=== PATIENT | male | born 1940 | race Caucasian/White ===

== ENCOUNTER 2020-07-03 00:23 | Outpatient (CLI) | payer MEDICARE, OTHER, SELFPAY ==
[2020-07-03 18:29] LABS: SARS-CoV-2 RNA PCR Negative
== END 2020-07-03 00:24 | disposition home or self-care (01) ==
LOC: ANHCOVIDDT 00:23
PROVIDERS: PCP Family Medicine; Visit Provider Internal Medicine Gastroenterology
DX: Z01.812 Encounter for preprocedural laboratory examination (principal); Z20.828 Contact with and (suspected) exposure to other viral communicable diseases
CPT/HCPCS: 87635; C9803; U0003

== ENCOUNTER 2020-07-05 03:52 | Day surgery (SDC) | payer MEDICARE, OTHER, SELFPAY ==
[2020-07-01 12:22] VITALS: BMI 24.5
[2020-07-05 07:51] VITALS: BP 142/60; PULSE 80; RESP 30; TEMP 36.4; O2SAT 98; BMI 22.8
[2020-07-05] MEDS: LACTATED RINGERS 1,000 ML 150 ML IV CONT (08:16)
--- NOTE | 2020-07-05 08:25 | WPDGICN ---
Assessment and Plan Assessment and plan (1) Dyspepsia: Code(s): R10.13 - Epigastric pain Status: Acute Assessment and Plan: Patient complains of indigestion. Epigastric discomfort. He has been maintained on proton pump inhibitor with no improvement symptoms. plan is to continue PPI at antacids. Plan to evaluate further with EGD. Further recommendations may be given after endoscopy. (2) Weight loss: Code(s): R63.4 - Abnormal weight loss Status: Acute Assessment and Plan: Weight loss appears related to his indigestion and subsequent decrease in appetite. Will continue to monitor closely. GI Consult Note Consult date/time: 07/05/20 08:25 HPI: Eloy Duncan is a 79 year old male Seen in evaluation at the request of Dr Joesph Coleman. patient reports 1 month history of indigestion. He has lost perhaps 15 lb. He has no desire to eat. He does have a history of acid reflux has been treated with Nexium. He has continued to take this medication with no specific change in symptoms. He denies any bleeding. Review of Systems Review of Systems: All systems reviewed & are unremarkable except as noted in HPI and below PMFSH Past Medical History Medical History (Updated 07/05/20 @ 08:28 by Leroy Carvalho MD) History of tobacco abuse Quit 2017. Smoked for 50 years. Obstructive sleep apnea Oxygen deficiency Surgical History Surgical History (Updated 12/12/19 @ 10:50 by Crow Cyr PROOFSHEET CORRECTOR) H/O left knee surgery History of prostate surgery Family History Family History (Updated 12/11/19 @ 11:44 by Crow Cyr CMA) Sibling Family history of malignant neoplasm Father Atherosclerosis Social History Social History (Updated 12/12/19 @ 10:48 by Crow Cyr PROOFSHEET CORRECTOR) Smoking packs per day: 0.5 Smoking cigarettes per day: 10.0 Years smoked: 60 Smoking pack-years: 30.00 Smoking status: Former smoker Tobacco type: cigarettes Second hand tobacco smoke exposure: No Smoking end date: 10/18/16 Alcohol intake: current Substance use: never Substance use type: does not use Living arrangements: alone Spiritual care concerns: No Meds Home Medications and Allergies Home Medications Medication Instructions Recorded Confirmed Type alendronate 70 mg tablet 70 mg PO WEEKLY 12/11/19 07/01/20 History aspirin 81 mg tablet,delayed 81 mg PO BID 12/11/19 07/01/20 History release cholecalciferol (vitamin D3) 25 1,000 unit PO DAILY 12/11/19 07/01/20 History mcg (1,000 unit) capsule coenzyme Q10 200 mg capsule 200 mg PO DAILY 12/11/19 07/01/20 History levothyroxine 75 mcg tablet 75 mcg PO DAILY 12/11/19 07/01/20 History mecobalamin (vitamin B12) 1,000 mcg PO 12/11/19 02/14/20 History mcg chewable tablet oxybutynin chloride 10 mg 10 mg PO DAILY 12/11/19 07/01/20 History tablet,extended release 24 hr esomeprazole magnesium 40 mg 40 mg PO DAILY 12/12/19 07/01/20 History capsule,delayed release fluticasone fur. 100 mcg-umeclid 1 inhalation INHALATION DAILY #180 02/14/20 07/01/20 Rx 62.5 mcg-vilant 25 mcg each inhalat.powder guaifenesin [Mucinex] 600 mg PO Q12H 07/01/20 07/01/20 History Allergies Allergy/AdvReac Type Severity Reaction Status Date / Time No Known Allergies Allergy Verified 07/05/20 07:50 Vital Signs Vital Signs - 24 hr 07/05/20 07:51 Temperature 97.6 F Pulse Rate 80 Respiratory Rate 30 H Blood Pressure 142/60 H Pulse Oximetry 98 Exam Narrative: Exam Narrative: Physical exam reveals patient to be alert. Vital signs stable. HEENT exam unremarkable. He is anicteric. Lungs are clear to auscultation and percussion. Heart is without murmur or extra sounds. Abdominal exam bowel sounds are present soft nontender with no organomegaly. No masses are listed. Digital external rectal exam normal.
--- NOTE | 2020-07-05 08:42 | WPDANESEPPF ---
Anes - Initial Pre Proc Eval Procedure: Operation Date: 07/05/20 09:00 Proposed Procedures p Esophagogastroduodenoscopy - Lreoy Carvalho MD Date/Time: 07/05/20 08:42 Surgeon: Leroy Carvalho MD Pre Op Diagnosis: Dyspepsia, Weight Loss Patient Data Age: 79 Gender: M Height: 5 ft 11 in Weight: 74.1 kg Last Vital Signs Temp 97.6 F 07/05/20 07:51 Pulse 80 07/05/20 07:51 Resp 30 H 07/05/20 07:51 BP 142/60 H 07/05/20 07:51 Pulse Ox 98 07/05/20 07:51 Allergies Allergy/AdvReac Type Severity Reaction Status Date / Time No Known Allergies Allergy Verified 07/05/20 07:50 Home Medications Medication Instructions Recorded Confirmed Type alendronate 70 mg tablet 70 mg PO WEEKLY 12/11/19 07/01/20 History aspirin 81 mg tablet,delayed 81 mg PO BID 12/11/19 07/01/20 History release cholecalciferol (vitamin D3) 25 1,000 unit PO DAILY 12/11/19 07/01/20 History mcg (1,000 unit) capsule coenzyme Q10 200 mg capsule 200 mg PO DAILY 12/11/19 07/01/20 History levothyroxine 75 mcg tablet 75 mcg PO DAILY 12/11/19 07/01/20 History mecobalamin (vitamin B12) 1,000 mcg PO 12/11/19 02/14/20 History mcg chewable tablet oxybutynin chloride 10 mg 10 mg PO DAILY 12/11/19 07/01/20 History tablet,extended release 24 hr esomeprazole magnesium 40 mg 40 mg PO DAILY 12/12/19 07/01/20 History capsule,delayed release fluticasone fur. 100 mcg-umeclid 1 inhalation INHALATION DAILY #180 02/14/20 07/01/20 Rx 62.5 mcg-vilant 25 mcg each inhalat.powder guaifenesin [Mucinex] 600 mg PO Q12H 07/01/20 07/01/20 History Patient hx anesthesia problems: none Family hx anesthesia problems: none PMFSH Past Medical History Medical History (Updated 07/05/20 @ 08:28 by Leroy Carvalho MD) History of tobacco abuse Quit 2016. Smoked for 50 years. Obstructive sleep apnea Oxygen deficiency Surgical History Surgical History (Updated 12/12/19 @ 10:50 by Crow Cyr CMA) H/O left knee surgery History of prostate surgery Family History Family History (Updated 12/11/19 @ 11:44 by Crow Cyr CMA) Sibling Family history of malignant neoplasm Father Atherosclerosis Social History Social History (Updated 12/12/19 @ 10:48 by Crow Cyr CMA) Smoking packs per day: 0.5 Smoking cigarettes per day: 10.0 Years smoked: 60 Smoking pack-years: 30.00 Smoking status: Former smoker Tobacco type: cigarettes Second hand tobacco smoke exposure: No Smoking end date: 10/18/16 Alcohol intake: current Substance use: never Substance use type: does not use Living arrangements: alone Spiritual care concerns: No Anes - Eval Final PreProcedure Day of Procedure 07/05/20 08:42 Patient weight: normal Heart: regular rate and rhythm Lungs: clear to auscultation Airway: Mallampati scale class II Neurological: alert and oriented Last oral intake: >/= 8 hours ASA classification: III Emergent: no Anesthetic plan: proceed Anesthesia type and monitoring: general GIVS and standard monitoring Informed Consent: The patient's anesthetic plan and its attendant risks and benefits were discussed with the patient/family/POA. Questions were solicited and answers provided to the satisfaction of the patient/family/POA.
[2020-07-05] MEDS: BENZOCAINE (*SP) 60 ML SPRAY CAN (HURRICAINE) 1 SPRAY MUCOUS MEM (09:02)
[2020-07-05 09:19] VITALS: BP 82/36; PULSE 61; RESP 16; O2SAT 100
[2020-07-05 09:29] VITALS: BP 106/73; PULSE 73; RESP 22; O2SAT 97
[2020-07-05 09:39] VITALS: BP 144/69; PULSE 71; RESP 24; O2SAT 98
== END 2020-07-05 10:06 | disposition home or self-care (01) ==
PROVIDERS: PCP Family Medicine; Visit Provider Internal Medicine Gastroenterology
PROC: 0DJ08ZZ Inspection of Upper Intestinal Tract, Via Natural or Artificial Opening Endoscopic (ICD-10-PCS; CPT 43235; principal; 2020-07-05 09:00)
DX: R10.13 Epigastric pain (principal); R63.4 Abnormal weight loss; K21.0 Gastro-esophageal reflux disease with esophagitis; K31.819 Angiodysplasia of stomach and duodenum without bleeding; G47.33 Obstructive sleep apnea (adult) (pediatric); Z87.891 Personal history of nicotine dependence; Z79.82 Long term (current) use of aspirin
CPT/HCPCS: 43270; J2370; J2704; J7120

== ENCOUNTER 2020-07-23 02:53 | Outpatient (CLI) | payer MEDICARE, OTHER, SELFPAY ==
[2020-07-23 18:16] LABS: SARS-CoV-2 RNA PCR Negative
== END 2020-07-23 02:54 | disposition home or self-care (01) ==
LOC: ANHCOVIDDT 02:54
PROVIDERS: PCP Family Medicine; Visit Provider Internal Medicine Critical Care Medicine
DX: Z01.812 Encounter for preprocedural laboratory examination (principal); Z20.828 Contact with and (suspected) exposure to other viral communicable diseases
CPT/HCPCS: 87635; C9803; U0003

== ENCOUNTER 2020-07-26 08:05 | Outpatient (CLI) | payer MEDICARE, OTHER, SELFPAY ==
--- NOTE | 2020-08-22 06:11 | SLEEP_ITS ---
BIPAP TITRATION DATE OF STUDY: 07/25/2020 ORDERING PROVIDER: Marcelino Thomas APRN. REASON FOR THE STUDY: Obstructive sleep apnea syndrome, not responding to auto PAP, needs a retitration. HISTORY: This patient is an 79-year-old male, 71 inches tall, 166 pounds with a body mass index of 23.1. On 06/15/2019, he had a CPAP titration after a home sleep test on April 27 showed mild sleep apnea with desaturation. The CPAP titration showed no optimal pressure. He had a high elevated limb movement index with a prolonged sleep onset. Returns now for a BiPAP titration. His sleep symptoms include rarely awakening from sleep feeling short of breath, occasionally waking at night with heartburn, belching, or coughing, but frequently waking at night to urinate. He rarely has trouble sleeping with the cold. He denies snoring. He does not wake up gasping for breath at night, does not have breathing problems at night observed by others, does not sweat excessively at night or notice his heart pounding or beating irregularly at night. He occasionally falls asleep during the day never involuntarily or while driving. He does not fall asleep during physical effort. He does not have loss of muscle tone with strong emotion. He does not have daytime difficulties due to excessive sleepiness, he is retired. He does not feel paralyzed on waking or falling asleep and does not have vivid dreamlike scenes upon awakening or falling asleep. He is never afraid to go to sleep. He does not have nightmares. He rarely remembers his dreams and rarely has racing thoughts. He does not feel sad or depressed. He occasionally worries about things, has anxiety. Rarely has muscular tension. He does not notice parts of his body jerking and he does not kick at night. He occasionally has crawly achy feelings in his legs and occasionally has leg pain at night. He does not have morning jaw pain. He does not grind his teeth at night. He rarely is bothered by pain during the day. He occasionally wakes up with sore achy muscles in the morning and feeling stiff. He has dizziness, fatigue, memory problems, insomnia, and takes Tums. He does take naps. A short nap can be refreshing. He is drowsy in the morning for an hour or longer. 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 MEDICATIONS: 1. Mucinex 600 mg once or twice a day. 2. Alendronate 70 mg 1 tablet per week. 3. Cholecalciferol 1000 units. 4. Vitamin D3 once a day. 5. Coenzyme Q 100 mg daily. 6. Vitamin B12 of 1000 mcg daily. 7. Oxybutynin XL 10 mg daily. 8. Esomeprazole 40 mg a day. 9. PreserVision AREDS 1 daily. 10. Levothyroxine replacement 75 mcg daily. 11. Trelegy Ellipta 100/62.5/25 mcg, 1 puff daily. 12. Aspirin 81 mg 2 daily. HABITS: Previously smoked 24 years ago. Caffeine, he drinks ice tea daily. Alcohol, 1 or 2 per day. DESCRIPTION OF THE STUDY: This study was conducted as a full night BiPAP titration using the [employer] Multiple Channel System including EOG, EEG, submental EMG, EKG, nasal and oral airflow using thermistors and nasal pressure sensors, chest and abdominal belts, body position data and pulse oximetry. This study was scored using [facility] guidelines. The neck circumference is 16 inches. The Pierson Sleepiness Scale score is 3. The duration of the study is 491.7 minutes. Sleep time is 228 minutes. Sleep efficiency was low at 46.4%. Sleep latency was short at 5 minutes. REM latency was prolonged at 380 minutes. There were 29 awakenings. The patient spent 53.2% of the study awake after sleep onset, 258.8 minutes. Sleep archi
== END 2020-07-26 23:59 | disposition home or self-care (01) ==
LOC: ANHCSM 08-08 08:05
PROVIDERS: Visit Provider Nurse Practitioner Family
DX: G47.33 Obstructive sleep apnea (adult) (pediatric) (principal)
CPT/HCPCS: 95811

== ENCOUNTER → 2020-08-05 11:27 | Outpatient (CLI) | payer MEDICARE, OTHER, SELFPAY ==
--- NOTE | ~2020-08-05 | CT_ITS ---
EXAMINATION: CT sinus wo con DATE: 08/05/2020 11:43 INDICATION: Sinusitis. TECHNIQUE: Computed tomography (CT) of the paranasal sinuses was performed without intravenous contra st. The dose-length product was 271.16 mGy-cm. Iterative reconstruction technique was employed. COMPARISON: CT dated 07/15/2018 FINDINGS: Paranasal sinuses are pneumatized. No significant mucosal thickening, mucoperiosteal reacti on or fluid. Ostiomeatal units are patent. Leftward nasal septal deviation. Mastoids are pneumatized. IMPRESSION: 1. No significant sinus disease. Reviewed, dictated and finalized at location B.
== END ==
PROVIDERS: Visit Provider Family Medicine
DX: J01.90 Acute sinusitis, unspecified (principal)
CPT/HCPCS: 70486

== ENCOUNTER → 2020-10-29 10:19 | Outpatient (CLI) | payer MEDICARE, OTHER, SELFPAY ==
--- NOTE | ~2020-10-29 | DEXA_ITS ---
Bone Density Report Name: Eloy Duncan Age: 79 Sex: Male Ethnicity: White Date of : 1940 Indication: osteopenia; monitoring treatment; postmenopausal Referring Provider: Joesph Rosas Study: Bone densitometry was performed. Exam Date: October 29, 2020 Accession number: [id number] Bone Density: Region BMD T-score Z-score Classification AP Spine (L1-L4) 1.122 0.3 1.5 Normal Femoral Neck (Left) 0.695 -1.7 -0.2 Osteopenia Total Hip (Left) 0.888 -1.0 0.1 Normal Femoral Neck (Right) 0.696 -1.7 -0.2 Osteopenia Total Hip (Right) 0.910 -0.8 0.3 Normal Total Hip Mean 0.899 -0.9 0.2 Normal World Health Organization criteria for BMD impression classify patients as: Normal (T-score at or above -1.0), Osteopenia (T-score between -1.0 and -2.5), or Osteoporosis (T-score at or below -2.5). 10-year Fracture Risk: FRAX not reported because: Treated for osteoporosis Previous Exams: Region Exam Age BMD T-score BMD Change BMD Change Date g/cm2 vs Baseline vs Previous AP Spine(L1-L4) 10/29/2020 79 1.122 0.3 0.137* 0.137* 08/26/2012 71 0.984 -1.0 Total Hip(Left) 10/29/2020 79 0.888 -1.0 0.022 0.022 08/26/2012 71 0.866 -1.1 Total Hip(Right) 10/29/2020 79 0.910 -0.8 0.044* 0.044* 08/26/2012 71 0.866 -1.1 *Denotes significance at 95% confidence level, LSC for AP Spine = 0.022 g/cm2, LSC for Total Hip = 0.027 g/cm2 Clinical Information Provided by Patient: Has 3 or more alcoholic drinks per day Is being treated for osteoporosis Has used the following medications: Fosamax (i.e. alendronate), Vitamin D Patient maximum height was 71 No regular weight bearing exercise Drinks caffeinated beverages Impression: The patient has low bone mass, based on the Left Femoral Neck T-score. The patient has risk factors, including: excessive alcohol use. No significant bone loss was observed. Discussion: PATIENT UNDER TREATMENT WITH NO SIGNIFICANT BMD LOSS SINCE LAST EXAM. In an untreated patient, BMD typically declines with age. A lack of decline or gain is usually a sign that treatment is efficacious and fracture risk is reduced. It is important to ask patients whether they are taking their medications and to encourage continued and appropriate compliance with their osteoporosis therapies to reduce fracture risk. It is also important to review their risk factors and encourage appropriate calc
== END ==
PROVIDERS: PCP Internal Medicine; Visit Provider Family Medicine
DX: M85.851 Other specified disorders of bone density and structure, right thigh (principal); M85.852 Other specified disorders of bone density and structure, left thigh
CPT/HCPCS: 77080

== ENCOUNTER 2020-11-07 15:14 | Inpatient (IN) | payer MEDICARE, OTHER, SELFPAY ==
[2020-11-07] VITALS (10 sets, daily range): BP systolic 91–129; BP diastolic 44–100; PULSE 64–98; RESP 16–30; TEMP 36.3–36.4; O2SAT 90–100
--- NOTE | ~2020-11-07 | XR_ITS ---
EXAMINATION: XR chest 2V DATE: 11/07/2020 16:00 INDICATION: Shortness of breath. Tachypnea. TECHNIQUE: frontal and lateral views of the chest were obtained. COMPARISON: Chest radiograph cervical spine CT dated 07/15/2018 FINDINGS: Increased lucency and architectural distortion in the bilateral upper lung zones consistent with jenaro re emphysema better appreciated on the prior CT. Increased interstitial pattern at the bilateral lowe r lung zones with peripheral Ana Maria B-lines posteriorly most consistent with mild pulmonary edema. Mo re focal region of thin linear opacities at the lateral right midlung zone most likely related to ate lectasis/scarring. No pleural effusion or pneumothorax. Cardiomediastinal silhouette is within normal limits for AP technique. Age-indeterminate lower thoracic compression fracture, possibly T12. IMPRESSION: 1. Increased interstitial pattern and curly B lines in the bilateral lower lung zones most consistent with mild pulmonary edema although superimposed pneumonia not excludable. 2. Emphysema. Reviewed, dictated and finalized at location A. OR PRODUCT DEVELOPMENT ENGINEER IMPRESSION: 1. Increased interstitial pattern and curly B lines in the bilateral lower lung zones most consistent with mild pulmonary edema although superimposed pneumoni a not excludable. 2. Emphysema.
--- NOTE | ~2020-11-07 | XR_ITS ---
EXAMINATION: XR chest 1V portable EXAM DATE: 11/12/2020 06:24 INDICATION: COVID. TECHNIQUE: Portable AP frontal chest x-ray was obtained. Comparison is made to prior examination from 11/07/2020. FINDINGS: Cardiac monitoring device. Development of moderate to large bilateral abnormal reticulation with regions of confluence, which could be infection or edema. There is no pneumothorax suspected. T here are no pleural effusions. Cardiomediastinal silhouette is normal. Cardiac monitoring device. The re are bony degenerative changes. IMPRESSION: Developing of moderate to large amount of bilateral acute airspace disease. Reviewed, dictated and finalized at location A. OVEN PATCHER
--- NOTE | ~2020-11-07 | CT_ITS ---
EXAMINATION: CT brain wo con DATE: 11/11/2020 17:17 INDICATION: Change in mental status TECHNIQUE: Computed tomography (CT) of the head was performed without intravenous contrast. The mA wa s adjusted according to patient size. Iterative reconstruction technique was employed. Exam dose: 68 1.00 mGy-cm total exam DLP. COMPARISON: 07/15/2018 CT brain FINDINGS: Chronic posterior left greater than right cerebellar hemispheric infarcts. There is a small focal infarct high over the right parietal convexity. Common and bilateral carotid siphon and supraclinoid internal carotid artery calcifications. There is nonspecific diminished attenuation of the subcortical and periventricular cerebral white mat ter, likely due to chronic small vessel ischemic changes. No intracranial mass lesion or hemorrhage or recent cerebrovascular accident is evident. There is no midline shift or mass effect. There is cerebellar and cerebral volume loss. No subdural or epidural h ematoma. Right scleral band Incidentally noted is a nasogastric tube. No fracture or bone destruction of the cranial vault. The mastoid air cells and paranasal sinuses are unremarkable. 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 Reviewed, dictated and finalized at location A. RANCE REPRESENTATIVE IMPRESSION: Chronic small right parietal convexity infarct and probable bilate ral cerebellar hemispheric infarcts Cerebral atherosclerosis and chronic small vessel ischemic changes Cerebral and cerebellar atrophy No acute intracranial finding is noted
--- NOTE | ~2020-11-07 | XR_ITS ---
XR abdomen NG/feed tube insert DATE: 11/11/2020 17:54 INDICATION: NG tube placement TECHNIQUE: Portable AP views on 11/11/2020 at 1737 1738 hours COMPARISON: 11/11/2020 at 1711 hours FINDINGS: NG tube is in the lower thorax approximately 5 cm proximal to the diaphragmatic hiatus. IMPRESSION: NG tube in the lower chest in the lower esophagus (or possibly hiatal hernia if present); advancement is recommended. Reviewed, dictated and finalized at Location A. Reviewed, dictated and finalized at location A. TICE MANAGEMENT CONSULTANT IMPRESSION: NG tube in the lower chest in the lower esophagus (or possibly hiat al hernia if present); advancement is recommended.
--- NOTE | ~2020-11-07 | CT_ITS ---
EXAMINATION: CTA chest PE protocol DATE: 11/07/2020 18:30 INDICATION: Shortness of breath and hypoxia TECHNIQUE: Computed tomography angiography (CTA) of the chest was performed with 100 mL Omnipaque-350 intravenous contrast timed to evaluate the pulmonary arteries. Coronal maximum intensity projection 3D-reconstructions were created by the technologist. The dose-length product (DLP) was 781.19 mGy-cm. Automated exposure control and iterative reconstruction technique were employed. COMPARISON: None. FINDINGS: The pulmonary arteries are moderately well-opacified. No pulmonary embolism is identified. There is a 1.7 x 1.3 cm spiculated nodule of the right lower lobe. There is right hilar, subcarinal, right paratracheal, and aorticopulmonary window lymphadenopathy. There is severe emphysema. Reticular and groundglass opacities with honeycombing are present in the lower lobes, left significantly great er than right. There is no pleural effusion or pneumothorax. The heart size is normal. Calcified moreno nary artery atherosclerosis is noted. There is an age-indeterminate compression fracture of T12. Arlen re thoracic spondylosis is noted at T6-7. There is also severe lower cervical spondylosis. IMPRESSION: 1. Spiculated nodule of the right lower lobe consistent with primary bronchogenic carcinoma. 2. Right hilar and mediastinal lymphadenopathy, consistent with metastatic disease. 3. Severe emphysema. 4. Chronic interstitial lung disease in a pattern of usual interstitial pneumonia. 5. No pulmonary embolism identified. Reviewed, dictated and finalized at location A. [facility] IMPRESSION: 1. Spiculated nodule of the right lower lobe consistent with primary bronchogen ic carcinoma. 2. Right hilar and mediastinal lymphadenopathy, consistent with metastatic dise ase. 3. Severe emphysema. 4. Chronic interstitial lung disease in a pattern of usual interstitial pneumon ia. 5. No pulmonary embolism identified.
--- NOTE | ~2020-11-07 | XR_ITS ---
XR chest 1V portable DATE: 11/19/2020 05:44 INDICATION: Covid pneumonia TECHNIQUE: Portable AP chest on November 19, 2020 at 0537 hours COMPARISON: 11/12/2020 portable AP chest at 0609 hours 11/07/[address] pulmonary scan 07/15/2018 AP chest FINDINGS: Spiculated approximately 1.7 cm mass is again noted in the right lower lobe. Emphysematous changes of usual interstitial pneumonia are noted. There is a biconvex approximately 12 x 25 mm opacity overlying the right midlung, which may be artifa ct or possibly fluid in a fissure (pseudotumor). Increased prominence of the interstitium and increased prominence of Ana Maria B-lines of the lungs sinc e 11/07/2020 may represent interstitial edema or interstitial pneumonitis. Heart size appears within normal range. Aortic calcification. youth nutritional monitor device overlies the low er left chest. Diffuse osteopenia. Bilateral rotator cuff atrophy. Degenerative change at the acromioclavicular join ts. IMPRESSION: Probable pulmonary interstitial edema superimposed upon severe emphysema and usual inters titial pneumonia Reviewed, dictated and finalized at location A. ATIONAL PSYCHOLOGY TEACHER IMPRESSION: Probable pulmonary interstitial edema superimposed upon severe emph ysema and usual interstitial pneumonia
--- NOTE | ~2020-11-07 | XR_ITS ---
XR abdomen NG/feed tube rechec DATE: 11/11/2020 18:50 INDICATION: NG tube adjustment TECHNIQUE: Portable supine AP view on 11/11/2020 at 1848 hours COMPARISON: Serial 11/11/2020 portable AP views FINDINGS: The NG tube extending proximally 8 cm beyond the diaphragmatic hiatus into the proximal sto mach. IMPRESSION: NG tube in proximal stomach Reviewed, dictated and finalized at Location A. Reviewed, dictated and finalized at location A. IS INTERVENTION SPECIALIST IMPRESSION: NG tube in proximal stomach
--- NOTE | ~2020-11-07 | XR_ITS ---
XR abdomen NG/feed tube insert DATE: 11/11/2020 17:17 INDICATION: NG tube placement TECHNIQUE: Portable AP view on 11/11/2020 at 1716 hours COMPARISON: None FINDINGS: An NG tube is present in the right lower lobe. Dr. Leslie telephoned the report to 3rd floor Med/Surg Nurse IMPRESSION: NG tube in right lower lobe; this needs to be withdrawn and re-inserted into the esophagu s and stomach Reviewed, dictated and finalized at Location A. Reviewed, dictated and finalized at location A. HANDISING INTERN IMPRESSION: NG tube in right lower lobe; this needs to be withdrawn and re-inse rted into the esophagus and stomach
--- NOTE | ~2020-11-07 | XR_ITS ---
XR abdomen NG/feed tube rechec DATE: 11/11/2020 17:54 INDICATION: NG tube readjustment TECHNIQUE: Portable AP view on 11/11/2020 at 1747 hours COMPARISON: None FINDINGS: NG tube overlies the very lower mid chest several centimeters proximal to the diaphragmatic hiatus. Advancement is recommended. IMPRESSION: NG tube overlying the lower mid chest; advancement is recommended Dr. Leslie notified the nursing unit on 11/11/2020 at 1820 hours Reviewed, dictated and finalized at Location A. Reviewed, dictated and finalized at location A. N MAKER HAND
--- NOTE | ~2020-11-07 | US_ITS ---
EXAMINATION: US venous doppler [facility] EXAM DATE: 11/08/2020 11:19 INDICATION: cancer, elevated d-dimer. TECHNIQUE: Multiple grayscale, color flow and Doppler images of the lower extremity deep venous syste ms bilaterally were obtained and reviewed. There is no prior study for comparison. FINDINGS: Right side: The right common femoral, femoral and profunda veins demonstrate normal color flow, respi ratory variation, augmentation and compressibility. Compressibility, color flow confirmed within the right popliteal, posterior tibial, peroneal, and greater saphenous veins. Left side: The left common femoral, femoral and profunda veins demonstrate normal color flow, respira tory variation, augmentation and compressibility. Compressibility, color flow confirmed within the l eft popliteal, posterior tibial, peroneal, and greater saphenous veins. IMPRESSION: 1. No lower extremity deep venous thrombosis bilaterally. Reviewed, dictated and finalized at location A. GER PROCUREMENT
--- NOTE | 2020-11-07 15:22 | ECG_ITS ---
Measurements Intervals [place] Rate: 94 P: 63 DC: 178 QRS: 58 QRSD: 106 T: 61 QT: 364 QTc: 457 Interpretive Statements SINUS RHYTHM BASELINE ARTIFACT- I, II, III, AVR, AVL, AVF NORMAL ECG Electronically Signed On 11-07-2020 15:56:28 SERVICE DOG TRAINER by Tien Culp D.O.
[2020-11-07 15:36] LABS: Basophils Percent Auto 0.2 % (0.2-1.2); Eosinophils Percent Auto 0.2 % (0-4.4); Hematocrit 39.4 % (42.0-52.0); Hemoglobin 13.3 g/dL (14.0-18.0); Immature Granulocyte Absolute 0.03 K/mm3 (0.00-0.031); Immature Granulocyte Percent A 0.5 % (0-0.5); Lymphocytes Absolute Auto 0.75 K/mm3 (0.9-3.2); Lymphocytes Percent Auto 13.7 % (18.3-44.2); Mean Corpuscular HGB Conc 33.8 g/dl (32-36); Mean Corpuscular Hemoglobin 32.1 pg (26-34); Mean Corpuscular Volume 95.2 fl (80-100); Mean Platelet Volume 9.1 fl (7.4-10.4); Monocytes Absolute Auto 0.4 K/mm3 (0.1-0.6); Monocytes Percent Auto 7.3 % (2.6-8.5); Neutrophils Absolute Auto 4.3 K/mm3 (1.3-6.7); Neutrophils Percent Auto 78.1 % (45.5-73.1); Platelet Count Result 179 k/mm3 (150-375); Red Blood Count 4.14 M/mm3 (4.6-6.20); Red Cell Distribution Width 14.7 % (11.5-14.5); White Blood Count 5.5 K/mm3 (4.5-10.0)
[2020-11-07 15:48] LABS: Anion Gap 9 mmol/L (8-16); Blood Urea Nitrogen 35 mg/dL (9-20); Calcium 8.1 mg/dL (8.4-10.2); Carbon Dioxide 21 mmol/L (22-30); Chloride 94 mmol/L (98-107); Estimated CRCL calculation 47 ml/min; Estimated Glomerular Filt Rate 58; Glucose 136 mg/dL (75-110); Potassium 3.8 mmol/L (3.4-5.0); Sodium 124 mmol/L (137-145)
[2020-11-07 15:51] LABS: Lactic Acid Reflex 4.5 mmol/L (0.7-2.1)
[2020-11-07 16:30] LABS: Alveolar/Arterial O2 Gradient 102.2 mmHg; Base Excess ABG -5.3 mEq/l (+/-2.0); Carboxyhemoglobin 0.3 % THb (0-2.0); Fractional Inspired Oxygen 28 %; HCO3 ABG 16.5 mEq/l (22.0-26.0); Methemoglobin ABG 0.3 %THb (0-1.5); Oxygen Content ABG 18.2 %vol (16.0-22.0); Oxygen Saturation ABG 95.3 % (95.0-100.0); Oxyhemoglobin 93.6 % THb (90.0-100.0); PO2 ABG 69.8 mmHg (80.0-100.0); PO2 FiO2 Ratio Arterial Blood 2.49 %; Reduced Hemoglobin 5.8 %THb (0-5.0); Total Hemoglobin 13.8 g/dL (12.0-18.0); pH ABG 7.465 (7.350-7.450)
[2020-11-07 16:33] LABS: Device NASAL CANNULA; PCO2 ABG 23.4 mmHg (35.0-45.0); Site Drawn RIGHT BRACHIAL
[2020-11-07] MEDS: SODIUM CHLORIDE 0.9% IV 1,000 ML 999 ML IV CONT ×2 (16:52→20:46)
--- NOTE | 2020-11-07 16:58 | ED.SOB ---
HPI - SOB/Dyspnea General Chief Complaint: Shortness of Breath/Dyspnea Stated Complaint: SOB Time Seen by Provider: 11/07/20 16:06 Source: patient Mode of arrival: ambulatory Limitations: other (poor historian) History of Present Illness HPI Narrative: This patient is an 79 year old male with history of hypothyroid and COPD who presents from home for evaluation of dehydration. He states he has not felt like eat or drinking for the past week. He states he has been forcing himself to drink water . He states he developed lightheadedness. He denies sore throat, fever, chills, cough, chest pain, diarrhea or abdominal pain. He was noticed to be tachypneic with oxygen saturation 90% at triage. He reports that he has felt short of breath today. Related Data Home Medications Medication Instructions Recorded Confirmed aspirin 81 mg tablet,delayed 81 mg PO BID 12/11/19 11/08/20 release cholecalciferol (vitamin D3) 25 1,000 unit PO DAILY 12/11/19 11/08/20 mcg (1,000 unit) capsule coenzyme Q10 200 mg capsule 200 mg PO DAILY 12/11/19 11/08/20 levothyroxine 75 mcg tablet 75 mcg PO DAILY 12/11/19 11/08/20 mecobalamin (vitamin B12) 1,000 1,000 mcg PO DAILY 12/11/19 11/08/20 mcg chewable tablet esomeprazole magnesium 40 mg 40 mg PO DAILY 12/12/19 11/08/20 capsule,delayed release guaifenesin [Mucinex] 600 mg PO Q12H 07/01/20 11/08/20 vit A,C,[id number] 1 tablet PO BID 11/08/20 11/08/20 [Eye-Maximilian Extra + Lutein] Allergies Allergy/AdvReac Type Severity Reaction Status Date / Time No Known Allergies Allergy Verified 10/23/20 11:17 Review of Systems Review of Systems: All systems reviewed & are unremarkable except as noted in HPI and below Constitutional: Constitutional: Denies chills and Reports fatigue Cardiovascular: Cardiovascular: Denies chest pain Respiratory: Respiratory: Denies cough and Reports dyspnea Gastrointestinal: Gastrointestinal: Denies abdominal pain, Reports nausea and Denies vomiting PMFSH Past Medical History Medical History History of tobacco abuse Quit 2017. Smoked for 50 years. Obstructive sleep apnea Oxygen deficiency Surgical History Surgical History H/O left knee surgery History of prostate surgery Family History Family History Sibling Family history of malignant neoplasm Father Atherosclerosis Social History Social History (Reviewed 10/23/20 @ 11:18 by Sada Durant [facility]) Smoking packs per day: 1 Smoking cigarettes per day: 20.0 Years smoked: 60 Smoking pack-years: 60.00 Smoking status: Former smoker Tobacco type: cigarettes Second hand tobacco smoke exposure: No Smoking end date: 10/18/16 Alcohol intake: current Substance use: never Substance use type: does not use Gender identity (if verbalized by the patient): Male Spiritual care concerns: No Exam Const: General: alert and ill appearing Nutritional Appearance: thin Orientation/consciousness: patient oriented x3 HENMT: Face and sinus: face symmetric Mouth: Yes dry mucous membranes Throat: tonsils normal and uvula midline Eyes: EOM: EOMs intact bilaterally Resp: Effort & Inspection: labored, no retractions, tachypneic and no use of accessory muscles Auscultation: clear to auscultation bilaterally GI: GI Palp: Yes Soft to palpation, No Tenderness to palpation present (GI) and No Guarding due to palpation present (GI) Auscultation: normal bowel sounds Skin: Rashes: no rashes Neuro: General: patient oriented x3 and moves all extremities Extrem: General: no pedal edema Course Reevaluation(s) Reevaluation #1: I discussed with patient and family that he will be admitted for COPD and a lung mass. They deny any questions or concerns. Date: 11/07/20 Time: 19:00 Consult
[2020-11-07] MEDS: ALBUTEROL SULFATE (*SP) AEROSOL 1 PUFF 6 PUFF INHALATION ×2 (17:01→20:02)
[2020-11-07 17:12] LABS: Alanine Aminotransferase 22 U/L (4-50); Albumin Level 3.2 g/dL (3.5-5.1); Alkaline Phosphatase 69 U/L (38-126); Aspartate Amino Transferase 48 U/L (17-59); Bilirubin,Total 0.9 mg/dL (0.2-1.3)
[2020-11-07 17:13] LABS: INR 1.1; Prothrombin Time 14.5 Seconds (11.1-14.7)
[2020-11-07 17:14] LABS: Partial Thromboplastin Time 29.8 SECONDS (22.3-36.8)
[2020-11-07 17:16] LABS: D Dimer 3.26 ug/mL (<0.48)
[2020-11-07 17:20] LABS: NT Pro B Type Natriuretic Pept 1010 PG/ML (5-100); Troponin I < 0.012 ng/mL (0.000-0.034)
[2020-11-07 18:12] LABS: Add Urine Microscopic? YES; Appearance Urine Clear (Clear); Bilirubin Urine Negative (Negative); Blood Urine 1+ (Negative); Color Urine Yellow (Yellow); Glucose Urine UA Negative (Negative); Ketones Urine Trace mg/dL (Negative); Leukocyte Esterase Ur Negative LEU/UL (Negative); Mucus Urine Rare /lpf; Nitrate Urine Negative (Negative); Protein Urine 2+ mg/dL (Negative); RBC Urine 0-2 /hpf (0-2); Specific Grav Ur 1.024 (1.001-1.035); Squamous Epithelial Cell Urine Rare /hpf (Few); WBC Urine 0-3 /hpf
[2020-11-07 18:33] LABS: Reflex Lactic Acid Yes or No Add Lactic
[2020-11-07 18:59] LABS: Lactic Acid 1.7 mmol/L (0.7-2.1)
[2020-11-07] MEDS: DEXAMETHASONE SOD PHOS INJ 4 MG/ML VIAL 6 MG IV PUSH (19:37)
[2020-11-08] VITALS (12 sets, daily range): BP systolic 103–141; BP diastolic 64–70; PULSE 70–100; RESP 18–24; TEMP 36.2–36.7; O2SAT 91–94; BMI 24.5
[2020-11-08] MEDS: SODIUM CHLORIDE 0.9% IV 1,000 ML 125 ML IV CONT ×2 (00:13→10:48)
--- NOTE | 2020-11-08 00:28 | PC.NURSE ---
This patient, Eloy Duncan, was admitted to [facility] Surg Room 300-01. Patient/family oriented to hospital policies and general routines including ID bracelet, bed and alarms, visiting hours, pain management, procedures, bathroom and other care routines, personal items, smoking policy, room service/diet, and visiting hours. Information on how to activate the Rapid Response Team has been discussed. Patient/Family are encouraged to report perceived risks to care and to ask questions if they do not understand what they are told or what they should do.
--- NOTE | 2020-11-08 01:59 | PM.IMHP ---
H&P: HPI History of Present Illness Date/Time: 11/08/20 03:30 Chief Complaint: Dehydration Narrative: Eloy Duncan is a 79 year old male with a past medical history of severe COPD, obstructive sleep apnea, and diastolic congestive heart failure who presented to the ER from home for evaluation of dehydration. The patient reports that he has not felt well for about a week. He has not had a desire to eat or drink anything. He has been forcing himself to drink small amounts of water. He reports that on the he went to his granddaughter's birthday green party. When he returned home that evening he was so tired that he fell asleep in stayed in bed until mid day on the . He has become lightheaded and progressively more weak. He does have a cough but he does not think his cough is any worse than usual. He denies any increased shortness of breath from baseline. However he was notably short of breath at the time of my evaluation and had some pursed lip breathing and mild tachypnea with conversation. He has chronic sputum production that is usually white to yellow in coloration. He has not had any fevers or chills and denies any recent ill contacts or known COVID-19 exposure. He has not been having any chest pain or lower extremity swelling. He has not had any sore throat but has been having some rhinorrhea. The patient was noted to be with respiratory rate of around 30 with sats of 90%. He reports that he was short of breath at baseline and does not feel any more short of breath than usual. The patient currently is only a fair historian. History was difficult to obtain due to the patient is hearing loss with the addition of staff wearing masks. Review of Systems Review of Systems: Narrative: 12 systems were reviewed with pertinent positives and negatives per HPI. Except as documented in the HPI, all other systems were reviewed and are negative. [facility] Past Medical History Medical History (Updated 11/08/20 @ 06:00 by Tia Gil DO) Diastolic dysfunction Echocardiogram November 2018: Impaired diastolic relaxation grade 1, ejection fraction 60%, mild left atrial enlargement, mild tricuspid regurgitation Duodenal arteriovenous malformation Essential hypertension Gastric AVM History of tobacco abuse Quit 2016. Smoked for 50 years. Left rotator cuff tear Macular degeneration Obstructive sleep apnea 06/15/2019 without optimal pressure. Bilevel titration 07/26/2020 which demonstrated poor sleep efficiency but sufficient pressure settings of 9/5 started September 2020 Osteopenia Noted on DEXA scan October 2020 Reflux esophagitis Severe chronic obstructive pulmonary disease PFTs 12/07/2018: FEV1 48% with airflow obstruction, TLC 165% with air trapping and DLCO of 81% Surgical History Surgical History (Updated 11/08/20 @ 02:12 by Tia Gil DO) H/O left knee surgery History of bilateral cataract extraction History of carpal tunnel release History of esophagogastroduodenoscopy (EGD) June 2020 demonstrated reflux esophagitis and duodenal and gastric AVMs History of prostatectomy 1992 due to prostate cancer History of vasectomy Hx of tonsillectomy Family History Family History Sibling Stomach cancer Brother Father Atherosclerosis Heart disease Social History Social History (Updated 11/08/20 @ 02:16 by Tia Gil DO) Social History: He smoked 1-2 packs per day for 60 years but quit smoking in 2017. Primary care physician: Dr. Chacorta Perry Surrogate decision maker: Ivon (daughter) Smoking packs per day: 1 Smoking cigarettes per day: 20.0 Years smoked: 60 Smoking pack-years: 60.00 Smoking status: Former smoker Tobacco type: cigarettes Second hand tobacco smoke exposure: No Smoking end date: 10/18/16 Alcohol intake: current Substance use: never Substance use type: does not use Gender i
[2020-11-08 02:47] LABS: Anion Gap 6 mmol/L (8-16); Blood Urea Nitrogen 29 mg/dL (9-20); Calcium 7.3 mg/dL (8.4-10.2); Carbon Dioxide 21 mmol/L (22-30); Chloride 100 mmol/L (98-107); Estimated CRCL calculation 55 ml/min; Estimated Glomerular Filt Rate > 60; Glucose 150 mg/dL (75-110); Sodium 127 mmol/L (137-145)
[2020-11-08] MEDS: methylPREDNISolone SOD SUCC 125 MG VIAL 60 MG IV PUSH ×3 (06:53→17:12)
[2020-11-08] MEDS: LEVOTHYROXINE SODIUM 75 MCG TABLET PO (06:53)
[2020-11-08] MEDS: PANTOPRAZOLE 40 MG TABLET PO (08:26)
[2020-11-08] MEDS: CYANOCOBALAMIN 1,000 MCG TABLET 1000 MCG PO (08:26)
[2020-11-08] MEDS: CHOLECALCIFEROL 1,000 UNITS TABLET 1000 UNITS PO (08:26)
[2020-11-08] MEDS: guaiFENesin 12 HR 600 MG TABCR PO ×2 (08:27→20:41)
[2020-11-08] MEDS: ALBUTEROL SULFATE (*SP) AEROSOL 1 PUFF 6 PUFF INHALATION ×4 (08:29→20:41)
[2020-11-08 08:34] LABS: Sodium 127 mmol/L (137-145)
[2020-11-08 12:35] LABS: Sodium 127 mmol/L (137-145)
--- NOTE | 2020-11-08 12:41 | PM.CNPUL ---
History of Present Illness History of Present Illness Consult date: 11/08/20 Requesting physician: Tia Gil DO Reason for consult: lung mass Chief complaint: COPD with hypoxia, Right lung mass, dehydration, Narrative: new patient consult for right lung mass. Patient is an 79-year-old man followed in the [facility]monary [facility] for COPD and obstructive sleep apnea. Patient's last PFT on December 07, 2018 demonstrated an pre bronchodilator FEV1 of 1.33 L, 48% predicted. An FEV1: FVC ratio 53% a total lung capacity of 10.9 L, 165 functional residual capacity 9.28 L 235% predicted and residual volume of 8.41, 304% predicted. A diffusing capacity corrected for alveolar volume at 79%. Room air blood gas at test at that time was 7.43/34/78. Patient was last seen on October 23, 2020 he has been been prescribed home oxygen but rarely uses it. At that time he denied chest pain fever wheezing and has been maintained on trelegy. Patient has obstructive sleep apnea and failed a CPAP titration. Patient was placed on BiPAP 9 over 5 and at that setting his apnea-hypopnea index was 2. PMFSH Past Medical History Medical History (Updated 11/08/20 @ 06:00 by Tia Gil DO) Diastolic dysfunction Echocardiogram November 2018: Impaired diastolic relaxation grade 1, ejection fraction 60%, mild left atrial enlargement, mild tricuspid regurgitation Duodenal arteriovenous malformation Essential hypertension Gastric AVM History of tobacco abuse Quit 2016. Smoked for 50 years. Left rotator cuff tear Macular degeneration Obstructive sleep apnea 06/15/2019 without optimal pressure. Bilevel titration 07/26/2020 which demonstrated poor sleep efficiency but sufficient pressure settings of 9/5 started September 2020 Osteopenia Noted on DEXA scan October 2020 Reflux esophagitis Severe chronic obstructive pulmonary disease PFTs 12/07/2018: FEV1 48% with airflow obstruction, TLC 165% with air trapping and DLCO of 81% Surgical History Surgical History (Updated 11/08/20 @ 02:12 by Tia Gil DO) H/O left knee surgery History of bilateral cataract extraction History of carpal tunnel release History of esophagogastroduodenoscopy (EGD) June 2020 demonstrated reflux esophagitis and duodenal and gastric AVMs History of prostatectomy 1992 due to prostate cancer History of vasectomy Hx of tonsillectomy Family History Family History Sibling Stomach cancer Brother Father Atherosclerosis Heart disease Social History Social History (Updated 11/08/20 @ 02:16 by Tia iGl DO) Social History: He smoked 1-2 packs per day for 60 years but quit smoking in 2017. Primary care physician: Dr. Chacorta Perry Surrogate decision maker: Ivon (daughter) Smoking packs per day: 1 Smoking cigarettes per day: 20.0 Years smoked: 60 Smoking pack-years: 60.00 Smoking status: Former smoker Tobacco type: cigarettes Second hand tobacco smoke exposure: No Smoking end date: 10/18/16 Alcohol intake: current Substance use: never Substance use type: does not use Gender identity (if verbalized by the patient): Male Spiritual care concerns: No Meds Home Medications and Allergies Home Medications Medication Instructions Recorded Confirmed Type aspirin 81 mg tablet,delayed 81 mg PO BID 12/11/19 11/08/20 History release cholecalciferol (vitamin D3) 25 1,000 unit PO DAILY 12/11/19 11/08/20 History mcg (1,000 unit) capsule coenzyme Q10 200 mg capsule 200 mg PO DAILY 12/11/19 11/08/20 History levothyroxine 75 mcg tablet 75 mcg PO DAILY 12/11/19 11/08/20 History mecobalamin (vitamin B12) 1,000 1,000 mcg PO DAILY 12/11/19 11/08/20 History mcg chewable tablet esomeprazole magnesium 40 mg 40 mg PO DAILY 12/12/19 11/08/20 History capsule,delayed release guaifenesin [Mucinex] 600 mg PO Q12H 07/01/20 11/08/20 History fluticasone f
[2020-11-08] MEDS: FLUTICASONE/UMECLIDIN/VILANTER 100-62.5-25 MCG ELLIPTA 1 PUFF INHALATION (13:52)
--- NOTE | 2020-11-08 14:19 | PM.CNPUL ---
Assessment and Plan Assessment and plan (1) Lung mass: Onset Date: 11/07/20 Code(s): R91.8 - Other nonspecific abnormal finding of lung field Status: Acute Assessment and Plan: Patient is a former tobacco user at 1.5 packs per day for 60 years) 90 pack years ) he has and now presents with a 1.7 x 1.3 spiculated nodule in the right lower lobe with right hilar subcarinal and right paratracheal lymphadenopathy. Patient also has hyponatremia. Current chest x-ray on 11/06/20 as well as the most recent x-ray in our system from 11/20/2016 do not show this lesion. I suspect this is primary bronchogenic carcinoma and I discussed this with the patient and he would like to determine if this is cancer and here about treatment options. Once patient is more stable from his respiratory viewpoint will consider CT-guided biopsy or bronchoscopy. (2) Obstructive sleep apnea: Onset Date: 2018 Code(s): G47.33 - Obstructive sleep apnea (adult) (pediatric) Status: Acute Assessment and Plan: Patient has obstructive sleep apnea in a CPAP titration on 06/15/2019 showed no optimal pressure. Patient had a bilevel titration on 07/26/2020 showed that a pressure of 9/5 produced an apnea-hypopnea index of 2. I will continue BiPAP 9/5 in the hospital. (3) COPD (chronic obstructive pulmonary disease): Onset Date: 2018 Code(s): J44.9 - Chronic obstructive pulmonary disease, unspecified Status: Acute Assessment and Plan: Patient with heavy tobacco use, PFTs on 12/07/2018 with an FEV1 of 48% predicted, severe panlobular emphysema on his CT scan of the chest 11/07/2019. In addition to the lung mass and lymphadenopathy described above patient also has evidence of lower lobe ground-glass infiltrates and honeycombing left lower lobe greater than right. This may represent a pneumonia and I will initiate treatment with ceftriaxone and azithromycin. SARS-CoV-2 pending. I will send Influenza. In addition to COPD patient also may have interstitial lung disease. I will send a rheumatoid factor, DINO multiplex (11 auto-antibodies) and ANCA screen. I will give the patient Solu-Medrol 60 mg IV Q 6, inhaled albuterol, inhaled ipratropium. Continue supplemental oxygen to maintain sats greater than 90 and less than 94. Will follow with you. History of Present Illness History of Present Illness Consult date: 11/08/20 Requesting physician: Tia Gil DO Reason for consult: COPD and lung mass Chief complaint: COPD with hypoxia, Right lung mass, dehydration, Narrative: New patient consult for right lung mass and COPD Patient is an 79-year-old man followed in the Pulmonary Clinic for COPD and obstructive sleep apnea. Patient's last PFT on December 07, 2018 demonstrated an pre bronchodilator FEV1 of 1.33 L, 48% predicted. An FEV1: FVC ratio 53% a total lung capacity of 10.9 L, 165 functional residual capacity 9.28 L 235% predicted and residual volume of 8.41, 304% predicted. A diffusing capacity corrected for alveolar volume at 79%. Room air blood gas at test at that time was 7.43/34/78. Patient had an echocardiogram on 12/07/2018 that demonstrated normal LV ejection fraction at 60%. Grade 1 diastolic dysfunction mild enlargement of the right atrium estimated RV systolic pressure 35 with mild tricuspid regurg. Patient had a home O2 assessment on 12/15/2018 that demonstrated resting room air oxygen saturation 93%. With exercise on room air. Desaturated to 84%. With rest exercise on 1 L desaturations to 86%. With exercise on 2 L the saturation to 87%. With exercise on 3 L nasal cannula saturations remain 90%. Patient was last seen on October 23, 2020 he has been been prescribed home oxygen but rarely uses it. At that time he denied chest pain fever wheezing and has been maintained on trelegy. Patient has obstructive sleep apnea and failed a CPAP titration. Patient was placed on BiPAP 9 over 5 and at
--- NOTE | 2020-11-08 15:59 | PM.IMPN ---
Progress Note: A&P Assessment and Plan (1) Acute respiratory failure with hypoxia: Code(s): J96.01 - Acute respiratory failure with hypoxia Status: Acute Assessment and Plan: Could be multifactorial due to COPD exacerbation, lung mass, and possible pneumonia -await COVID-19 PCR -continue azithromycin and ceftriaxone -continue Solu-Medrol -once the patient is more stable, would need a CT-guided biopsy -continue to wean oxygen as tolerated -continue albuterol, trilogy, and Spiriva -pulmonology consult in (2) Hyponatremia: Code(s): E87.1 - Hypo-osmolality and hyponatremia Status: Acute Assessment and Plan: Patient's sodium was originally 124 and now 127 -he appears euvolemic so I will stop the IV fluids to see if the sodium gets better -will get a urine sodium -could be due to infection or cancer. Legionella? Will order urine antigens -TSH within normal limits (3) Dyspnea: Qualifiers: Dyspnea type: shortness of breath Qualified Code(s): R06.02 - Shortness of breath Code(s): R06.00 - Dyspnea, unspecified Status: Acute Assessment and Plan: Likely due to above (4) Lung mass: Onset Date: 11/07/20 Code(s): R91.8 - Other nonspecific abnormal finding of lung field Status: Acute Assessment and Plan: Seen on CT and patient has a history of smoking -workup as above -will need outpatient biopsy eventually (5) Weight loss: Code(s): R63.4 - Abnormal weight loss Status: Acute Assessment and Plan: Likely due to above (6) Obstructive sleep apnea: Onset Date: 2018 Code(s): G47.33 - Obstructive sleep apnea (adult) (pediatric) Status: Acute Assessment and Plan: Continue CPAP (7) Suspected COVID-19 virus infection: Code(s): Z20.822 - Contact with and (suspected) exposure to COVID-19 Status: Acute Assessment and Plan: Await PCR (8) PNA (pneumonia): Code(s): J18.9 - Pneumonia, unspecified organism Status: Acute Assessment and Plan: Bacterial vs Viral -await COVID-19 PCR -continue azithromycin and ceftriaxone -continue Solu-Medrol -continue to wean oxygen as tolerated -continue albuterol, trilogy, and Spiriva Time Spent With Patient Time with patient: 25 - 35 minutes Subjective Date/time seen: 11/08/20 15:59 Interval history: Pt is a 79-year-old male here for hypoxia with new found lung cancer. Patient was seen today and states he feels okay. Although he is hard of hearing, he answered all my questions appropriately. His only complaint is that he has little indigestion and would like some Tums. He has no chest pain, shortness of breath, fevers, chills, nausea, vomiting, diarrhea or constipation. He ate most of his breakfast but did not like the lunch but is looking forward to his grilled cheese tonight. He understands that he has a mass in his lungs that needs further workup. Review of Systems Review of Systems: All systems reviewed & are unremarkable except as noted in HPI and below Exam Narrative: Exam Narrative: General: Well developed well nourished patient in NAD HEENT: normocephalic Neck: supple Neuro: Alert and oriented x4 CV: Regular rate and rhythm at this time Resp:Decreased breath sounds with expiratory wheezing with nasal cannula oxygen applied Abd: Soft, non distended. No pain to palpation. Positive bowel sounds Extremities: No swelling, erythema, or pain to palpation. Objective Data Vital Signs Vital Signs: Vital Signs - 24 hr 11/07/20 16:10 11/07/20 16:52 11/07/20 17:38 Temperature Pulse Rate 86 64 90 Respiratory Rate 24 H 16 22 H Blood Pressure 91/44 L 112/66 106/49 L Pulse Oximetry 93 98 98 11/07/20 19:24 11/07/20 20:02 11/07/20 21:12 Temperature Pulse Rate 82 80 82 Respiratory Rate 23 H 23 H 18 Blood Pressure 117/56 L 129/100 H Pulse Oximetr
[2020-11-08 16:04] LABS: Rheumatoid Factor < 8.6 IU/ML (<12)
[2020-11-08] MEDS: CALCIUM CARBONATE (TUMS) 500 MG (200 MG ELEMENTAL) PO (16:17)
[2020-11-08 17:38] LABS: SARS-CoV-2 RNA PCR Positive
[2020-11-08 17:50] LABS: Influenza Control Positive
[2020-11-08 20:35] LABS: Sodium Urine Random 10 meq/L
[2020-11-09] VITALS (7 sets, daily range): BP systolic 111–137; BP diastolic 55–76; PULSE 75–94; RESP 18–22; TEMP 36.2–36.3; O2SAT 90–95
[2020-11-09] MEDS: methylPREDNISolone SOD SUCC 125 MG VIAL 60 MG IV PUSH ×2 (00:09→08:11)
[2020-11-09 07:06] LABS: Alanine Aminotransferase 22 U/L (4-50); Albumin Level 2.5 g/dL (3.5-5.1); Alkaline Phosphatase 52 U/L (38-126); Anion Gap 2 mmol/L (8-16); Aspartate Amino Transferase 36 U/L (17-59); Bilirubin,Total 0.4 mg/dL (0.2-1.3); Blood Urea Nitrogen 26 mg/dL (9-20); CRP 3.3 mg/dL (<1.0); Calcium 7.8 mg/dL (8.4-10.2); Carbon Dioxide 24 mmol/L (22-30); Chloride 107 mmol/L (98-107); Estimated CRCL calculation 61 ml/min; Estimated Glomerular Filt Rate > 60; Glucose 158 mg/dL (75-110); Potassium 3.8 mmol/L (3.4-5.0); Sodium 133 mmol/L (137-145)
[2020-11-09] MEDS: guaiFENesin 12 HR 600 MG TABCR PO ×2 (08:11→20:31)
[2020-11-09] MEDS: CYANOCOBALAMIN 1,000 MCG TABLET 1000 MCG PO (08:11)
[2020-11-09] MEDS: LEVOTHYROXINE SODIUM 75 MCG TABLET PO (08:11)
[2020-11-09] MEDS: PANTOPRAZOLE 40 MG TABLET PO (08:11)
[2020-11-09] MEDS: CHOLECALCIFEROL 1,000 UNITS TABLET 1000 UNITS PO (08:11)
[2020-11-09] MEDS: ALBUTEROL SULFATE (*SP) AEROSOL 1 PUFF 6 PUFF INHALATION ×4 (08:29→20:30)
[2020-11-09] MEDS: FLUTICASONE/UMECLIDIN/VILANTER 100-62.5-25 MCG ELLIPTA 1 PUFF INHALATION (08:29)
[2020-11-09 09:57] LABS: Sodium 132 mmol/L (137-145)
--- NOTE | 2020-11-09 10:15 | PM.PNPUL ---
Progress Note: A&P Assessment and Plan (1) COPD (chronic obstructive pulmonary disease): Onset Date: 2018 Code(s): J44.9 - Chronic obstructive pulmonary disease, unspecified Status: Acute Assessment and Plan: - will add Symbicort 160/4.5 mcg 2 puffs bid via chamber device - continue Spiriva 18 mcg 1 puff daily - continue albuterol HFA or nebulized Q6h prn - continue oxygen to keep sats > 92% (2) Acute respiratory failure with hypoxia: Code(s): J96.01 - Acute respiratory failure with hypoxia Status: Acute (3) COVID-19: Code(s): U07.1 - COVID-19 Status: Acute Assessment and Plan: - agree with Remdesivir for 5 days - will d/c solumedrol and resume dexamethasone 6 mg IV/PO for seven more days (4) Lung nodule: Code(s): R91.1 - Solitary pulmonary nodule Status: Acute Assessment and Plan: Very suspicious for primary lung CA. CT Guided biopsy would be more risky than Bronchoscopy with TBNA. I will schedule him for a bronchoscopy with TBNA for diagnostic and staging purposes in about three weeks - Hold all ASA, NSAIDS but continue DVT prophylaxis during hospitalization (5) Mediastinal adenopathy: Code(s): R59.0 - Localized enlarged lymph nodes Status: Acute (6) Pulmonary fibrosis: Code(s): J84.10 - Pulmonary fibrosis, unspecified Status: Acute Subjective Date/time seen: 11/09/20 10:15 Interval history: 79 y/o male with severe COPD and possible ILD/pulmonary fibrosis admitted with increased dyspnea, weakness and worsening hypoxia, no positive for SARS-CoV-2. He admits to gathering with children and grandchildren 7 days ago for a birthday republican and started to feel unwell a few days later. He denies loss of taste or smell, diarrhea, nausea, vomiting. He is feeling about the same this morning, more short of breath than baseline but no sputum production. His admission CT chest shows severe emphysematous changes sub pleural fibrosis with some ground glass in the LLL and a spiculated RLL lung nodule with mediastinal adenopathy. Review of Systems Review of Systems: All systems reviewed & are unremarkable except as noted in HPI and below Exam Const: General: cooperative and healthy appearing Orientation/consciousness: oriented to person, oriented to place and oriented to time HENMT: Head: normal to inspection Ears: hearing grossly normal bilaterally Mouth: Yes Normal oral and palatal mucosa present Throat: tonsils absent Eyes: General: appearance normal, both eyes and all related structures Neck: Neck: normal visual inspection Chest: Chest palpation & inspection: normal inspection of the chest Resp: Effort & Inspection: normal respiratory effort, normal respiratory pattern, no audible wheezes and labored (mild) Auscultation: crackles (bases L > R) bilateral, no rales, no rhonchi, no wheezes and diminished lung sounds Cardio: Jugular venous distension: no JVD GI: Inspection: normal to inspection Skin: General skin exam: normal color Neuro: General: oriented to person, oriented to place and oriented to time Extrem: General: normal to inspection Psych: Appearance: grossly normal Objective Data Vital Signs Vital Signs: Vital Signs - 24 hr 11/08/20 11:40 11/08/20 12:00 11/08/20 14:00 Temperature 36.6 C 36.3 C L Pulse Rate 89 95 Respiratory Rate 24 H 24 H Blood Pressure 103/65 140/67 Pulse Oximetry 94 94 94 11/08/20 16:00 11/08/20 20:00 11/08/20 23:17 Temperature 36.2 C L Pulse Rate 90 100 94 Respiratory Rate 18 Blood Pressure 130/69 Pulse Oximetry 91 92 11/08/20 23:56 11/09/20 00:00 11/09/20 04:00 Temperature 36.7 C 36.2 C L Pulse Rate 94 89 75 Respiratory Rate 20 18 Blood Pressure 141/64 H 111/68 Pulse Oximetry 92 90 11/09/20 08:00 Temperature 36.2 C L Pulse Rate 89 Respiratory Rate 22 H Blood Pressure 129/76 Pulse Oximetry 95 Intake/Output Intake/Output: Intake & Outpu
[2020-11-09] MEDS: REMDESIVIR 200 MG/NS 250 ML 200 MG/250 ML BAG 250 MG IVPB (10:30)
--- NOTE | 2020-11-09 12:47 | PM.IMPN ---
Progress Note: A&P Assessment and Plan (1) COVID-19: Code(s): U07.1 - COVID-19 Status: Acute Assessment and Plan: Patient tested positive for COVID-19 by PCR 11/07/20 -Remdesivir and Decadron have been started -will start Lovenox 40 mg b.i.d. to help prevent clotting -continue inhalers and treatment below -no antibiotics indicated at this time (2) Acute respiratory failure with hypoxia: Code(s): J96.01 - Acute respiratory failure with hypoxia Status: Acute Assessment and Plan: Could be multifactorial due to COPD exacerbation, lung mass, and COVID-19 -antibiotics discontinued since this is a viral pneumonia -Solu-Medrol switched to Decadron -continue Symbicort, Spiriva and albuterol -plan for bronchoscopy with biopsy outpatient after he is COVID-19 recovered -continue with pulmonology's recommendations (3) Hyponatremia: Code(s): E87.1 - Hypo-osmolality and hyponatremia Status: Acute Assessment and Plan: Patient's sodium was originally 124 and now is 132 -could be due to infection or cancer. Legionella? Await urine antigens -TSH within normal limits (4) Dyspnea: Qualifiers: Dyspnea type: shortness of breath Qualified Code(s): R06.02 - Shortness of breath Code(s): R06.00 - Dyspnea, unspecified Status: Acute Assessment and Plan: Likely due to above (5) Lung mass: Onset Date: 11/07/20 Code(s): R91.8 - Other nonspecific abnormal finding of lung field Status: Acute Assessment and Plan: Seen on CT and patient has a history of smoking -workup as above -will need outpatient biopsy eventually (6) Weight loss: Code(s): R63.4 - Abnormal weight loss Status: Acute Assessment and Plan: Likely due to above (7) Obstructive sleep apnea: Onset Date: 2018 Code(s): G47.33 - Obstructive sleep apnea (adult) (pediatric) Status: Acute Assessment and Plan: Continue CPAP (8) Suspected COVID-19 virus infection: Code(s): Z20.822 - Contact with and (suspected) exposure to COVID-19 Status: Acute Assessment and Plan: Confirmed positive (9) PNA (pneumonia): Code(s): J18.9 - Pneumonia, unspecified organism Status: Acute Assessment and Plan: Likely viral -continue with treatment as stated above Subjective Date/time seen: 11/09/20 12:47 Interval history: 79 y/o male with severe COPD and COVID. Patient was seen today and is doing okay. He says he only has shortness of breath when he is moving around a lot. He has no shortness of breath at rest nor does he have any chest pain. He states he is drinking okay but is eating much because he keeps getting interrupted . He denies nausea, vomiting, fevers, chills, leg swelling, or abdominal pain. Exam Narrative: Exam Narrative: General: Well developed well nourished patient in NAD HEENT: normocephalic Neck: supple Neuro: Alert and oriented x4 CV: Regular rate and rhythm at this time Resp:Decreased breath sounds with slight expiratory wheezing with nasal cannula oxygen applied Abd: Soft, non distended. No pain to palpation. Positive bowel sounds Extremities: No swelling, erythema, or pain to palpation. Objective Data Vital Signs Vital Signs: Vital Signs - 24 hr 11/08/20 14:00 11/08/20 16:00 11/08/20 20:00 Temperature 97.4 F L 97.2 F L Pulse Rate 95 90 100 Respiratory Rate 24 H 18 Blood Pressure 140/67 130/69 Pulse Oximetry 94 91 11/08/20 23:17 11/08/20 23:56 11/09/20 00:00 Temperature 98.1 F Pulse Rate 94 94 89 Respiratory Rate 20 Blood Pressure 141/64 H Pulse Oximetry 92 92 11/09/20 04:00 11/09/20 08:00 11/09/20 12:00 Temperature 97.2 F L 97.2 F L 97.3 F L Pulse Rate 75 89 85 Respiratory Rate 18 22 H 18 Blood Pressure 111/68 129/76 123/63 Pulse Oximetry 90 95 94 11/09/20 12:36 Temperature Pulse Rate
[2020-11-09] MEDS: ENOXAPARIN 40 MG/0.4 ML SYRINGE SUB-Q (20:31)
[2020-11-10] VITALS (7 sets, daily range): BP systolic 107–137; BP diastolic 39–91; PULSE 85–100; RESP 20; TEMP 35.8–36.8; O2SAT 91–95
[2020-11-10] MEDS: LEVOTHYROXINE SODIUM 75 MCG TABLET PO (06:30)
[2020-11-10 07:02] LABS: Hematocrit 26.3 % (42.0-52.0); Hemoglobin 8.9 g/dL (14.0-18.0); Mean Corpuscular HGB Conc 33.8 g/dl (32-36); Mean Corpuscular Hemoglobin 31.9 pg (26-34); Mean Corpuscular Volume 94.3 fl (80-100); Mean Platelet Volume 9.3 fl (7.4-10.4); Platelet Count Result 249 k/mm3 (150-375); Red Blood Count 2.79 M/mm3 (4.6-6.20); Red Cell Distribution Width 15.1 % (11.5-14.5)
[2020-11-10 07:29] LABS: Anion Gap 1 mmol/L (8-16); Blood Urea Nitrogen 31 mg/dL (9-20); CRP 1.9 mg/dL (<1.0); Calcium 7.7 mg/dL (8.4-10.2); Carbon Dioxide 26 mmol/L (22-30); Chloride 108 mmol/L (98-107); Estimated CRCL calculation 61 ml/min; Estimated Glomerular Filt Rate > 60; Glucose 113 mg/dL (75-110); Lactate Dehydrogenase 647 U/L (313-618); Potassium 3.8 mmol/L (3.4-5.0); Sodium 135 mmol/L (137-145)
[2020-11-10 08:54] LABS: Alanine Aminotransferase 22 U/L (4-50)
[2020-11-10] MEDS: DEXAMETHASONE SOD PHOS INJ 4 MG/ML VIAL 6 MG IV PUSH (09:34)
[2020-11-10] MEDS: CYANOCOBALAMIN 1,000 MCG TABLET 1000 MCG PO (09:35)
[2020-11-10] MEDS: CHOLECALCIFEROL 1,000 UNITS TABLET 1000 UNITS PO (09:35)
[2020-11-10] MEDS: PANTOPRAZOLE 40 MG TABLET PO (09:35)
[2020-11-10] MEDS: guaiFENesin 12 HR 600 MG TABCR PO ×2 (09:35→20:43)
[2020-11-10] MEDS: ALBUTEROL SULFATE (*SP) AEROSOL 1 PUFF 6 PUFF INHALATION ×3 (09:35→20:43)
[2020-11-10] MEDS: ENOXAPARIN 40 MG/0.4 ML SYRINGE SUB-Q (09:36)
[2020-11-10] MEDS: FLUTICASONE/UMECLIDIN/VILANTER 100-62.5-25 MCG ELLIPTA 1 PUFF INHALATION (09:36)
[2020-11-10 09:45] LABS: Hematocrit 27.4 % (42.0-52.0); Hemoglobin 9.2 g/dL (14.0-18.0)
--- NOTE | 2020-11-10 10:36 | PM.PNPUL ---
Progress Note: A&P Assessment and Plan (1) COPD (chronic obstructive pulmonary disease): Onset Date: 2018 Qualifiers: COPD type: unspecified COPD Qualified Code(s): J44.9 - Chronic obstructive pulmonary disease, unspecified Code(s): J44.9 - Chronic obstructive pulmonary disease, unspecified Status: Acute Assessment and Plan: - will add Symbicort 160/4.5 mcg 2 puffs bid via chamber device - continue Spiriva 18 mcg 1 puff daily - continue albuterol HFA or nebulized Q6h prn - continue oxygen to keep sats > 92% (2) Acute respiratory failure with hypoxia: Code(s): J96.01 - Acute respiratory failure with hypoxia Status: Acute (3) COVID-19: Code(s): U07.1 - COVID-19 Status: Acute Assessment and Plan: - agree with Remdesivir for 5 days - will d/c solumedrol and resume dexamethasone 6 mg IV/PO for seven more days - agree with discontinuing antibiotics (4) Lung nodule: Code(s): R91.1 - Solitary pulmonary nodule Status: Acute Assessment and Plan: Very suspicious for primary lung CA. CT Guided biopsy would be more risky than Bronchoscopy with TBNA. I will schedule him for a bronchoscopy with TBNA for diagnostic and staging purposes in about three weeks - Hold all ASA, NSAIDS but continue DVT prophylaxis during hospitalization (5) Mediastinal adenopathy: Code(s): R59.0 - Localized enlarged lymph nodes Status: Acute (6) Pulmonary fibrosis: Code(s): J84.10 - Pulmonary fibrosis, unspecified Status: Acute Subjective Date/time seen: 11/10/20 10:36 Interval history: Feeling better today. Oxygenation is stable at 4 liters nasal cannula Review of Systems Review of Systems: All systems reviewed & are unremarkable except as noted in HPI and below Exam Const: General: cooperative and healthy appearing Orientation/consciousness: oriented to person, oriented to place and oriented to time HENMT: Head: normal to inspection Ears: hearing grossly normal bilaterally Mouth: Yes Normal oral and palatal mucosa present Throat: tonsils absent Eyes: General: appearance normal, both eyes and all related structures Neck: Neck: normal visual inspection Chest: Chest palpation & inspection: normal inspection of the chest Resp: Effort & Inspection: normal respiratory effort, normal respiratory pattern, no audible wheezes and labored (mild) Auscultation: crackles (bases L > R) bilateral, no rales, no rhonchi, no wheezes and diminished lung sounds Cardio: Jugular venous distension: no JVD GI: Inspection: normal to inspection Skin: General skin exam: normal color Neuro: General: oriented to person, oriented to place and oriented to time Extrem: General: normal to inspection Psych: Appearance: grossly normal Objective Data Vital Signs Vital Signs: Vital Signs - 24 hr 11/09/20 12:00 11/09/20 12:36 11/09/20 16:00 Temperature 36.3 C L 36.3 C L Pulse Rate 78 94 Respiratory Rate 18 18 Blood Pressure 123/63 137/61 Pulse Oximetry 94 94 94 11/09/20 20:00 11/10/20 00:00 11/10/20 04:00 Temperature 36.3 C L 36.3 C L 36.6 C Pulse Rate 90 88 100 Respiratory Rate 20 20 20 Blood Pressure 115/55 L 107/39 L 115/67 Pulse Oximetry 92 92 91 11/10/20 08:00 Temperature Pulse Rate 100 Respiratory Rate 20 Blood Pressure Pulse Oximetry 91 Intake/Output Intake/Output: Intake & Output 11/07/20 11/08/20 11/09/20 11/10/20 23:59 23:59 23:59 23:59 Intake Total 1999 2270 1480 100 Output Total 800 875 200 Balance 1999 1470 605 -100 Meds/Results Medications: Active Medications Generic Name Dose Route Start Last Admin Trade Name Freq PRN Reason Stop Dose Admin Albuterol 6 puff 11/07/20 20:00 11/10/20 09:35 Albuterol Sulfate (*Sp) Aerosol 1 Puff INHALATION 6 puff QIDRT ANTON Administration Budesonide/Formoterol Fumarate 2 puff 11/09/20 10:15 11/09/20 23:00 Budesonide/Form 160-4.5 Mcg (*Sp) I
[2020-11-10] MEDS: REMDESIVIR 100 MG/NS 250 ML 100 MG/250 ML BAG 250 MG IVPB (11:07)
[2020-11-10 11:26] LABS: IFOB Positive Control Positive; Immunochemical Fecal Occult Bl Positive (N)
--- NOTE | 2020-11-10 11:55 | PC.NURSE ---
Notified Liz John of pt being positive for blood in stool.No new orders received.
--- NOTE | 2020-11-10 14:20 | PM.IMPN ---
Progress Note: A&P Assessment and Plan (1) COVID-19: Code(s): U07.1 - COVID-19 Status: Acute Assessment and Plan: Patient tested positive for COVID-19 by PCR 11/07/20 -continue Remdesivir and Decadron -I have stopped Lovenox due to his decrease in hemoglobin and dark stools. Will order SCDs -continue inhalers and treatment below -no antibiotics indicated at this time (2) Acute respiratory failure with hypoxia: Code(s): J96.01 - Acute respiratory failure with hypoxia Status: Acute Assessment and Plan: Could be multifactorial due to COPD exacerbation, lung mass, and COVID-19 -antibiotics discontinued since this is a viral pneumonia -patient on Decadron -continue Symbicort, Spiriva and albuterol -plan for bronchoscopy with biopsy outpatient after he is COVID-19 recovered -continue with pulmonology's recommendations (3) Hyponatremia: Code(s): E87.1 - Hypo-osmolality and hyponatremia Status: Acute Assessment and Plan: Patient's sodium was originally 124 and now is 135 -could be due to infection or cancer. Legionella (unlikely)? Await urine antigens -TSH within normal limits (4) Dyspnea: Qualifiers: Dyspnea type: shortness of breath Qualified Code(s): R06.02 - Shortness of breath Code(s): R06.00 - Dyspnea, unspecified Status: Acute Assessment and Plan: Likely due to above (5) Lung mass: Onset Date: 11/07/20 Code(s): R91.8 - Other nonspecific abnormal finding of lung field Status: Acute Assessment and Plan: Seen on CT and patient has a history of smoking -workup as above -will need outpatient biopsy eventually (6) Weight loss: Code(s): R63.4 - Abnormal weight loss Status: Acute Assessment and Plan: Likely due to above (7) Obstructive sleep apnea: Onset Date: 2018 Code(s): G47.33 - Obstructive sleep apnea (adult) (pediatric) Status: Acute Assessment and Plan: Continue CPAP (8) Suspected COVID-19 virus infection: Code(s): Z20.822 - Contact with and (suspected) exposure to COVID-19 Status: Acute Assessment and Plan: Confirmed positive (9) PNA (pneumonia): Code(s): J18.9 - Pneumonia, unspecified organism Status: Acute Assessment and Plan: Likely viral -continue with treatment as stated above (10) Positive occult stool blood test: Code(s): R19.5 - Other fecal abnormalities Status: Acute Assessment and Plan: Noted today he during his bowel movement -it is worrisome since the patient has been having GERD symptoms throughout his stay and a drop in hemoglobin -I am going to check his hemoglobin every 6 hours -it appears stable today and has not dropped any further -will type and screen the patient -if his hemoglobin worsens, will consult Dr. Carvalho -patient has no history of gastric ulcer but does have a history of hemorrhoids -will stop Lovenox (11) Acute on chronic anemia: Code(s): D64.9 - Anemia, unspecified Status: Acute Assessment and Plan: Hemoglobin was 13.3 on admission which he was a little dehydrated but did drop to 8.9 3 days later -see above -monitor H&H Subjective Date/time seen: 11/10/20 14:20 Interval history: 79 y/o male with severe COPD and COVID. Patient was seen today and is doing okay and has no complaints. He specifically denies chest pain, shortness of breath, dizziness, abdominal pain, fevers, chills, nausea, shortness of breath or chest pain. He states his last colonoscopy was about 5-[address] Carvalho but he does not think he has a history of gastric ulcers or as ever had an EGD. He has been having some heartburn symptoms while in the hospital but he says that is improving. Nurse states his stool was dark and thought it was consistent with a GI bleed. Kalani CANDELARIA, states patient had
[2020-11-10 15:03] LABS: Hematocrit 27.2 % (42.0-52.0); Hemoglobin 9.2 g/dL (14.0-18.0)
--- NOTE | 2020-11-10 15:03 | PCOTNOTE ---
Pt was not seen on this date for OT tx. Will continue per POC duration/frequency tomorrow.
[2020-11-10] MEDS: PANTOPRAZOLE SODIUM IV 40 MG VIAL IV PUSH (20:43)
[2020-11-11] VITALS (7 sets, daily range): BP systolic 118–144; BP diastolic 59–74; PULSE 87–99; RESP 20–28; TEMP 36.4–36.9; O2SAT 90–95
[2020-11-11] MEDS: LEVOTHYROXINE SODIUM 75 MCG TABLET PO (05:37)
[2020-11-11 06:12] LABS: Hemoglobin 8.8 g/dL (14.0-18.0)
[2020-11-11 06:29] LABS: Alanine Aminotransferase 25 U/L (4-50); Albumin Level 2.5 g/dL (3.5-5.1); Alkaline Phosphatase 54 U/L (38-126); Anion Gap 2 mmol/L (8-16); Aspartate Amino Transferase 32 U/L (17-59); Bilirubin,Total 0.6 mg/dL (0.2-1.3); Blood Urea Nitrogen 28 mg/dL (9-20); Calcium 8.1 mg/dL (8.4-10.2); Carbon Dioxide 26 mmol/L (22-30); Chloride 106 mmol/L (98-107); Estimated CRCL calculation 61 ml/min; Estimated Glomerular Filt Rate > 60; Glucose 107 mg/dL (75-110); Potassium 3.9 mmol/L (3.4-5.0); Sodium 134 mmol/L (137-145)
[2020-11-11] MEDS: CYANOCOBALAMIN 1,000 MCG TABLET 1000 MCG PO (08:36)
[2020-11-11] MEDS: guaiFENesin 12 HR 600 MG TABCR PO (08:36)
[2020-11-11] MEDS: CHOLECALCIFEROL 1,000 UNITS TABLET 1000 UNITS PO (08:36)
[2020-11-11] MEDS: DEXAMETHASONE SOD PHOS INJ 4 MG/ML VIAL 6 MG IV PUSH (08:37)
[2020-11-11] MEDS: FLUTICASONE/UMECLIDIN/VILANTER 100-62.5-25 MCG ELLIPTA 1 PUFF INHALATION (08:38)
[2020-11-11] MEDS: ALBUTEROL SULFATE (*SP) AEROSOL 1 PUFF 6 PUFF INHALATION ×2 (08:38→12:10)
--- NOTE | 2020-11-11 09:24 | PM.PNPUL ---
Progress Note: A&P Assessment and Plan (1) COPD (chronic obstructive pulmonary disease): Onset Date: 2018 Qualifiers: COPD type: unspecified COPD Qualified Code(s): J44.9 - Chronic obstructive pulmonary disease, unspecified Code(s): J44.9 - Chronic obstructive pulmonary disease, unspecified Status: Acute Assessment and Plan: - will add Symbicort 160/4.5 mcg 2 puffs bid via chamber device - continue Spiriva 18 mcg 1 puff daily - continue albuterol HFA or nebulized Q6h prn - continue oxygen to keep sats > 92% (2) Acute respiratory failure with hypoxia: Code(s): J96.01 - Acute respiratory failure with hypoxia Status: Acute (3) COVID-19: Code(s): U07.1 - COVID-19 Status: Acute Assessment and Plan: - agree with Remdesivir for 5 days - will d/c solumedrol and resume dexamethasone 6 mg IV/PO for seven more days - agree with discontinuing antibiotics (4) Lung nodule: Code(s): R91.1 - Solitary pulmonary nodule Status: Acute Assessment and Plan: Very suspicious for primary lung CA. CT Guided biopsy would be more risky than Bronchoscopy with TBNA. I will schedule him for a bronchoscopy with TBNA for diagnostic and staging purposes in about three weeks - Hold all ASA, NSAIDS but continue DVT prophylaxis during hospitalization (5) Mediastinal adenopathy: Code(s): R59.0 - Localized enlarged lymph nodes Status: Acute (6) Pulmonary fibrosis: Code(s): J84.10 - Pulmonary fibrosis, unspecified Status: Acute Subjective Date/time seen: 11/11/20 09:24 Interval history: Stable on 4 liters nasal cannula, no respiratory distress. Review of Systems Review of Systems: All systems reviewed & are unremarkable except as noted in HPI and below Exam Const: General: cooperative and healthy appearing Orientation/consciousness: oriented to person, oriented to place and oriented to time HENMT: Head: normal to inspection Ears: hearing grossly normal bilaterally Mouth: Yes Normal oral and palatal mucosa present Throat: tonsils absent Eyes: General: appearance normal, both eyes and all related structures Neck: Neck: normal visual inspection Chest: Chest palpation & inspection: normal inspection of the chest Resp: Effort & Inspection: normal respiratory effort, normal respiratory pattern, no audible wheezes and labored (mild) Auscultation: crackles (bases L > R) bilateral, no rales, no rhonchi, no wheezes and diminished lung sounds Cardio: Jugular venous distension: no JVD GI: Inspection: normal to inspection Skin: General skin exam: normal color Neuro: General: oriented to person, oriented to place and oriented to time Extrem: General: normal to inspection Psych: Appearance: grossly normal Objective Data Vital Signs Vital Signs: Vital Signs - 24 hr 11/11/20 12:00 11/11/20 14:16 11/11/20 16:00 Temperature 36.5 C 36.7 C 36.6 C Pulse Rate 96 99 94 Respiratory Rate 28 H 24 H 24 H Blood Pressure 134/73 144/65 H 143/63 H Pulse Oximetry 95 93 93 11/11/20 20:00 11/12/20 00:00 11/12/20 04:00 Temperature 36.7 C 36.7 C 36.7 C Pulse Rate 95 91 106 H Respiratory Rate 22 H 22 H 24 H Blood Pressure 139/59 L 132/65 158/70 H Pulse Oximetry 93 97 90 11/12/20 07:55 Temperature 37.5 C Pulse Rate 103 H Respiratory Rate 32 H Blood Pressure 134/63 Pulse Oximetry 93 Intake/Output Intake/Output: Intake & Output 11/09/20 11/10/20 11/11/20 11/12/20 23:59 23:59 23:59 23:59 Intake Total 1480 2270 1660 820 Output Total 875 980 700 400 Balance 605 1290 960 420 Meds/Results Medications: Active Medications Generic Name Dose Route Start Last Admin Trade Name Freq PRN Reason Stop Dose Admin Acetaminophen 650 mg 11/12/20 09:10 Acetaminophen 325 Mg Tablet PO Q4H PRN Pain or Fever Albuterol 3 puff 11/11/20 16:00 11/12/20 09:05 Albuterol Sulfate (*Sp) Aerosol 1 Puff INHALATION 3 puff
--- NOTE | 2020-11-11 11:48 | WPDGICN ---
Assessment and Plan Assessment and plan (1) Acute on chronic anemia: Code(s): D64.9 - Anemia, unspecified Status: Acute Assessment and Plan: Patient has decline in hemoglobin since admission the hospital. Suggestive of recent bleeding. Most likely source of bleeding or gastric and duodenal angiodysplasias identified at time last endoscopy in June. Plan to transfuse. Monitor hemoglobin. Avoid anticoagulation. Follow-up EGD when COVID is been treated. Typically these will bleed rather slowly. It is possible decline in hemoglobin is related to equilibration with rehydration as well. (2) Positive occult stool blood test: Code(s): R19.5 - Other fecal abnormalities Status: Acute Assessment and Plan: Occult blood in stool likely related to known angiodysplasias. Suggest re-evaluation when COVID infection has been adequately treated. 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 These are known recur. Also likely that he has additional angiodysplasias distal in the small bowel. Agree with holding anticoagulation. Follow-up endoscopy to include colonoscopy can be performed after treatment of infection. GI Consult Note Consult date/time: 11/11/20 11:48 HPI: lEoy Duncan is a 79 year old male seen in evaluation at the request of the hospitalist service. Patient admitted the hospital 11/07/2020 with increasing shortness of breath. At that time his hemoglobin was normal. Patient was noted to have significant shortness of breath. Evaluation has revealed him to have COVID positive infection. He has an underlying history of rather severe COPD. Recently found to have a lung mass. Follow-up blood count yesterday confirmed a decline in hemoglobin. This correlates with significant IV rehydration as he was previously felt to be dehydrated. There has been no obvious signs of GI blood loss. However his stool is confirmed to be Hemoccult-positive. For this reason I have been consulted. Patient has a history of dyspepsia. 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 Patient states his bowel habits have remained normal. He denies any obvious signs of bleeding. States his stools are normal brown color. Patient initially started on Lovenox because of the COVID infection. I would agree with planning to hold this medication. It has been sometime since patient's last colonoscopy. Review of Systems Review of Systems: All systems reviewed & are unremarkable except as noted in HPI and below PMFSH Past Medical History Medical History (Updated 11/11/20 @ 11:54 by Leroy Carvalho MD) Diastolic dysfunction Echocardiogram November 2018: Impaired diastolic relaxation grade 1, ejection fraction 60%, mild left atrial enlargement, mild tricuspid regurgitation Duodenal arteriovenous malformation Essential hypertension Gastric AVM History of tobacco abuse Quit 2016. Smoked for 50 years. Left rotator cuff tear Macular degeneration Obstructive sleep apnea (2019) 06/15/2019 without optimal pressure. Bilevel titration 07/26/2020 which demonstrated poor sleep efficiency but sufficient pressure settings of 9/5 started September 2020 Osteopenia Noted on DEXA scan October 2020 Reflux esophagitis
[2020-11-11] MEDS: PANTOPRAZOLE SODIUM IV 40 MG VIAL IV PUSH ×2 (12:11→20:57)
[2020-11-11] MEDS: REMDESIVIR 100 MG/NS 250 ML 100 MG/250 ML BAG 250 MG IVPB (12:11)
[2020-11-11 12:33] LABS: ANA Cascade Screen Negative (Negative)
[2020-11-11 14:12] LABS: Pneumococcal Antigen Urine Not Detected (Not Detected)
--- NOTE | 2020-11-11 14:56 | PM.IMPN ---
Progress Note: A&P Assessment and Plan (1) COVID-19: Code(s): U07.1 - COVID-19 Status: Acute Assessment and Plan: Patient tested positive for COVID-19 by PCR 11/07/20 -continue Remdesivir and Decadron -continue oxygen, currently at 4 L -I have stopped Lovenox due to his decrease in hemoglobin and dark stools. Continue with SCDs -continue inhalers and treatment below -no antibiotics indicated at this time -patient seemed a little off today and had a little bit of elevated respiratory rate which was likely due to anxiety. To be sure, I will order an ABG. May consider decreasing albuterol since he gets 6 puffs 4 times a day? I am going to decrease this. I ask pulmonology to also review this and I appreciate their recommendations -will recheck chest x-ray and inflammatory labs in the morning (2) Acute respiratory failure with hypoxia: Code(s): J96.01 - Acute respiratory failure with hypoxia Status: Acute Assessment and Plan: Could be multifactorial due to COPD exacerbation, lung mass, and COVID-19 -antibiotics discontinued since this is a viral pneumonia -patient on Decadron and Remdesivir -continue Symbicort, Spiriva and albuterol -plan for bronchoscopy with biopsy outpatient after he is COVID-19 recovered -continue with pulmonology's recommendations (3) Hyponatremia: Code(s): E87.1 - Hypo-osmolality and hyponatremia Status: Acute Assessment and Plan: Patient's sodium was originally 124 and now is 134 -could be due to infection or cancer. Legionella (unlikely)? Await urine antigen -TSH within normal limits (4) Dyspnea: Qualifiers: Dyspnea type: shortness of breath Qualified Code(s): R06.02 - Shortness of breath Code(s): R06.00 - Dyspnea, unspecified Status: Acute Assessment and Plan: Likely due to above (5) Lung mass: Onset Date: 11/07/20 Code(s): R91.8 - Other nonspecific abnormal finding of lung field Status: Acute Assessment and Plan: Seen on CT and patient has a history of smoking -workup as above -will need outpatient biopsy eventually (6) Weight loss: Code(s): R63.4 - Abnormal weight loss Status: Acute Assessment and Plan: Likely due to above (7) Obstructive sleep apnea: Onset Date: 2018 Code(s): G47.33 - Obstructive sleep apnea (adult) (pediatric) Status: Acute Assessment and Plan: Continue CPAP (8) Suspected COVID-19 virus infection: Code(s): Z20.822 - Contact with and (suspected) exposure to COVID-19 Status: Acute Assessment and Plan: Confirmed positive (9) PNA (pneumonia): Code(s): J18.9 - Pneumonia, unspecified organism Status: Acute Assessment and Plan: Likely viral -continue with treatment as stated above (10) Positive occult stool blood test: Code(s): R19.5 - Other fecal abnormalities Status: Acute Assessment and Plan: Noted today he during his bowel movement -it is worrisome since the patient has been having GERD symptoms throughout his stay and a drop in hemoglobin -H&H has been stable since the initial drip -it appears stable today and has not dropped any further -if his hemoglobin worsens, may need intervention but for now, plan for outpt EGD once COVID recovered -patient has no history of gastric ulcer but does have a history of hemorrhoids -No further lovenox is recommended. (11) Acute on chronic anemia: Code(s): D64.9 - Anemia, unspecified Status: Acute Assessment and Plan: Hemoglobin was 13.3 on admission now at 8.8 -see above -monitor H&H Subjective Date/time seen: 11/11/20 14:56 Interval history: 79 y/o male with severe COPD and COVID. Patient was seen today and is doing okay. He was technically alert and oriented x4 but seemed off. He kept saying he needed to get home and to sort
[2020-11-11 15:20] LABS: Alveolar/Arterial O2 Gradient 153.5 mmHg; Base Excess ABG -1.2 mEq/l (+/-2.0); Carboxyhemoglobin 0.1 % THb (0-2.0); Fractional Inspired Oxygen 36 %; HCO3 ABG 22.5 mEq/l (22.0-26.0); Methemoglobin ABG 0.3 %THb (0-1.5); Oxygen Saturation ABG 93.5 % (95.0-100.0); Oxyhemoglobin 91.8 % THb (90.0-100.0); PCO2 ABG 33.6 mmHg (35.0-45.0); PO2 ABG 64.2 mmHg (80.0-100.0); PO2 FiO2 Ratio Arterial Blood 1.78 %; Reduced Hemoglobin 7.8 %THb (0-5.0); pH ABG 7.443 (7.350-7.450)
[2020-11-11 15:21] LABS: Device NASAL CANNULA; Modified Allen's Test Pass; Site Drawn RIGHT RADIAL
[2020-11-11 15:25] LABS: Hematocrit 26.3 % (42.0-52.0); Hemoglobin 8.7 g/dL (14.0-18.0)
[2020-11-11 17:03] LABS: Basophils Percent Auto 0.9 % (0.2-1.2); Hematocrit 27.3 % (42.0-52.0); Immature Granulocyte Absolute 0.21 K/mm3 (0.00-0.031); Immature Granulocyte Percent A 6.6 % (0-0.5); Lymphocytes Absolute Auto 0.37 K/mm3 (0.9-3.2); Lymphocytes Percent Auto 11.6 % (18.3-44.2); Mean Corpuscular Hemoglobin 32.1 pg (26-34); Mean Corpuscular Volume 97.5 fl (80-100); Mean Platelet Volume 8.9 fl (7.4-10.4); Monocytes Absolute Auto 0.2 K/mm3 (0.1-0.6); Monocytes Percent Auto 6.3 % (2.6-8.5); Neutrophils Absolute Auto 2.4 K/mm3 (1.3-6.7); Neutrophils Percent Auto 74.6 % (45.5-73.1); Nucleated Red Blood Cells Absolute Auto 0.1 K/mm3 (0.0-0.012); Nucleated Red Blood Cells Perc 1.9 % (0.0-0.2); Platelet Count Result 258 k/mm3 (150-375); Red Cell Distribution Width 15.3 % (11.5-14.5); White Blood Count 3.2 K/mm3 (4.5-10.0)
[2020-11-11 17:12] LABS: INR 1.1; Prothrombin Time 15.2 Seconds (11.1-14.7)
[2020-11-11 17:13] LABS: Partial Thromboplastin Time 27.1 SECONDS (22.3-36.8)
[2020-11-11 17:14] LABS: Lactic Acid Reflex 2.6 mmol/L (0.7-2.1)
[2020-11-11 17:15] LABS: Ammonia < 9 umol/L (9-30)
[2020-11-11 17:16] LABS: Alanine Aminotransferase 27 U/L (4-50); Albumin Level 2.7 g/dL (3.5-5.1); Alkaline Phosphatase 53 U/L (38-126); Anion Gap 5 mmol/L (8-16); Aspartate Amino Transferase 35 U/L (17-59); Bilirubin,Total 0.5 mg/dL (0.2-1.3); Blood Urea Nitrogen 26 mg/dL (9-20); Calcium 7.9 mg/dL (8.4-10.2); Carbon Dioxide 26 mmol/L (22-30); Chloride 101 mmol/L (98-107); Estimated CRCL calculation 61 ml/min; Estimated Glomerular Filt Rate > 60; Glucose 165 mg/dL (75-110); Potassium 4.2 mmol/L (3.4-5.0); Sodium 132 mmol/L (137-145)
[2020-11-11 17:23] LABS: Ovalocytes 1+ (NORMAL); Platelet Estimate Adequate (Adequate)
[2020-11-11 17:24] LABS: Target Cells 1+ (NORMAL)
[2020-11-11 19:56] LABS: Reflex Lactic Acid Yes or No Add Lactic
[2020-11-11] MEDS: SODIUM CHLORIDE 0.9% IV 500 ML 100 ML IV CONT (20:20)
[2020-11-11 20:34] LABS: Lactic Acid 1.6 mmol/L (0.7-2.1)
[2020-11-11] MEDS: ALBUTEROL SULFATE (*SP) AEROSOL 1 PUFF 3 PUFF INHALATION (20:35)
[2020-11-12] VITALS (9 sets, daily range): BP systolic 114–158; BP diastolic 63–71; PULSE 85–106; RESP 20–32; TEMP 36.7–37.5; O2SAT 90–97
--- NOTE | 2020-11-12 02:30 | PC.NURSE ---
Nurse entered room to check on patient and turn off IV. Patient requesting RN to bring him to the emergency room to get checked out for cough. This RN educated patient that he has covid and is in the hospital and cannot go to emergency room when admitted to the hospital. Notified MD of cough.
[2020-11-12 03:13] LABS: Legionella pneumophila Ag Ur Not Detected (Not Detected)
[2020-11-12 06:09] LABS: Hematocrit 26.8 % (42.0-52.0); Hemoglobin 8.7 g/dL (14.0-18.0); Mean Corpuscular HGB Conc 32.5 g/dl (32-36); Mean Corpuscular Hemoglobin 31.4 pg (26-34); Mean Corpuscular Volume 96.8 fl (80-100); Platelet Count Result 267 k/mm3 (150-375); Red Blood Count 2.77 M/mm3 (4.6-6.20); Red Cell Distribution Width 15.2 % (11.5-14.5); White Blood Count 4.6 K/mm3 (4.5-10.0)
[2020-11-12 06:22] LABS: Lactic Acid Reflex 1.7 mmol/L (0.7-2.1)
[2020-11-12] MEDS: guaiFENesin/DEXTROMETHORPHAN 10 ML UDC PO (06:24)
[2020-11-12] MEDS: LEVOTHYROXINE SODIUM 75 MCG TABLET PO (06:24)
[2020-11-12 06:29] LABS: Alanine Aminotransferase 26 U/L (4-50); Albumin Level 2.5 g/dL (3.5-5.1); Alkaline Phosphatase 51 U/L (38-126); Anion Gap 4 mmol/L (8-16); Aspartate Amino Transferase 34 U/L (17-59); Bilirubin,Total 0.7 mg/dL (0.2-1.3); Blood Urea Nitrogen 23 mg/dL (9-20); CRP 5.5 mg/dL (<1.0); Calcium 7.9 mg/dL (8.4-10.2); Carbon Dioxide 26 mmol/L (22-30); Chloride 104 mmol/L (98-107); Estimated CRCL calculation 68 ml/min; Estimated Glomerular Filt Rate > 60; Glucose 90 mg/dL (75-110); Lactate Dehydrogenase 724 U/L (313-618); Magnesium 1.8 mg/dL (1.6-2.3); Potassium 3.8 mmol/L (3.4-5.0); Sodium 134 mmol/L (137-145)
--- NOTE | 2020-11-12 07:07 | WPDGIPROGNO ---
Progress Note: A&P Assessment and Plan (1) Positive occult stool blood test: Code(s): R19.5 - Other fecal abnormalities Status: Acute Assessment and Plan: Stool confirmed to be occult positive. Appears he passed a single clot of blood last evening. Hemoglobin stable with no evidence for significant active bleeding. Plan to repeat EGD and also colonoscopy when patient has been treated for his COVID infection. At the present time would monitor hemoglobin. Agree with holding anticoagulation. (2) Acute on chronic anemia: Code(s): D64.9 - Anemia, unspecified Status: Acute Assessment and Plan: Decline on hemoglobin noted compared to admission hemoglobin. Suspicion that he may have had a some bleeding. Although this could be equilibration. Continue to monitor hemoglobin. Transfuse if hemoglobin declines further. Patient known to have angiodysplasias in presumed chronic GI blood loss on this basis. 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 He likely has additional AVMs distal in the small bowel. Chronic slow blood loss anticipated from these. Continue monitor hemoglobin and transfuse as necessary. Follow-up EGD after his COVID infection his past. (4) Lung mass: Onset Date: 11/07/20 Code(s): R91.8 - Other nonspecific abnormal finding of lung field Status: Acute Assessment and Plan: Lung mass identified and followed by Pulmonary service. A ventral bronchoscopy anticipated. (5) COVID-19: Code(s): U07.1 - COVID-19 Status: Acute Assessment and Plan: Patient has active COVID infection. Suggest deferring invasive testing until this is passed unless active bleeding develops. (6) Obstructive sleep apnea: Onset Date: 2018 Code(s): G47.33 - Obstructive sleep apnea (adult) (pediatric) Status: Acute Subjective Date/time seen: 11/12/20 07:07 Patient calmed this morning. Reported to be anxious yesterday. Nursing staff reports patient passed a single clot of blood yesterday. No additional stool subsequently. Patient reports no knowledge of having passed any blood. NG tube lavage performed last evening was unremarkable. Hemoglobin has remained stable. Patient appears comfortable at rest. Less anxious at present. Tolerated liquid diet last night. Denies abdominal pain. Review of Systems Review of Systems: All systems reviewed & are unremarkable except as noted in HPI and below Exam Narrative: Exam Narrative: Physical exam reveals patient to be alert. Comfortable at rest. He is anicteric. Vital signs are stable. Lungs are clear. Heart without murmur. Abdomen bowel sounds present soft nontender with no organomegaly. Objective Data Vital Signs Vital Signs: Vital Signs - 24 hr 11/11/20 08:00 11/11/20 12:00 11/11/20 14:16 Temperature 98.4 F 97.7 F 98.0 F Pulse Rate 99 96 99 Respiratory Rate 24 H 28 H 24 H Blood Pressure 140/74 134/73 144/65 H Pulse Oximetry 91 95 93 11/11/20 16:00 11/11/20 20:00 11/12/20 00:00 Temperature 97.8 F 98.1 F 98.0 F Pulse Rate 94 95 91 Respiratory Rate 24 H 22 H 22 H Blood Pressure 143/63 H 139/59 L 132/65 Pulse Oximetry 93 93 97 11/12/20 04:00 Temperature 98.1 F Pulse Rate 106 H Respiratory Rate 24 H Blood Pressure 158/70 H Pulse Oximetry 90 Intake/Output Intake/Output: Intake & Output 11/09/20 11/10/20 11/11/20 11/12/20 23:59 23:59 23:59 23:59 Intake Total 1480 2270 1660 820 Output Total 875 980 700 400 Balance 605 1290 960 420 Meds/Results Medications: Active Medications Generic Name Dose Route Start Last Admin Trade Name Freq PRN Reason Stop Dose Admin Albuterol 3 puff 11/11/20 16:00 11/11/20 20:35 Albuterol Sulfate (*Sp) Aerosol 1 Puff INHALATION 3 puff QIDRT [facility] Administrati
[2020-11-12] MEDS: CHOLECALCIFEROL 1,000 UNITS TABLET 1000 UNITS PO (09:01)
[2020-11-12] MEDS: CYANOCOBALAMIN 1,000 MCG TABLET 1000 MCG PO (09:01)
[2020-11-12] MEDS: DEXAMETHASONE SOD PHOS INJ 4 MG/ML VIAL 6 MG IV PUSH (09:01)
[2020-11-12] MEDS: PANTOPRAZOLE SODIUM IV 40 MG VIAL IV PUSH ×2 (09:01→20:57)
[2020-11-12] MEDS: ALBUTEROL SULFATE (*SP) AEROSOL 1 PUFF 3 PUFF INHALATION (09:05)
[2020-11-12] MEDS: FLUTICASONE/UMECLIDIN/VILANTER 100-62.5-25 MCG ELLIPTA 1 PUFF INHALATION (09:06)
[2020-11-12] MEDS: REMDESIVIR 100 MG/NS 250 ML 100 MG/250 ML BAG 250 MG IVPB (09:45)
--- NOTE | 2020-11-12 13:48 | PM.PNPUL ---
Progress Note: A&P Assessment and Plan (1) COPD (chronic obstructive pulmonary disease): Onset Date: 2018 Qualifiers: COPD type: unspecified COPD Qualified Code(s): J44.9 - Chronic obstructive pulmonary disease, unspecified Code(s): J44.9 - Chronic obstructive pulmonary disease, unspecified Status: Acute Assessment and Plan: unfortunately due to his severe bronchospasm if he does not receive nebulized therapy he is at increased risk of increased respiratory failure and possibly intubation. - will start nebulized ipratropium 0.5 mg q.6 hours - we will start nebulized albuterol 2.5 mg q.6 hours - we will start Pulmicort 1.0 mg nebulized q.12 hours - MDI therapy can be discontinued (2) Acute respiratory failure with hypoxia: Code(s): J96.01 - Acute respiratory failure with hypoxia Status: Acute (3) COVID-19: Code(s): U07.1 - COVID-19 Status: Acute Assessment and Plan: - agree with Remdesivir for 5 days - will d/c solumedrol and resume dexamethasone 6 mg IV/PO for seven more days - agree with discontinuing antibiotics (4) Lung nodule: Code(s): R91.1 - Solitary pulmonary nodule Status: Acute Assessment and Plan: Very suspicious for primary lung CA. CT Guided biopsy would be more risky than Bronchoscopy with TBNA. I will schedule him for a bronchoscopy with TBNA for diagnostic and staging purposes in about three weeks - Hold all ASA, NSAIDS but continue DVT prophylaxis during hospitalization (5) Mediastinal adenopathy: Code(s): R59.0 - Localized enlarged lymph nodes Status: Acute (6) Pulmonary fibrosis: Code(s): J84.10 - Pulmonary fibrosis, unspecified Status: Acute Subjective Date/time seen: 11/12/20 13:48 Interval history: Eloy is doing worse today although his chest x-ray has not greatly changed. On examination he is appears to be having more bronchospasm and I suspect this is due to his underlying COPD. Unfortunately the current inhaled MDI therapy is not adequately being delivered to his airways and he really needs nebulized medications to improve. Because of the increasing bronchospasm his oxygenation demands of increased to 10 L up from 4 L just a few days ago. Review of Systems Review of Systems: All systems reviewed & are unremarkable except as noted in HPI and below Exam Const: General: cooperative and healthy appearing Orientation/consciousness: oriented to person, oriented to place and oriented to time HENMT: Head: normal to inspection Ears: hearing grossly normal bilaterally Mouth: Yes Normal oral and palatal mucosa present Throat: tonsils absent Eyes: General: appearance normal, both eyes and all related structures Neck: Neck: normal visual inspection Chest: Chest palpation & inspection: normal inspection of the chest Resp: Effort & Inspection: normal respiratory effort, normal respiratory pattern, no audible wheezes and labored (mild) Auscultation: crackles (bases L > R) bilateral, no rales, no rhonchi, no wheezes and diminished lung sounds Cardio: Jugular venous distension: no JVD GI: Inspection: normal to inspection Skin: General skin exam: normal color Neuro: General: oriented to person, oriented to place and oriented to time Extrem: General: normal to inspection Psych: Appearance: grossly normal Objective Data Vital Signs Vital Signs: Vital Signs - 24 hr 11/11/20 14:16 11/11/20 16:00 11/11/20 20:00 Temperature 36.7 C 36.6 C 36.7 C Pulse Rate 99 94 95 Respiratory Rate 24 H 24 H 22 H Blood Pressure 144/65 H 143/63 H 139/59 L Pulse Oximetry 93 93 93 11/12/20 00:00 11/12/20 04:00 11/12/20 07:55 Temperature 36.7 C 36.7 C 37.5 C Pulse Rate 91 106 H 103 H Respiratory Rate 22 H 24 H 32 H Blood Pressure 132/65 158/70 H 134/63 Pulse Oximetry 97 90 93 11/12/20 08:00 11/12/20 12:00 Temperature 36.7 C Pulse Rate 91 Respiratory Rate 32 H 24 H Blood Press
--- NOTE | 2020-11-12 14:41 | P.PNIM_ITS ---
Progress Note: A&P Assessment and Plan (1) COVID-19: Code(s): U07.1 - COVID-19 Status: Acute Assessment and Plan: * COVID positive by PCR on 11/07/20 * Continue Remdesivir (day 4) and dexamethasone (day 6) * Continue supplemental oxygen and wean as tolerated - Requiring up to 10L this afternoon from 4L/min this morning. * Pulmonology following - appreciate recommendations. Changed MDI to nebulized bronchodilator therapy with atrovent and albuterol; pulmicort added. (2) COPD (chronic obstructive pulmonary disease): Onset Date: 2018 Qualifiers: COPD type: unspecified COPD Qualified Code(s): J44.9 - Chronic obstructive pulmonary disease, unspecified Code(s): J44.9 - Chronic obstructive pulmonary disease, unspecified Status: Acute Assessment and Plan: * Pulmonology following - recommendations are appreciated. Recommended nebulized bronchodilator therapy and pulmicort. (3) Acute respiratory failure with hypoxia: Code(s): J96.01 - Acute respiratory failure with hypoxia Status: Acute Assessment and Plan: * Could be multifactorial due to COPD exacerbation, lung mass, and COVID-19. See plan above. * Plan for bronchoscopy with biopsy outpatient after he is recovered from COVID * Appreciate pulmonology recommendations. 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 * Outpatient biopsy recommended. (5) Hyponatremia: Code(s): E87.1 - Hypo-osmolality and hyponatremia Status: Acute Assessment and Plan: * Improving, may be related to infection or cancer. Monitor serum sodium. (6) Weight loss: Code(s): R63.4 - Abnormal weight loss Status: Acute Assessment and Plan: * May be related to suspected malignancy noted above. (7) Obstructive sleep apnea: Onset Date: 2018 Code(s): G47.33 - Obstructive sleep apnea (adult) (pediatric) Status: Acute Assessment and Plan: * CPAP. (8) Positive occult stool blood test: Code(s): R19.5 - Other fecal abnormalities Status: Acute Assessment and Plan: * Stool occult blood positive, blood clot passed during BM noted by nursing 11/11. * Drop in H&H noted at beginning of stay, but has been stable since. NG lavage performed yesterday did not demonstrate any bleeding. * Lovenox discontinued. * GI following -appreciate recommendations. (9) Acute on chronic anemia: Code(s): D64.9 - Anemia, unspecified Status: Acute Assessment and Plan: * See above. Bright red blood per rectum yesterday, none reported today. Hgb low but stable. * Monitor CBC and consider transfusion if Hgb less than 7. Subjective Date/time seen: 11/12/20 1155 Interval history: Mr. Duncan is an 79yo M admitted for acute respiratory failure secondary to severe COPD and COVID. He has had intermittent confusion per nursing last night through this morning and did not know where he
--- NOTE | 2020-11-12 14:41 | PM.IMPN ---
Progress Note: A&P Assessment and Plan (1) COVID-19: Code(s): U07.1 - COVID-19 Status: Acute Assessment and Plan: COVID positive by PCR on 11/07/20 Continue Remdesivir (day 4) and dexamethasone (day 6) Continue supplemental oxygen and wean as tolerated - Requiring up to 10L this afternoon from 4L/min this morning. Pulmonology following - appreciate recommendations. Changed MDI to nebulized bronchodilator therapy with atrovent and albuterol; pulmicort added. (2) COPD (chronic obstructive pulmonary disease): Onset Date: 2018 Qualifiers: COPD type: unspecified COPD Qualified Code(s): J44.9 - Chronic obstructive pulmonary disease, unspecified Code(s): J44.9 - Chronic obstructive pulmonary disease, unspecified Status: Acute Assessment and Plan: Pulmonology following - recommendations are appreciated. Recommended nebulized bronchodilator therapy and pulmicort. (3) Acute respiratory failure with hypoxia: Code(s): J96.01 - Acute respiratory failure with hypoxia Status: Acute Assessment and Plan: Could be multifactorial due to COPD exacerbation, lung mass, and COVID-19. See plan above. Plan for bronchoscopy with biopsy outpatient after he is recovered from COVID Appreciate pulmonology recommendations. 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 Outpatient biopsy recommended. (5) Hyponatremia: Code(s): E87.1 - Hypo-osmolality and hyponatremia Status: Acute Assessment and Plan: Improving, may be related to infection or cancer. Monitor serum sodium. (6) Weight loss: Code(s): R63.4 - Abnormal weight loss Status: Acute Assessment and Plan: May be related to suspected malignancy noted above. (7) Obstructive sleep apnea: Onset Date: 2018 Code(s): G47.33 - Obstructive sleep apnea (adult) (pediatric) Status: Acute Assessment and Plan: CPAP. (8) Positive occult stool blood test: Code(s): R19.5 - Other fecal abnormalities Status: Acute Assessment and Plan: Stool occult blood positive, blood clot passed during BM noted by nursing 11/11. Drop in H&H noted at beginning of stay, but has been stable since. NG lavage performed yesterday did not demonstrate any bleeding. Lovenox discontinued. GI following -appreciate recommendations. (9) Acute on chronic anemia: Code(s): D64.9 - Anemia, unspecified Status: Acute Assessment and Plan: See above. Bright red blood per rectum yesterday, none reported today. Hgb low but stable. Monitor CBC and consider transfusion if Hgb less than 7. Subjective Date/time seen: 11/12/20 1345 Interval history: Mr. Duncan is an 79yo M admitted for acute respiratory failure secondary to severe COPD and COVID. He has had intermittent confusion per nursing last night through this morning and did not know where he was, anxious. He is able to tell me this afternoon however that he knows he is in the hospital. He is resting comfortably now after being anxious much of the morning. He offers no complaints at this time. Denies chest pain, denies feeling short of breath, denies nausea or vomiting. He is coughing up thick pink sputum during my encounter. Review of Systems Review of Systems: All systems reviewed & ar
--- NOTE | 2020-11-12 15:06 | PCPTNOTE ---
The patient treatment was not able to be completed due to decreased participation. Will plan to continue treatment per plan of care.
[2020-11-12] MEDS: ALBUTEROL SULFATE NEB 2.5 MG/0.5 ML INH INHALATION (15:09)
[2020-11-12] MEDS: IPRATROPIUM BR 0.02% INH SOLN 0.5 MG/2.5 ML VIAL INHALATION (15:09)
[2020-11-12 20:47] LABS: ANCA Screen Negative (Negative)
[2020-11-12 21:46] LABS: Myeloperoxidase Antibody <1.0 AI (<1.0); Proteinase 3 PR3 Antibodies <1.0 AI (<1.0)
[2020-11-13] VITALS (16 sets, daily range): BP systolic 108–141; BP diastolic 55–72; PULSE 80–100; RESP 20–22; TEMP 36.2–37; O2SAT 90–96
[2020-11-13] MEDS: guaiFENesin/DEXTROMETHORPHAN 10 ML UDC PO (00:39)
[2020-11-13] MEDS: IPRATROPIUM BR 0.02% INH SOLN 0.5 MG/2.5 ML VIAL INHALATION ×4 (02:39→20:09)
[2020-11-13] MEDS: ALBUTEROL SULFATE NEB 2.5 MG/0.5 ML INH INHALATION ×4 (02:39→20:08)
[2020-11-13] MEDS: LEVOTHYROXINE SODIUM 75 MCG TABLET PO (05:18)
[2020-11-13 06:14] LABS: Basophils Percent Auto 0.2 % (0.2-1.2); Eosinophils Percent Auto 0.4 % (0-4.4); Hematocrit 24.9 % (42.0-52.0); Hemoglobin 8.4 g/dL (14.0-18.0); Immature Granulocyte Absolute 0.16 K/mm3 (0.00-0.031); Immature Granulocyte Percent A 3.2 % (0-0.5); Lymphocytes Absolute Auto 0.66 K/mm3 (0.9-3.2); Lymphocytes Percent Auto 13.3 % (18.3-44.2); Mean Corpuscular HGB Conc 33.7 g/dl (32-36); Mean Corpuscular Hemoglobin 31.9 pg (26-34); Mean Corpuscular Volume 94.7 fl (80-100); Mean Platelet Volume 9.1 fl (7.4-10.4); Monocytes Absolute Auto 0.4 K/mm3 (0.1-0.6); Monocytes Percent Auto 7.9 % (2.6-8.5); Neutrophils Absolute Auto 3.7 K/mm3 (1.3-6.7); Nucleated Red Blood Cells Perc 0.4 % (0.0-0.2); Platelet Count Result 288 k/mm3 (150-375); Red Blood Count 2.63 M/mm3 (4.6-6.20)
[2020-11-13 06:44] LABS: Alanine Aminotransferase 25 U/L (4-50); Albumin Level 2.4 g/dL (3.5-5.1); Alkaline Phosphatase 50 U/L (38-126); Anion Gap 5 mmol/L (8-16); Aspartate Amino Transferase 31 U/L (17-59); Bilirubin,Total 0.8 mg/dL (0.2-1.3); Blood Urea Nitrogen 21 mg/dL (9-20); Calcium 7.4 mg/dL (8.4-10.2); Carbon Dioxide 26 mmol/L (22-30); Chloride 98 mmol/L (98-107); Estimated CRCL calculation 61 ml/min; Estimated Glomerular Filt Rate > 60; Glucose 93 mg/dL (75-110); Magnesium 1.8 mg/dL (1.6-2.3); Potassium 3.5 mmol/L (3.4-5.0); Sodium 129 mmol/L (137-145)
[2020-11-13 07:56] LABS: Platelet Estimate Adequate (Adequate)
[2020-11-13 07:57] LABS: Ovalocytes 1+ (NORMAL)
--- NOTE | 2020-11-13 08:35 | PC.NURSE ---
OT was working with pt. Helped him to side of bed to get into chair for breakfast. Pt complianed of light headedness. Vitals were obtained. BP was ok. SPo2 was 81%. increased NC to 15lpm. Helped pt back to bed. O2 improvedc to 85%. NRB @15lpm. O2 increased to 98%. After further evaluation pt was titrated back of NRB and is still on 15lpm high flow cannula.
--- NOTE | 2020-11-13 09:04 | PM.PNPUL ---
Progress Note: A&P Assessment and Plan (1) COPD (chronic obstructive pulmonary disease): Onset Date: 2018 Qualifiers: COPD type: unspecified COPD Qualified Code(s): J44.9 - Chronic obstructive pulmonary disease, unspecified Code(s): J44.9 - Chronic obstructive pulmonary disease, unspecified Status: Acute Assessment and Plan: unfortunately due to his severe bronchospasm if he does not receive nebulized therapy he is at increased risk of increased respiratory failure and possibly intubation. -continue nebulized ipratropium 0.5 mg q.6 hours - continue nebulized albuterol 2.5 mg q.6 hours - continue Pulmicort 1.0 mg nebulized q.12 hours (2) Acute respiratory failure with hypoxia: Code(s): J96.01 - Acute respiratory failure with hypoxia Status: Acute Assessment and Plan: awake prone positioning during the day for as long as tolerated would signficantly improve his survival and outcome (3) COVID-19: Code(s): U07.1 - COVID-19 Status: Acute Assessment and Plan: - will extend Remdesivir for an addtional 5 days to make a total of 10 days - continue dexamethasone 6 mg daily for a total of 10 days (4) Lung nodule: Code(s): R91.1 - Solitary pulmonary nodule Status: Acute Assessment and Plan: Very suspicious for primary lung CA. CT Guided biopsy would be more risky than Bronchoscopy with TBNA. I will schedule him for a bronchoscopy with TBNA for diagnostic and staging purposes in about three weeks - Hold all ASA, NSAIDS but continue DVT prophylaxis during hospitalization (5) Mediastinal adenopathy: Code(s): R59.0 - Localized enlarged lymph nodes Status: Acute (6) Pulmonary fibrosis: Code(s): J84.10 - Pulmonary fibrosis, unspecified Status: Acute Subjective Date/time seen: 11/13/20 09:04 Interval history: He has no complaints but still feels a little lightheaded and short of breath. After working with occupational therapy and just sitting at the side of the bed his O2 saturations dropped into the low 80s and his oxygen was bumped up to 15 L from 12 L this morning but currently he appears to be stable while laying in bed. Review of Systems Review of Systems: All systems reviewed & are unremarkable except as noted in HPI and below Exam Const: General: cooperative and healthy appearing Orientation/consciousness: oriented to person, oriented to place and oriented to time HENMT: Head: normal to inspection Ears: hearing grossly normal bilaterally Mouth: Yes Normal oral and palatal mucosa present Throat: tonsils absent Eyes: General: appearance normal, both eyes and all related structures Neck: Neck: normal visual inspection Chest: Chest palpation & inspection: normal inspection of the chest Resp: Effort & Inspection: normal respiratory effort, normal respiratory pattern, no audible wheezes and labored (mild) Auscultation: crackles (bases L > R) bilateral, no rales, no rhonchi, no wheezes and diminished lung sounds Cardio: Jugular venous distension: no JVD GI: Inspection: normal to inspection Skin: General skin exam: normal color Neuro: General: oriented to person, oriented to place and oriented to time Extrem: General: normal to inspection Psych: Appearance: grossly normal Objective Data Vital Signs Vital Signs: Vital Signs - 24 hr 11/12/20 12:00 11/12/20 15:14 11/12/20 15:33 Temperature 36.7 C Pulse Rate 91 85 88 Respiratory Rate 24 H 20 20 Blood Pressure 114/63 Pulse Oximetry 93 97 11/12/20 16:00 11/12/20 20:00 11/13/20 00:00 Temperature 36.8 C 36.7 C 36.2 C L Pulse Rate 92 90 87 Respiratory Rate 20 20 20 Blood Pressure 123/71 120/69 129/62 Pulse Oximetry 93 94 91 11/13/20 02:39 11/13/20 02:50 11/13/20 04:00 Temperature 36.8 C Pulse Rate 80 82 89 Respiratory Rate 20 20 20 Blood Pressure 137/72 Pulse Oximetry 90 11/13/20 08:00 Temperature Pulse Rat
[2020-11-13] MEDS: BUDESONIDE RESPULE NEB 0.5 MG/2 ML AMP 1 MG INHALATION ×2 (09:10→20:08)
[2020-11-13] MEDS: DEXAMETHASONE SOD PHOS INJ 4 MG/ML VIAL 6 MG IV PUSH (09:42)
[2020-11-13] MEDS: ACETAMINOPHEN 325 MG TABLET 650 MG PO (09:42)
[2020-11-13] MEDS: CYANOCOBALAMIN 1,000 MCG TABLET 1000 MCG PO (09:42)
[2020-11-13] MEDS: CHOLECALCIFEROL 1,000 UNITS TABLET 1000 UNITS PO (09:43)
[2020-11-13] MEDS: PANTOPRAZOLE SODIUM IV 40 MG VIAL IV PUSH ×2 (09:44→21:11)
[2020-11-13] MEDS: REMDESIVIR 100 MG/NS 250 ML 100 MG/250 ML BAG 250 MG IVPB (09:44)
--- NOTE | 2020-11-13 09:54 | WPDGIPROGNO ---
Progress Note: A&P Assessment and Plan (1) Acute on chronic anemia: Code(s): D64.9 - Anemia, unspecified Status: Acute Assessment and Plan: Patient with modest anemia. Hemoglobin currently stable. Likely multifactorial. A component likely related to his known angiodysplasias of the intestines. (2) Positive occult stool blood test: Code(s): R19.5 - Other fecal abnormalities Status: Acute Assessment and Plan: Occult blood identified in stool. Patient had 1 episode of bright red blood per rectum night before last. Current hemoglobin is stable. Plan is for follow-up GI endoscopy after patient's respiratory status improves in COVID infection about resolved. 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 Likely has additional AVMs in the small bowel. These are prone to continued slow GI blood loss. Continue monitor hemoglobin and transfuse as needed when appropriate. We will follow with you. Follow-up EGD when COVID infection has resolved. (4) COVID-19: Code(s): U07.1 - COVID-19 Status: Acute (5) Lung mass: Onset Date: 11/07/20 Code(s): R91.8 - Other nonspecific abnormal finding of lung field Status: Acute (6) COPD (chronic obstructive pulmonary disease): Onset Date: 2018 Qualifiers: COPD type: unspecified COPD Qualified Code(s): J44.9 - Chronic obstructive pulmonary disease, unspecified Code(s): J44.9 - Chronic obstructive pulmonary disease, unspecified Status: Acute Subjective Date/time seen: 11/13/20 09:54 Patient appears at baseline modestly confused. He remains somewhat short of breath at rest. Currently on supplemental oxygen. No additional bleeding noted. He had a small amount of bright red blood per rectum night before last. She currently denies abdominal pain. He has no recollection of blood in his stools. Tolerating diet. Review of Systems Review of Systems: All systems reviewed & are unremarkable except as noted in HPI and below Exam Narrative: Exam Narrative: On physical exam patient is alert but modestly confused. Very poor historian. HEENT exam reveals no scleral icterus. Lungs reveal a few rhonchi. Heart without murmur. Abdomen bowel sounds are present soft nontender with no organomegaly. Stool is confirmed be Hemoccult-positive. Objective Data Vital Signs Vital Signs: Vital Signs - 24 hr 11/12/20 12:00 11/12/20 15:14 11/12/20 15:33 Temperature 98.0 F Pulse Rate 91 85 88 Respiratory Rate 24 H 20 20 Blood Pressure 114/63 Pulse Oximetry 93 97 11/12/20 16:00 11/12/20 20:00 11/13/20 00:00 Temperature 98.3 F 98.0 F 97.2 F L Pulse Rate 92 90 87 Respiratory Rate 20 20 20 Blood Pressure 123/71 120/69 129/62 Pulse Oximetry 93 94 91 11/13/20 02:39 11/13/20 02:50 11/13/20 04:00 Temperature 98.3 F Pulse Rate 80 82 89 Respiratory Rate 20 20 20 Blood Pressure 137/72 Pulse Oximetry 90 11/13/20 08:00 11/13/20 09:00 11/13/20 09:12 Temperature Pulse Rate 96 Respiratory Rate 22 H Blood Pressure Pulse Oximetry 94 93 11/13/20 09:33 Temperature Pulse Rate 100 Respiratory Rate 22 H Blood Pressure Pulse Oximetry Intake/Output Intake/Output: Intake & Output 11/10/20 11/11/20 11/12/20 11/13/20 23:59 23:59 23:59 23:59 Intake Total 2270 1660 2010 350 Output Total 776 145 1748 1975 Balance 5132 352 9609 -1625 Meds/Results Medications: Active Medications Generic Name Dose Route Start Last Admin Trade Name Freq PRN Reason Stop Dose Admin Acetaminophen 650 mg 11/12/20 09:10 11/13/20 09:42 Acetaminophen 325 Mg Tablet PO 650 mg Q4H PRN Administration Pain or Fever Albuterol 2.5 mg 11/12/20 14:00 11/13/20 09:10 Albuterol Sulfate Neb 2.5 Mg/0.5 Ml Inh INHALATION
[2020-11-13 10:11] LABS: Alanine Aminotransferase 27 U/L (4-50); Estimated CRCL calculation 61 ml/min; Estimated Glomerular Filt Rate > 60
[2020-11-13] MEDS: MAGNESIUM OXIDE 200 MG TABLET PO ×2 (11:13→21:11)
--- NOTE | 2020-11-13 12:02 | PCNWS ---
Weekly nutritional screen. Patient is tolerating Regular diet with adequate intake. Today eating 95% of meal. Diet supplements: Ensure Compact BID providing patient with an additional 220 kcals and 9 gms protein. No further nutritional needs at this time.
--- NOTE | 2020-11-13 12:42 | P.PNIM_ITS ---
Progress Note: A&P Assessment and Plan (1) COVID-19: Code(s): U07.1 - COVID-19 Status: Acute Assessment and Plan: * COVID positive by PCR on 11/07/20 * Continue Remdesivir (day 5) and dexamethasone (day 7). Remdesivir renewed for additional 5-day course. * Continue supplemental oxygen and wean as tolerated - Requiring up to 12-15L this afternoon. Desaturated with minimal activity. * Pulmonology following - appreciate recommendations. Continue nebulized bronchodilator therapy with atrovent and albuterol; pulmicort. (2) COPD (chronic obstructive pulmonary disease): Onset Date: 2018 Qualifiers: COPD type: unspecified COPD Qualified Code(s): J44.9 - Chronic obstructive pulmonary disease, unspecified Code(s): J44.9 - Chronic obstructive pulmonary disease, unspecified Status: Acute Assessment and Plan: * Pulmonology following - recommendations are appreciated. Recommended nebulized bronchodilator therapy and pulmicort. (3) Acute respiratory failure with hypoxia: Code(s): J96.01 - Acute respiratory failure with hypoxia Status: Acute Assessment and Plan: * Could be multifactorial due to COPD exacerbation, lung mass, and COVID-19. See plan above. * Plan for bronchoscopy with biopsy outpatient after he is recovered from COVID * Appreciate pulmonology recommendations. 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 * Outpatient biopsy recommended. (5) Hyponatremia: Code(s): E87.1 - Hypo-osmolality and hyponatremia Status: Acute Assessment and Plan: * Was improving, now lower again today. May be related to infection or cancer. Monitor serum sodium. (6) Weight loss: Code(s): R63.4 - Abnormal weight loss Status: Acute Assessment and Plan: * May be related to suspected malignancy noted above. (7) Obstructive sleep apnea: Onset Date: 2018 Code(s): G47.33 - Obstructive sleep apnea (adult) (pediatric) Status: Acute Assessment and Plan: * CPAP. (8) Positive occult stool blood test: Code(s): R19.5 - Other fecal abnormalities Status: Acute Assessment and Plan: * Stool occult blood positive, blood clot passed during BM noted by nursing 11/11. * Drop in H&H noted at beginning of stay, but has been stable since. NG lavage performed 11/11 did not demonstrate any bleeding. * Lovenox discontinued. * GI following -appreciate recommendations. (9) Acute on chronic anemia: Code(s): D64.9 - Anemia, unspecified Status: Acute Assessment and Plan: * See above. Bright red blood per rectum 11/11, none reported today. Hgb low but stable. * Monitor CBC and consider transfusion if Hgb less than 7. Subjective Date/time seen: 11/13/20 12:30 Interval history: Mr. Duncan is an 79yo M admitted for acute respiratory failure secondary to severe COPD and COVID. He has had some intermitten
--- NOTE | 2020-11-13 12:42 | PM.IMPN ---
Progress Note: A&P Assessment and Plan (1) COVID-19: Code(s): U07.1 - COVID-19 Status: Acute Assessment and Plan: COVID positive by PCR on 11/07/20 Continue Remdesivir (day 5) and dexamethasone (day 7). Remdesivir renewed for additional 5-day course. Continue supplemental oxygen and wean as tolerated - Requiring up to 12-15L this afternoon. Desaturated with minimal activity. Pulmonology following - appreciate recommendations. Continue nebulized bronchodilator therapy with atrovent and albuterol; pulmicort. (2) COPD (chronic obstructive pulmonary disease): Onset Date: 2018 Qualifiers: COPD type: unspecified COPD Qualified Code(s): J44.9 - Chronic obstructive pulmonary disease, unspecified Code(s): J44.9 - Chronic obstructive pulmonary disease, unspecified Status: Acute Assessment and Plan: Pulmonology following - recommendations are appreciated. Recommended nebulized bronchodilator therapy and pulmicort. (3) Acute respiratory failure with hypoxia: Code(s): J96.01 - Acute respiratory failure with hypoxia Status: Acute Assessment and Plan: Could be multifactorial due to COPD exacerbation, lung mass, and COVID-19. See plan above. Plan for bronchoscopy with biopsy outpatient after he is recovered from COVID Appreciate pulmonology recommendations. 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 Outpatient biopsy recommended. (5) Hyponatremia: Code(s): E87.1 - Hypo-osmolality and hyponatremia Status: Acute Assessment and Plan: Was improving, now lower again today. May be related to infection or cancer. Monitor serum sodium. (6) Weight loss: Code(s): R63.4 - Abnormal weight loss Status: Acute Assessment and Plan: May be related to suspected malignancy noted above. (7) Obstructive sleep apnea: Onset Date: 2018 Code(s): G47.33 - Obstructive sleep apnea (adult) (pediatric) Status: Acute Assessment and Plan: CPAP. (8) Positive occult stool blood test: Code(s): R19.5 - Other fecal abnormalities Status: Acute Assessment and Plan: Stool occult blood positive, blood clot passed during BM noted by nursing 11/11. Drop in H&H noted at beginning of stay, but has been stable since. NG lavage performed 11/11 did not demonstrate any bleeding. Lovenox discontinued. GI following -appreciate recommendations. (9) Acute on chronic anemia: Code(s): D64.9 - Anemia, unspecified Status: Acute Assessment and Plan: See above. Bright red blood per rectum 11/11, none reported today. Hgb low but stable. Monitor CBC and consider transfusion if Hgb less than 7. Subjective Date/time seen: 11/13/20 12:30 Interval history: Mr. Duncan is an 79yo M admitted for acute respiratory failure secondary to severe COPD and COVID. He has had some intermittent confusion but this afternoon he is able to tell me he is in the hospital and the month is October. He is feeling short of breath, had some lightheadedness this morning trying to get up with therapy when his oxygen saturations dropped. He is frustrated that he is not getting treatments even after I have explained the different therapies he is receiving daily but otherwise he offers no complaints. Review of
[2020-11-14] VITALS (12 sets, daily range): BP systolic 107–140; BP diastolic 44–75; PULSE 80–100; RESP 16–24; TEMP 36.3–37.1; O2SAT 90–98
[2020-11-14 06:22] LABS: Basophils Percent Auto 0.2 % (0.2-1.2); Eosinophils Percent Auto 0.2 % (0-4.4); Hematocrit 26.3 % (42.0-52.0); Hemoglobin 8.7 g/dL (14.0-18.0); Immature Granulocyte Absolute 0.14 K/mm3 (0.00-0.031); Immature Granulocyte Percent A 2.3 % (0-0.5); Lymphocytes Absolute Auto 0.62 K/mm3 (0.9-3.2); Lymphocytes Percent Auto 10.1 % (18.3-44.2); Mean Corpuscular HGB Conc 33.1 g/dl (32-36); Mean Corpuscular Hemoglobin 31.9 pg (26-34); Mean Corpuscular Volume 96.3 fl (80-100); Mean Platelet Volume 8.8 fl (7.4-10.4); Monocytes Absolute Auto 0.5 K/mm3 (0.1-0.6); Monocytes Percent Auto 8.1 % (2.6-8.5); Neutrophils Absolute Auto 4.9 K/mm3 (1.3-6.7); Neutrophils Percent Auto 79.1 % (45.5-73.1); Nucleated Red Blood Cells Perc 0.3 % (0.0-0.2); Platelet Count Result 312 k/mm3 (150-375); Red Blood Count 2.73 M/mm3 (4.6-6.20); Red Cell Distribution Width 14.8 % (11.5-14.5); White Blood Count 6.1 K/mm3 (4.5-10.0)
[2020-11-14 06:39] LABS: Alanine Aminotransferase 24 U/L (4-50); Albumin Level 2.5 g/dL (3.5-5.1); Alkaline Phosphatase 50 U/L (38-126); Anion Gap 3 mmol/L (8-16); Aspartate Amino Transferase 35 U/L (17-59); Bilirubin,Total 0.8 mg/dL (0.2-1.3); Blood Urea Nitrogen 20 mg/dL (9-20); Calcium 8.1 mg/dL (8.4-10.2); Carbon Dioxide 28 mmol/L (22-30); Chloride 101 mmol/L (98-107); Estimated CRCL calculation 68 ml/min; Estimated Glomerular Filt Rate > 60; Glucose 115 mg/dL (75-110); Potassium 3.9 mmol/L (3.4-5.0); Sodium 132 mmol/L (137-145)
[2020-11-14 06:40] LABS: Alanine Aminotransferase 24 U/L (4-50); Estimated CRCL calculation 61 ml/min; Estimated Glomerular Filt Rate > 60; Magnesium 1.9 mg/dL (1.6-2.3)
[2020-11-14] MEDS: LEVOTHYROXINE SODIUM 75 MCG TABLET PO (06:56)
--- NOTE | 2020-11-14 07:36 | WPDGIPROGNO ---
Progress Note: A&P Assessment and Plan (1) Acute on chronic anemia: Code(s): D64.9 - Anemia, unspecified Status: Acute Assessment and Plan: Hemoglobin stable. Patient chronically anemic. No recent decline in hemoglobin. Continue to monitor blood count intermittently. (2) Positive occult stool blood test: Code(s): R19.5 - Other fecal abnormalities Status: Acute Assessment and Plan: Patient had bowel movement with blood noticed several days ago. Has had no significant bleeding subsequently. Stool is Hemoccult positive. Likely related to known angiodysplasias. Follow-up EGD and colonoscopy at a later date when respiratory status is improved. Anticipate this after COVID infection resolved. (3) Gastric AVM: Code(s): K31.819 - Angiodysplasia of stomach and duodenum without bleeding Status: Acute Assessment and Plan: Patient known to have gastric AVMs. Likely has additional once distal in the small bowel. Chronic occult blood loss and anemia is expected. Will need to monitor CBC intermittently. Endoscopy planned as described above. (4) COVID-19: Code(s): U07.1 - COVID-19 Status: Acute (5) Acute respiratory failure with hypoxia: Code(s): J96.01 - Acute respiratory failure with hypoxia Status: Acute (6) COPD (chronic obstructive pulmonary disease): Onset Date: 2018 Qualifiers: COPD type: unspecified COPD Qualified Code(s): J44.9 - Chronic obstructive pulmonary disease, unspecified Code(s): J44.9 - Chronic obstructive pulmonary disease, unspecified Status: Acute (7) Lung mass: Onset Date: 11/07/20 Code(s): R91.8 - Other nonspecific abnormal finding of lung field Status: Acute Subjective Date/time seen: 11/14/20 07:36 Patient alert this morning. Remains on supplemental oxygen. Appears mildly tachypneic. He denies any shortness of breath. Denies abdominal pain. Denies any obvious blood in his stools. States he is tolerating his diet. Review of Systems Review of Systems: All systems reviewed & are unremarkable except as noted in HPI and below Exam Narrative: Exam Narrative: Patient is alert. Vital signs stable. Remains on high-flow supplemental oxygen. Lungs reveal a few rhonchi. Heart without murmur. Abdomen bowel sounds present soft nontender with no organomegaly. Objective Data Vital Signs Vital Signs: Vital Signs - 24 hr 11/13/20 08:00 11/13/20 09:00 11/13/20 09:12 Temperature 98.6 F Pulse Rate 100 96 Respiratory Rate 22 H 22 H Blood Pressure 122/57 L Pulse Oximetry 93 93 11/13/20 09:33 11/13/20 12:00 11/13/20 15:01 Temperature 98.1 F Pulse Rate 100 100 88 Respiratory Rate 22 H 22 H 20 Blood Pressure 141/61 H Pulse Oximetry 94 11/13/20 15:11 11/13/20 16:00 11/13/20 17:30 Temperature 98.3 F Pulse Rate 92 96 Respiratory Rate 20 20 Blood Pressure 121/62 Pulse Oximetry 96 96 11/13/20 20:00 11/13/20 20:09 11/13/20 20:27 Temperature 97.9 F Pulse Rate 96 91 93 Respiratory Rate 20 22 H 22 H Blood Pressure 108/55 L Pulse Oximetry 94 94 11/14/20 00:00 11/14/20 04:00 Temperature 98.1 F 97.4 F L Pulse Rate 100 100 Respiratory Rate 20 20 Blood Pressure 118/63 140/67 Pulse Oximetry 90 90 Intake/Output Intake/Output: Intake & Output 11/11/20 11/12/20 11/13/20 11/14/20 23:59 23:59 23:59 23:59 Intake Total 1660 2009 1700 370 Output Total 700 1000 2475 140 Balance 960 1010 -775 230 Meds/Results Medications: Active Medications Generic Name Dose Route Start Last Admin Trade Name Yolanda PRN Reason Stop Dose Admin Acetaminophen 650 mg 11/12/20 09:10 11/13/20 09:42 Acetaminophen 325 Mg Tablet PO 650 mg Q4H PRN Administration Pain or Fever Albuterol 2.5 mg 11/12/20 14:00 11/14/20 06:14 Albuterol Sulfate Neb 2.5 Mg/0.5 Ml Inh INHALATION Not Given Q6HRT [facility] Budesonide 1 mg 11/12/20 20:00 0
[2020-11-14] MEDS: IPRATROPIUM BR 0.02% INH SOLN 0.5 MG/2.5 ML VIAL INHALATION ×2 (08:22→21:31)
[2020-11-14] MEDS: BUDESONIDE RESPULE NEB 0.5 MG/2 ML AMP 1 MG INHALATION ×2 (08:22→21:31)
[2020-11-14] MEDS: ALBUTEROL SULFATE NEB 2.5 MG/0.5 ML INH INHALATION ×2 (08:22→21:31)
[2020-11-14] MEDS: DEXAMETHASONE SOD PHOS INJ 4 MG/ML VIAL 6 MG IV PUSH (09:13)
[2020-11-14] MEDS: CYANOCOBALAMIN 1,000 MCG TABLET 1000 MCG PO (09:13)
[2020-11-14] MEDS: PANTOPRAZOLE SODIUM IV 40 MG VIAL IV PUSH ×2 (09:13→21:13)
[2020-11-14] MEDS: MAGNESIUM OXIDE 200 MG TABLET PO ×2 (09:13→21:13)
[2020-11-14] MEDS: CHOLECALCIFEROL 1,000 UNITS TABLET 1000 UNITS PO (09:13)
[2020-11-14] MEDS: REMDESIVIR 100 MG/NS 250 ML 100 MG/250 ML BAG 250 MG IVPB (09:14)
--- NOTE | 2020-11-14 10:33 | PM.PNPUL ---
Progress Note: A&P Assessment and Plan (1) COPD (chronic obstructive pulmonary disease): Onset Date: 2018 Qualifiers: COPD type: unspecified COPD Qualified Code(s): J44.9 - Chronic obstructive pulmonary disease, unspecified Code(s): J44.9 - Chronic obstructive pulmonary disease, unspecified Status: Acute Assessment and Plan: unfortunately due to his severe bronchospasm if he does not receive nebulized therapy he is at increased risk of increased respiratory failure and possibly intubation. -continue nebulized ipratropium 0.5 mg q.6 hours - continue nebulized albuterol 2.5 mg q.6 hours - continue Pulmicort 1.0 mg nebulized q.12 hours (2) Acute respiratory failure with hypoxia: Code(s): J96.01 - Acute respiratory failure with hypoxia Status: Acute Assessment and Plan: awake prone positioning during the day for as long as tolerated would signficantly improve his survival and outcome (3) COVID-19: Code(s): U07.1 - COVID-19 Status: Acute Assessment and Plan: - will extend Remdesivir for an addtional 5 days to make a total of 10 days - continue dexamethasone 6 mg daily for a total of 10 days (4) Lung nodule: Code(s): R91.1 - Solitary pulmonary nodule Status: Acute Assessment and Plan: Very suspicious for primary lung CA. CT Guided biopsy would be more risky than Bronchoscopy with TBNA. I will schedule him for a bronchoscopy with TBNA for diagnostic and staging purposes in about three weeks - Hold all ASA, NSAIDS but continue DVT prophylaxis during hospitalization (5) Mediastinal adenopathy: Code(s): R59.0 - Localized enlarged lymph nodes Status: Acute (6) Pulmonary fibrosis: Code(s): J84.10 - Pulmonary fibrosis, unspecified Status: Acute Subjective Date/time seen: 11/14/20 10:33 Interval history: He seems to be doing okay today he is awake and eating breakfast complaining of a little cough but otherwise feeling well. He still on 12 L oxygen by nasal cannula. Exam Const: General: cooperative and healthy appearing Orientation/consciousness: oriented to person, oriented to place and oriented to time HENMT: Head: normal to inspection Ears: hearing grossly normal bilaterally Mouth: Yes Normal oral and palatal mucosa present Throat: tonsils absent Eyes: General: appearance normal, both eyes and all related structures Neck: Neck: normal visual inspection Chest: Chest palpation & inspection: normal inspection of the chest Resp: Effort & Inspection: normal respiratory effort, normal respiratory pattern, no audible wheezes and labored (mild) Auscultation: crackles (bases L > R) bilateral, no rales, no rhonchi, no wheezes and diminished lung sounds Cardio: Jugular venous distension: no JVD GI: Inspection: normal to inspection Skin: General skin exam: normal color Neuro: General: oriented to person, oriented to place and oriented to time Extrem: General: normal to inspection Psych: Appearance: grossly normal Objective Data Vital Signs Vital Signs: Vital Signs - 24 hr 11/13/20 12:00 11/13/20 15:01 11/13/20 15:11 Temperature 36.7 C Pulse Rate 100 88 92 Respiratory Rate 22 H 20 20 Blood Pressure 141/61 H Pulse Oximetry 94 11/13/20 16:00 11/13/20 17:30 11/13/20 20:00 Temperature 36.8 C 36.6 C Pulse Rate 96 96 Respiratory Rate 20 20 Blood Pressure 121/62 108/55 L Pulse Oximetry 96 96 94 11/13/20 20:09 11/13/20 20:27 11/14/20 00:00 Temperature 36.7 C Pulse Rate 91 93 100 Respiratory Rate 22 H 22 H 20 Blood Pressure 118/63 Pulse Oximetry 94 90 11/14/20 04:00 11/14/20 08:00 11/14/20 08:23 Temperature 36.3 C L 36.6 C Pulse Rate 100 94 92 Respiratory Rate 20 18 22 H Blood Pressure 140/67 117/55 L Pulse Oximetry 90 97 92 11/14/20 08:52 Temperature Pulse Rate 100 Respiratory Rate 24 H Blood Pressure Pulse Oximetry Intake/Output Intake/Ou
--- NOTE | 2020-11-14 11:33 | P.PNIM_ITS ---
Progress Note: A&P Assessment and Plan (1) COVID-19: Code(s): U07.1 - COVID-19 Status: Acute Assessment and Plan: * COVID positive by PCR on 11/07/20 * Continue Remdesivir (day 6) and dexamethasone (day 8). * Continue supplemental oxygen and wean as tolerated - Stable at 11L/min high flow NC this afternoon. * Pulmonology following - appreciate recommendations. Continue nebulized bronchodilator therapy with atrovent and albuterol; pulmicort. (2) COPD (chronic obstructive pulmonary disease): Onset Date: 2018 Qualifiers: COPD type: unspecified COPD Qualified Code(s): J44.9 - Chronic ob structive pulmonary disease, unspecified Code(s): J44.9 - Chronic obstructive pulmonary disease, unspecified Status: Acute Assessment and Plan: * Pulmonology following - recommendations are appreciated. Recommended nebulized bronchodilator therapy and pulmicort. (3) Acute respiratory failure with hypoxia: Code(s): J96.01 - Acute respiratory failure with hypoxia Status: Acute Assessment and Plan: * Could be multifactorial due to COPD exacerbation, lung mass, and COVID-19. See plan above. * Plan for bronchoscopy with biopsy outpatient after he is recovered from COVID * Appreciate pulmonology recommendations. 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 * Outpatient biopsy recommended. (5) Hyponatremia: Code(s): E87.1 - Hypo-osmolality and hyponatremia Status: Acute Assessment and Plan: * Sodium 132 today. May be related to infection or cancer. Will monitor. (6) Weight loss: Code(s): R63.4 - Abnormal weight loss Status: Acute Assessment and Plan: * May be related to suspected malignancy noted above. (7) Obstructive sleep apnea: Onset Date: 2018 Code(s): G47.33 - Obstructive sleep apnea (adult) (pediatric) Status: Acute Assessment and Plan: * CPAP. (8) Positive occult stool blood test: Code(s): R19.5 - Other fecal abnormalities Status: Acute Assessment and Plan: * Stool occult blood positive, blood clot passed during BM noted by nursing 11/11. * Drop in H&H noted at beginning of stay, but has been stable since. NG lavage performed 11/11 did not demonstrate any bleeding. * Lovenox discontinued. * GI following -appreciate recommendations. (9) Acute on chronic anemia: Code(s): D64.9 - Anemia, unspecified Status: Acute Assessment and Plan: * See above. Bright red blood per rectum 11/11, none reported today. Hgb low but stable. * Monitor CBC and consider transfusion if Hgb less than 7. Subjective Date/time seen: 11/14/20 11:15 Interval history: Mr. Duncan is an 79yo M admitted for acute respiratory failure secondary to severe COPD and COVID. He has had some intermittent confusion but this afternoon he answers orientation questions correctly. He looks well sitting up in t
--- NOTE | 2020-11-14 11:33 | PM.IMPN ---
Progress Note: A&P Assessment and Plan (1) COVID-19: Code(s): U07.1 - COVID-19 Status: Acute Assessment and Plan: COVID positive by PCR on 11/07/20 Continue Remdesivir (day 6) and dexamethasone (day 8). Continue supplemental oxygen and wean as tolerated - Stable at 11L/min high flow NC this afternoon. Pulmonology following - appreciate recommendations. Continue nebulized bronchodilator therapy with atrovent and albuterol; pulmicort. (2) COPD (chronic obstructive pulmonary disease): Onset Date: 2018 Qualifiers: COPD type: unspecified COPD Qualified Code(s): J44.9 - Chronic obstructive pulmonary disease, unspecified Code(s): J44.9 - Chronic obstructive pulmonary disease, unspecified Status: Acute Assessment and Plan: Pulmonology following - recommendations are appreciated. Recommended nebulized bronchodilator therapy and pulmicort. (3) Acute respiratory failure with hypoxia: Code(s): J96.01 - Acute respiratory failure with hypoxia Status: Acute Assessment and Plan: Could be multifactorial due to COPD exacerbation, lung mass, and COVID-19. See plan above. Plan for bronchoscopy with biopsy outpatient after he is recovered from COVID Appreciate pulmonology recommendations. 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 Outpatient biopsy recommended. (5) Hyponatremia: Code(s): E87.1 - Hypo-osmolality and hyponatremia Status: Acute Assessment and Plan: Sodium 132 today. May be related to infection or cancer. Will monitor. (6) Weight loss: Code(s): R63.4 - Abnormal weight loss Status: Acute Assessment and Plan: May be related to suspected malignancy noted above. (7) Obstructive sleep apnea: Onset Date: 2018 Code(s): G47.33 - Obstructive sleep apnea (adult) (pediatric) Status: Acute Assessment and Plan: CPAP. (8) Positive occult stool blood test: Code(s): R19.5 - Other fecal abnormalities Status: Acute Assessment and Plan: Stool occult blood positive, blood clot passed during BM noted by nursing 11/11. Drop in H&H noted at beginning of stay, but has been stable since. NG lavage performed 11/11 did not demonstrate any bleeding. Lovenox discontinued. GI following -appreciate recommendations. (9) Acute on chronic anemia: Code(s): D64.9 - Anemia, unspecified Status: Acute Assessment and Plan: See above. Bright red blood per rectum 11/11, none reported today. Hgb low but stable. Monitor CBC and consider transfusion if Hgb less than 7. Subjective Date/time seen: 11/14/20 11:15 Interval history: Mr. Duncan is an 79yo M admitted for acute respiratory failure secondary to severe COPD and COVID. He has had some intermittent confusion but this afternoon he answers orientation questions correctly. He looks well sitting up in the bedside chair. He feels like his shortness of breath is a little improved and otherwise offers no complaints. He denies chest pain, nausea or vomiting. Review of Systems Review of Systems: All systems reviewed & are unremarkable except as noted in HPI and below Exam Narrative: Exam Narrative: General: Elderly male resting comfortably sitting up in bedside chair in no acute distress. HEENT: N
--- NOTE | 2020-11-14 17:40 | PCRCNOTE ---
Window of time for administration has passed. See next scheduled administration.
[2020-11-15] VITALS (15 sets, daily range): BP systolic 119–136; BP diastolic 56–70; PULSE 72–96; RESP 18–20; TEMP 36.2–36.8; O2SAT 90–100
[2020-11-15] MEDS: IPRATROPIUM BR 0.02% INH SOLN 0.5 MG/2.5 ML VIAL INHALATION ×4 (03:20→20:07)
[2020-11-15] MEDS: ALBUTEROL SULFATE NEB 2.5 MG/0.5 ML INH INHALATION ×4 (03:20→20:07)
[2020-11-15 06:00] LABS: Basophils Percent Auto 0.2 % (0.2-1.2); Eosinophils Percent Auto 0.2 % (0-4.4); Hematocrit 26.3 % (42.0-52.0); Hemoglobin 8.6 g/dL (14.0-18.0); Immature Granulocyte Absolute 0.11 K/mm3 (0.00-0.031); Immature Granulocyte Percent A 1.7 % (0-0.5); Lymphocytes Absolute Auto 0.65 K/mm3 (0.9-3.2); Lymphocytes Percent Auto 10.2 % (18.3-44.2); Mean Corpuscular HGB Conc 32.7 g/dl (32-36); Mean Corpuscular Hemoglobin 31.4 pg (26-34); Mean Platelet Volume 8.9 fl (7.4-10.4); Monocytes Absolute Auto 0.6 K/mm3 (0.1-0.6); Monocytes Percent Auto 8.6 % (2.6-8.5); Neutrophils Absolute Auto 5.1 K/mm3 (1.3-6.7); Neutrophils Percent Auto 79.1 % (45.5-73.1); Nucleated Red Blood Cells Perc 0.3 % (0.0-0.2); Platelet Count Result 345 k/mm3 (150-375); Red Blood Count 2.74 M/mm3 (4.6-6.20); Red Cell Distribution Width 14.7 % (11.5-14.5); White Blood Count 6.4 K/mm3 (4.5-10.0)
[2020-11-15] MEDS: LEVOTHYROXINE SODIUM 75 MCG TABLET PO (06:15)
[2020-11-15 06:17] LABS: Alanine Aminotransferase 24 U/L (4-50); Estimated CRCL calculation 61 ml/min; Estimated Glomerular Filt Rate > 60
[2020-11-15 06:19] LABS: CRP 4.5 mg/dL (<1.0); Lactate Dehydrogenase 707 U/L (313-618); Magnesium 1.9 mg/dL (1.6-2.3)
[2020-11-15 07:34] LABS: Alanine Aminotransferase 25 U/L (4-50); Albumin Level 2.5 g/dL (3.5-5.1); Alkaline Phosphatase 54 U/L (38-126); Anion Gap 4 mmol/L (8-16); Aspartate Amino Transferase 41 U/L (17-59); Bilirubin,Total 0.6 mg/dL (0.2-1.3); Blood Urea Nitrogen 20 mg/dL (9-20); Carbon Dioxide 26 mmol/L (22-30); Chloride 101 mmol/L (98-107); Estimated CRCL calculation 61 ml/min; Estimated Glomerular Filt Rate > 60; Glucose 105 mg/dL (75-110); Potassium 4.1 mmol/L (3.4-5.0); Sodium 131 mmol/L (137-145)
[2020-11-15] MEDS: CYANOCOBALAMIN 1,000 MCG TABLET 1000 MCG PO (09:19)
[2020-11-15] MEDS: MAGNESIUM OXIDE 200 MG TABLET PO ×2 (09:19→20:35)
[2020-11-15] MEDS: DEXAMETHASONE SOD PHOS INJ 4 MG/ML VIAL 6 MG IV PUSH (09:19)
[2020-11-15] MEDS: CHOLECALCIFEROL 1,000 UNITS TABLET 1000 UNITS PO (09:19)
[2020-11-15] MEDS: PANTOPRAZOLE SODIUM IV 40 MG VIAL IV PUSH ×2 (09:20→20:35)
[2020-11-15] MEDS: BUDESONIDE RESPULE NEB 0.5 MG/2 ML AMP 1 MG INHALATION ×2 (10:03→20:07)
[2020-11-15] MEDS: REMDESIVIR 100 MG/NS 250 ML 100 MG/250 ML BAG 250 MG IVPB (10:26)
--- NOTE | 2020-11-15 11:15 | P.PNIM_ITS ---
Progress Note: A&P Assessment and Plan (1) COVID-19: Code(s): U07.1 - COVID-19 Status: Acute Assessment and Plan: * COVID positive by PCR on 11/07/20 * Continue Remdesivir (day 7) and dexamethasone (day 9). * Continue supplemental oxygen and wean as tolerated - Stable at 11L/min high flow NC this afternoon. * Pulmonology following - appreciate recommendations. Continue nebulized bronchodilator therapy with atrovent and albuterol; pulmicort. * Prone positioning encouraged. Add saline nasal spray for nasal congestion. (2) COPD (chronic obstructive pulmonary disease): Onset Date: 2018 Qualifiers: COPD type: unspecified COPD Qualified Code(s): J44.9 - Chronic obstructive pulmonary disease, unspecified Code(s): J44.9 - Chronic obstructive pulmonary disease, unspecified Status: Acute Assessment and Plan: * Pulmonology following - recommendations are appreciated. Recommended nebulized bronchodilator therapy and pulmicort. (3) Acute respiratory failure with hypoxia: Code(s): J96.01 - Acute respiratory failure with hypoxia Status: Acute Assessment and Plan: * Could be multifactorial due to COPD exacerbation, lung mass, and COVID-19. See plan above. * Plan for bronchoscopy with biopsy outpatient after he is recovered from COVID * Appreciate pulmonology recommendations. 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 * Outpatient biopsy recommended. (5) Hyponatremia: Code(s): E87.1 - Hypo-osmolality and hyponatremia Status: Acute Assessment and Plan: * Sodium 131 today. May be related to infection or cancer. Will monitor. (6) Weight loss: Code(s): R63.4 - Abnormal weight loss Status: Acute Assessment and Plan: * May be related to suspected malignancy noted above. (7) Obstructive sleep apnea: Onset Date: 2018 Code(s): G47.33 - Obstructive sleep apnea (adult) (pediatric) Status: Acute Assessment and Plan: * CPAP. (8) Positive occult stool blood test: Code(s): R19.5 - Other fecal abnormalities Status: Acute Assessment and Plan: * Stool occult blood positive, blood clot passed during BM noted by nursing 11/11 and none reported since then. * Drop in H&H noted at beginning of stay, but has been stable since. NG lavage performed 11/11 did not demonstrate any bleeding. * Lovenox discontinued. * GI following -appreciate recommendations. (9) Acute on chronic anemia: Code(s): D64.9 - Anemia, unspecified Status: Acute Assessment and Plan: * See above. Hgb low but stable. * Monitor CBC and consider transfusion if Hgb less than 7. Subjective Date/time seen: 11/15/20 11:00 Interval history: Mr. Duncan is an 79yo M admitted for acute respiratory failure secondary to severe COPD and COVID. He is doing okay today, no acute events overnight. He complains of nasal congestion. De
--- NOTE | 2020-11-15 11:15 | PM.IMPN ---
Progress Note: A&P Assessment and Plan (1) COVID-19: Code(s): U07.1 - COVID-19 Status: Acute Assessment and Plan: COVID positive by PCR on 11/07/20 Continue Remdesivir (day 7) and dexamethasone (day 9). Continue supplemental oxygen and wean as tolerated - Stable at 11L/min high flow NC this afternoon. Pulmonology following - appreciate recommendations. Continue nebulized bronchodilator therapy with atrovent and albuterol; pulmicort. Prone positioning encouraged. Add saline nasal spray for nasal congestion. (2) COPD (chronic obstructive pulmonary disease): Onset Date: 2018 Qualifiers: COPD type: unspecified COPD Qualified Code(s): J44.9 - Chronic obstructive pulmonary disease, unspecified Code(s): J44.9 - Chronic obstructive pulmonary disease, unspecified Status: Acute Assessment and Plan: Pulmonology following - recommendations are appreciated. Recommended nebulized bronchodilator therapy and pulmicort. (3) Acute respiratory failure with hypoxia: Code(s): J96.01 - Acute respiratory failure with hypoxia Status: Acute Assessment and Plan: Could be multifactorial due to COPD exacerbation, lung mass, and COVID-19. See plan above. Plan for bronchoscopy with biopsy outpatient after he is recovered from COVID Appreciate pulmonology recommendations. 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 Outpatient biopsy recommended. (5) Hyponatremia: Code(s): E87.1 - Hypo-osmolality and hyponatremia Status: Acute Assessment and Plan: Sodium 131 today. May be related to infection or cancer. Will monitor. (6) Weight loss: Code(s): R63.4 - Abnormal weight loss Status: Acute Assessment and Plan: May be related to suspected malignancy noted above. (7) Obstructive sleep apnea: Onset Date: 2018 Code(s): G47.33 - Obstructive sleep apnea (adult) (pediatric) Status: Acute Assessment and Plan: CPAP. (8) Positive occult stool blood test: Code(s): R19.5 - Other fecal abnormalities Status: Acute Assessment and Plan: Stool occult blood positive, blood clot passed during BM noted by nursing 11/11 and none reported since then. Drop in H&H noted at beginning of stay, but has been stable since. NG lavage performed 11/11 did not demonstrate any bleeding. Lovenox discontinued. GI following -appreciate recommendations. (9) Acute on chronic anemia: Code(s): D64.9 - Anemia, unspecified Status: Acute Assessment and Plan: See above. Hgb low but stable. Monitor CBC and consider transfusion if Hgb less than 7. Subjective Date/time seen: 11/15/20 11:00 Interval history: Mr. Duncan is an 79yo M admitted for acute respiratory failure secondary to severe COPD and COVID. He is doing okay today, no acute events overnight. He complains of nasal congestion. Denies chest pain. Review of Systems Review of Systems: All systems reviewed & are unremarkable except as noted in HPI and below Exam Narrative: Exam Narrative: General: Elderly male resting comfortably sitting up in bedside chair in no acute distress. HEENT: Normocephalic, EOMI, oral mucosa moist. Cardiovascular: Rate and rhythm are regular. Respiratory: Diffuse expiratory wheeze REMIGIO.
--- NOTE | 2020-11-15 11:20 | PM.PNPUL ---
Progress Note: A&P Assessment and Plan (1) COPD (chronic obstructive pulmonary disease): Onset Date: 2018 Qualifiers: COPD type: unspecified COPD Qualified Code(s): J44.9 - Chronic obstructive pulmonary disease, unspecified Code(s): J44.9 - Chronic obstructive pulmonary disease, unspecified Status: Acute Assessment and Plan: unfortunately due to his severe bronchospasm if he does not receive nebulized therapy he is at increased risk of increased respiratory failure and possibly intubation. -continue nebulized ipratropium 0.5 mg q.6 hours - continue nebulized albuterol 2.5 mg q.6 hours - continue Pulmicort 1.0 mg nebulized q.12 hours (2) Acute respiratory failure with hypoxia: Code(s): J96.01 - Acute respiratory failure with hypoxia Status: Acute Assessment and Plan: awake prone positioning during the day for as long as tolerated would signficantly improve his survival and outcome (3) COVID-19: Code(s): U07.1 - COVID-19 Status: Acute Assessment and Plan: - will extend Remdesivir for an addtional 5 days to make a total of 10 days - continue dexamethasone 6 mg daily for a total of 10 days (4) Lung nodule: Code(s): R91.1 - Solitary pulmonary nodule Status: Acute Assessment and Plan: Very suspicious for primary lung CA. CT Guided biopsy would be more risky than Bronchoscopy with TBNA. I will schedule him for a bronchoscopy with TBNA for diagnostic and staging purposes in about three weeks - Hold all ASA, NSAIDS but continue DVT prophylaxis during hospitalization (5) Mediastinal adenopathy: Code(s): R59.0 - Localized enlarged lymph nodes Status: Acute (6) Pulmonary fibrosis: Code(s): J84.10 - Pulmonary fibrosis, unspecified Status: Acute Subjective Date/time seen: 11/15/20 11:20 Interval history: Stable on 11 liters oxygen by nasal cannula. He did not do proning yesterday. Review of Systems Review of Systems: All systems reviewed & are unremarkable except as noted in HPI and below Exam Const: General: cooperative and healthy appearing Orientation/consciousness: oriented to person, oriented to place and oriented to time HENMT: Head: normal to inspection Ears: hearing grossly normal bilaterally Mouth: Yes Normal oral and palatal mucosa present Throat: tonsils absent Eyes: General: appearance normal, both eyes and all related structures Neck: Neck: normal visual inspection Chest: Chest palpation & inspection: normal inspection of the chest Resp: Effort & Inspection: normal respiratory effort, normal respiratory pattern, no audible wheezes and labored (mild) Auscultation: crackles (bases L > R) bilateral, no rales, no rhonchi, no wheezes and diminished lung sounds Cardio: Jugular venous distension: no JVD GI: Inspection: normal to inspection Skin: General skin exam: normal color Neuro: General: oriented to person, oriented to place and oriented to time Extrem: General: normal to inspection Psych: Appearance: grossly normal Objective Data Vital Signs Vital Signs: Vital Signs - 24 hr 11/14/20 12:00 11/14/20 16:00 11/14/20 20:00 Temperature 37.1 C 36.4 C 36.4 C Pulse Rate 98 93 94 Respiratory Rate 18 20 20 Blood Pressure 107/44 L 137/75 132/56 L Pulse Oximetry 92 98 92 11/14/20 21:36 11/14/20 22:21 11/14/20 23:36 Temperature Pulse Rate 80 90 Respiratory Rate Blood Pressure Pulse Oximetry 92 96 11/15/20 00:00 11/15/20 03:27 11/15/20 03:29 Temperature 36.8 C Pulse Rate 90 85 90 Respiratory Rate 20 Blood Pressure 120/70 Pulse Oximetry 100 11/15/20 03:32 11/15/20 04:00 11/15/20 08:22 Temperature 36.3 C L 36.2 C L Pulse Rate 91 94 Respiratory Rate 20 18 Blood Pressure 127/63 130/67 Pulse Oximetry 99 93 94 11/15/20 10:20 Temperature Pulse Rate 90 Respiratory Rate Blood Pressure Pulse Oximetry 93 Intake/Output Intake/
[2020-11-15] MEDS: polyethylene glycoL 3350 17 GM POWD.PACK PO (12:48)
[2020-11-16] VITALS (16 sets, daily range): BP systolic 104–135; BP diastolic 49–67; PULSE 84–113; RESP 16–22; TEMP 36.2–36.5; O2SAT 92–100
[2020-11-16] MEDS: ALBUTEROL SULFATE NEB 2.5 MG/0.5 ML INH INHALATION ×4 (02:40→20:01)
[2020-11-16] MEDS: IPRATROPIUM BR 0.02% INH SOLN 0.5 MG/2.5 ML VIAL INHALATION ×4 (02:41→20:01)
[2020-11-16] MEDS: LEVOTHYROXINE SODIUM 75 MCG TABLET PO (05:44)
[2020-11-16 06:30] LABS: Alanine Aminotransferase 23 U/L (4-50); Albumin Level 2.4 g/dL (3.5-5.1); Alkaline Phosphatase 48 U/L (38-126); Anion Gap -1 mmol/L (8-16); Aspartate Amino Transferase 26 U/L (17-59); Bilirubin,Total 0.6 mg/dL (0.2-1.3); Blood Urea Nitrogen 19 mg/dL (9-20); Calcium 8.1 mg/dL (8.4-10.2); Carbon Dioxide 31 mmol/L (22-30); Chloride 101 mmol/L (98-107); Estimated CRCL calculation 55 ml/min; Estimated Glomerular Filt Rate > 60; Glucose 108 mg/dL (75-110); Potassium 3.9 mmol/L (3.4-5.0); Sodium 131 mmol/L (137-145)
[2020-11-16] MEDS: BUDESONIDE RESPULE NEB 0.5 MG/2 ML AMP 1 MG INHALATION ×2 (09:05→20:00)
[2020-11-16] MEDS: CYANOCOBALAMIN 1,000 MCG TABLET 1000 MCG PO (09:13)
[2020-11-16] MEDS: CHOLECALCIFEROL 1,000 UNITS TABLET 1000 UNITS PO (09:13)
[2020-11-16] MEDS: MAGNESIUM OXIDE 200 MG TABLET PO ×2 (09:13→20:29)
[2020-11-16] MEDS: DEXAMETHASONE SOD PHOS INJ 4 MG/ML VIAL 6 MG IV PUSH (09:15)
[2020-11-16] MEDS: PANTOPRAZOLE SODIUM IV 40 MG VIAL IV PUSH ×2 (09:15→20:29)
[2020-11-16] MEDS: polyethylene glycoL 3350 17 GM POWD.PACK PO (09:15)
--- NOTE | 2020-11-16 11:30 | P.PNIM_ITS ---
Progress Note: A&P Assessment and Plan (1) COVID-19: Code(s): U07.1 - COVID-19 Status: Acute Assessment and Plan: * COVID positive by PCR on 11/07/20 * Continue Remdesivir (day 8) and dexamethasone (day 10). * Continue supplemental oxygen and wean as tolerated - Stable at 11L/min high flow NC this afternoon. * Pulmonology following - appreciate recommendations. Continue nebulized bronchodilator therapy with atrovent and albuterol; pulmicort. * Prone positioning encouraged. Added saline nasal spray for nasal congestion. (2) COPD (chronic obstructive pulmonary disease): Onset Date: 2018 Qualifiers: COPD type: unspecified COPD Qualified Code(s): J44.9 - Chronic obstructive pulmonary disease, unspecified Code(s): J44.9 - Chronic obstructive pulmonary disease, unspecified Status: Acute Assessment and Plan: * Pulmonology following - recommendations are appreciated. Recommended nebulized bronchodilator therapy and pulmicort. (3) Acute respiratory failure with hypoxia: Code(s): J96.01 - Acute respiratory failure with hypoxia Status: Acute Assessment and Plan: * Could be multifactorial due to COPD exacerbation, lung mass, and COVID-19. See plan above. * Plan for bronchoscopy with biopsy outpatient after he is recovered from COVID * Appreciate pulmonology recommendations. 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 * Outpatient biopsy recommended. (5) Hyponatremia: Code(s): E87.1 - Hypo-osmolality and hyponatremia Status: Acute Assessment and Plan: * Sodium 131 today. May be related to infection or cancer. Will monitor. (6) Weight loss: Code(s): R63.4 - Abnormal weight loss Status: Acute Assessment and Plan: * May be related to suspected malignancy noted above. (7) Obstructive sleep apnea: Onset Date: 2018 Code(s): G47.33 - Obstructive sleep apnea (adult) (pediatric) Status: Acute Assessment and Plan: * CPAP. (8) Positive occult stool blood test: Code(s): R19.5 - Other fecal abnormalities Status: Acute Assessment and Plan: * Stool occult blood positive, blood clot passed during BM noted by nursing 11/11 and none reported since then. * Drop in H&H noted at beginning of stay, but has been stable since. NG lavage performed 11/11 did not demonstrate any bleeding. * Lovenox discontinued. * GI following -appreciate recommendations. (9) Acute on chronic anemia: Code(s): D64.9 - Anemia, unspecified Status: Acute Assessment and Plan: * See above. Hgb low but has remained stable. * Monitor CBC and consider transfusion if Hgb less than 7. Subjective Date/time seen: 11/16/20 1045 Interval history: Mr. Duncan is an 79yo M admitted for acute respiratory failure secondary to severe COPD and COVID. He is doing well today sitting up in bedside chair, about to work with OT
--- NOTE | 2020-11-16 11:30 | PM.IMPN ---
Progress Note: A&P Assessment and Plan (1) COVID-19: Code(s): U07.1 - COVID-19 Status: Acute Assessment and Plan: COVID positive by PCR on 11/07/20 Continue Remdesivir (day 8) and dexamethasone (day 10). Continue supplemental oxygen and wean as tolerated - Stable at 11L/min high flow NC this afternoon. Pulmonology following - appreciate recommendations. Continue nebulized bronchodilator therapy with atrovent and albuterol; pulmicort. Prone positioning encouraged. Added saline nasal spray for nasal congestion. (2) COPD (chronic obstructive pulmonary disease): Onset Date: 2018 Qualifiers: COPD type: unspecified COPD Qualified Code(s): J44.9 - Chronic obstructive pulmonary disease, unspecified Code(s): J44.9 - Chronic obstructive pulmonary disease, unspecified Status: Acute Assessment and Plan: Pulmonology following - recommendations are appreciated. Recommended nebulized bronchodilator therapy and pulmicort. (3) Acute respiratory failure with hypoxia: Code(s): J96.01 - Acute respiratory failure with hypoxia Status: Acute Assessment and Plan: Could be multifactorial due to COPD exacerbation, lung mass, and COVID-19. See plan above. Plan for bronchoscopy with biopsy outpatient after he is recovered from COVID Appreciate pulmonology recommendations. 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 Outpatient biopsy recommended. (5) Hyponatremia: Code(s): E87.1 - Hypo-osmolality and hyponatremia Status: Acute Assessment and Plan: Sodium 131 today. May be related to infection or cancer. Will monitor. (6) Weight loss: Code(s): R63.4 - Abnormal weight loss Status: Acute Assessment and Plan: May be related to suspected malignancy noted above. (7) Obstructive sleep apnea: Onset Date: 2018 Code(s): G47.33 - Obstructive sleep apnea (adult) (pediatric) Status: Acute Assessment and Plan: CPAP. (8) Positive occult stool blood test: Code(s): R19.5 - Other fecal abnormalities Status: Acute Assessment and Plan: Stool occult blood positive, blood clot passed during BM noted by nursing 11/11 and none reported since then. Drop in H&H noted at beginning of stay, but has been stable since. NG lavage performed 11/11 did not demonstrate any bleeding. Lovenox discontinued. GI following -appreciate recommendations. (9) Acute on chronic anemia: Code(s): D64.9 - Anemia, unspecified Status: Acute Assessment and Plan: See above. Hgb low but has remained stable. Monitor CBC and consider transfusion if Hgb less than 7. Subjective Date/time seen: 11/16/20 1045 Interval history: Mr. Duncan is an 79yo M admitted for acute respiratory failure secondary to severe COPD and COVID. He is doing well today sitting up in bedside chair, about to work with OT. His nasal congestion is improved. He really otherwise offers no complaints, no acute events overnight. Review of Systems Review of Systems: All systems reviewed & are unremarkable except as noted in HPI and below Exam Narrative: Exam Narrative: General: Elderly male resting comfortably sitting up in bedside chair in no acute distress. HEENT: Normocephalic, EOMI, oral mucosa moist. Car
[2020-11-16] MEDS: REMDESIVIR 100 MG/NS 250 ML 100 MG/250 ML BAG 250 MG IVPB (12:03)
--- NOTE | 2020-11-16 14:40 | PM.PNPUL ---
Progress Note: A&P Assessment and Plan (1) COPD (chronic obstructive pulmonary disease): Onset Date: 2018 Qualifiers: COPD type: unspecified COPD Qualified Code(s): J44.9 - Chronic obstructive pulmonary disease, unspecified Code(s): J44.9 - Chronic obstructive pulmonary disease, unspecified Status: Acute Assessment and Plan: unfortunately due to his severe bronchospasm if he does not receive nebulized therapy he is at increased risk of increased respiratory failure and possibly intubation. -continue nebulized ipratropium 0.5 mg q.6 hours - continue nebulized albuterol 2.5 mg q.6 hours - continue Pulmicort 1.0 mg nebulized q.12 hours (2) Acute respiratory failure with hypoxia: Code(s): J96.01 - Acute respiratory failure with hypoxia Status: Acute Assessment and Plan: awake prone positioning during the day for as long as tolerated would signficantly improve his survival and outcome (3) COVID-19: Code(s): U07.1 - COVID-19 Status: Acute Assessment and Plan: - will extend Remdesivir for an addtional 5 days to make a total of 10 days - continue dexamethasone 6 mg daily for a total of 10 days (4) Lung nodule: Code(s): R91.1 - Solitary pulmonary nodule Status: Acute Assessment and Plan: Very suspicious for primary lung CA. CT Guided biopsy would be more risky than Bronchoscopy with TBNA. I will schedule him for a bronchoscopy with TBNA for diagnostic and staging purposes in about three weeks - Hold all ASA, NSAIDS but continue DVT prophylaxis during hospitalization (5) Mediastinal adenopathy: Code(s): R59.0 - Localized enlarged lymph nodes Status: Acute (6) Pulmonary fibrosis: Code(s): J84.10 - Pulmonary fibrosis, unspecified Status: Acute Subjective Date/time seen: 11/16/20 14:40 Interval history: This patient is feeling better today and his appetite is improving. He is sitting up into the chair and does not appear to be in any respiratory distress. He is still requiring oxygen at 10 L but is slowly titrating with improving O2 saturations. Review of Systems Review of Systems: All systems reviewed & are unremarkable except as noted in HPI and below Exam Const: General: cooperative and healthy appearing Orientation/consciousness: oriented to person, oriented to place and oriented to time HENMT: Head: normal to inspection Ears: hearing grossly normal bilaterally Mouth: Yes Normal oral and palatal mucosa present Throat: tonsils absent Eyes: General: appearance normal, both eyes and all related structures Neck: Neck: normal visual inspection Chest: Chest palpation & inspection: normal inspection of the chest Resp: Effort & Inspection: normal respiratory effort, normal respiratory pattern, no audible wheezes and labored (mild) Auscultation: crackles (bases L > R) bilateral, no rales, no rhonchi, no wheezes and diminished lung sounds Cardio: Jugular venous distension: no JVD GI: Inspection: normal to inspection Skin: General skin exam: normal color Neuro: General: oriented to person, oriented to place and oriented to time Extrem: General: normal to inspection Psych: Appearance: grossly normal Objective Data Vital Signs Vital Signs: Vital Signs - 24 hr 11/15/20 14:49 11/15/20 16:00 11/15/20 20:00 Temperature 36.2 C L 36.5 C Pulse Rate 88 91 91 Respiratory Rate 18 20 Blood Pressure 136/66 119/70 Pulse Oximetry 100 98 11/15/20 20:05 11/15/20 20:08 11/15/20 20:18 Temperature Pulse Rate 75 72 Respiratory Rate 20 20 Blood Pressure Pulse Oximetry 96 11/16/20 00:00 11/16/20 02:45 11/16/20 02:55 Temperature 36.3 C L Pulse Rate 91 90 89 Respiratory Rate 20 20 20 Blood Pressure 123/63 Pulse Oximetry 98 11/16/20 04:00 11/16/20 08:00 11/16/20 12:00 Temperature 36.5 C 36.2 C L 36.3 C L Pulse Rate 96 113 H 96 Respiratory Rate 20 16 18 Blood Press
[2020-11-17] VITALS (12 sets, daily range): BP systolic 99–115; BP diastolic 37–75; PULSE 74–104; RESP 16–20; TEMP 36.2–36.7; O2SAT 93–100
[2020-11-17] MEDS: IPRATROPIUM BR 0.02% INH SOLN 0.5 MG/2.5 ML VIAL INHALATION ×3 (02:17→21:12)
[2020-11-17] MEDS: ALBUTEROL SULFATE NEB 2.5 MG/0.5 ML INH INHALATION ×3 (02:17→21:12)
[2020-11-17] MEDS: LEVOTHYROXINE SODIUM 75 MCG TABLET PO (06:03)
[2020-11-17 06:26] LABS: Basophils Percent Auto 0.2 % (0.2-1.2); Eosinophils Percent Auto 0.1 % (0-4.4); Hemoglobin 8.5 g/dL (14.0-18.0); Lymphocytes Absolute Auto 1.23 K/mm3 (0.9-3.2); Lymphocytes Percent Auto 12.1 % (18.3-44.2); Mean Corpuscular HGB Conc 32.7 g/dl (32-36); Mean Corpuscular Hemoglobin 31.7 pg (26-34); Mean Platelet Volume 8.8 fl (7.4-10.4); Monocytes Absolute Auto 0.7 K/mm3 (0.1-0.6); Monocytes Percent Auto 6.5 % (2.6-8.5); Neutrophils Percent Auto 79.1 % (45.5-73.1); Platelet Count Result 347 k/mm3 (150-375); Red Blood Count 2.68 M/mm3 (4.6-6.20); Red Cell Distribution Width 14.6 % (11.5-14.5); White Blood Count 10.2 K/mm3 (4.5-10.0)
[2020-11-17 06:41] LABS: Magnesium 1.9 mg/dL (1.6-2.3)
[2020-11-17 06:48] LABS: Alanine Aminotransferase 26 U/L (4-50); Albumin Level 2.5 g/dL (3.5-5.1); Alkaline Phosphatase 49 U/L (38-126); Anion Gap -2 mmol/L (8-16); Aspartate Amino Transferase 29 U/L (17-59); Bilirubin,Total 0.6 mg/dL (0.2-1.3); Blood Urea Nitrogen 22 mg/dL (9-20); Calcium 8.4 mg/dL (8.4-10.2); Carbon Dioxide 33 mmol/L (22-30); Chloride 101 mmol/L (98-107); Estimated CRCL calculation 55 ml/min; Estimated Glomerular Filt Rate > 60; Glucose 95 mg/dL (75-110); Sodium 132 mmol/L (137-145)
[2020-11-17] MEDS: MAGNESIUM OXIDE 200 MG TABLET PO ×2 (09:04→21:15)
[2020-11-17] MEDS: REMDESIVIR 100 MG/NS 250 ML 100 MG/250 ML BAG 250 MG IVPB (09:04)
[2020-11-17] MEDS: polyethylene glycoL 3350 17 GM POWD.PACK PO (09:04)
[2020-11-17] MEDS: CHOLECALCIFEROL 1,000 UNITS TABLET 1000 UNITS PO (09:04)
[2020-11-17] MEDS: PANTOPRAZOLE SODIUM IV 40 MG VIAL IV PUSH ×2 (09:04→21:14)
[2020-11-17] MEDS: CYANOCOBALAMIN 1,000 MCG TABLET 1000 MCG PO (09:04)
--- NOTE | 2020-11-17 14:13 | P.PNIM_ITS ---
Progress Note: A&P Assessment and Plan (1) COVID-19: Code(s): U07.1 - COVID-19 Status: Acute Assessment and Plan: * COVID positive by PCR on 11/07/20 * Continue Remdesivir (day 9) and completed 10-day course remdesivir 11/16. * Continue supplemental oxygen and wean as tolerated - Stable at 7 L/min high flow NC this afternoon. * Pulmonology following - appreciate recommendations. Continue nebulized bronchodilator therapy with atrovent and albuterol; pulmicort. * Prone positioning encouraged. Saline nasal spray for nasal congestion. (2) COPD (chronic obstructive pulmonary disease): Onset Date: 2018 Qualifiers: COPD type: unspecified COPD Qualified Code(s): J44.9 - Chronic obstructive pulmonary disease, unspecified Code(s): J44.9 - Chronic obstructive pulmonary disease, unspecified Status: Acute Assessment and Plan: * Pulmonology following - recommendations are appreciated. Recommended nebulized bronchodilator therapy and pulmicort. (3) Acute respiratory failure with hypoxia: Code(s): J96.01 - Acute respiratory failure with hypoxia Status: Acute Assessment and Plan: * Could be multifactorial due to COPD exacerbation, lung mass, and COVID-19. See plan above. * Plan for bronchoscopy with biopsy outpatient after he is recovered from COVID * Appreciate pulmonology recommendations. 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 * Outpatient biopsy recommended. (5) Hyponatremia: Code(s): E87.1 - Hypo-osmolality and hyponatremia Status: Acute Assessment and Plan: * Sodium 132 today. May be related to infection or cancer. Will monitor. (6) Weight loss: Code(s): R63.4 - Abnormal weight loss Status: Acute Assessment and Plan: * May be related to suspected malignancy noted above. (7) Obstructive sleep apnea: Onset Date: 2018 Code(s): G47.33 - Obstructive sleep apnea (adult) (pediatric) Status: Acute Assessment and Plan: * CPAP. (8) Positive occult stool blood test: Code(s): R19.5 - Other fecal abnormalities Status: Acute Assessment and Plan: * Stool occult blood positive, blood clot passed during BM noted by nursing 11/11 and none reported since then. * Drop in H&H noted at beginning of stay, but has been stable since. NG lavage performed 11/11 did not demonstrate any bleeding. * Lovenox discontinued. * GI following -appreciate recommendations. (9) Acute on chronic anemia: Code(s): D64.9 - Anemia, unspecified Status: Acute Assessment and Plan: * See above. Hgb low but has remained stable. * Monitor CBC and consider transfusion if Hgb less than 7. Subjective Date/time seen: 11/17/20 1300 Interval history: Mr. Duncan is an 79yo M admitted for acute respiratory failure secondary to severe COPD and COVID. He is sitting up in chair eating breakfast, feeling well toda
--- NOTE | 2020-11-17 14:13 | PM.IMPN ---
Progress Note: A&P Assessment and Plan (1) COVID-19: Code(s): U07.1 - COVID-19 Status: Acute Assessment and Plan: COVID positive by PCR on 11/07/20 Continue Remdesivir (day 9) and completed 10-day course remdesivir 11/16. Continue supplemental oxygen and wean as tolerated - Stable at 7 L/min high flow NC this afternoon. Pulmonology following - appreciate recommendations. Continue nebulized bronchodilator therapy with atrovent and albuterol; pulmicort. Prone positioning encouraged. Saline nasal spray for nasal congestion. (2) COPD (chronic obstructive pulmonary disease): Onset Date: 2018 Qualifiers: COPD type: unspecified COPD Qualified Code(s): J44.9 - Chronic obstructive pulmonary disease, unspecified Code(s): J44.9 - Chronic obstructive pulmonary disease, unspecified Status: Acute Assessment and Plan: Pulmonology following - recommendations are appreciated. Recommended nebulized bronchodilator therapy and pulmicort. (3) Acute respiratory failure with hypoxia: Code(s): J96.01 - Acute respiratory failure with hypoxia Status: Acute Assessment and Plan: Could be multifactorial due to COPD exacerbation, lung mass, and COVID-19. See plan above. Plan for bronchoscopy with biopsy outpatient after he is recovered from COVID Appreciate pulmonology recommendations. 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 Outpatient biopsy recommended. (5) Hyponatremia: Code(s): E87.1 - Hypo-osmolality and hyponatremia Status: Acute Assessment and Plan: Sodium 132 today. May be related to infection or cancer. Will monitor. (6) Weight loss: Code(s): R63.4 - Abnormal weight loss Status: Acute Assessment and Plan: May be related to suspected malignancy noted above. (7) Obstructive sleep apnea: Onset Date: 2018 Code(s): G47.33 - Obstructive sleep apnea (adult) (pediatric) Status: Acute Assessment and Plan: CPAP. (8) Positive occult stool blood test: Code(s): R19.5 - Other fecal abnormalities Status: Acute Assessment and Plan: Stool occult blood positive, blood clot passed during BM noted by nursing 11/11 and none reported since then. Drop in H&H noted at beginning of stay, but has been stable since. NG lavage performed 11/11 did not demonstrate any bleeding. Lovenox discontinued. GI following -appreciate recommendations. (9) Acute on chronic anemia: Code(s): D64.9 - Anemia, unspecified Status: Acute Assessment and Plan: See above. Hgb low but has remained stable. Monitor CBC and consider transfusion if Hgb less than 7. Subjective Date/time seen: 11/17/20 1300 Interval history: Mr. Duncan is an 79yo M admitted for acute respiratory failure secondary to severe COPD and COVID. He is sitting up in chair eating breakfast, feeling well today. His nasal congestion is improved. Tells me he does not feel very short of breath at present. Denies chest pain. Offers no complaints, no acute events overnight. Review of Systems Review of Systems: All systems reviewed & are unremarkable except as noted in HPI and below Exam Narrative: Exam Narrative: General: Elderly male resting comfortably sitting up in bedside chair, eating lunch i
--- NOTE | 2020-11-17 20:48 | PM.PNPUL ---
Progress Note: A&P Assessment and Plan (1) COPD (chronic obstructive pulmonary disease): Onset Date: 2018 Qualifiers: COPD type: unspecified COPD Qualified Code(s): J44.9 - Chronic obstructive pulmonary disease, unspecified Code(s): J44.9 - Chronic obstructive pulmonary disease, unspecified Status: Acute Assessment and Plan: unfortunately due to his severe bronchospasm if he does not receive nebulized therapy he is at increased risk of increased respiratory failure and possibly intubation. -continue nebulized ipratropium 0.5 mg q.6 hours - continue nebulized albuterol 2.5 mg q.6 hours - continue Pulmicort 1.0 mg nebulized q.12 hours (2) Acute respiratory failure with hypoxia: Code(s): J96.01 - Acute respiratory failure with hypoxia Status: Acute Assessment and Plan: awake prone positioning during the day for as long as tolerated would signficantly improve his survival and outcome (3) COVID-19: Code(s): U07.1 - COVID-19 Status: Acute Assessment and Plan: - will extend Remdesivir for an addtional 5 days to make a total of 10 days - continue dexamethasone 6 mg daily for a total of 10 days (4) Lung nodule: Code(s): R91.1 - Solitary pulmonary nodule Status: Acute Assessment and Plan: Very suspicious for primary lung CA. CT Guided biopsy would be more risky than Bronchoscopy with TBNA. I will schedule him for a bronchoscopy with TBNA for diagnostic and staging purposes in about three weeks - Hold all ASA, NSAIDS but continue DVT prophylaxis during hospitalization (5) Mediastinal adenopathy: Code(s): R59.0 - Localized enlarged lymph nodes Status: Acute (6) Pulmonary fibrosis: Code(s): J84.10 - Pulmonary fibrosis, unspecified Status: Acute Subjective Date/time seen: 11/17/20 20:48 Interval history: Doing well. oxygen slowly weaning oxygen. Review of Systems Review of Systems: All systems reviewed & are unremarkable except as noted in HPI and below Exam Const: General: cooperative and healthy appearing Orientation/consciousness: oriented to person, oriented to place and oriented to time HENMT: Head: normal to inspection Ears: hearing grossly normal bilaterally Mouth: Yes Normal oral and palatal mucosa present Throat: tonsils absent Eyes: General: appearance normal, both eyes and all related structures Neck: Neck: normal visual inspection Chest: Chest palpation & inspection: normal inspection of the chest Resp: Effort & Inspection: normal respiratory effort, normal respiratory pattern, no audible wheezes and labored (mild) Auscultation: crackles (bases L > R) bilateral, no rales, no rhonchi, no wheezes and diminished lung sounds Cardio: Jugular venous distension: no JVD GI: Inspection: normal to inspection Skin: General skin exam: normal color Neuro: General: oriented to person, oriented to place and oriented to time Extrem: General: normal to inspection Psych: Appearance: grossly normal Objective Data Vital Signs Vital Signs: Vital Signs - 24 hr 11/17/20 00:00 11/17/20 02:18 11/17/20 04:00 Temperature 36.2 C L 36.3 C L Pulse Rate 89 80 90 Respiratory Rate 20 20 20 Blood Pressure 109/43 L 103/75 Pulse Oximetry 100 97 11/17/20 08:00 11/17/20 12:00 11/17/20 16:00 Temperature 36.2 C L 36.6 C 36.4 C L Pulse Rate 95 94 74 Respiratory Rate 20 18 16 Blood Pressure 115/57 L 110/56 L 109/37 L Pulse Oximetry 93 99 99 11/17/20 16:13 11/17/20 16:14 11/17/20 16:35 Temperature Pulse Rate 86 Respiratory Rate 20 Blood Pressure Pulse Oximetry 100 95 Intake/Output Intake/Output: Intake & Output 11/14/20 11/15/20 11/16/20 11/17/20 23:59 23:59 23:59 23:59 Intake Total 1890 1810 2630 2510 Output Total 338 238 2847 1720 Balance 1550 985 730 790 Meds/Results Medications: Active Medications Generic Name Dose Route Start Last Admin Trade Name
[2020-11-17] MEDS: BUDESONIDE RESPULE NEB 0.5 MG/2 ML AMP 1 MG INHALATION (21:12)
[2020-11-18] VITALS (15 sets, daily range): BP systolic 98–115; BP diastolic 32–52; PULSE 84–109; RESP 18–24; TEMP 36.3–37; O2SAT 91–100
[2020-11-18] MEDS: LEVOTHYROXINE SODIUM 75 MCG TABLET PO (06:00)
[2020-11-18 08:39] LABS: Alanine Aminotransferase 25 U/L (4-50); Albumin Level 2.3 g/dL (3.5-5.1); Alkaline Phosphatase 49 U/L (38-126); Anion Gap -1 mmol/L (8-16); Aspartate Amino Transferase 27 U/L (17-59); Bilirubin,Total 0.7 mg/dL (0.2-1.3); Blood Urea Nitrogen 23 mg/dL (9-20); Carbon Dioxide 33 mmol/L (22-30); Chloride 98 mmol/L (98-107); Estimated CRCL calculation 50 ml/min; Estimated Glomerular Filt Rate > 60; Glucose 97 mg/dL (75-110); Potassium 3.9 mmol/L (3.4-5.0); Sodium 130 mmol/L (137-145)
[2020-11-18] MEDS: CHOLECALCIFEROL 1,000 UNITS TABLET 1000 UNITS PO (09:19)
[2020-11-18] MEDS: polyethylene glycoL 3350 17 GM POWD.PACK PO (09:19)
[2020-11-18] MEDS: PANTOPRAZOLE SODIUM IV 40 MG VIAL IV PUSH ×2 (09:19→20:18)
[2020-11-18] MEDS: CYANOCOBALAMIN 1,000 MCG TABLET 1000 MCG PO (09:19)
[2020-11-18] MEDS: MAGNESIUM OXIDE 200 MG TABLET PO ×2 (09:19→20:18)
[2020-11-18] MEDS: IPRATROPIUM BR 0.02% INH SOLN 0.5 MG/2.5 ML VIAL INHALATION ×3 (09:53→21:15)
[2020-11-18] MEDS: ALBUTEROL SULFATE NEB 2.5 MG/0.5 ML INH INHALATION ×3 (09:54→21:15)
[2020-11-18] MEDS: BUDESONIDE RESPULE NEB 0.5 MG/2 ML AMP 1 MG INHALATION ×2 (10:01→21:15)
[2020-11-18] MEDS: WATER FOR IRRIGATION, STERILE 1,000 ML BOTTLE 1000 ML (10:04)
--- NOTE | 2020-11-18 10:06 | PM.PNPUL ---
Progress Note: A&P Assessment and Plan (1) COPD (chronic obstructive pulmonary disease): Onset Date: 2018 Qualifiers: COPD type: unspecified COPD Qualified Code(s): J44.9 - Chronic obstructive pulmonary disease, unspecified Code(s): J44.9 - Chronic obstructive pulmonary disease, unspecified Status: Acute Assessment and Plan: unfortunately due to his severe bronchospasm if he does not receive nebulized therapy he is at increased risk of increased respiratory failure and possibly intubation. -continue nebulized ipratropium 0.5 mg q.6 hours - continue nebulized albuterol 2.5 mg q.6 hours - continue Pulmicort 1.0 mg nebulized q.12 hours 11/18 no wheezes. (2) Acute respiratory failure with hypoxia: Code(s): J96.01 - Acute respiratory failure with hypoxia Status: Acute Assessment and Plan: awake prone positioning during the day for as long as tolerated would signficantly improve his survival and outcome Wean FIO2 to maintain saturations 90-94% (3) COVID-19: Code(s): U07.1 - COVID-19 Status: Acute Assessment and Plan: - will extend Remdesivir for an addtional 5 days to make a total of 10 days - continue dexamethasone 6 mg daily for a total of 10 days (4) Lung nodule: Code(s): R91.1 - Solitary pulmonary nodule Status: Acute Assessment and Plan: Very suspicious for primary lung CA. CT Guided biopsy would be more risky than Bronchoscopy with TBNA. Dr. Day will schedule him for a bronchoscopy with TBNA for diagnostic and staging purposes once he is recovered from COVID and stable in about three weeks - Hold all ASA, NSAIDS but continue DVT prophylaxis during hospitalization (5) Mediastinal adenopathy: Code(s): R59.0 - Localized enlarged lymph nodes Status: Acute (6) Pulmonary fibrosis: Code(s): J84.10 - Pulmonary fibrosis, unspecified Status: Acute Assessment and Plan: DINO screen negative for all 11 autoantibodies, RF negative, ANCA screen negative for PR3 and MPO antibodies. Subjective Date/time seen: 11/18/20 10:06 Interval history: Admitted 11/07 with SOBV, right lung mass and then COVID positive. 11/17 Doing well. oxygen slowly weaning oxygen. 11/18 Compalins of back pain from being in bed, no change in SOB, On 7L NC with saturations 93-100%. Review of Systems Review of Systems: All systems reviewed & are unremarkable except as noted in HPI and below Eyes: Eyes: Reports no additional eye complaints ENT: Reports system reviewed and no additional complaints, except as documented and Reports sinus pressure Cardiovascular: Cardiovascular: Reports no additional cardiovascular complaints, Reports dyspnea and Reports dyspnea on exertion Respiratory: Respiratory: Reports no additional respiratory complaints, Denies change in phlegm color, Reports cough, Denies hemoptysis, Denies pain on inspiration, Denies pain with cough, Reports dyspnea and Reports dyspnea on exertion Gastrointestinal: Gastrointestinal: Reports no additional gastrointestinal complaints Musculoskeletal: Musculoskeletal: Reports no additional musculoskeletal complaints Integumentary/Breasts: Skin/Breast: Reports system reviewed and no additional complaints, except as docu Neurologic: Reports system reviewed and no additional complaints, except as documented and Reports behavioral changes Psychiatric: Psychiatric: Reports no additional psychiatric complaints and Reports behavioral changes Endocrine: Endocrine: Reports no additional endocrine complaints Exam Const: General: cooperative and healthy appearing Orientation/consciousness: oriented to person and oriented to place HENMT: Head: normal to inspection Ears: hearing grossly impaired Eyes: General: appearance normal, both eyes and all related structures Neck: Neck: normal visual inspection Chest: Chest palpation & inspection: normal inspection of the chest
[2020-11-18] MEDS: REMDESIVIR 100 MG/NS 250 ML 100 MG/250 ML BAG 250 MG IVPB (11:03)
--- NOTE | 2020-11-18 13:08 | PCOTNOTE ---
Attempted OT treatment, patient reports does not feel up to doing occupational therapy today, RN notified. will follow and attempt at later time.
--- NOTE | 2020-11-18 14:46 | P.PNIM_ITS ---
Progress Note: A&P Assessment and Plan (1) COVID-19: Code(s): U07.1 - COVID-19 Status: Acute Assessment and Plan: * COVID positive by PCR on 11/07/20 * Continue Remdesivir (day 10) and completed 10-day course dexamethasone 11/16. * Continue supplemental oxygen and wean as tolerated - Stable at 7 L/min high flow NC this afternoon. * Pulmonology following - appreciate recommendations. Continue nebulized bronchodilator therapy with atrovent and albuterol; pulmicort. * Prone positioning encouraged but he mostly sits up in chair due to back pain. Saline nasal spray for nasal congestion. (2) COPD (chronic obstructive pulmonary disease): Onset Date: 2018 Qualifiers: COPD type: unspecified COPD Qualified Code(s): J44.9 - Chronic obstructive pulmonary disease, unspecified Code(s): J44.9 - Chronic obstructive pulmonary disease, unspecified Status: Acute Assessment and Plan: * Pulmonology following - recommendations are appreciated. Recommended nebulized bronchodilator therapy and pulmicort. (3) Acute respiratory failure with hypoxia: Code(s): J96.01 - Acute respiratory failure with hypoxia Status: Acute Assessment and Plan: * Could be multifactorial due to COPD exacerbation, lung mass, and COVID-19. See plan above. * Plan for bronchoscopy with biopsy outpatient after he is recovered from COVID. * Appreciate pulmonology recommendations. 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 * Outpatient biopsy recommended. (5) Hyponatremia: Code(s): E87.1 - Hypo-osmolality and hyponatremia Status: Acute Assessment and Plan: * Sodium 130 today, low and fluctuating but stable. May be related to infection or cancer. Will monitor. (6) Weight loss: Code(s): R63.4 - Abnormal weight loss Status: Acute Assessment and Plan: * May be related to suspected malignancy noted above. (7) Obstructive sleep apnea: Onset Date: 2018 Code(s): G47.33 - Obstructive sleep apnea (adult) (pediatric) Status: Acute Assessment and Plan: * CPAP. (8) Positive occult stool blood test: Code(s): R19.5 - Other fecal abnormalities Status: Acute Assessment and Plan: * Stool occult blood positive, blood clot passed during BM noted by nursing 11/11 and none reported since then. * Drop in H&H noted at beginning of stay, but has been stable since. NG lavage performed 11/11 did not demonstrate any bleeding. * Lovenox discontinued. * GI following -appreciate recommendations. (9) Acute on chronic anemia: Code(s): D64.9 - Anemia, unspecified Status: Acute Assessment and Plan: * See above. Hgb low but has remained stable now in 8s for days. * Monitor CBC and consider transfusion if Hgb less than 7. Subjective Date/time seen: 11/18/20 1430 Interval history: Mr. Duncan is an 80yo M admitted for acute respirato
--- NOTE | 2020-11-18 14:46 | PM.IMPN ---
Progress Note: A&P Assessment and Plan (1) COVID-19: Code(s): U07.1 - COVID-19 Status: Acute Assessment and Plan: COVID positive by PCR on 11/07/20 Continue Remdesivir (day 10) and completed 10-day course dexamethasone 11/16. Continue supplemental oxygen and wean as tolerated - Stable at 7 L/min high flow NC this afternoon. Pulmonology following - appreciate recommendations. Continue nebulized bronchodilator therapy with atrovent and albuterol; pulmicort. Prone positioning encouraged but he mostly sits up in chair due to back pain. Saline nasal spray for nasal congestion. (2) COPD (chronic obstructive pulmonary disease): Onset Date: 2018 Qualifiers: COPD type: unspecified COPD Qualified Code(s): J44.9 - Chronic obstructive pulmonary disease, unspecified Code(s): J44.9 - Chronic obstructive pulmonary disease, unspecified Status: Acute Assessment and Plan: Pulmonology following - recommendations are appreciated. Recommended nebulized bronchodilator therapy and pulmicort. (3) Acute respiratory failure with hypoxia: Code(s): J96.01 - Acute respiratory failure with hypoxia Status: Acute Assessment and Plan: Could be multifactorial due to COPD exacerbation, lung mass, and COVID-19. See plan above. Plan for bronchoscopy with biopsy outpatient after he is recovered from COVID. Appreciate pulmonology recommendations. 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 Outpatient biopsy recommended. (5) Hyponatremia: Code(s): E87.1 - Hypo-osmolality and hyponatremia Status: Acute Assessment and Plan: Sodium 130 today, low and fluctuating but stable. May be related to infection or cancer. Will monitor. (6) Weight loss: Code(s): R63.4 - Abnormal weight loss Status: Acute Assessment and Plan: May be related to suspected malignancy noted above. (7) Obstructive sleep apnea: Onset Date: 2018 Code(s): G47.33 - Obstructive sleep apnea (adult) (pediatric) Status: Acute Assessment and Plan: CPAP. (8) Positive occult stool blood test: Code(s): R19.5 - Other fecal abnormalities Status: Acute Assessment and Plan: Stool occult blood positive, blood clot passed during BM noted by nursing 11/11 and none reported since then. Drop in H&H noted at beginning of stay, but has been stable since. NG lavage performed 11/11 did not demonstrate any bleeding. Lovenox discontinued. GI following -appreciate recommendations. (9) Acute on chronic anemia: Code(s): D64.9 - Anemia, unspecified Status: Acute Assessment and Plan: See above. Hgb low but has remained stable now in 8s for days. Monitor CBC and consider transfusion if Hgb less than 7. Subjective Date/time seen: 11/18/20 1430 Interval history: Mr. Duncan is an 80yo M admitted for acute respiratory failure secondary to severe COPD and COVID. He is feeling more short of breath having just finished working with therapy. He describes some back pain, same as yesterday. Nasal congestion is improved. Denies chest pain. Has been eating well without nausea or vomiting. Today [birth year] his birthday. Review of Systems Review of Systems: All systems reviewed & are unremarkable except as noted in HPI and below
[2020-11-19] VITALS (16 sets, daily range): BP systolic 101–113; BP diastolic 40–55; PULSE 80–108; RESP 18–22; TEMP 36.4–37; O2SAT 91–100
[2020-11-19] MEDS: ALBUTEROL SULFATE NEB 2.5 MG/0.5 ML INH INHALATION ×4 (02:41→20:05)
[2020-11-19] MEDS: IPRATROPIUM BR 0.02% INH SOLN 0.5 MG/2.5 ML VIAL INHALATION ×4 (02:41→20:06)
[2020-11-19] MEDS: LEVOTHYROXINE SODIUM 75 MCG TABLET PO (05:35)
[2020-11-19 06:00] LABS: Basophils Percent Auto 0.2 % (0.2-1.2); Eosinophils Absolute Auto 0.1 K/mm3 (0-0.3); Hematocrit 24.4 % (42.0-52.0); Hemoglobin 8.1 g/dL (14.0-18.0); Immature Granulocyte Absolute 0.18 K/mm3 (0.00-0.031); Immature Granulocyte Percent A 1.6 % (0-0.5); Lymphocytes Absolute Auto 1.17 K/mm3 (0.9-3.2); Lymphocytes Percent Auto 10.3 % (18.3-44.2); Mean Corpuscular HGB Conc 33.2 g/dl (32-36); Mean Corpuscular Volume 96.4 fl (80-100); Mean Platelet Volume 8.7 fl (7.4-10.4); Monocytes Absolute Auto 0.8 K/mm3 (0.1-0.6); Neutrophils Absolute Auto 9.1 K/mm3 (1.3-6.7); Neutrophils Percent Auto 79.9 % (45.5-73.1); Platelet Count Result 284 k/mm3 (150-375); Red Blood Count 2.53 M/mm3 (4.6-6.20); Red Cell Distribution Width 14.6 % (11.5-14.5); White Blood Count 11.4 K/mm3 (4.5-10.0)
[2020-11-19 06:15] LABS: Alanine Aminotransferase 19 U/L (4-50); Albumin Level 2.1 g/dL (3.5-5.1); Alkaline Phosphatase 46 U/L (38-126); Anion Gap 1 mmol/L (8-16); Aspartate Amino Transferase 22 U/L (17-59); Bilirubin,Total 0.7 mg/dL (0.2-1.3); Blood Urea Nitrogen 20 mg/dL (9-20); CRP 3.3 mg/dL (<1.0); Calcium 8.1 mg/dL (8.4-10.2); Carbon Dioxide 30 mmol/L (22-30); Chloride 99 mmol/L (98-107); Estimated CRCL calculation 50 ml/min; Estimated Glomerular Filt Rate > 60; Glucose 104 mg/dL (75-110); Magnesium 1.8 mg/dL (1.6-2.3); Potassium 3.9 mmol/L (3.4-5.0); Sodium 130 mmol/L (137-145)
[2020-11-19] MEDS: BUDESONIDE RESPULE NEB 0.5 MG/2 ML AMP 1 MG INHALATION ×2 (08:45→20:06)
[2020-11-19] MEDS: polyethylene glycoL 3350 17 GM POWD.PACK PO (09:23)
[2020-11-19] MEDS: CHOLECALCIFEROL 1,000 UNITS TABLET 1000 UNITS PO (09:23)
[2020-11-19] MEDS: PANTOPRAZOLE SODIUM IV 40 MG VIAL IV PUSH ×2 (09:23→21:22)
[2020-11-19] MEDS: MAGNESIUM OXIDE 200 MG TABLET PO ×2 (09:23→21:22)
[2020-11-19] MEDS: CYANOCOBALAMIN 1,000 MCG TABLET 1000 MCG PO (09:23)
--- NOTE | 2020-11-19 11:53 | PM.PNPUL ---
Progress Note: A&P Assessment and Plan (1) COPD (chronic obstructive pulmonary disease): Onset Date: 2018 Qualifiers: COPD type: unspecified COPD Qualified Code(s): J44.9 - Chronic obstructive pulmonary disease, unspecified Code(s): J44.9 - Chronic obstructive pulmonary disease, unspecified Status: Acute Assessment and Plan: unfortunately due to his severe bronchospasm if he does not receive nebulized therapy he is at increased risk of increased respiratory failure and possibly intubation. -continue nebulized ipratropium 0.5 mg q.6 hours - continue nebulized albuterol 2.5 mg q.6 hours - continue Pulmicort 1.0 mg nebulized q.12 hours 2/ no wheezes. 2/2 no wheezes, continue current bronchiodilators. He was on trelegy at home and continue this on discharge. (2) Acute respiratory failure with hypoxia: Code(s): J96.01 - Acute respiratory failure with hypoxia Status: Acute Assessment and Plan: awake prone positioning during the day for as long as tolerated Wean FIO2 to maintain saturations 90-94% 2/2 currently on 6 L with sats 91%. (3) COVID-19: Code(s): U07.1 - COVID-19 Status: Acute Assessment and Plan: s/p 10 days remdesivir and dexamethsone. (4) Lung nodule: Code(s): R91.1 - Solitary pulmonary nodule Status: Acute Assessment and Plan: Very suspicious for primary lung CA. CT Guided biopsy would be more risky than Bronchoscopy with TBNA. Needs follow up appointment with Dr. Day who will schedule him for a bronchoscopy with TBNA for diagnostic and staging purposes once he is recovered from COVID and stable in about three weeks - Hold all ASA, NSAIDS but continue DVT prophylaxis during hospitalization (5) Mediastinal adenopathy: Code(s): R59.0 - Localized enlarged lymph nodes Status: Acute (6) Pulmonary fibrosis: Code(s): J84.10 - Pulmonary fibrosis, unspecified Status: Acute Assessment and Plan: DINO screen negative for all 11 autoantibodies, RF negative, ANCA screen negative for PR3 and MPO antibodies. Will sign off, left message with hospitalist, call with any questions. Subjective Date/time seen: 11/19/20 11:53 Interval history: Interval history: Admitted 1/21 with SOBV, right lung mass and then COVID positive. Completed 10 days dexamethsone and remdesivir. 11/17 Doing well. oxygen slowly weaning oxygen. 11/18 Complains of back pain from being in bed, no change in SOB, On 7L NC with saturations 93-100%. 11/19 Sitting in chair, 6L NC and sats 91%, weak cough but does expectorate. Review of Systems Review of Systems: All systems reviewed & are unremarkable except as noted in HPI and below Eyes: Eyes: Reports no additional eye complaints ENT: Reports system reviewed and no additional complaints, except as documented and Reports sinus pressure Cardiovascular: Cardiovascular: Reports no additional cardiovascular complaints, Reports dyspnea and Reports dyspnea on exertion Respiratory: Respiratory: Reports no additional respiratory complaints, Denies change in phlegm color, Reports cough, Denies hemoptysis, Denies pain on inspiration, Denies pain with cough, Reports dyspnea and Reports dyspnea on exertion Gastrointestinal: Gastrointestinal: Reports no additional gastrointestinal complaints Musculoskeletal: Musculoskeletal: Reports no additional musculoskeletal complaints Integumentary/Breasts: Skin/Breast: Reports system reviewed and no additional complaints, except as docu Neurologic: Reports system reviewed and no additional complaints, except as documented and Reports behavioral changes Psychiatric: Psychiatric: Reports no additional psychiatric complaints and Reports behavioral changes Endocrine: Endocrine: Reports no additional endocrine complaints Exam Const: General: cooperative and healthy appearing Orientation/consciousness: oriented to person, oriented to place and
--- NOTE | 2020-11-19 15:32 | PM.IMPN ---
Progress Note: A&P Assessment and Plan (1) COVID-19: Code(s): U07.1 - COVID-19 Status: Acute Assessment and Plan: COVID positive by PCR on 11/07/20 -Remdesivir and dexamethasone complete -continue oxygen, will need home oxygen evaluation possibly tomorrow -Pulmonology has signed off and will see him outpatient for his bronchoscopy with biopsy (2) COPD (chronic obstructive pulmonary disease): Onset Date: 2018 Qualifiers: COPD type: unspecified COPD Qualified Code(s): J44.9 - Chronic obstructive pulmonary disease, unspecified Code(s): J44.9 - Chronic obstructive pulmonary disease, unspecified Status: Acute Assessment and Plan: Continue inhalers (3) Acute respiratory failure with hypoxia: Code(s): J96.01 - Acute respiratory failure with hypoxia Status: Acute Assessment and Plan: Could be multifactorial due to COPD exacerbation, lung mass, and COVID-19. See plan above. -Plan for bronchoscopy with biopsy outpatient after he is recovered from COVID. 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 -Outpatient biopsy recommended. (5) Hyponatremia: Code(s): E87.1 - Hypo-osmolality and hyponatremia Status: Acute Assessment and Plan: Sodium 130 today, low and fluctuating but stable. May be related to infection or cancer. (6) Weight loss: Code(s): R63.4 - Abnormal weight loss Status: Acute Assessment and Plan: May be related to suspected malignancy noted above (7) Obstructive sleep apnea: Onset Date: 2018 Code(s): G47.33 - Obstructive sleep apnea (adult) (pediatric) Status: Acute Assessment and Plan: Continue CPAP (8) Positive occult stool blood test: Code(s): R19.5 - Other fecal abnormalities Status: Acute Assessment and Plan: Stool occult blood positive, blood clot passed during BM noted by nursing 11/11 and none reported since then. -Drop in H&H noted at beginning of stay, but has been stable since. NG lavage performed 11/11 did not demonstrate any bleeding. -Lovenox discontinued. -GI following -appreciate recommendations. (9) Acute on chronic anemia: Code(s): D64.9 - Anemia, unspecified Status: Acute Assessment and Plan: See above. Hgb low but has remained stable now in 8s for days. -Monitor CBC and consider transfusion if Hgb less than 7. Subjective Date/time seen: 11/19/20 15:32 Interval history: Mr. Duncan is an 80yo M admitted for acute respiratory failure secondary to severe COPD and COVID. Patient was seen today and has no complaints. He feels little short of breath when he is up and moving but overall doing well. He had a bowel movement today which is normal for him. He has little indigestion but doing okay. He is eating and drinking okay. He denies chest pain, shortness of breath at rest, nausea, vomiting, fevers, chills, leg swelling, or abdominal pain. Exam Narrative: Exam Narrative: General: Well developed well nourished patient in NAD HEENT: normocephalic Neck: supple Neuro: Alert and oriented x4. Cranial nerves 2-12 intact. Equal strength the upper lower extremities 5/5 CV: Regular rate and rhythm at this time Resp:Decreased breath sounds with no wheezing today. 91% on 3 L Abd: Soft, non distended. No pain to palpation. Positive bowel sounds Extremities: No swelling, erythema, or pain to palpation. Objective Data Vital Signs Vital Signs: Vital Signs - 24 hr 11/18/20 16:00 11/18/20 20:00 11/18/20 21:16 Temperature 98.1 F 98.3 F Pulse Rate 109 H 104 H 97 Respiratory Rate 20 18 20 Blood Pressure 104/52 L 101/46 L Puls
[2020-11-19] MEDS: CALCIUM CARBONATE (TUMS) 500 MG (200 MG ELEMENTAL) PO (15:37)
[2020-11-19] MEDS: FUROSEMIDE INJ 40 MG/4 ML VIAL 20 MG IV PUSH (15:56)
[2020-11-20] VITALS (12 sets, daily range): BP systolic 102–110; BP diastolic 43–53; PULSE 85–100; RESP 18–20; TEMP 36.7–36.8; O2SAT 85–93
[2020-11-20] MEDS: ALBUTEROL SULFATE NEB 2.5 MG/0.5 ML INH INHALATION ×2 (01:30→09:15)
[2020-11-20] MEDS: IPRATROPIUM BR 0.02% INH SOLN 0.5 MG/2.5 ML VIAL INHALATION ×2 (01:31→09:15)
[2020-11-20] MEDS: LEVOTHYROXINE SODIUM 75 MCG TABLET PO (06:15)
[2020-11-20 06:44] LABS: Basophils Percent Auto 0.2 % (0.2-1.2); Eosinophils Absolute Auto 0.1 K/mm3 (0-0.3); Eosinophils Percent Auto 0.8 % (0-4.4); Hemoglobin 8.4 g/dL (14.0-18.0); Immature Granulocyte Absolute 0.14 K/mm3 (0.00-0.031); Immature Granulocyte Percent A 1.1 % (0-0.5); Lymphocytes Absolute Auto 1.24 K/mm3 (0.9-3.2); Lymphocytes Percent Auto 10.1 % (18.3-44.2); Mean Corpuscular HGB Conc 32.3 g/dl (32-36); Mean Corpuscular Hemoglobin 30.8 pg (26-34); Mean Corpuscular Volume 95.2 fl (80-100); Mean Platelet Volume 8.8 fl (7.4-10.4); Monocytes Absolute Auto 0.8 K/mm3 (0.1-0.6); Monocytes Percent Auto 6.8 % (2.6-8.5); Platelet Count Result 309 k/mm3 (150-375); Red Blood Count 2.73 M/mm3 (4.6-6.20); Red Cell Distribution Width 14.6 % (11.5-14.5); White Blood Count 12.3 K/mm3 (4.5-10.0)
[2020-11-20 06:56] LABS: Anion Gap 3 mmol/L (8-16); Blood Urea Nitrogen 20 mg/dL (9-20); Carbon Dioxide 30 mmol/L (22-30); Chloride 98 mmol/L (98-107); Estimated CRCL calculation 46 ml/min; Estimated Glomerular Filt Rate 58; Glucose 105 mg/dL (75-110); Potassium 3.9 mmol/L (3.4-5.0); Sodium 131 mmol/L (137-145)
[2020-11-20] MEDS: BUDESONIDE RESPULE NEB 0.5 MG/2 ML AMP 1 MG INHALATION (09:15)
[2020-11-20] MEDS: CYANOCOBALAMIN 1,000 MCG TABLET 1000 MCG PO (09:25)
[2020-11-20] MEDS: polyethylene glycoL 3350 17 GM POWD.PACK PO (09:25)
[2020-11-20] MEDS: PANTOPRAZOLE SODIUM IV 40 MG VIAL IV PUSH (09:25)
[2020-11-20] MEDS: CHOLECALCIFEROL 1,000 UNITS TABLET 1000 UNITS PO (09:25)
[2020-11-20] MEDS: MAGNESIUM OXIDE 200 MG TABLET PO (09:26)
--- NOTE | 2020-11-20 10:52 | PCNWS ---
Weekly nutritional screen. Patient is tolerating current diet-heart healthy with ensure compact BID. Adequate kyvoiy-59-896% of meals. No weight loss reported. No nutritional needs at this time.
--- NOTE | 2020-11-20 11:05 | HOMEO2EVAL ---
Home Oxygen Evaluation RC: Home Oxygen (O2) Evaluation Start: 11/19/20 15:38 Freq: ONCE Status: Active Protocol: RPE Activity Type Activity Date Activity User E-Sign Co-Sign Detail Recorded Client Recorded Date Recorded By Document 11/20/20 10:30 [email or web address] [email or web address] 11/20/20 11:05 DJO Document 11/20/20 10:35 [email or web address] [email or web address] 11/20/20 11:05 DJO Document 11/20/20 10:40 [email or web address] [email or web address] 11/20/20 11:05 DJO Document 11/20/20 10:45 [email or web address] [email or web address] 11/20/20 11:05 DJO Document 11/20/20 10:50 [email or web address] [email or web address] 11/20/20 11:05 DJO Document 11/20/20 11:00 [email or web address] [email or web address] 11/20/20 11:05 DJO 11/20/20 11/20/20 11/20/20 10:30 10:35 10:40 Home O2 Evaluation Test Phase Resting Resting Resting Oxygen Delivery Room Air Nasal Cannula Nasal Cannula Oxygen Flow Rate (L/min) 1 2 Pulse Oximetry (90-100 %) 85 L 86 L 87 L Pulse Rate (60-100 beats/min) 90 88 86 Treatment Charges O2 Evaluation - Inpatient 11/20/20 11/20/20 11/20/20 10:45 10:50 11:00 Home O2 Evaluation Test Phase Resting Exercise Resting Oxygen Delivery Nasal Cannula Nasal Cannula Nasal Cannula Oxygen Flow Rate (L/min) 3 3 3 Pulse Oximetry (90-100 %) 91 90 91 Pulse Rate (60-100 beats/min) 85 92 87 Treatment Charges
--- NOTE | 2020-11-20 11:05 | PCRCNOTE ---
HOME O2 EVAL COMPLETE, PT REQUIRES 3 LITERS AT REST AND WITH ACTIVITY, THESE ARE PT'S HOME SETTINGS. PT HAS O2 CURRENTLY WITH [facility]. RN TO SPEAK TO DAUGHTER ABOUT BRINGING A TANK IN FOR PT'S DISCHARGE.
--- NOTE | 2020-11-20 14:08 | PCRCNOTE ---
SPOKE TO [facility] P[facility] HOME O2 WILL BE REINSTATED PER HOME O2 INVOLVED.
--- NOTE | 2020-11-20 14:40 | PCOTNOTE ---
Attempted to see Patient for afternoon treatment session. Patient declined, stating, I'm leaving, they are letting me go home, I'm so happy. Patient declined to perform any activity for therapy this session. Nursing staff clarified that he id supposed to be discharged this afternoon.
--- NOTE | 2020-11-20 14:44 | PM.DS ---
DS: Admitting Diagnosis Admitting Diagnosis Admitting Diagnosis: dehydration, PNA DS: Discharge Diagnosis Discharge Diagnosis (1) COVID-19: Code(s): U07.1 - COVID-19 Status: Acute Assessment and Plan: COVID positive by PCR on 11/07/20 -Remdesivir and dexamethasone completed during hospitalization -Needs 3L of o2 at rest and with activity according to home o2 evaluation (2) COPD (chronic obstructive pulmonary disease): Onset Date: 2018 Qualifiers: COPD type: unspecified COPD Qualified Code(s): J44.9 - Chronic obstructive pulmonary disease, unspecified Code(s): J44.9 - Chronic obstructive pulmonary disease, unspecified Status: Acute Assessment and Plan: Continue home inhalers (3) Acute respiratory failure with hypoxia: Code(s): J96.01 - Acute respiratory failure with hypoxia Status: Acute Assessment and Plan: Could be multifactorial due to COPD exacerbation, lung mass, and COVID-19. See plan above. -Plan for bronchoscopy with biopsy outpatient after he is recovered from COVID. 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 -Outpatient biopsy recommended. (5) Hyponatremia: Code(s): E87.1 - Hypo-osmolality and hyponatremia Status: Acute Assessment and Plan: Sodium 131 today, low and fluctuating but stable. May be related to infection or cancer. (6) Weight loss: Code(s): R63.4 - Abnormal weight loss Status: Acute Assessment and Plan: May be related to suspected malignancy noted above (7) Obstructive sleep apnea: Onset Date: 2018 Code(s): G47.33 - Obstructive sleep apnea (adult) (pediatric) Status: Acute Assessment and Plan: Continue CPAP (8) Positive occult stool blood test: Code(s): R19.5 - Other fecal abnormalities Status: Acute Assessment and Plan: Stool occult blood positive, blood clot passed during BM noted by nursing 11/11 and none reported since then. -Drop in H&H noted at beginning of stay, but has been stable since. NG lavage performed 11/11 did not demonstrate any bleeding. -Follow up with GI outpt. Hold aspirin until you see them. (9) Acute on chronic anemia: Code(s): D64.9 - Anemia, unspecified Status: Acute Assessment and Plan: See above. Hgb low but has remained stable now in 8s for days. DS: Summary Hospital Course Hospital Course: Patient is an 80-year-old male with a history of COPD who presented emergency room on November 07, 2020 for dehydration and lightheadedness with shortness of breath. Vitals in the ER were temperature 97.6? F, pulse 98, respiratory rate 28, blood pressure 93/44, pulse ox 98 on room air. Initial white blood cell count 5.5, hemoglobin 13.3, hematocrit 39.4, platelets 179. Sodium low 124, potassium 3.8, chloride 94, carbon dioxide 21, BUN 35, creatinine 1.2, glucose 136. Lactic acid elevated 4.5. He tested positive for COVID-19. Chest x-ray showed increased interstitial pattern and Ana Maria B lines consistent with pulmonary edema although superimposed pneumonia was not excludable with severe emphysema. CTA showed spiculated nodule the right lower lobe consistent with primary bronchogenic carcinoma with right hilar mediastinal lymphadenopathy consistent with metastatic disease. He also has severe emphysema and chronic interstitial lung disease with UIP. No PE was identified. Patient was admitted to the hospitalist service and started on IV antibiotics and Solu-Medrol initially until his COVID-19 test came back positive the next day. He was transition to dexamethasone, Remdesivir, and Lovenox. Day after the Lovenox was st
== END 2020-11-20 15:50 | disposition home health service (06) | DRG 177 ==
LOC: ANHED 16:12 → ANH3MEDSUR 11-08 00:24
PROVIDERS: Emergency Medicine; Internal Medicine; Internal Medicine Critical Care Medicine; Internal Medicine Pulmonary Disease; Physician Assistant; Admitting Provider Internal Medicine; Emergency Provider General Practice; PCP Internal Medicine; Visit Provider Family Medicine
DX: U07.1 COVID-19 (principal); J96.01 Acute respiratory failure with hypoxia; J12.82 Pneumonia due to coronavirus disease 2019; K31.811 Angiodysplasia of stomach and duodenum with bleeding; K55.21 Angiodysplasia of colon with hemorrhage; C34.90 Malignant neoplasm of unspecified part of unspecified bronchus or lung; D62 Acute posthemorrhagic anemia; E87.1 Hypo-osmolality and hyponatremia; I50.32 Chronic diastolic (congestive) heart failure; I11.0 Hypertensive heart disease with heart failure; J43.9 Emphysema, unspecified; R63.4 Abnormal weight loss; J84.10 Pulmonary fibrosis, unspecified; G47.33 Obstructive sleep apnea (adult) (pediatric); R19.5 Other fecal abnormalities; E03.9 Hypothyroidism, unspecified; E86.0 Dehydration; H35.30 Unspecified macular degeneration; R59.0 Localized enlarged lymph nodes; M85.80 Other specified disorders of bone density and structure, unspecified site; Z87.891 Personal history of nicotine dependence; Z98.42 Cataract extraction status, left eye; Z98.41 Cataract extraction status, right eye; Z85.46 Personal history of malignant neoplasm of prostate
CPT/HCPCS: 36415; 36600; 70450; 71045; 71046; 71275; 74018; 80048; 80053; 80076; 81001; 82140; 82274; 82375; 82565; 82728; 82805; 83050; 83605; 83615; 83735; 83880; 84295; 84300; 84443; 84460; 84484; 85014; 85018; 85025; 85027; 85380; 85610; 85730; 86021; 86038; 86140; 86430; 86850; 86900; 86901; 87040; 87449; 87804; 87899; 93005; 93970; 94003; 94618; 94640; 96361; 96374; 97110; 97116; 97161; 97165; 97530; 97535; 99291; A9270; C9113; C9803; J0456; J0696; J1100; J1650; J1940; J2930; J7030; J7040; Q9967; U0003; U0005

== ENCOUNTER 2020-12-23 11:43 | Outpatient (CLI) | payer MEDICARE, OTHER, SELFPAY ==
--- NOTE | ~2020-12-23 | CT_ITS ---
EXAMINATION: CT abdomen pelvis wo con DATE: 12/23/2020 11:14 INDICATION: Prostate cancer TECHNIQUE: Computed tomography (CT) of the abdomen and pelvis was performed without intravenous contr ast. The dose-length product (DLP) was 415.80 mGy-cm. Automated exposure control and iterative recons truction technique were employed. COMPARISON: 11/07/2020 FINDINGS: The previously described spiculated right lower lobe nodule is not definitely seen, possibl y above the superior margin of the CT. There is been interval decrease in left lower lobe airspace op acity. The heart size is normal. Cysts of the liver measure up to 9 mm in the right hepatic lobe. The spleen, pancreas, and adrenal glands are normal. A stone is present in the nondistended gallbladder. There is a 2.7 cm rim calcified cyst of the left kidney. There is a 4.8 cm cystic lesion of the righ t mid kidney with questionable peripheral solid component. There is calcified atherosclerosis of the aorta and many of the other arteries. There are surgical changes of prostatectomy. No pathologically enlarged abdominal or pelvic lymph nodes are identified. There is no free intraperitoneal gas or evid ence of bowel obstruction. There is moderate lumbar spondylosis. There is a stable T12 compression fr acture. IMPRESSION: 1. No evidence of metastatic disease. 2. Indeterminate cystic lesion of the right kidney. Follow-up CT or MRI without and with contrast is recommended. Reviewed, dictated and finalized at location A. CIATE PROFESSOR OF SOCIOLOGY
--- NOTE | ~2020-12-23 | NM_ITS ---
EXAMINATION: NM bone scan whole body DATE: 12/23/2020 13:50 INDICATION: Prostate cancer. TECHNIQUE: 23.6 mCi Tc-99m HDP was administered intravenously. Delayed whole-body scintigrams were o btained. COMPARISON: CT abdomen and pelvis 12/23/2020, chest CT 11/07/2020 FINDINGS: There is increased activity in T12 vertebral body correlating with a fracture CT. There is increased activity at T7-T8 correlating with severe degenerative disc disease by CT. There is joint-c entered increased activity at the left first carpometacarpal joint and at the acromioclavicular joint s, likely osteoarthritis. There is increased activity in the anterior aspects of multiple ribs correl ating with healed fractures by CT. IMPRESSION: 1. No evidence of metastatic disease. Reviewed, dictated and finalized at location A. OR TECHNICAL ANALYST
[2020-12-23 12:04] LABS: Hematocrit 29.3 % (42.0-52.0); Hemoglobin 9.4 g/dL (14.0-18.0)
[2020-12-23 12:18] LABS: Anion Gap 3 mmol/L (8-16); Blood Urea Nitrogen 17 mg/dL (9-20); Calcium 8.9 mg/dL (8.4-10.2); Carbon Dioxide 29 mmol/L (22-30); Chloride 105 mmol/L (98-107); Estimated Glomerular Filt Rate > 60; Glucose 113 mg/dL (75-110); Potassium 3.6 mmol/L (3.4-5.0); Sodium 137 mmol/L (137-145)
== END 2020-12-23 11:44 | disposition home or self-care (01) ==
PROVIDERS: PCP Internal Medicine; Referring Provider Anesthesiology; Visit Provider Urology
DX: C61 Malignant neoplasm of prostate (principal); Z01.818 Encounter for other preprocedural examination; N28.1 Cyst of kidney, acquired
CPT/HCPCS: 36415; 74176; 78306; 80048; 85014; 85018; A9561

== ENCOUNTER 2021-01-06 01:15 | Day surgery (SDC) | payer MEDICARE, OTHER, SELFPAY ==
[2020-12-20 15:32] VITALS: BMI 21.5
[2021-01-06] VITALS (8 sets, daily range): BP systolic 105–129; BP diastolic 48–70; PULSE 65–80; RESP 18–29; TEMP 36.2–36.3; O2SAT 93–100; BMI 23.3
--- NOTE | ~2021-01-06 | XR_ITS ---
EXAMINATION: XR chest 1V portable DATE: 01/06/2021 13:38 INDICATION: Status post bronchoscopy. TECHNIQUE: frontal view of the chest was obtained. COMPARISON: Chest radiograph dated 11/19/[address] abdomen and pelvis dated 12/23/2020 FINDINGS: Interval decrease in the prior diffuse interstitial/reticular pattern throughout both lungs which is nearly resolved in the mid and upper lung zones. No pleural effusion or pneumothorax. The cardiomedia stinal silhouette is normal. Left pectoral implantable library monitor. IMPRESSION: 1. No pneumothorax or pleural effusion post reported bronchoscopy. 2. Significant improvement in interstitial/reticular opacities now relatively confined to the lower l rc zones which could be due to improving pulmonary edema, atelectasis or pneumonia superimposed over emphysema with usual interstitial pneumonia (UIP) which is better appreciated on CT Reviewed, dictated and finalized at location A. IMPRESSION: 1. No pneumothorax or pleural effusion post reported bronchoscopy. 2. Significant improvement in interstitial/reticular opacities now relatively c onfined to the lower lung zones which could be due to improving pulmonary edema , atelectasis or pneumonia superimposed over emphysema with usual interstitial pneumonia (UIP) which is better appreciated on CT
[2021-01-06] MEDS: LACTATED RINGERS 1,000 ML 150 ML IV CONT (11:18)
--- NOTE | 2021-01-06 11:24 | WPDANESEPPF ---
Anes - Initial Pre Proc Eval Procedure: Operation Date: 01/06/21 12:00 Proposed Procedures p Bronchoscopy with Trans Bronchial Needle Aspiration - Chiara Day MD Date/Time: 01/06/21 11:24 Surgeon: Chiara Day MD Pre Op Diagnosis: pulmonary nodule Patient Data Age: 80 Gender: M Height: 5 ft 11 in Weight: 76 kg Last Vital Signs Temp 97.2 F L 01/06/21 10:58 Pulse 80 01/06/21 10:58 Resp 22 H 01/06/21 10:58 BP 116/58 L 01/06/21 10:58 Pulse Ox 100 01/06/21 10:58 Allergies Allergy/AdvReac Type Severity Reaction Status Date / Time No Known Allergies Allergy Verified 01/06/21 10:57 Home Medications Medication Instructions Recorded Confirmed Type cholecalciferol (vitamin D3) 25 1,000 unit PO DAILY 12/11/19 12/23/20 History mcg (1,000 unit) capsule coenzyme Q10 200 mg capsule 200 mg PO DAILY 12/11/19 12/23/20 History mecobalamin (vitamin B12) 1,000 1,000 mcg PO DAILY 12/11/19 12/23/20 History mcg chewable tablet guaifenesin [Mucinex] 600 mg PO Q12H 07/01/20 12/23/20 History fluticasone fur. 100 mcg-umeclid See Rx Instructions .ROUTE 09/26/20 12/23/20 Rx 62.5 mcg-vilant 25 mcg .COMPLEX #180 ea inhalat.powder albuterol sulfate 2 inh INHALATION QID PRN #6.7 g 11/20/20 12/23/20 Rx esomeprazole magnesium [Nexium] 40 mg PO BID #0 cap 11/20/20 12/23/20 Rx vitamins A,C,P-lpdg-ioievx [ICaps 1 cap PO BID 12/20/20 12/23/20 History AREDS] aspirin 81 mg tablet,delayed 81 mg PO DAILY 12/23/20 12/23/20 History release vit A 300 mcg-C 200 mg-E 27 1 tablet PO DAILY tablet 12/24/20 History ur-utwozlzb-cnoogu-lutein tablet amlodipine 2.5 mg tablet 2.5 mg PO DAILY #90 tablet 03/11/21 Rx levothyroxine 75 mcg tablet 75 mcg PO DAILY #90 tablet 01/01/21 Rx Patient hx anesthesia problems: none Family hx anesthesia problems: none PMFSH Past Medical History Medical History (Updated 11/11/20 @ 11:54 by Leroy Carvalho MD) Diastolic dysfunction Echocardiogram November 2018: Impaired diastolic relaxation grade 1, ejection fraction 60%, mild left atrial enlargement, mild tricuspid regurgitation Duodenal arteriovenous malformation Essential hypertension Gastric AVM History of tobacco abuse Quit 2017. Smoked for 50 years. Left rotator cuff tear Macular degeneration Obstructive sleep apnea (2019) 06/15/2019 without optimal pressure. Bilevel titration 07/26/2020 which demonstrated poor sleep efficiency but sufficient pressure settings of 9/5 started September 2020 Osteopenia Noted on DEXA scan October 2020 Reflux esophagitis Severe chronic obstructive pulmonary disease PFTs 12/07/2018: FEV1 48% with airflow obstruction, TLC 165% with air trapping and DLCO of 81% Surgical History Surgical History (Updated 11/08/20 @ 02:12 by Tia Gil DO) H/O left knee surgery History of bilateral cataract extraction History of carpal tunnel release History of esophagogastroduodenoscopy (EGD) June 2020 demonstrated reflux esophagitis and duodenal and gastric AVMs History of prostatectomy 1992 due to prostate cancer History of vasectomy Hx of tonsillectomy Family History Family History Sibling Stomach cancer Brother Father Atherosclerosis Heart disease Social History Social History (Updated 11/08/20 @ 02:16 by Tia Gil DO) Social History: He smoked 1-2 packs per day for 60 years but quit smoking in 2016. Primary care physician: Dr. Chacorta Perry Surrogate decision maker: Ivon (daughter) Smoking packs per day: 1.5 Smoking cigarettes per day: 30.0 Years smoked: 60 Smoking pack-years: 90.00 Smoking status: Former smoker Tobacco type: cigarettes Second hand tobacco smoke exposure: No Smoking end date: 10/18/16 Alcohol intake: current Drinks per week: 10 Alcohol use details: BEER/DRINK Substance use: never Substance use type: does not use
--- NOTE | 2021-01-06 12:06 | PM.IMHP ---
H&P: HPI History of Present Illness Date/Time: 01/06/21 12:06 Chief Complaint: dyspnea Narrative: 80 y/o male with history of COPD, chronic smoker, admitted in Oct 2020 with COVID-19 and acute hypoxemic respiratory failure. He was found to have significant mediastinal and subcarinal lymphadnopathy with RLL spiculated lung nodule suspicious for malignancy. I recommend a diagnostic bronchoscopy with TBNA and he agreed but we waited until he recovered from COVID-19 and with at least 8 weeks per state guidelines. He is feeling well today, get's a little short of breath on exertion. Resting oxygen sats are 93% on RA at home he says. He unfortunately did not stop ASA 7 days as instructed and thinks he stopped it a couple of days ago. I did tell me that in light of this there's an increased risk of bleeding and whether he'd like to cancel or proceed and he said he'd like to proceed and accepted the risk. His daughter was present at his side. Review of Systems Review of Systems: All systems reviewed & are unremarkable except as noted in HPI and below PMFSH Past Medical History Medical History (Updated 11/11/20 @ 11:54 by Leroy Carvalho MD) Diastolic dysfunction Echocardiogram November 2018: Impaired diastolic relaxation grade 1, ejection fraction 60%, mild left atrial enlargement, mild tricuspid regurgitation Duodenal arteriovenous malformation Essential hypertension Gastric AVM History of tobacco abuse Quit 2016. Smoked for 50 years. Left rotator cuff tear Macular degeneration Obstructive sleep apnea (2018) 06/15/2019 without optimal pressure. Bilevel titration 07/26/2020 which demonstrated poor sleep efficiency but sufficient pressure settings of 9/5 started September 2020 Osteopenia Noted on DEXA scan October 2020 Reflux esophagitis Severe chronic obstructive pulmonary disease PFTs 12/07/2018: FEV1 48% with airflow obstruction, TLC 165% with air trapping and DLCO of 81% Surgical History Surgical History (Updated 11/08/20 @ 02:12 by Tia Gil DO) H/O left knee surgery History of bilateral cataract extraction History of carpal tunnel release History of esophagogastroduodenoscopy (EGD) June 2020 demonstrated reflux esophagitis and duodenal and gastric AVMs History of prostatectomy 1992 due to prostate cancer History of vasectomy Hx of tonsillectomy Family History Family History Sibling Stomach cancer Brother Father Atherosclerosis Heart disease Social History Social History (Updated 11/08/20 @ 02:16 by Tia Gil DO) Social History: He smoked 1-2 packs per day for 60 years but quit smoking in 2017. Primary care physician: Dr. Chacorta Perry Surrogate decision maker: Ivon (daughter) Smoking packs per day: 1.5 Smoking cigarettes per day: 30.0 Years smoked: 60 Smoking pack-years: 90.00 Smoking status: Former smoker Tobacco type: cigarettes Second hand tobacco smoke exposure: No Smoking end date: 10/18/16 Alcohol intake: current Drinks per week: 10 Alcohol use details: BEER/DRINK Substance use: never Substance use type: does not use Living arrangements: with family Gender identity (if verbalized by the patient): Male Spiritual care concerns: No Meds Home Medications and Allergies Home Medications Medication Instructions Recorded Confirmed Type cholecalciferol (vitamin D3) 25 1,000 unit PO DAILY 12/11/19 12/23/20 History mcg (1,000 unit) capsule coenzyme Q10 200 mg capsule 200 mg PO DAILY 12/11/19 12/23/20 History mecobalamin (vitamin B12) 1,000 1,000 mcg PO DAILY 12/11/19 12/23/20 History mcg chewable tablet guaifenesin [Mucinex] 600 mg PO Q12H 07/01/20 12/23/20 History fluticasone fur. 100 mcg-umeclid See Rx Instructions .ROUTE 09/26/20 12/23/20 Rx 62.5 mcg-vilant 25 mcg .COMPLEX #180 ea inhalat.powder albuterol sulfate 2 inh INHALATION QID PRN #6.7 g
--- NOTE | 2021-01-06 13:08 | SUR.OPER ---
LIDOCAINE 2% 4 ml GIVEN INTRAOPERATIVELY, ICED SALINE 5 ML IRRIGATION GIVEN INTRAOPERATIVELY.
== END 2021-01-06 14:05 | disposition home or self-care (01) ==
PROVIDERS: PCP Internal Medicine; Visit Provider Internal Medicine Critical Care Medicine
PROC: 0BJ08ZZ Inspection of Tracheobronchial Tree, Via Natural or Artificial Opening Endoscopic (ICD-10-PCS; CPT 31622; principal; 2021-01-06 12:00)
DX: C77.1 Secondary and unspecified malignant neoplasm of intrathoracic lymph nodes (principal); C34.90 Malignant neoplasm of unspecified part of unspecified bronchus or lung; Z79.51 Long term (current) use of inhaled steroids; E03.9 Hypothyroidism, unspecified; G47.33 Obstructive sleep apnea (adult) (pediatric); M19.90 Unspecified osteoarthritis, unspecified site; J44.9 Chronic obstructive pulmonary disease, unspecified; Z87.891 Personal history of nicotine dependence; K20.90 Esophagitis, unspecified without bleeding; H35.30 Unspecified macular degeneration; I11.9 Hypertensive heart disease without heart failure; Z86.16 Personal history of COVID-19
CPT/HCPCS: 31629; 71045; 81210; 81235; 81275; 81276; 88271; 88274; 88305; 88342; 88360; 88381; J2001; J2370; J2704; J7040; J7120

== ENCOUNTER 2021-02-04 06:37 | Outpatient (CLI) | payer MEDICARE, OTHER, SELFPAY ==
--- NOTE | ~2021-02-04 | PE_ITS ---
EXAMINATION: PET skull to mid thigh DATE: 02/04/2021 10:44 INDICATION: Non-small cell lung cancer. TECHNIQUE: Blood glucose level was 81 mg/dL. 7.870 mCi of 18-fluorodeoxyglucose (18-FDG) was administ ered i.v. Low dose computed tomography (CT) images were acquired from the base of the brain to the pr oximal thighs for attenuation correction and anatomic localization. Automated exposure control was em ployed. Dose-length product (DLP) was 756 mGy-cm. Positron emission tomography (PET) images were acqu ired in the same distribution. COMPARISON: CT abdomen and pelvis 12/23/2020, chest CT 11/07/2020 FINDINGS: Head/neck: There is increased activity in the pharynx, oral cavity, major salivary glands, and glotti s without CT correlate, likely physiologic. There are no pathologically enlarged lymph nodes. There i s severe cervical spondylosis. Chest: There is severe emphysema. There is chronic peripheral septal thickening in the lungs with a l ower lung predominance. There is a 1.6 cm nodule in right lower lobe with maximum SUV of 3.9. No pleu ral effusion. There is right hilar and mediastinal lymphadenopathy with increased activity. For examp le, a 2.6 x 1.6 cm left right paratracheal node demonstrates maximum SUV of 7.2. The heart size is no rmal. There are coronary artery calcifications. No pericardial effusion. There is increased activity in some of the musculature without CT correlate, likely physiologic. There is severe thoracic spondyl osis. There is a chronic burst fracture of T12. Abdomen/pelvis/proximal thighs: The liver is normal. There is a gallstone in the gallbladder, which i s normal in size. The pancreas, spleen, and adrenal glands are normal. There are cysts in the kidneys measuring up to 2.5 cm on the left. There is a 4.5 cm mass in right kidney with a portion that was h yperdense on prior imaging suggesting enhancement. There are no dilated loops of bowel. There is dive rticulosis of the colon without evidence of diverticulitis. There are changes of prostatectomy and pe lvic lymph node dissection. There are no pathologically enlarged lymph nodes. There is no free intrap eritoneal fluid. There is severe lumbar spondylosis. IMPRESSION: 1. 1.6 cm nodule in right lung lower lobe with increased activity, consistent with primary bronchogen ic carcinoma. 2. Right hilar and mediastinal lymphadenopathy with increased activity, consistent with metastatic di sease. 3. 4.5 cm right kidney mass suspicious for renal cell carcinoma. Abdomen CT without and with contrast is recommended. Reviewed, dictated and finalized at location B. IMPRESSION: 1. 1.6 cm nodule in right lung lower lobe with increased activity, consistent w ith primary bronchogenic carcinoma. 2. Right hilar and mediastinal lymphadenopathy with increased activity, consist ent with metastatic disease. 3. 4.5 cm right kidney mass suspicious for renal cell carcinoma. Abdomen CT wit hout and with contrast is recommended.
--- NOTE | ~2021-02-04 | MR_ITS ---
EXAMINATION: MR brain IAC wo/w con DATE: 02/04/2021 08:21 INDICATION: Malignant neoplasm of unspecified part of right bronchus or lung. TECHNIQUE: Magnetic resonance imaging (MRI) of the brain, brainstem, and internal auditory canals was performed without and with 15 mL MultiHance intravenous contrast. Sequences included sagittal and ax ial T1-weighted FSE, axial diffusion-weighted FS EPI, axial T2*-weighted GRE, axial T2-weighted FLAIR Propeller, axial T2-weighted Propeller, small vqjsr-yj-jccx coronal FIESTA, small tddwi-wj-kbzg moreno nal T1-weighted FSE, and small ijmgl-rq-jeyl axial T1-weighted SPGR. Postcontrast sequences included axial, coronal, and sagittal T1-weighted FSE, small wbkxz-zx-bfok coronal T1-weighted FSE, and small arnum-ed-cwzr axial T1-weighted SPGR. Apparent diffusion coefficient (ADC) maps were created. 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 There are scattered areas of nonspecifi c increased T2-weighted signal intensity in the cerebral white matter. There is no intracranial hemor rhage, acute infarction, or abnormal intracranial mass lesion. The ventricles are normal in size. The re are likely changes of ocular lens replacement surgeries. There are changes of right-sided scleral banding procedure. The internal auditory canals and inner and middle ears are normal. The mastoid air cells are normal. There is mild mucosal thickening in the paranasal sinuses. IMPRESSION: 1. No evidence of metastatic disease. 2. 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 3. Worsened moderate nonspecific cerebral white matter disease, which likely represents chronic small vessel ischemic disease. Reviewed, dictated and finalized at location B. IMPRESSION: 1. No evidence of metastatic disease. 2. 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 3. Worsened moderate nonspecific cerebral white matter disease, which likely re presents chronic small vessel ischemic disease.
[2021-02-04 07:29] LABS: Estimated Glomerular Filt Rate > 60
[2021-02-04 08:40] LABS: Glucose Point of Care 81 (65-105)
== END 2021-02-04 06:38 | disposition home or self-care (01) ==
LOC: ANHIMG 06:38
PROVIDERS: PCP Internal Medicine; Visit Provider Internal Medicine Critical Care Medicine
DX: R91.8 Other nonspecific abnormal finding of lung field (principal); C34.91 Malignant neoplasm of unspecified part of right bronchus or lung; R93.0 Abnormal findings on diagnostic imaging of skull and head, not elsewhere classified
CPT/HCPCS: 70553; 78815; 82948; A9552; A9577

== ENCOUNTER 2021-02-14 12:34 | Outpatient (CLI) | payer MEDICARE, OTHER, SELFPAY ==
[2021-02-14 13:06] LABS: Basophils Absolute Auto 0.1 K/mm3 (0.0-0.1); Eosinophils Absolute Auto 0.3 K/mm3 (0-0.3); Eosinophils Percent Auto 4.2 % (0-4.4); Hemoglobin 9.6 g/dL (14.0-18.0); Immature Granulocyte Absolute 0.01 K/mm3 (0.00-0.031); Immature Granulocyte Percent A 0.2 % (0-0.5); Lymphocytes Absolute Auto 1.57 K/mm3 (0.9-3.2); Lymphocytes Percent Auto 25.4 % (18.3-44.2); Mean Corpuscular Hemoglobin 26.8 pg (26-34); Mean Corpuscular Volume 86.6 fl (80-100); Mean Platelet Volume 8.6 fl (7.4-10.4); Monocytes Absolute Auto 1.1 K/mm3 (0.1-0.6); Monocytes Percent Auto 18.1 % (2.6-8.5); Neutrophils Absolute Auto 3.2 K/mm3 (1.3-6.7); Neutrophils Percent Auto 51.1 % (45.5-73.1); Platelet Count Result 332 k/mm3 (150-375); Red Blood Count 3.58 M/mm3 (4.6-6.20); White Blood Count 6.2 K/mm3 (4.5-10.0)
[2021-02-14 13:57] LABS: Alanine Aminotransferase 10 U/L (4-50); Albumin Level 3.8 g/dL (3.5-5.1); Alkaline Phosphatase 99 U/L (38-126); Anion Gap 7 mmol/L (8-16); Aspartate Amino Transferase 19 U/L (17-59); Bilirubin,Total 0.2 mg/dL (0.2-1.3); Blood Urea Nitrogen 15 mg/dL (9-20); Calcium 9.3 mg/dL (8.4-10.2); Carbon Dioxide 26 mmol/L (22-30); Chloride 105 mmol/L (98-107); Estimated Glomerular Filt Rate > 60; Glucose 119 mg/dL (75-110); Potassium 4.9 mmol/L (3.4-5.0); Sodium 138 mmol/L (137-145)
== END 2021-02-14 12:35 | disposition home or self-care (01) ==
PROVIDERS: PCP Internal Medicine; Visit Provider Internal Medicine Hematology & Oncology
DX: C34.31 Malignant neoplasm of lower lobe, right bronchus or lung (principal)
CPT/HCPCS: 36415; 80053; 85025

== ENCOUNTER → 2021-02-17 08:55 | Outpatient (CLI) | payer MEDICARE, OTHER, SELFPAY ==
[2021-02-17 19:16] LABS: SARS-CoV-2 RNA PCR Negative
== END ==
PROVIDERS: Visit Provider Surgery
DX: Z01.812 Encounter for preprocedural laboratory examination (principal); Z20.822 Contact with and (suspected) exposure to COVID-19
CPT/HCPCS: C9803; U0003; U0005

== ENCOUNTER 2021-02-18 15:19 | Outpatient (CLI) | payer MEDICARE, OTHER, SELFPAY ==
[2021-02-18 15:49] LABS: Prothrombin Time 13.6 Seconds (11.1-14.7)
[2021-02-18 15:50] LABS: Partial Thromboplastin Time 26.8 SECONDS (22.3-36.8)
== END 2021-02-18 15:20 | disposition home or self-care (01) ==
LOC: ANHSURGERY 15:24
PROVIDERS: PCP Internal Medicine; Visit Provider Surgery
DX: Z01.812 Encounter for preprocedural laboratory examination (principal); C34.91 Malignant neoplasm of unspecified part of right bronchus or lung; Z51.81 Encounter for therapeutic drug level monitoring; Z79.899 Other long term (current) drug therapy
CPT/HCPCS: 36415; 85610; 85730

== ENCOUNTER 2021-02-20 01:16 | Day surgery (SDC) | payer MEDICARE, OTHER, SELFPAY ==
[2021-02-17 10:10] VITALS: BMI 23.7
--- NOTE | ~2021-02-20 | XR_ITS ---
EXAMINATION: XR fl guide central line place DATE: 02/20/2021 16:17 INDICATION: Port catheter insertion TECHNIQUE: 3 fluoroscopic spot images of the upper chest were obtained during procedure performed by Dr. Pressley. Radiologist was not present for the imaging or procedure. The amount of fluoroscopy time u sed during this procedure was 0.6 minutes. COMPARISON: 01/06/2021 FINDINGS: Left subclavian central venous port catheter with distal tip at the caudal superior vena cava. Emphys dameon with no pneumothorax at the visualized upper lung zones. IMPRESSION: 1. Left subclavian central venous port catheter in expected position. See procedure note for further detail. Reviewed, dictated and finalized at location A. IMPRESSION: 1. Left subclavian central venous port catheter in expected position. See proce dure note for further detail.
--- NOTE | ~2021-02-20 | XR_ITS ---
EXAMINATION: XR chest port-a-cath/central EXAM DATE: 02/20/2021 16:29 INDICATION: Cara catheter insertion. TECHNIQUE: Portable AP frontal chest x-ray was obtained. Comparison is made to prior examination from 01/06/2021. FINDINGS: There is a left-sided portacatheter, tip overlying the SVC at the level of pulmonary artery . Cardiac monitoring device. The cardiomediastinal silhouette is prominent but magnified on this AP t echnique. Diffuse prominent reticulation bilaterally, probably patient's chronic interstitial lung di sease. Difficult to identify the right-sided lung cancer. No pneumothorax. No sizable pleural effusio n. There is aortic arteriosclerosis. There are bony degenerative changes. IMPRESSION: 1. Right lung cancer poorly visualized. 2. Portacatheter in position. No evidence pneumothorax. 3. Chronic interstitial lung disease. Reviewed, dictated and finalized at location B.
[2021-02-20 13:19] VITALS: BMI 23.7
--- NOTE | 2021-02-20 13:27 | WPDANESEPPF ---
Anes - Initial Pre Proc Eval Procedure: Operation Date: 02/20/21 14:30 Proposed Procedures p Insertion Cara Cath Port placement - Bethanie Pressley MD Date/Time: 02/20/21 13:27 Surgeon: Bethanie Pressley MD Pre Op Diagnosis: primary ca of right lower lobe of lung Patient Data Age: 80 Gender: M Height: 1.8 m Weight: 77.15 kg Allergies Allergy/AdvReac Type Severity Reaction Status Date / Time No Known Allergies Allergy Verified 02/20/21 10:03 Home Medications Medication Instructions Recorded Confirmed Type cholecalciferol (vitamin D3) 25 1,000 unit PO DAILY 12/11/19 02/20/21 History mcg (1,000 unit) capsule mecobalamin (vitamin B12) 1,000 1,000 mcg PO DAILY 12/11/19 02/20/21 History mcg chewable tablet guaifenesin [Mucinex] 600 mg PO Q12H 07/01/20 02/20/21 History albuterol sulfate 2 inh INHALATION QID PRN #6.7 g 11/20/20 02/20/21 Rx vitamins A,C,Z-yrnj-jazhzm [ICaps 1 cap PO BID 12/20/20 02/20/21 History AREDS] aspirin 81 mg tablet,delayed 81 mg PO DAILY 12/23/20 02/20/21 History release amlodipine 2.5 mg tablet 2.5 mg PO DAILY #90 tablet 12/26/20 02/20/21 Rx levothyroxine 75 mcg tablet 75 mcg PO DAILY #90 tablet 01/01/21 02/20/21 Rx esomeprazole magnesium 40 mg 40 mg PO BID #60 cap 01/29/21 02/20/21 Rx capsule,delayed release Trelegy Ellipta 1 inh INHALATION QAM 02/17/21 02/20/21 History coQ10 (ubiquinol) 100 mg PO DAILY 02/17/21 02/20/21 History enzalutamide [Xtandi] 160 mg PO QAM 02/17/21 02/20/21 History Patient hx anesthesia problems: none Family hx anesthesia problems: none PMFSH Past Medical History Medical History (Reviewed 01/09/21 @ 14:05 by Angela Barcl[facility]) Diastolic dysfunction Echocardiogram November 2018: Impaired diastolic relaxation grade 1, ejection fraction 60%, mild left atrial enlargement, mild tricuspid regurgitation Duodenal arteriovenous malformation Essential hypertension Gastric AVM History of tobacco abuse Quit 2017. Smoked for 50 years. Left rotator cuff tear Macular degeneration Obstructive sleep apnea (2019) 06/15/2019 without optimal pressure. Bilevel titration 07/26/2020 which demonstrated poor sleep efficiency but sufficient pressure settings of 9/5 started September 2020 Osteopenia Noted on DEXA scan October 2020 Reflux esophagitis Severe chronic obstructive pulmonary disease PFTs 12/07/2018: FEV1 48% with airflow obstruction, TLC 165% with air trapping and DLCO of 81% Surgical History Surgical History (Reviewed 01/09/21 @ 14:05 by Angela Barclay [facility]) H/O left knee surgery History of bilateral cataract extraction History of carpal tunnel release History of esophagogastroduodenoscopy (EGD) June 2020 demonstrated reflux esophagitis and duodenal and gastric AVMs History of prostatectomy 1992 due to prostate cancer History of vasectomy Hx of tonsillectomy Family History Family History (Reviewed 01/09/21 @ 14:05 by Angela Barclay [facility]) Sibling Stomach cancer Brother Father Atherosclerosis Heart disease Social History Social History (Reviewed 01/09/21 @ 14:05 by Angela Barclay [facility]) Social History: He smoked 1-2 packs per day for 60 years but quit smoking in 2017. Primary care physician: Dr. Chacorta Perry Surrogate decision maker: Ivon (daughter) Smoking packs per day: 1.5 Smoking cigarettes per day: 30.0 Years smoked: 60 Smoking pack-years: 90.00 Smoking status: Former smoker Tobacco type: cigarettes Second hand tobacco smoke exposure: No Smoking end date: 10/18/16 Alcohol intake: current Drinks per week: 12 Substance use: never Substance use type: does not use Gender identity (if verbalized by the patient): Male Spiritual care concerns: No Anes - Eval Final PreProcedure Day of Procedure 02/20/21 13:27 Patient weight: normal Heart: regular rate and rhythm Lungs: clear to auscultation and normal air movement Airway: Mallampati scale class II
[2021-02-20 13:47] VITALS: BP 114/61; PULSE 70; RESP 14; TEMP 36.8; O2SAT 100
[2021-02-20] MEDS: LACTATED RINGERS 1,000 ML 30 ML IV CONT ×2 (13:49→16:16)
[2021-02-20] MEDS: KETOROLAC 15 MG/ML VIAL (*BKC) IV PUSH (13:50)
--- NOTE | 2021-02-20 14:53 | PM.IMHP ---
H&P: HPI History of Present Illness Date/Time: 02/20/21 14:53 Pt is a 80 y/o M c stage 3A non-small cell lung cancer in RLL lung. Pt is going to undergo chemoradiation. Pt here for VAD placement for chemo access. I had a d/w pt re: VAD and he would like to proceed. Chief Complaint: non small cell lung cancer Review of Systems Review of Systems: All systems reviewed & are unremarkable except as noted in HPI and below PMFSH Past Medical History Medical History Diastolic dysfunction Echocardiogram November 2018: Impaired diastolic relaxation grade 1, ejection fraction 60%, mild left atrial enlargement, mild tricuspid regurgitation Duodenal arteriovenous malformation Essential hypertension Gastric AVM History of tobacco abuse Quit 2017. Smoked for 50 years. Left rotator cuff tear Macular degeneration Obstructive sleep apnea (2018) 06/15/2019 without optimal pressure. Bilevel titration 07/26/2020 which demonstrated poor sleep efficiency but sufficient pressure settings of 9/5 started September 2020 Osteopenia Noted on DEXA scan October 2020 Reflux esophagitis Severe chronic obstructive pulmonary disease PFTs 12/07/2018: FEV1 48% with airflow obstruction, TLC 165% with air trapping and DLCO of 81% Surgical History Surgical History H/O left knee surgery History of bilateral cataract extraction History of carpal tunnel release History of esophagogastroduodenoscopy (EGD) June 2020 demonstrated reflux esophagitis and duodenal and gastric AVMs History of prostatectomy 1992 due to prostate cancer History of vasectomy Hx of tonsillectomy Family History Family History Sibling Stomach cancer Brother Father Atherosclerosis Heart disease Social History Social History Social History: He smoked 1-2 packs per day for 60 years but quit smoking in 2017. Primary care physician: Dr. Chacorta Perry Surrogate decision maker: Ivon (daughter) Smoking packs per day: 1.5 Smoking cigarettes per day: 30.0 Years smoked: 60 Smoking pack-years: 90.00 Smoking status: Former smoker Tobacco type: cigarettes Second hand tobacco smoke exposure: No Smoking end date: 10/18/16 Alcohol intake: current Drinks per week: 12 Substance use: never Substance use type: does not use Gender identity (if verbalized by the patient): Male Spiritual care concerns: No Meds Home Medications and Allergies Home Medications Medication Instructions Recorded Confirmed Type cholecalciferol (vitamin D3) 25 1,000 unit PO DAILY 12/11/19 02/20/21 History mcg (1,000 unit) capsule mecobalamin (vitamin B12) 1,000 1,000 mcg PO DAILY 12/11/19 02/20/21 History mcg chewable tablet guaifenesin [Mucinex] 600 mg PO Q12H 07/01/20 02/20/21 History albuterol sulfate 2 inh INHALATION QID PRN #6.7 g 11/20/20 02/20/21 Rx vitamins A,C,C-fztj-nitmmy [ICaps 1 cap PO BID 12/20/20 02/20/21 History AREDS] aspirin 81 mg tablet,delayed 81 mg PO DAILY 12/23/20 02/20/21 History release amlodipine 2.5 mg tablet 2.5 mg PO DAILY #90 tablet 12/26/20 02/20/21 Rx levothyroxine 75 mcg tablet 75 mcg PO DAILY #90 tablet 01/01/21 02/20/21 Rx esomeprazole magnesium 40 mg 40 mg PO BID #60 cap 01/29/21 02/20/21 Rx capsule,delayed release Trelegy Ellipta 1 inh INHALATION QAM 02/17/21 02/20/21 History coQ10 (ubiquinol) 100 mg PO DAILY 02/17/21 02/20/21 History enzalutamide [Xtandi] 160 mg PO QAM 02/17/21 02/20/21 History Allergies Allergy/AdvReac Type Severity Reaction Status Date / Time No Known Allergies Allergy Verified 02/20/21 10:03 Vital Signs Vital Signs - 24 hr 02/20/21 13:47 Temperature 36.8 C Pulse Rate 70 Respiratory Rate 14 Blood Pressure 114/61 Pulse Oximetry 100 Exam Const:
--- NOTE | 2021-02-20 14:57 | WPDHPUPDATE1 ---
History and Physical Update Update Date/Time: 02/20/21 14:57 History and Physical has been reviewed, including an updated exam of the patient. There are NO changes in the patient's condition. Risks, benefits, and alternatives have been discussed and questions answered. Patient agrees to proceed with procedure.
[2021-02-20] MEDS: ceFAZolin 2 GM/D5W 50 ML 2 GM/50 ML BAG IVPB (15:23)
[2021-02-20] MEDS: HEPARIN SODIUM 5,000 UNITS/ML VIAL 5000 UNITS IRRIGATION (16:00)
[2021-02-20 16:16] VITALS: BP 127/61; PULSE 70; RESP 11; TEMP 37; O2SAT 100
--- NOTE | 2021-02-20 16:24 | PM.PROC ---
Procedure Note - Detailed Date of procedure: 02/20/21 Pre-op diagnosis: primary ca of right lower lobe of lung Post-op diagnosis: same Procedure performed: placement of left subclavian venous access device under fluroscopic guidance Description of procedure: Patient was brought into the operating room and placed in the supine position. After adequate induction of mac anesthesia, the patient was prepped and draped in normal sterile fashion. Time-out was then done to verify the patient's identity, as well as the procedure being performed. I began by making a small incision in the left chest, I then gained access into the left subclavian vein with an 18 gauge needle. I then placed the guidewire into the vein and confirmed placement via fluoroscopic guidance. I then locally anesthetized the area in the left chest. I then enlarged the incision around the guidewire including making a subcutaneous pocket inferiorly to allow placement of the port itself. I then placed a dilating sheath over the guidewire into the left subclavian vein via sterile Seldinger technique. This was once again done and confirmed via fluoroscopic guidance. I then removed the dilator and the guidewire, now just leaving the sheath in the vein. I then fed the previously flushed catheter into the left subclavian vein under fluoroscopic guidance. At approximately 23 cm, the catheter was noted to be near the atrial caval junction. I then peeled away the sheath, now just leaving the catheter in the vein. I then was able to easily draw and flush from the catheter. The catheter was cut to fit and attached to the port itself. The port was placed into the previously made subcutaneous pocket and sutured in with 0 Ethibond suture. Final fluoroscopic view showed the termination of the catheter at the atrial caval junction with a nice smooth curvature back to the port itself. I was able to gain access to the port with a Cuenca needle and was able to easily draw and flush from the port. I then flushed 4 cc of a final heparin flush into the port. The incision was closed with 3 0 Vicryl suture in the subcutaneous tissue and the skin was closed with 4 O Monocryl subcuticular suture. Dermabond was then placed on wound. The patient tolerated the procedure well and will be sent to the recovery room in stable condition. Implants: L SCV VAD Anesthesia: MAC and local Surgeon: Bethanie Pressley MD Estimated blood loss (mL): 5 Drains: No Packing: No Pathology: none sent Complications: No immediate complications Condition: stable Disposition: PACU Findings: placement of L SCV VAD via 1st stick
[2021-02-20 16:30] VITALS: BP 119/65; PULSE 64; RESP 15; O2SAT 99
[2021-02-20 16:47] VITALS: BP 124/42; PULSE 68; RESP 16; O2SAT 93
[2021-02-20 17:15] VITALS: BP 124/54; PULSE 70; RESP 16; O2SAT 95
[2021-02-20 17:35] VITALS: BP 124/46; PULSE 68; RESP 16; O2SAT 97
== END 2021-02-20 17:45 | disposition home or self-care (01) ==
PROVIDERS: PCP Internal Medicine; Visit Provider Surgery
PROC: (CPT 36561; principal; 2021-02-20 14:30)
DX: C34.31 Malignant neoplasm of lower lobe, right bronchus or lung (principal); I11.9 Hypertensive heart disease without heart failure; G47.33 Obstructive sleep apnea (adult) (pediatric); J44.9 Chronic obstructive pulmonary disease, unspecified; H35.30 Unspecified macular degeneration; Z79.82 Long term (current) use of aspirin; Z79.51 Long term (current) use of inhaled steroids; Z87.891 Personal history of nicotine dependence; Z85.46 Personal history of malignant neoplasm of prostate
CPT/HCPCS: 36561; 77001; 99212; C1788; G0463; J0690; J1644; J1885; J2704; J3010; J7040; J7120

== ENCOUNTER → 2021-03-01 03:13 | Outpatient (CLI) | payer MEDICARE, OTHER, SELFPAY ==
[2021-03-01 19:43] LABS: SARS-CoV-2 RNA PCR Negative
== END ==
PROVIDERS: Radiology Diagnostic Radiology; PCP Internal Medicine; Visit Provider Internal Medicine Hematology & Oncology
DX: Z01.812 Encounter for preprocedural laboratory examination (principal); Z20.822 Contact with and (suspected) exposure to COVID-19
CPT/HCPCS: C9803; U0003; U0005

== ENCOUNTER 2021-03-28 10:06 | Outpatient (RCR) | payer MEDICARE, OTHER, SELFPAY ==
[2021-03-28] VITALS (11 sets, daily range): BP systolic 90–144; BP diastolic 50–78; PULSE 77–91; RESP 15–24; TEMP 36.1–36.4; O2SAT 95–100
[2021-03-28] MEDS: ACETAMINOPHEN 325 MG TABLET 650 MG PO (10:58)
[2021-03-28] MEDS: diphenhydrAMINE HCl CAP 25 MG CAPSULE PO (10:58)
[2021-03-28] MEDS: SODIUM CHLORIDE 0.9% IV 250 ML 30 ML IV CONT (11:05)
[2021-03-28] MEDS: FUROSEMIDE INJ 40 MG/4 ML VIAL 20 MG IV PUSH (14:16)
--- NOTE | 2021-03-28 17:32 | PC.NURSE ---
1730 - blood transfusion complete. Discharge instructions given, access needle removed from port, Voided approx 700ml after receiving lasix throughout the day. Discharged to home with his son in personal vehicle.
== END 2021-06-25 23:59 | disposition home or self-care (01) ==
LOC: ANHCPCTRAN 10:06
PROVIDERS: PCP Internal Medicine; Visit Provider Internal Medicine Hematology & Oncology
DX: C34.91 Malignant neoplasm of unspecified part of right bronchus or lung (principal)
CPT/HCPCS: 36415; 36430; 86850; 86900; 86901; 86923; A9270; J1940; J7050; P9016

== ENCOUNTER 2021-05-18 09:39 | Inpatient (IN) | payer MEDICARE, OTHER, SELFPAY ==
[2021-05-18] VITALS (59 sets, daily range): BP systolic 73–122; BP diastolic 46–103; PULSE 95–127; RESP 15–38; TEMP 36.3–37.3; O2SAT 68–100; BMI 21.4
--- NOTE | ~2021-05-18 | XR_ITS ---
EXAMINATION: XR chest 1V portable INDICATION: Shortness of breath and cough, history of lung cancer TECHNIQUE: Portable AP chest at 1248 hours COMPARISON: 05/18/2021 FINDINGS: A left subclavian Port-A-Cath ends with its tip in the midsuperior vena cava. Interstitial and airspace opacities of the mid and lower lung zones persist with slight increase. There is no pleu ral effusion or pneumothorax. The heart size is normal. A cardiac monitoring device projects over the left lower thorax. Cranial migration of the humeral heads with respect to glenoid is consistent with chronic rotator cuff tears. IMPRESSION: 1. Increasing interstitial and airspace opacities of the lung bases, consistent with atelectasis vers us pneumonia versus pulmonary edema. Reviewed, dictated and finalized at location A. IMPRESSION: 1. Increasing interstitial and airspace opacities of the lung bases, consistent with atelectasis versus pneumonia versus pulmonary edema.
--- NOTE | ~2021-05-18 | XR_ITS ---
EXAMINATION: XR chest 2V DATE: 05/18/2021 10:17 INDICATION: COPD presenting with shortness of breath TECHNIQUE: frontal and lateral views of the chest were obtained. COMPARISON: Chest radiograph dated 02/20/2021 FINDINGS: Increased lucency and architectural distortion in the right mid and bilateral upper lung zones consis tent with emphysema. There is increased interstitial pattern in the bilateral lower lung zones due at least in part to vascular crowding however in the right lower lung zone this appears more prominent with some bronchial wall thickening suggesting superimposed bronchitis and/or pulmonary edema. No ple ural effusion or pneumothorax. The cardiomediastinal silhouette is normal. Left subclavian central ve nous port catheter with distal tip at the caudal superior vena cava. Left pectoral implantable cardia c monitor. Moderate degenerative skeletal changes in the spine and at the bilateral shoulders. IMPRESSION: 1. Increased interstitial pattern and bronchial wall thickening in the right lower lung zone likely d ue to bronchovascular crowding with superimposed bronchitis, mild pulmonary edema or more chronic int erstitial lung disease. 2. Emphysema. Reviewed, dictated and finalized at location A. IMPRESSION: 1. Increased interstitial pattern and bronchial wall thickening in the right lo wer lung zone likely due to bronchovascular crowding with superimposed bronchit is, mild pulmonary edema or more chronic interstitial lung disease. 2. Emphysema.
--- NOTE | 2021-05-18 10:00 | ECG_ITS ---
Measurements Intervals [place] Rate: 123 P: 70 NE: 194 QRS: 58 QRSD: 102 T: 68 QT: 329 QTc: 472 Interpretive Statements SINUS TACHYCARDIA NONSPECIFIC ST & T-WAVE ABNORMALITY- ANTERIOR LEADS BASELINE ARTIFACT- I, II, III, AVR, AVL, AVF, V1-V6 ABNORMAL ECG Electronically Signed On 05-18-2021 11:46:53 CDT by Tien Culp D.O.
[2021-05-18 10:16] LABS: Basophils Percent Auto 0.4 % (0.2-1.2); Eosinophils Absolute Auto 0.1 K/mm3 (0-0.3); Eosinophils Percent Auto 1.3 % (0-4.4); Hematocrit 33.1 % (42.0-52.0); Hemoglobin 10.4 g/dL (14.0-18.0); Immature Granulocyte Absolute 0.09 K/mm3 (0.00-0.031); Lymphocytes Absolute Auto 0.51 K/mm3 (0.9-3.2); Lymphocytes Percent Auto 11.1 % (18.3-44.2); Mean Corpuscular HGB Conc 31.4 g/dl (32-36); Mean Corpuscular Hemoglobin 28.8 pg (26-34); Mean Corpuscular Volume 91.7 fl (80-100); Monocytes Absolute Auto 0.3 K/mm3 (0.1-0.6); Monocytes Percent Auto 7.2 % (2.6-8.5); Neutrophils Absolute Auto 3.6 K/mm3 (1.3-6.7); Platelet Count Result 131 k/mm3 (150-375); Red Blood Count 3.61 M/mm3 (4.6-6.20); Red Cell Distribution Width 27.4 % (11.5-14.5); White Blood Count 4.6 K/mm3 (4.5-10.0)
[2021-05-18 10:27] LABS: Anion Gap 17 mmol/L (8-16); Blood Urea Nitrogen 31 mg/dL (9-20); Carbon Dioxide 15 mmol/L (22-30); Chloride 106 mmol/L (98-107); Estimated CRCL calculation 55 ml/min; Estimated Glomerular Filt Rate > 60; Glucose 162 mg/dL (65-110); Platelet Estimate Decreased (Adequate); Potassium 3.7 mmol/L (3.4-5.0); Sodium 138 mmol/L (137-145)
[2021-05-18 10:28] LABS: Anisocytosis 2+ (NORMAL); Burr Cells 1+ (NORMAL); Ovalocytes 2+ (NORMAL); Tear Drop Cells 1+ (NORMAL)
[2021-05-18 10:30] LABS: INR 1.1
[2021-05-18 10:31] LABS: Partial Thromboplastin Time 24.5 SECONDS (22.3-36.8)
[2021-05-18] MEDS: SODIUM CHLORIDE 0.9% IV 1,000 ML 999 ML IV CONT (10:42)
[2021-05-18] MEDS: ALBUTEROL SULFATE NEB 2.5 MG/0.5 ML INH 5 MG INHALATION ×2 (10:44→20:24)
[2021-05-18] MEDS: IPRATROPIUM BR 0.02% INH SOLN 0.5 MG/2.5 ML VIAL INHALATION ×2 (10:45→20:24)
[2021-05-18 10:53] LABS: Alveolar/Arterial O2 Gradient 95.3 mmHg; Base Excess ABG -5.9 mEq/l (+/-2.0); Carboxyhemoglobin 0.3 % THb (0-2.0); Fractional Inspired Oxygen 28 %; HCO3 ABG 16.6 mEq/l (22.0-26.0); Methemoglobin ABG 0.3 %THb (0-1.5); Oxygen Content ABG 12.9 %vol (16.0-22.0); Oxygen Saturation ABG 96.2 % (95.0-100.0); Oxyhemoglobin 93.7 % THb (90.0-100.0); PO2 ABG 76.4 mmHg (80.0-100.0); PO2 FiO2 Ratio Arterial Blood 2.73 %; Reduced Hemoglobin 5.7 %THb (0-5.0); Total Hemoglobin 9.7 g/dL (12.0-18.0); pH ABG 7.463 (7.350-7.450)
[2021-05-18 10:54] LABS: PCO2 ABG 23.7 mmHg (35.0-45.0)
[2021-05-18 10:55] LABS: Device NASAL CANNULA; Modified Allen's Test Pass; Site Drawn LEFT RADIAL
--- NOTE | 2021-05-18 12:47 | ED.SOB ---
HPI - SOB/Dyspnea General Chief Complaint: Shortness of Breath/Dyspnea Stated Complaint: SOB Time Seen by Provider: 05/18/21 10:15 Source: patient and RN notes reviewed Mode of arrival: ambulatory Limitations: no limitations History of Present Illness HPI Narrative: Patient is an 80-year-old male who presents to emergency department for evaluation of shortness of breath and weakness patient lives at home by himself he has history of COPD chronic oxygen use patient notes productive cough with phlegm over the last couple of days he is not vaccinated for Covid he has a history of lung cancer and kidney cancer he is not currently getting any chemotherapy or radiation therapy at this time. Patient recently completed therapy for lung cancer and then they were beginning to treat his kidney cancer but was unable to forego any more radiation treatments. Patient notes weakness and difficulty with standing and moving and becomes lightheaded and dizzy with activity denies vomiting diarrhea Related Data Home Medications Medication Instructions Recorded Confirmed cholecalciferol (vitamin D3) 25 1,000 unit PO DAILY 12/11/19 05/15/21 mcg (1,000 unit) capsule Trelegy Ellipta 1 inh INHALATION QAM 02/17/21 05/15/21 coQ10 (ubiquinol) 100 mg PO DAILY 02/17/21 05/15/21 ferrous sulfate 324 mg PO BID 03/07/21 05/15/21 amlodipine 05/18/21 aspirin 81 mg PO DAILY 05/18/21 cyanocobalamin (vitamin B-12) 1,000 mcg PO DAILY 05/18/21 guaifenesin [Mucinex] 600 mg PO Q12H PRN 05/18/21 oxybutynin chloride [Ditropan XL] 15 mg PO DAILY 05/18/21 vitamins A,C,M-ygrw-fdyrfs 2 tablet PO BID 05/18/21 [PreserVision AREDS] Allergies Allergy/AdvReac Type Severity Reaction Status Date / Time No Known Allergies Allergy Verified 05/18/21 10:06 Review of Systems Review of Systems: All systems reviewed & are unremarkable except as noted in HPI and below PMFSH Past Medical History Medical History Diastolic dysfunction Echocardiogram November 2018: Impaired diastolic relaxation grade 1, ejection fraction 60%, mild left atrial enlargement, mild tricuspid regurgitation Duodenal arteriovenous malformation Essential hypertension Gastric AVM History of tobacco abuse Quit 2016. Smoked for 50 years. Left rotator cuff tear Macular degeneration Obstructive sleep apnea (2019) 06/15/2019 without optimal pressure. Bilevel titration 07/26/2020 which demonstrated poor sleep efficiency but sufficient pressure settings of 9/5 started September 2020 Osteopenia Noted on DEXA scan October 2020 Reflux esophagitis Severe chronic obstructive pulmonary disease PFTs 12/07/2018: FEV1 48% with airflow obstruction, TLC 165% with air trapping and DLCO of 81% Surgical History Surgical History H/O left knee surgery History of bilateral cataract extraction History of carpal tunnel release History of esophagogastroduodenoscopy (EGD) June 2020 demonstrated reflux esophagitis and duodenal and gastric AVMs History of prostatectomy 1992 due to prostate cancer History of vasectomy Hx of tonsillectomy Family History Family History Sibling Stomach cancer Brother Father Atherosclerosis Heart disease Social History Social History Social History: He smoked 1-2 packs per day for 60 years but quit smoking in 2017. Primary care physician: Dr. Chacorta Perry Surrogate decision maker: Ivon (daughter) Smoking packs per day: 1.5 Smoking cigarettes per day: 30.0 Years smoked: 60 Smoking pack-years: 90.00 Smoking status: Former smoker Tobacco type: cigarettes Second hand tobacco smoke exposure: No Smoking end date: 10/18/16 Alcohol intake: current Alcohol use details: social Substance use: never Substance use ty
[2021-05-18 13:14] LABS: Reflex Lactic Acid Yes or No Add Lactic
[2021-05-18 13:50] LABS: Add Urine Microscopic? YES; Appearance Urine Clear (Clear); Bilirubin Urine Negative (Negative); Blood Urine Negative (Negative); Color Urine Yellow (Yellow); Glucose Urine UA Negative (Negative); Ketones Urine Negative (Negative); Leukocyte Esterase Ur Negative LEU/UL (Negative); Mucus Urine Rare /lpf; Nitrate Urine Negative (Negative); Protein Urine 1+ mg/dL (Negative); RBC Urine 0-2 /hpf (0-2); Specific Grav Ur 1.024 (1.001-1.035); Squamous Epithelial Cell Urine Rare /hpf (Few); Urobilinogen Urine Negative mg/dL (<2.0)
[2021-05-18 13:54] LABS: Lactic Acid 1.4 mmol/L (0.7-2.1)
--- NOTE | 2021-05-18 14:56 | PM.IMHP ---
H&P: HPI History of Present Illness Date/Time: 05/18/21 14:56 Chief Complaint: cough and shortness of breath Narrative: 80 years old male with history of lung cancer, history of kidney cancer, chronic oxygen dependent at home was admitted through the emergency room with complaints of having cough,generalized weakness and sputum production going with last few days. Patient denies any fever chills. Patient denies any chest pain. Patient has not been vaccinated for COVID vaccine. Patient denies any abdominal pain nausea vomiting. Patient is not getting any chemotherapy radiation therapy at present time. Review of Systems Review of Systems: All systems reviewed & are unremarkable except as noted in HPI and below ( the history and physical examination) [facility] Past Medical History Medical History Diastolic dysfunction Echocardiogram November 2018: Impaired diastolic relaxation grade 1, ejection fraction 60%, mild left atrial enlargement, mild tricuspid regurgitation Duodenal arteriovenous malformation Essential hypertension Gastric AVM History of tobacco abuse Quit 2017. Smoked for 50 years. Left rotator cuff tear Macular degeneration Obstructive sleep apnea (2019) 06/15/2019 without optimal pressure. Bilevel titration 07/26/2020 which demonstrated poor sleep efficiency but sufficient pressure settings of 9/5 started September 2020 Osteopenia Noted on DEXA scan October 2020 Reflux esophagitis Severe chronic obstructive pulmonary disease PFTs 12/07/2018: FEV1 48% with airflow obstruction, TLC 165% with air trapping and DLCO of 81% Surgical History Surgical History H/O left knee surgery History of bilateral cataract extraction History of carpal tunnel release History of esophagogastroduodenoscopy (EGD) June 2020 demonstrated reflux esophagitis and duodenal and gastric AVMs History of prostatectomy 1992 due to prostate cancer History of vasectomy Hx of tonsillectomy Family History Family History Sibling Stomach cancer Brother Father Atherosclerosis Heart disease Social History Social History Social History: He smoked 1-2 packs per day for 60 years but quit smoking in 2017. Primary care physician: Dr. Chacorta Perry Surrogate decision maker: Ivon (daughter) Smoking packs per day: 1.5 Smoking cigarettes per day: 30.0 Years smoked: 60 Smoking pack-years: 90.00 Smoking status: Current every day smoker Tobacco type: cigarettes Second hand tobacco smoke exposure: No Smoking end date: 05/18/17 Alcohol intake: former Alcohol use details: social Substance use: former Substance use type: does not use Gender identity (if verbalized by the patient): Male Sexual Orientation (if Verbalized by the Patient): Straight or Heterosexual Spiritual care concerns: No Meds Home Medications and Allergies Home Medications Medication Instructions Recorded Confirmed Type cholecalciferol (vitamin D3) 25 1,000 unit PO DAILY 12/11/19 05/18/21 History mcg (1,000 unit) capsule albuterol sulfate 2 inh INHALATION QID PRN #6.7 g 11/20/20 05/18/21 Rx esomeprazole magnesium 40 mg 40 mg PO BID #60 cap 01/29/21 05/18/21 Rx capsule,delayed release Trelegy Ellipta 1 inh INHALATION QAM 02/17/21 05/18/21 History coQ10 (ubiquinol) 100 mg PO DAILY 02/17/21 05/18/21 History ferrous sulfate 324 mg PO BID 03/07/21 05/18/21 History levothyroxine 75 mcg tablet 75 mcg PO DAILY #90 tablet 03/10/21 05/18/21 Rx amlodipine 2.5 mg PO DAILY 05/18/21 05/18/21 History cyanocobalamin (vitamin B-12) 1,000 mcg PO DAILY 05/18/21 05/18/21 History guaifenesin [Mucinex] 600 mg PO Q12H PRN 05/18/21 05/18/21 History vitamins A,C,Q-fsje-fxszlq 2 tablet PO BID 05/18/21 05/18/21 History [Preser
[2021-05-18] MEDS: methylPREDNISolone SOD SUCC 125 MG VIAL 80 MG IV PUSH ×2 (16:37→21:03)
--- NOTE | 2021-05-18 17:02 | ADMGEN ---
This patient, Eloy Duncan, was admitted to IMU Room 210-01. Patient/family oriented to hospital policies and general routines including ID bracelet, bed and alarms, visiting hours, pain management, procedures, bathroom and other care routines, personal items, smoking policy, room service/diet, and visiting hours. Information on how to activate the Rapid Response Team has been discussed. Patient/Family are encouraged to report perceived risks to care and to ask questions if they do not understand what they are told or what they should do.
[2021-05-18] MEDS: DEXTROSE 5%/0.9% SOD CHL 1,000 ML 80 ML IV CONT (18:15)
[2021-05-18] MEDS: OPTI-GEN TAB 2 TABLET PO (18:18)
[2021-05-18] MEDS: FERROUS SULFATE 324 MG TABLET PO (18:18)
[2021-05-18] MEDS: HEPARIN SODIUM 5,000 UNITS/ML VIAL 5000 UNITS SUB-Q (20:38)
[2021-05-18] MEDS: FAMOTIDINE 20 MG/2 ML VIAL IV PUSH (20:39)
[2021-05-18] MEDS: CENTRAL LINE FLUSH 10 ML IV PUSH (21:03)
[2021-05-19] VITALS (30 sets, daily range): BP systolic 101–148; BP diastolic 49–84; PULSE 85–122; RESP 18–38; TEMP 36.2–36.8; O2SAT 91–100
[2021-05-19] MEDS: IPRATROPIUM BR 0.02% INH SOLN 0.5 MG/2.5 ML VIAL INHALATION ×5 (03:04→19:59)
[2021-05-19] MEDS: ALBUTEROL SULFATE NEB 2.5 MG/0.5 ML INH 5 MG INHALATION ×2 (03:05→08:32)
[2021-05-19] MEDS: DEXTROSE 5%/0.9% SOD CHL 1,000 ML 80 ML IV CONT (03:38)
[2021-05-19] MEDS: methylPREDNISolone SOD SUCC 125 MG VIAL 80 MG IV PUSH (05:35)
[2021-05-19] MEDS: LEVOTHYROXINE SODIUM 75 MCG TABLET PO (05:35)
[2021-05-19] MEDS: CENTRAL LINE FLUSH 10 ML IV PUSH ×3 (05:36→20:38)
[2021-05-19 05:54] LABS: Basophils Percent Auto 0.3 % (0.2-1.2); Hematocrit 22.5 % (42.0-52.0); Hemoglobin 7.1 g/dL (14.0-18.0); Immature Granulocyte Absolute 0.06 K/mm3 (0.00-0.031); Immature Granulocyte Percent A 1.5 % (0-0.5); Lymphocytes Absolute Auto 0.28 K/mm3 (0.9-3.2); Lymphocytes Percent Auto 7.2 % (18.3-44.2); Mean Corpuscular HGB Conc 31.6 g/dl (32-36); Mean Corpuscular Hemoglobin 28.6 pg (26-34); Mean Corpuscular Volume 90.7 fl (80-100); Mean Platelet Volume 9.5 fl (7.4-10.4); Monocytes Absolute Auto 0.2 K/mm3 (0.1-0.6); Monocytes Percent Auto 4.3 % (2.6-8.5); Neutrophils Absolute Auto 3.4 K/mm3 (1.3-6.7); Neutrophils Percent Auto 86.7 % (45.5-73.1); Platelet Count Result 83 k/mm3 (150-375); Red Blood Count 2.48 M/mm3 (4.6-6.20); Red Cell Distribution Width 26.6 % (11.5-14.5); White Blood Count 3.9 K/mm3 (4.5-10.0)
[2021-05-19 06:06] LABS: Anion Gap 11 mmol/L (8-16); Blood Urea Nitrogen 22 mg/dL (9-20); Calcium 8.4 mg/dL (8.4-10.2); Carbon Dioxide 16 mmol/L (22-30); Chloride 111 mmol/L (98-107); Estimated CRCL calculation 70 ml/min; Estimated Glomerular Filt Rate > 60; Glucose 208 mg/dL (65-110); Potassium 2.9 mmol/L (3.4-5.0); Sodium 138 mmol/L (137-145)
--- NOTE | 2021-05-19 06:27 | PM.IMPN ---
Progress Note: A&P Assessment and Plan (1) Pneumonia: Code(s): J18.9 - Pneumonia, unspecified organism Status: Acute Assessment and Plan: will continue with antibiotics and repeat chest x-ray the morning. (2) COPD exacerbation: Code(s): J44.1 - Chronic obstructive pulmonary disease with (acute) exacerbation Status: Acute Assessment and Plan: Continue steroid and nebulizer treatment (3) Dehydration: Code(s): E86.0 - Dehydration Status: Acute Assessment and Plan: continue IV fluids and monitor (4) Essential hypertension: Code(s): I10 - Essential (primary) hypertension Status: Acute Assessment and Plan: stable on medication (5) History of tobacco abuse: Code(s): Z87.891 - Personal history of nicotine dependence Status: Acute Assessment and Plan: counseling (6) Obstructive sleep apnea: Onset Date: 2018 Code(s): G47.33 - Obstructive sleep apnea (adult) (pediatric) Status: Acute Assessment and Plan: stable (7) Acute on chronic anemia: Code(s): D64.9 - Anemia, unspecified Status: Acute Assessment and Plan: Will transfuse and monitor (8) Hypokalemia: Code(s): E87.6 - Hypokalemia Status: Acute Assessment and Plan: Replace and monitor Additional Plan Admit patient in IMCU, blood culture and IV antibiotic. Repeat chest x-ray in the morning. Patient is full code at present time. Patient stay for more than 2 days in the hospital. 05/19/2021 will continue current plan of care and treatment. Monitor oxygen. Pulmonary consult order. Repeat chest x-ray in the morning. Subjective Date/time seen: 05/19/21 06:27 Patient was seen during the morning rounds today. Patient has mild shortness of breath. No chest pain. No abdominal pain no nausea or vomiting. Mood stable. Review of Systems Review of Systems: All systems reviewed & are unremarkable except as noted in HPI and below ( the history and physical examination) Exam Narrative: GENERAL: Ill-appearing, well-nourished, and in no acute distress. HEAD: Normocephalic, atraumatic. EYES: PERRLA and EOMI. ENT: Nares clear, no rhinorrhea or epistaxis. Mucous membranes moist. Oropharynx without tonsillar hypertrophy exudate or other lesions. NECK: Supple. No adenopathy or masses. CHEST: Diminished on auscultation. No respiratory distress. No wheezes rales or rhonchi HEART: Regular rate and rhythm. No murmur heard. Normal peripheral pulses. ABDOMEN: Soft, nontender, nondistended. EXTREMITIES: Normal range of motion. No edema. SKIN: Warm, dry, no rash. NEURO: No focal deficits. Alert and oriented x3. Cranial nerves II through XII grossly intact PSYCH: Normal mood and affect. Objective Data Vital Signs Vital Signs: Vital Signs - 24 hr 05/18/21 09:45 05/18/21 09:47 05/18/21 10:00 Temperature 36.5 C Pulse Rate 127 H 121 H 113 H Respiratory Rate 25 H 23 H 21 H Blood Pressure 122/59 L 122/59 L Pulse Oximetry 95 05/18/21 10:01 05/18/21 10:06 05/18/21 10:07 Temperature Pulse Rate 113 H 112 H 112 H Respiratory Rate 38 H 16 22 H Blood Pressure 74/58 L 99/78 L 99/78 L Pulse Oximetry 70 L 97 05/18/21 10:17 05/18/21 10:22 05/18/21 10:27 Temperature Pulse Rate 114 H 114 H 113 H Respiratory Rate 17 21 H 20 Blood Pressure 87/59 L 87/56 L Pulse Oximetry 97 99 98 05/18/21 10:28 05/18/21 10:30 05/18/21 10:31 Temperature Pulse Rate 111 H 109 H 110 H Respiratory Rate 22 H 20 24 H Blood Pressure 87/56 L 92/58 L Pulse Oximetry 97 98 97 05/18/21 10:40 05/18/21 10:41 05/18/21 10:42 Temperature Pulse Rate 114 H 107 H 115 H Respiratory Rate 27 H 27 H Blood Pressure 80/51 L 80/51 L 73/46 L Pulse Oximetry 95 99 05/18/21 10:45 05/18/21 10:46 05/18/21 10:50 Temperature Pulse Rate 109 H 109 H 105 H Respiratory Rate 22 H 22 H 24 H Blood Pressure 87/5
[2021-05-19 07:00] LABS: Platelet Estimate Decreased (Adequate)
[2021-05-19 07:01] LABS: Burr Cells 1+ (NORMAL); Hyperchromasia 1+ (NORMAL); Polychromasia 1+ (NORMAL)
[2021-05-19 07:02] LABS: Poikilocytosis 1+ (NORMAL)
[2021-05-19] MEDS: CYANOCOBALAMIN 1,000 MCG TABLET 1000 MCG PO (10:05)
[2021-05-19] MEDS: PANTOPRAZOLE 40 MG TABLET PO (10:05)
[2021-05-19] MEDS: OPTI-GEN TAB 2 TABLET PO ×2 (10:05→17:29)
[2021-05-19] MEDS: FERROUS SULFATE 324 MG TABLET PO ×2 (10:05→17:29)
[2021-05-19] MEDS: HEPARIN SODIUM 5,000 UNITS/ML VIAL 5000 UNITS SUB-Q ×2 (10:05→20:37)
[2021-05-19] MEDS: POTASSIUM CHLORIDE 20 MEQ PACKET (FOR LIQUID) 40 MEQ PO (10:05)
[2021-05-19] MEDS: MAGNESIUM OXIDE 400 MG TABLET PO (10:05)
[2021-05-19] MEDS: CHOLECALCIFEROL 1,000 UNITS TABLET 1000 UNITS PO (10:05)
[2021-05-19] MEDS: FAMOTIDINE 20 MG/2 ML VIAL IV PUSH ×2 (10:05→20:38)
[2021-05-19] MEDS: amLODIPine BESYLATE 2.5 MG TABLET PO (10:05)
--- NOTE | 2021-05-19 10:49 | PM.CNPUL ---
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 patient admitted for an acute exacerbation of COPD and has improved with bronchodilators, steroids as well as treatment for possible pneumonia with ceftriaxone and azithromycin. Current blood gas on 05/18/2021 demonstrates a pH of 7.4 04/10/76 on his home 2 L nasal cannula. There is no evidence of hypercarbia at this point. Will continue current regimen will follow with you. 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 Per the radiation oncologist note on 05/15/2021 he spoke to the patient and the daughter and they have discontinued his systemic there are 8 therapy due to his clinical decline. and they are holding off on SPRT for few weeks as well. Of note It mentions That hospice care is appropriate (3) Obstructive sleep apnea: Onset Date: 2018 Code(s): G47.33 - Obstructive sleep apnea (adult) (pediatric) Status: Acute Assessment and Plan: I ask the respiratory health care liaison to help identify his DME company to see if there is a download to assess his compliance with his BiPAP 06/22. Otherwise I will initiate this therapy in the hospital. History of Present Illness History of Present Illness Consult date: 05/19/21 Reason for consult: COPD Chief complaint: [place], Dehydration, Gen. weakness, PUI Narrative: This is a new pulmonary consult for shortness of breath. Patient is followed in the Pulmonary Clinic in his last visit was 04/02/2021. he has severe COPD, GABRIELLA, ILD/pulm fibrosis, lung cancer. Hx COVID PNA Oct-Nov 2020. 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 Per the Radiation Oncology note on 05/15/2021 his systemic chemotherapy was discontinued and his radiation therapy to the kidney was discontinued for declining health. The note says that hospice was appropriate. Patient presented to the hospital on 05 18 with cough and shortness of breath. Patient is admitted to the hospital and treated for a COPD exacerbation as well as pneumonia with steroids, bronchodilators, ceftriaxone and azithromycin. A COVID test is pending. 05/19 Today the patient tells me that he is better. Current saturations are 94% on 2 L nasal cannula. He tells me that he wears 2 L nasal cannula 10/05 at home. He does not know his prior DME company regarding any prior BiPAP 06/22 recommendations. Pulmonary clinic note on 04/02/21 3 month follow-up regarding COPD, GABRIELLA, ILD/pulm fibrosis, lung cancer. Hx COVID PNA Oct-Nov 2020. Pt had a bronch in December 2020, TBNA of the subcarinal lymph nodes has come back positive for non-small cell lung carcinoma; right lower lobe spiculated lung nodule which was 1.7 cm in size based on a CT scan from October of 2020. Seeing Dr. Syed and Dr. Sherman. Going through chemoradiation. He was on O2 last year but requested this to be picked us, went against medical advise and so it was taken out of the home. After his hospitalization, he needed the O2 as evidenced on Home O2 Eval. He returned his BiPAP equipment to [facility]. He tried this for a few nights but they ended up in the hospital and he did not have the opportunity to try this again given his other issues. He has shortness of breath with exertion. He odom
[2021-05-19] MEDS: ALBUTEROL SULFATE NEB 2.5 MG/0.5 ML INH INHALATION ×3 (12:42→19:59)
--- NOTE | 2021-05-19 12:48 | PDONCCN ---
HPI - Date of Consult Date/Time: 05/19/21 12:48 Requesting Physician: Justus Desouza MD Primary Care Provider: Chacorta Perry, DO - Consult Narrative Reason for consult: Non-small cell lung cancer Narrative: Eloy Duncan is a 80 year old male with recent diagnosis of locally advanced [id number] lung cancer as well as renal cell carcinoma. He completed radiation therapy for lung cancer treatment and weekly treatment with Carboplatinum and Taxol recently. Plan was to start SBRT treatment for the renal cell carcinoma but patient clinical status declined and further treatment has been placed on hold. He came into the hospital with increasing shortness of breath L as well as tiredness and fatigue. Labs showed hemoglobin of 7.1. He denies any bleeding. He has been eating poorly. He has lost weight. Chest x-ray showed interstitial pattern with bronchial wall thickening with bronchitis and pulmonary edema as well as emphysema. Review of Systems - Review of Systems All systems reviewed & are unremarkable except as noted in HPI and bel - Neurologic Reports system reviewed and no additional complaints, except as documented PMF Medical History: Medical History (Last Reviewed 05/18/21 @ 14:58 by Justus Desouza MD) Diastolic dysfunction Echocardiogram November 2018: Impaired diastolic relaxation grade 1, ejection fraction 60%, mild left atrial enlargement, mild tricuspid regurgitation Duodenal arteriovenous malformation Essential hypertension Gastric AVM History of tobacco abuse Quit 2016. Smoked for 50 years. Left rotator cuff tear Macular degeneration Obstructive sleep apnea Onset Date: 201806/15/2019 without optimal pressure. Bilevel titration 07/26/2020 which demonstrated poor sleep efficiency but sufficient pressure settings of 9/5 started September 2020 Osteopenia Noted on DEXA scan October 2020 Reflux esophagitis Severe chronic obstructive pulmonary disease PFTs 12/07/2018: FEV1 48% with airflow obstruction, TLC 165% with air trapping and DLCO of 81% Surgical History: Surgical History (Last Reviewed 05/18/21 @ 14:58 by Justus Desouza MD) H/O left knee surgery History of bilateral cataract extraction History of carpal tunnel release History of esophagogastroduodenoscopy (EGD) June 2020 demonstrated reflux esophagitis and duodenal and gastric AVMs History of prostatectomy 1992 due to prostate cancer History of vasectomy Hx of tonsillectomy Family History: Family History (Last Reviewed 05/18/21 @ 14:59 by Justus Desouza MD) Sibling Stomach cancer Brother Father Atherosclerosis Heart disease - Social History Social History: Social History (Last Reviewed 05/18/21 @ 12:48 by Dav Hernandez PA-C) Gender Identity: Gender identity (if verbalized by the patient): Male Sexual Orientation: Sexual Orientation (if Verbalized by the Patient): Straight or Heterosexual Alcohol Use: Alcohol intake: former Alcohol use details: social Substance Use: Substance use: former Substance use type: does not use Others: Spiritual care concerns: No Smoking Status: Smoking status: Current every day smoker Tobacco type: cigarettes Second hand tobacco smoke exposure: No Smoking end date: 05/18/17 Smoking Pack-years: Smoking packs per day: 1.5 Smoking cigarettes per day: 30.0 Years smoked: 60 Smoking pack-years: 90.00 Meds Home Medications Medication Instructions Recorded Confirmed Type cholecalciferol (vitamin D3) 25 1,000 unit PO DAILY 12/11/19 05/18/21 History mcg (1,000 unit) capsule albuterol sulfate 2 inh INHALATION QID PRN #6.7 g 11/20/20 05/18/21 Rx esomeprazole magnesium 40 mg 40 mg PO BID #60 cap 01/29/21 05/18/21 Rx capsule,delayed release Trelegy Ellipta 1 inh INHALATION QAM 02/17/21 05/18/21 History coQ10 (ubiquinol) 100 mg PO DAILY 02/17/21 05/18/21 History fe
[2021-05-19 13:59] LABS: SARS-CoV-2 RNA PCR Negative
--- NOTE | 2021-05-19 15:35 | PC.NURSE ---
Informed the patient's daughter, Ivon, that the patient is covid negative.
[2021-05-19 17:07] LABS: Glucose Point of Care 128 mg/dl (65-105)
[2021-05-19] MEDS: methylPREDNISolone SOD SUCC 40 MG VIAL IV PUSH ×2 (17:28→20:37)
[2021-05-19] MEDS: SODIUM CHLORIDE 0.9% IV 250 ML 30 ML IV CONT (17:30)
[2021-05-19 20:08] LABS: Iron 86 ug/dL (49-181)
[2021-05-19] MEDS: FUROSEMIDE INJ 40 MG/4 ML VIAL 20 MG IV PUSH (20:37)
[2021-05-19 21:41] LABS: Hematocrit 29.2 % (42.0-52.0); Hemoglobin 9.4 g/dL (14.0-18.0)
[2021-05-20] VITALS (25 sets, daily range): BP systolic 105–128; BP diastolic 55–89; PULSE 99–128; RESP 20–28; TEMP 36.4–36.8; O2SAT 90–100
[2021-05-20] MEDS: ALBUTEROL SULFATE NEB 2.5 MG/0.5 ML INH INHALATION ×6 (02:23→21:05)
[2021-05-20] MEDS: IPRATROPIUM BR 0.02% INH SOLN 0.5 MG/2.5 ML VIAL INHALATION ×6 (02:24→21:05)
[2021-05-20] MEDS: LEVOTHYROXINE SODIUM 75 MCG TABLET PO (05:52)
[2021-05-20] MEDS: methylPREDNISolone SOD SUCC 40 MG VIAL IV PUSH (05:52)
[2021-05-20] MEDS: CENTRAL LINE FLUSH 10 ML IV PUSH ×3 (05:53→21:30)
[2021-05-20 06:11] LABS: Hematocrit 26.3 % (42.0-52.0); Hemoglobin 8.8 g/dL (14.0-18.0); Mean Corpuscular HGB Conc 33.5 g/dl (32-36); Mean Corpuscular Hemoglobin 29.7 pg (26-34); Mean Corpuscular Volume 88.9 fl (80-100); Mean Platelet Volume 9.8 fl (7.4-10.4); Platelet Count Result 100 k/mm3 (150-375); Red Blood Count 2.96 M/mm3 (4.6-6.20); Red Cell Distribution Width 25.2 % (11.5-14.5); White Blood Count 8.2 K/mm3 (4.5-10.0)
[2021-05-20 06:26] LABS: Alanine Aminotransferase 11 U/L (4-50); Albumin Level 2.7 g/dL (3.5-5.1); Alkaline Phosphatase 68 U/L (38-126); Anion Gap 10 mmol/L (8-16); Aspartate Amino Transferase 16 U/L (17-59); Bilirubin,Total 0.5 mg/dL (0.2-1.3); Blood Urea Nitrogen 19 mg/dL (9-20); Calcium 8.7 mg/dL (8.4-10.2); Carbon Dioxide 18 mmol/L (22-30); Chloride 108 mmol/L (98-107); Estimated CRCL calculation 55 ml/min; Estimated Glomerular Filt Rate > 60; Glucose 140 mg/dL (65-110); Potassium 3.2 mmol/L (3.4-5.0); Sodium 136 mmol/L (137-145)
--- NOTE | 2021-05-20 06:28 | PC.NURSE ---
Spoke with Dr. Gil after the first unit of blood and lasix cause he was short of breath. She said to hold second unit since hgb was up
[2021-05-20] MEDS: HEPARIN SODIUM 5,000 UNITS/ML VIAL 5000 UNITS SUB-Q (09:48)
[2021-05-20] MEDS: FAMOTIDINE 20 MG/2 ML VIAL IV PUSH (09:48)
--- NOTE | 2021-05-20 10:14 | PM.PNPUL ---
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 05/19 patient admitted for an acute exacerbation of COPD and has improved with bronchodilators, steroids (started 05/18/21) as well as treatment for possible pneumonia with ceftriaxone and azithromycin (started 05/18). Current blood gas on 05/18/2021 demonstrates a pH of 7.46/ on his home 2 L nasal cannula. There is no evidence of hypercarbia at this point. 05/20 Patient has no wheezes today and I will place on prednisone 50 mg p.o. q.day and discontinue Solu-Medrol. I will continue albuterol nebulizer 2.5 mg q.4 hours and ipratropium nebulizer 0.5 mg q.4 hours. COVID test is negative. Blood cultures are negative. Continue ceftriaxone and azithromycin for bibasilar infiltrates. will follow with you. (2) Malignant neoplasm of lower lobe, right bronchus or lung: Code(s): C34.31 - Malignant neoplasm of lower lobe, right bronchus or lung Status: Acute Assessment and Plan: Per oncology note 05/19/21 Non-small cell lung cancer stage IIIA is status post radiation therapy treatment completed April 07, 2021. Patient completed weekly chemotherapy with carboplatin and Taxol for 6 cycles. Further chemotherapy was placed on hold due to patient poor performance status. Patient now came into the hospital with increasing shortness of breath along with tiredness and fatigue. Patient found to be anemic with hemoglobin of 7.1. He COVID testing has been ordered. Renal cell carcinoma. Plan was to start SBRT treatment. Treatment was also placed on hold due to patient poor performance status. Per the radiation oncologist note on 05/15/2021 he spoke to the patient and the daughter and they have discontinued his systemic there are 8 therapy due to his clinical decline. and they are holding off on SBRT for few weeks as well. Of note It mentions that hospice care is appropriate (3) Obstructive sleep apnea: Onset Date: 2018 Code(s): G47.33 - Obstructive sleep apnea (adult) (pediatric) Status: Acute Assessment and Plan: 05/19 I ask the respiratory career placement specialist to help identify his DME company to see if there is a download to assess his compliance with his BiPAP 9/5. Otherwise I will initiate this therapy in the hospital. 05/20 Patient was confused last night and did not wear his BiPAP 9/5. Will again try to initiate this therapy tonight. Subjective Date/time seen: 05/20/21 10:14 Interval history: 05/19 This is a new pulmonary consult for shortness of breath. Patient is followed in the Pulmonary Clinic in his last visit was 04/02/2021. he has severe COPD (on 3 L NC rest and ambulation per home O2 assessment 11/19/20), GABRIELLA (recomended bipap 9/5, noncompliant), ILD/pulm fibrosis, lung cance (s/p radiation treatment finished 04/07/21, 6 cycles carboplatinum and taxol and further treatment onhold due to poor performance status. Renal cell carcinoma. Per the Radiation Oncology note on 05/15/2021 his systemic chemotherapy was discontinued and his radiation therapy to the kidney was discontinued for declining health. This note says that hospice was appropriate. Hx COVID PNA Oct-Nov 2020. Patient presented to the hospital on 05/18 with cough and shortness of breath. Patient is admitted to the hospital and treated for a COPD exacerbation as well as pneumonia with steroids, bronchodilators, ceftriaxone and azithromycin. A COVID test is pending. 05/19 Today the patient tells me that he is better. Current saturations are 94% on 2 L nasal cannula. He tells me that he wea
[2021-05-20] MEDS: predniSONE 40 MG, predniSONE 10 MG 50 MG PO (12:27)
--- NOTE | 2021-05-20 15:33 | WPDGICN ---
Assessment and Plan Assessment and plan (1) GERD (gastroesophageal reflux disease): Code(s): K21.9 - Gastro-esophageal reflux disease without esophagitis Status: Acute Assessment and Plan: more symptomatic lately, will evaluated with EGD tomorrow (patient also would like to find out why recently he had more issues), also had history of radiation- assess if esophagitis, strictures, ulcer, etc (2) Nausea: Code(s): R11.0 - Nausea Status: Acute Assessment and Plan: egd tomorow continue with iv protonix (3) Dysphagia: Code(s): R13.10 - Dysphagia, unspecified Status: Acute Assessment and Plan: egd, also on carafate (4) Pneumonia: Code(s): J18.9 - Pneumonia, unspecified organism Status: Acute Assessment and Plan: started on iv antibiotics (5) Non-small cell cancer of right lung: Code(s): C34.91 - Malignant neoplasm of unspecified part of right bronchus or lung Status: Acute Assessment and Plan: he was evaluated by oncology, treatment is on hold for now (6) History of tobacco abuse: Code(s): Z87.891 - Personal history of nicotine dependence Status: Acute GI Consult Note Consult date/time: 05/20/21 15:33 Reason for consult: gerd, dysphagia HPI: Eloy Duncan is a 80 year old male with h/o COPD on oxygen, former smoker and recent diagnosis of locally advanced [id number] lung cancer as well as renal cell carcinoma. Recently he underwent therapy for lung cancer and weekly treatment with Carboplatinum and Taxol, also was supposed to start SBRT treatment for renal cell carcinoma but patient had clinical status declined and further treatment has been placed on hold. RN reports that patient has been confused since admission but right now he is lucid and he is telling me that he has chronic GERD symptom but since radiation treatment with more difficulty swallowing, nausea, decrease appetite and also using more maalox at home. He says that would like to find out cause of his upper GI symptom and would like to have EGD, he also has lost some weight. On admission hb 7.1 and received blood transfusion (previously 9-10). CXR reviewed, increasing interstitial and airspace opacities of the lung bases, consistent with atelectasis versus pneumonia versus pulmonary edema. Started on iv antibiotics and diagnosed with pneumonia. Review of Systems Constitutional: Constitutional: Reports fatigue and Reports lethargy Eyes: Eyes: Reports no additional eye complaints ENT: Reports Normal hearing present Cardiovascular: Cardiovascular: Denies palpitations Respiratory: Respiratory: Reports dyspnea on exertion Gastrointestinal: Gastrointestinal: Reports nausea Comments: dysphagia Genitourinary: Genitourinary: Denies dysuria Musculoskeletal: Musculoskeletal: Reports neck pain Integumentary/Breasts: Skin/Breast: Reports system reviewed and no additional complaints, except as docu Neurologic: Reports system reviewed and no additional complaints, except as documented Psychiatric: Psychiatric: Reports no additional psychiatric complaints [facility] Past Medical History Medical History (Updated 05/20/21 @ 15:43 by Darian Caputo MD) Diastolic dysfunction Echocardiogram November 2018: Impaired diastolic relaxation grade 1, ejection fraction 60%, mild left atrial enlargement, mild tricuspid regurgitation Duodenal arteriovenous malformation Dysphagia Essential hypertension Gastric AVM GERD (gastroesophageal reflux disease) History of tobacco abuse Quit 2017. Smoked for 50 years. Left rotator cuff tear Macular degeneration Nausea Obstructive sleep apnea (2018) 06/15/2019 without optimal pressure. Bilevel titration 07/26/2020 which demonstrated poor sleep efficiency but sufficient pressure settings of 9/5 started September 2020 Osteopenia Noted on DEXA scan October 2020 Reflux esophagitis Severe chronic obstructive pulmonary
--- NOTE | 2021-05-20 15:57 | PCOTNOTE ---
The OT treatment was unable to be completed this date. Will continue plan of care tomorrow, 05/21/21.
[2021-05-20] MEDS: FERROUS SULFATE 324 MG TABLET PO (16:41)
[2021-05-20] MEDS: SUCRALFATE SUSP 100 MG/ML 10 ML UDC 1000 MG PO ×2 (16:41→21:30)
--- NOTE | 2021-05-20 18:11 | PM.IMPN ---
Progress Note: A&P Assessment and Plan (1) Pneumonia: Code(s): J18.9 - Pneumonia, unspecified organism Status: Acute Assessment and Plan: will continue with antibiotics and repeat chest x-ray the morning. (2) COPD exacerbation: Code(s): J44.1 - Chronic obstructive pulmonary disease with (acute) exacerbation Status: Acute Assessment and Plan: Continue steroid and nebulizer treatment (3) Dehydration: Code(s): E86.0 - Dehydration Status: Acute Assessment and Plan: continue IV fluids and monitor (4) Essential hypertension: Code(s): I10 - Essential (primary) hypertension Status: Acute Assessment and Plan: stable on medication (5) History of tobacco abuse: Code(s): Z87.891 - Personal history of nicotine dependence Status: Acute Assessment and Plan: counseling (6) Obstructive sleep apnea: Onset Date: 2018 Code(s): G47.33 - Obstructive sleep apnea (adult) (pediatric) Status: Acute Assessment and Plan: stable (7) Acute on chronic anemia: Code(s): D64.9 - Anemia, unspecified Status: Acute Assessment and Plan: Will transfuse and monitor (8) Hypokalemia: Code(s): E87.6 - Hypokalemia Status: Acute Assessment and Plan: Replace and monitor Additional Plan Admit patient in IMCU, blood culture and IV antibiotic. Repeat chest x-ray in the morning. Patient is full code at present time. Patient stay for more than 2 days in the hospital. 05/19/2021 will continue current plan of care and treatment. Monitor oxygen. Pulmonary consult order. Repeat chest x-ray in the morning. 05/20/21 18:11 Patient with 80 y/o with male with history of locally advanced non-small cell lung cancer as well as renal cell carcinoma, patient completed radiation therpay for lung cancer, plan was start chemor for renal cell carcinoma however patient became fatigue, poor appetite and shortness of breath and anemia with Hgb of 7.1, he has lost wt, upon arrival Chest x-ray showed interstitial pattern with bronchial wall thickening with bronchitis and pulmonary edema as well as emphysema. patient was seen by relay operator suspect patient has exacerbation of COPD and pneumonia, patient has been treated with Steroid, bronchodilator and presumed pneumonia patient being treated azithromycin and Rocephin, also patient is placed on BiPAP and relay operator adjusting the setting and patient is tolerating, today patient comes of heartburn this some relief with Pepcid with symptoms are persistent will add Protonix and Carafate I will consult GI for further recommendation. his niece is present in the room answered all her questions Subjective Date/time seen: 05/20/21 18:11 Patient with 80 y/o with male with history of locally advanced non-small cell lung cancer as well as renal cell carcinoma, patient completed radiation therpay for lung cancer, plan was start chemor for renal cell carcinoma however patient became fatigue, poor appetite and shortness of breath and anemia with Hgb of 7.1, he has lost wt, upon arrival Chest x-ray showed interstitial pattern with bronchial wall thickening with bronchitis and pulmonary edema as well as emphysema. patient was seen by relay operator suspect patient has exacerbation of COPD and pneumonia, patient has been treated with Steroid, bronchodilator and presumed pneumonia patient being treated azithromycin and Rocephin, also patient is placed on BiPAP and relay operator adjusting the setting and patient is tolerating, today patient comes of heartburn this some relief with Pepcid with symptoms are persistent will add Protonix and Carafate I will consult GI for further recommendation. his niece is present in the room answered all her questions Review of Systems Review of Systems: All systems reviewed & are unremarkable except as noted in HPI and below Exam Narrative: hilario
[2021-05-21] VITALS (18 sets, daily range): BP systolic 109–127; BP diastolic 43–80; PULSE 95–113; RESP 18–28; TEMP 35.9–37; O2SAT 91–99
[2021-05-21] MEDS: IPRATROPIUM BR 0.02% INH SOLN 0.5 MG/2.5 ML VIAL INHALATION ×3 (00:02→07:52)
[2021-05-21] MEDS: ALBUTEROL SULFATE NEB 2.5 MG/0.5 ML INH INHALATION ×3 (00:02→07:53)
[2021-05-21] MEDS: CENTRAL LINE FLUSH 10 ML IV PUSH ×3 (05:32→21:10)
[2021-05-21] MEDS: SUCRALFATE SUSP 100 MG/ML 10 ML UDC 1000 MG PO ×3 (05:32→21:09)
[2021-05-21] MEDS: LEVOTHYROXINE SODIUM 75 MCG TABLET PO (05:32)
[2021-05-21 05:41] LABS: Hematocrit 26.6 % (42.0-52.0); Hemoglobin 8.8 g/dL (14.0-18.0); Mean Corpuscular HGB Conc 33.1 g/dl (32-36); Mean Corpuscular Hemoglobin 29.6 pg (26-34); Mean Corpuscular Volume 89.6 fl (80-100); Mean Platelet Volume 9.9 fl (7.4-10.4); Platelet Count Result 84 k/mm3 (150-375); Red Blood Count 2.97 M/mm3 (4.6-6.20); Red Cell Distribution Width 25.8 % (11.5-14.5); White Blood Count 7.2 K/mm3 (4.5-10.0)
[2021-05-21 05:54] LABS: Anion Gap 6 mmol/L (8-16); Blood Urea Nitrogen 22 mg/dL (9-20); Calcium 8.6 mg/dL (8.4-10.2); Carbon Dioxide 19 mmol/L (22-30); Chloride 108 mmol/L (98-107); Estimated CRCL calculation 55 ml/min; Estimated Glomerular Filt Rate > 60; Glucose 125 mg/dL (65-110); Magnesium 1.8 mg/dL (1.6-2.3); Potassium 3.7 mmol/L (3.4-5.0); Sodium 133 mmol/L (137-145)
--- NOTE | 2021-05-21 08:26 | PM.PNPUL ---
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 05/19 patient admitted for an acute exacerbation of COPD and has improved with bronchodilators, steroids (started 05/18/21) as well as treatment for possible pneumonia with ceftriaxone and azithromycin (started 05/18). Current blood gas on 05/18/2021 demonstrates a pH of 7.46/24/ on his home 2 L nasal cannula. There is no evidence of hypercarbia at this point. 05/20 Patient has no wheezes today and I will place on prednisone 50 mg p.o. q.day and discontinue Solu-Medrol. I will continue albuterol nebulizer 2.5 mg q.4 hours and ipratropium nebulizer 0.5 mg q.4 hours. COVID test is negative. Blood cultures are negative. Continue ceftriaxone and azithromycin for bibasilar infiltrates. 05/21 No wheezes on exam. Will DC prednisone after today's dose as he has received 4 days and no wheezes and he has significant changes in his mental status at night. Will restart his home trelegy 100/62.5/25 and make nebs PRN. Day 4 antibiotics will DC azitho on 05/22. Patient breathing at baseline and if stable overnight ready to discharge on 05/22 from pulmonary perspective on these pulmonary medications. Levaquin 750 mg PO Q day for 3 days Trelegy 100/62.5/25 at 1 puff Q day Rescue albuterol 2 puffs Q 4 horus PRN SOB and wheezing Oxygen per home 02 assessment on day of discharge if he goes home and per facility if he is discharge to facility When sleeps use BiPAP 9/5 at home or at facility with 2 L bleed in. If he is discharged to facility they must be able to employ BiPAP 9/5 and 2 L bleed in. Will follow with you. (2) Malignant neoplasm of lower lobe, right bronchus or lung: Code(s): C34.31 - Malignant neoplasm of lower lobe, right bronchus or lung Status: Acute Assessment and Plan: Per oncology note 05/19/21 Non-small cell lung cancer stage IIIA is status post radiation therapy treatment completed April 07, 2021. Patient completed weekly chemotherapy with carboplatin and Taxol for 6 cycles. Further chemotherapy was placed on hold due to patient poor performance status. Patient now came into the hospital with increasing shortness of breath along with tiredness and fatigue. Patient found to be anemic with hemoglobin of 7.1. He COVID testing has been ordered. Renal cell carcinoma. Plan was to start SBRT treatment. Treatment was also placed on hold due to patient poor performance status. Per the radiation oncologist note on 05/15/2021 he spoke to the patient and the daughter and they have discontinued his systemic there are 8 therapy due to his clinical decline. and they are holding off on SBRT for few weeks as well. Of note It mentions that hospice care is appropriate (3) Obstructive sleep apnea: Onset Date: 2018 Code(s): G47.33 - Obstructive sleep apnea (adult) (pediatric) Status: Acute Assessment and Plan: 05/19 I ask the respiratory memory care director to help identify his DME company to see if there is a download to assess his compliance with his BiPAP 9/5. Otherwise I will initiate this therapy in the hospital. 05/20 Patient was confused last night and did not wear his BiPAP 9/5. Will again try to initiate this therapy tonight. 05/21 patient was confused again last night and was not placed on any BiPAP. When I walked in the room this morning patient was calm and communicative. I placed him on BiPAP 9/5 with 2 L bleed in and he said the mask was comfortable and he fell asleep after approximately 1 minute. Will order overnight oximetry on BiPAP 9/5 plus 2 L
[2021-05-21] MEDS: LACTATED RINGERS 1,000 ML 150 ML IV CONT (12:40)
--- NOTE | 2021-05-21 12:45 | WPDANESEPPF ---
Anes - Initial Pre Proc Eval Procedure: Operation Date: 05/21/21 13:45 Proposed Procedures p Esophagogastroduodenoscopy - Darian Caputo MD Date/Time: 05/21/21 12:45 Surgeon: Justus Desouza MD Pre Op Diagnosis: Pnumonia, Dehydration, Gen. weakness, PUI Patient Data Age: 80 Gender: M Height: 1.8 m Weight: 69 kg Last Vital Signs Temp 35.9 C L 05/21/21 12:31 Pulse 106 H 05/21/21 12:31 Resp 18 05/21/21 12:31 BP 116/54 L 05/21/21 12:31 Pulse Ox 91 05/21/21 12:31 Allergies Allergy/AdvReac Type Severity Reaction Status Date / Time No Known Allergies Allergy Verified 05/21/21 12:26 Home Medications Medication Instructions Recorded Confirmed Type cholecalciferol (vitamin D3) 25 1,000 unit PO DAILY 12/11/19 05/18/21 History mcg (1,000 unit) capsule albuterol sulfate 2 inh INHALATION QID PRN #6.7 g 11/20/20 05/18/21 Rx esomeprazole magnesium 40 mg 40 mg PO BID #60 cap 01/29/21 05/18/21 Rx capsule,delayed release Trelegy Ellipta 1 inh INHALATION QAM 02/17/21 05/18/21 History coQ10 (ubiquinol) 100 mg PO DAILY 02/17/21 05/18/21 History ferrous sulfate 324 mg PO BID 03/07/21 05/18/21 History levothyroxine 75 mcg tablet 75 mcg PO DAILY #90 tablet 03/10/21 05/18/21 Rx amlodipine 2.5 mg PO DAILY 05/18/21 05/18/21 History cyanocobalamin (vitamin B-12) 1,000 mcg PO DAILY 05/18/21 05/18/21 History guaifenesin [Mucinex] 600 mg PO Q12H PRN 05/18/21 05/18/21 History vitamins A,C,Y-xenu-gipkvl 2 tablet PO BID 05/18/21 05/18/21 History [PreserVision AREDS] Laboratory Tests 05/21/21 05/21/21 05:30 05:30 WBC 7.2 K/mm3 K/mm3 (4.5-10.0) RBC 2.97 M/mm3 L M/mm3 (4.6-6.20) Hgb 8.8 g/dL L g/dL (14.0-18.0) Hct 26.6 % L % (42.0-52.0) MCV 89.6 fl fl (80-100) MCH 29.6 pg pg (26-34) MCHC 33.1 g/dl g/dl (32-36) RDW 25.8 % H % (11.5-14.5) Plt Count 84 k/mm3 L k/mm3 (150-375) MPV 9.9 fl fl (7.4-10.4) Sodium 133 mmol/L L mmol/L (137-145) Potassium 3.7 mmol/L mmol/L (3.4-5.0) Chloride 108 mmol/L H mmol/L (98-107) Carbon Dioxide 19 mmol/L L mmol/L (22-30) Anion Gap 6 mmol/L L mmol/L (8-16) BUN 22 mg/dL H mg/dL (9-20) Creatinine 0.90 mg/dL mg/dL (0.7-1.3) Estim Creat Clear Calc 55 ml/min ml/min Estimated GFR > 60 (59 - ) Glucose 125 mg/dL H mg/dL (65-110) Calcium 8.6 mg/dL mg/dL (8.4-10.2) Magnesium 1.8 mg/dL mg/dL (1.6-2.3) Patient hx anesthesia problems: none Family hx anesthesia problems: none [facility] Past Medical History Medical History (Updated 05/20/21 @ 15:43 by Darian Caputo MD) Diastolic dysfunction Echocardiogram November 2018: Impaired diastolic relaxation grade 1, ejection fraction 60%, mild left atrial enlargement, mild tricuspid regurgitation Duodenal arteriovenous malformation Dysphagia Essential hypertension Gastric AVM GERD (gastroesophageal reflux disease) History of tobacco abuse Quit 2016. Smoked for 50 years. Left rotator cuff tear Macular degeneration Nausea Obstructive sleep apnea (2018) 06/15/2019 without optimal pressure. Bilevel titration 07/26/2020 which demonstrated poor sleep efficiency but sufficient pressure settings of 9/5 started September 2020 Osteopenia Noted on DEXA scan October 2020 Reflux esophagitis Severe chronic obstructive pulmonary disease PFTs 12/07/2018: FEV1 48% with airflow obstruction, TLC 165% with air trapping and DLCO of 81% Surgical History Surgical History H/O left knee surgery History of bilateral cataract extraction History of carpal tunnel release History of esophagogastroduodenoscopy (EGD) June 2020 demonstrated reflux esophagitis and duodenal and gastric AVMs History of prostatectomy 1992 due to prostate cancer History of vasectomy Hx of tonsillectomy F
--- NOTE | 2021-05-21 12:49 | PC.NURSE ---
Patient off floor to GI Lab f
--- NOTE | 2021-05-21 12:49 | PC.NURSE ---
Patient off floor to GI Lab for EGD Procedure at 1215
--- NOTE | 2021-05-21 13:30 | PCOTNOTE ---
Attempted to see patient this pm, however patient off floor for EGD.
--- NOTE | 2021-05-21 13:45 | SUR.OPER ---
RIGHT FOREARM IV INFILTRATED. PT HAS RIGHT SIDE PORT A CATH THAT WAS ALREADY ACCESSED. PORT FLUSHED WITH 10CC SALINE, GOOD BLOOD RETURN OBTAINED. PORT USED FOR GIVS.
[2021-05-21] MEDS: HEPARIN SODIUM 5,000 UNITS/ML VIAL 5000 UNITS SUB-Q (14:56)
--- NOTE | 2021-05-21 16:16 | PCSTNOTE ---
Please refer to the Bedside Swallow Evaluation in the EMR. Please note, silent aspiration cannot be ruled out at bedside.
--- NOTE | 2021-05-21 17:12 | PM.IMPN ---
Progress Note: A&P Assessment and Plan (1) Pneumonia: Code(s): J18.9 - Pneumonia, unspecified organism Status: Acute Assessment and Plan: will continue with antibiotics and repeat chest x-ray the morning. (2) COPD exacerbation: Code(s): J44.1 - Chronic obstructive pulmonary disease with (acute) exacerbation Status: Acute Assessment and Plan: Continue steroid and nebulizer treatment (3) Dehydration: Code(s): E86.0 - Dehydration Status: Acute Assessment and Plan: continue IV fluids and monitor (4) Essential hypertension: Code(s): I10 - Essential (primary) hypertension Status: Acute Assessment and Plan: stable on medication (5) History of tobacco abuse: Code(s): Z87.891 - Personal history of nicotine dependence Status: Acute Assessment and Plan: counseling (6) Obstructive sleep apnea: Onset Date: 2018 Code(s): G47.33 - Obstructive sleep apnea (adult) (pediatric) Status: Acute Assessment and Plan: stable (7) Acute on chronic anemia: Code(s): D64.9 - Anemia, unspecified Status: Acute Assessment and Plan: Will transfuse and monitor (8) Hypokalemia: Code(s): E87.6 - Hypokalemia Status: Acute Assessment and Plan: Replace and monitor Additional Plan Admit patient in IMCU, blood culture and IV antibiotic. Repeat chest x-ray in the morning. Patient is full code at present time. Patient stay for more than 2 days in the hospital. 05/19/2021 will continue current plan of care and treatment. Monitor oxygen. Pulmonary consult order. Repeat chest x-ray in the morning. 05/21/21 17:12 Patient with 80 y/o with male with history of locally advanced non-small cell lung cancer as well as renal cell carcinoma, patient completed radiation therpay for lung cancer, plan was start chemor for renal cell carcinoma however patient became fatigue, poor appetite and shortness of breath and anemia with Hgb of 7.1, he has lost wt, upon arrival Chest x-ray showed interstitial pattern with bronchial wall thickening with bronchitis and pulmonary edema as well as emphysema. patient was seen by city distribution clerk suspect patient has exacerbation of COPD and pneumonia, patient has been treated with Steroid, bronchodilator and presumed pneumonia patient being treated azithromycin and Rocephin, also patient is placed on BiPAP and city distribution clerk adjusting the setting and patient is tolerating, today patient comes of heartburn this some relief with Pepcid with symptoms are persistent will add Protonix and Carafate I will consult GI for further recommendation. his niece is present in the room answered all her questions today patient was seen by GI and had a EGD and showed unspecified esophagitis and duodenal ulcer as well as hiatal hernia, GI recommending continue protonix and Carafate will continue, seen by city distribution clerk patient has no complaint of cough for wheezing prednisone is stopped, patient remains clinically stable will do the home O2 eval tomorrow possibly discharge the patient. Subjective Date/time seen: 05/21/21 17:12 Patient with 80 y/o with male with history of locally advanced non-small cell lung cancer as well as renal cell carcinoma, patient completed radiation therpay for lung cancer, plan was start chemor for renal cell carcinoma however patient became fatigue, poor appetite and shortness of breath and anemia with Hgb of 7.1, he has lost wt, upon arrival Chest x-ray showed interstitial pattern with bronchial wall thickening with bronchitis and pulmonary edema as well as emphysema. patient was seen by city distribution clerk suspect patient has exacerbation of COPD and pneumonia, patient has been treated with Steroid, bronchodilator and presumed pneumonia patient being treated azithromycin and Rocephin, also patient is placed on BiPAP and city distribution clerk adjusting the setting and patient is to
[2021-05-21] MEDS: FERROUS SULFATE 324 MG TABLET PO (17:13)
[2021-05-21] MEDS: OPTI-GEN TAB 2 TABLET PO (17:13)
[2021-05-21] MEDS: PANTOPRAZOLE SODIUM IV 40 MG VIAL IV PUSH (21:08)
--- NOTE | 2021-05-21 22:59 | PCRCNOTE ---
Apnealink overnight monitor ordered, pt is uncooperative and refuses to wear CPAP, or pulse oximeter probe. RN notified.
--- NOTE | 2021-05-21 23:09 | PCRCNOTE ---
Addendum entered by Iveth Romo, [employer] 05/22/21 07:08: Note edit, patient was not on dialysis. Note by Jana CORTEZ at 2311 : Pt is being uncooperative and refused CPAP/ overnight pulse ox at this time. RN notified. Original Note: Pt is in dialysis, apnealink overnight monitor held.
[2021-05-22] VITALS (10 sets, daily range): BP systolic 106–121; BP diastolic 65–72; PULSE 101–120; RESP 20–24; TEMP 36.6; O2SAT 87–97
[2021-05-22 05:30] LABS: Hematocrit 28.9 % (42.0-52.0); Hemoglobin 9.4 g/dL (14.0-18.0); Mean Corpuscular HGB Conc 32.5 g/dl (32-36); Mean Corpuscular Hemoglobin 29.5 pg (26-34); Mean Corpuscular Volume 90.6 fl (80-100); Mean Platelet Volume 10.5 fl (7.4-10.4); Platelet Count Result 88 k/mm3 (150-375); Red Blood Count 3.19 M/mm3 (4.6-6.20); White Blood Count 4.3 K/mm3 (4.5-10.0)
[2021-05-22 05:42] LABS: Anion Gap 8 mmol/L (8-16); Blood Urea Nitrogen 22 mg/dL (9-20); Calcium 8.4 mg/dL (8.4-10.2); Carbon Dioxide 19 mmol/L (22-30); Chloride 106 mmol/L (98-107); Estimated CRCL calculation 55 ml/min; Estimated Glomerular Filt Rate > 60; Glucose 86 mg/dL (65-110); Magnesium 1.9 mg/dL (1.6-2.3); Potassium 3.7 mmol/L (3.4-5.0); Sodium 133 mmol/L (137-145)
[2021-05-22] MEDS: LEVOTHYROXINE SODIUM 75 MCG TABLET PO (06:02)
[2021-05-22] MEDS: SUCRALFATE SUSP 100 MG/ML 10 ML UDC 1000 MG PO (06:02)
[2021-05-22] MEDS: CENTRAL LINE FLUSH 10 ML IV PUSH (06:03)
--- NOTE | 2021-05-22 08:57 | PM.PNPUL ---
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 05/19 patient admitted for an acute exacerbation of COPD and has improved with bronchodilators, steroids (started 05/18/21) as well as treatment for possible pneumonia with ceftriaxone and azithromycin (started 05/18). Current blood gas on 05/18/2021 demonstrates a pH of 7.46/ on his home 2 L nasal cannula. There is no evidence of hypercarbia at this point. 05/20 Patient has no wheezes today and I will place on prednisone 50 mg p.o. q.day and discontinue Solu-Medrol. I will continue albuterol nebulizer 2.5 mg q.4 hours and ipratropium nebulizer 0.5 mg q.4 hours. COVID test is negative. Blood cultures are negative. Continue ceftriaxone and azithromycin for bibasilar infiltrates. 05/21 No wheezes on exam. Will DC prednisone after today's dose as he has received 4 days and no wheezes and he has significant changes in his mental status at night. Will restart his home trelegy 100/62.5/25 and make nebs PRN. Day 4 antibiotics will DC azitho on 05/22. 05/22 No wheezes on exam and patient states he is breathing at his baseline. Patient breathing at baseline and ready to discharge on 05/22 from pulmonary perspective on these pulmonary medications. Total 7 days antibiotics, if remains in house continue ceftriaxone through 05/24. If discharged prior to that finish 7 days with levaquin 750 mg PO Q day through 05/24. Trelegy 100/62.5/25 at 1 puff Q day Rescue albuterol 2 puffs Q 4 hours PRN SOB and wheezing Oxygen per home 02 assessment on day prior to or day of discharge. When sleeps use BiPAP 06/22 plus 2 L bleed in at home. Follow up in pulmonary clinic 3-[address] Gonzalez, will sign off, call with questions. (2) Malignant neoplasm of lower lobe, right bronchus or lung: Code(s): C34.31 - Malignant neoplasm of lower lobe, right bronchus or lung Status: Acute Assessment and Plan: Per oncology note 05/19/21 Non-small cell lung cancer stage IIIA is status post radiation therapy treatment completed April 07, 2021. Patient completed weekly chemotherapy with carboplatin and Taxol for 6 cycles. Further chemotherapy was placed on hold due to patient poor performance status. Patient now came into the hospital with increasing shortness of breath along with tiredness and fatigue. Patient found to be anemic with hemoglobin of 7.1. He COVID testing has been ordered. Renal cell carcinoma. Plan was to start SBRT treatment. Treatment was also placed on hold due to patient poor performance status. Per the radiation oncologist note on 05/15/2021 he spoke to the patient and the daughter and they have discontinued his systemic there are 8 therapy due to his clinical decline. and they are holding off on SBRT for few weeks as well. Of note It mentions that hospice care is appropriate Follow up with Dr. Sherman and Kunal (3) Obstructive sleep apnea: Onset Date: 2018 Code(s): G47.33 - Obstructive sleep apnea (adult) (pediatric) Status: Acute Assessment and Plan: 05/19 I ask the respiratory personal caregiver to help identify his DME company to see if there is a download to assess his compliance with his BiPAP 9/5. Otherwise I will initiate this therapy in the hospital. 05/20 Patient was confused last night and did not wear his BiPAP 9/5. Will again try to initiate this therapy tonight. 05/21 patient was confused again last night and was not placed on any BiPAP. When I walked in the room this morning
[2021-05-22] MEDS: PANTOPRAZOLE SODIUM IV 40 MG VIAL IV PUSH (10:12)
[2021-05-22] MEDS: POTASSIUM CHLORIDE 20 MEQ PACKET (FOR LIQUID) 40 MEQ PO (10:12)
[2021-05-22] MEDS: CHOLECALCIFEROL 1,000 UNITS TABLET 1000 UNITS PO (10:13)
[2021-05-22] MEDS: OPTI-GEN TAB 2 TABLET PO (10:13)
[2021-05-22] MEDS: CYANOCOBALAMIN 1,000 MCG TABLET 1000 MCG PO (10:13)
[2021-05-22] MEDS: amLODIPine BESYLATE 2.5 MG TABLET PO (10:13)
[2021-05-22] MEDS: FERROUS SULFATE 324 MG TABLET PO (10:14)
[2021-05-22] MEDS: MAGNESIUM OXIDE 400 MG TABLET PO (10:14)
--- NOTE | 2021-05-22 10:46 | WPDANESPN ---
Anes - Prog Note Post-Op Date/Time: 05/22/21 10:46 Cardiovascular status: normal Respiratory status: normal Airway patency: baseline Mental status: baseline Post-Op hydration status: normal Vital Signs: Last Vital Signs Temp 36.6 C 05/22/21 08:00 Pulse 101 H 05/22/21 08:00 Resp 24 H 05/22/21 08:00 BP 121/65 05/22/21 08:00 Pulse Ox 95 05/22/21 08:31 Pain Score (VAS): 0 I/O: Intake & Output 05/21/21 05/22/21 05/22/21 23:59 07:59 15:59 Intake Total 675 320 Output Total 450 350 200 Balance 225 -350 120 Laboratory Tests 05/22/21 05:06 05/22/21 05:06 05/22/21 05/22/21 05:06 05:06 WBC 4.3 L RBC 3.19 L Hgb 9.4 L Hct 28.9 L MCV 90.6 MCH 29.5 MCHC 32.5 RDW 26.0 H Plt Count 88 L MPV 10.5 H Sodium 133 L Potassium 3.7 Chloride 106 Carbon Dioxide 19 L Anion Gap 8 BUN 22 H Creatinine 0.90 Estim Creat Clear Calc 55 Estimated GFR > 60 Glucose 86 Calcium 8.4 Magnesium 1.9 Post-procedural complaints: none Patient Feedback: Patient satisfied with anesthetic care.
--- NOTE | 2021-05-22 12:46 | HOMEO2EVAL ---
Evaluation was performed at [facility] Home Oxygen Evaluation RC: Home Oxygen (O2) Evaluation Start: 05/22/21 09:45 Freq: ONCE Status: Active Protocol: RPE Activity Type Activity Date Activity User E-Sign Co-Sign Detail Recorded Client Recorded Date Recorded By Document 05/22/21 11:45 CASS [email or web address] 05/22/21 12:46 CASS Document 05/22/21 11:46 CASS [email or web address] 05/22/21 12:46 CASS Document 05/22/21 11:47 CASS [email or web address] 05/22/21 12:46 CASS Document 05/22/21 11:48 CASS [email or web address] 05/22/21 12:46 CASS Document 05/22/21 11:50 CASS [email or web address] 05/22/21 12:46 CASS Document 05/22/21 11:51 CASS [email or web address] 05/22/21 12:46 CASS Document 05/22/21 12:00 CASS [email or web address] 05/22/21 12:46 CASS 05/22/21 05/22/21 05/22/21 11:45 11:46 11:47 Home O2 Evaluation Test Phase Resting Resting Resting Oxygen Delivery Room Air Nasal Cannula Nasal Cannula Oxygen Flow Rate (L/min) 1 2 Pulse Oximetry (90-100 %) 87 L 87 L 91 Pulse Rate (60-100 beats/min) 110 H Home Oxygen Evaluation Comments Treatment Charges O2 Evaluation - Inpatient 05/22/21 05/22/21 05/22/21 11:48 11:50 11:51 Home O2 Evaluation Test Phase Exercise Exercise Exercise Oxygen Delivery Nasal Cannula Nasal Cannula Nasal Cannula Oxygen Flow Rate (L/min) 2 3 4 Pulse Oximetry (90-100 %) 87 L 87 L 91 Pulse Rate (60-100 beats/min) 120 H Home Oxygen Evaluation Comments pt requires 2 l at rest and 4 l with exertion Treatment Charges 05/22/21 12:00 Home O2 Evaluation Test Phase Resting Oxygen Delivery Nasal Cannula Oxygen Flow Rate (L/min) 2 Pulse Oximetry (90-100 %) 94 Pulse Rate (60-100 beats/min) 106 H Home Oxygen Evaluation Comments Treatment Charges
--- NOTE | 2021-05-22 14:13 | PCRCNOTE ---
HOME O2 EVAL COMPLETED. PT REQUIRES 2 L AT REST AND 4 L WITH EXERTION. DME IS [employer], FAXED EVAL AND PAPERWORK TANK WAS DELIVERED TO ROOM FOR TRANSPORT HOME ONCE DISCHARGED.
--- NOTE | 2021-05-22 14:58 | PCRTNOTE ---
Window of time for administration has passed. See next scheduled administration.
--- NOTE | 2021-05-22 15:19 | PM.DS ---
DS: Admitting Diagnosis Admitting Diagnosis Chief Complaint: cough and shortness of breath DS: Discharge Diagnosis Discharge Diagnosis (1) Pneumonia: Code(s): J18.9 - Pneumonia, unspecified organism Status: Acute Assessment and Plan: will continue with antibiotics and repeat chest x-ray the morning. (2) COPD exacerbation: Code(s): J44.1 - Chronic obstructive pulmonary disease with (acute) exacerbation Status: Acute Assessment and Plan: Continue steroid and nebulizer treatment (3) Dehydration: Code(s): E86.0 - Dehydration Status: Acute Assessment and Plan: continue IV fluids and monitor (4) Essential hypertension: Code(s): I10 - Essential (primary) hypertension Status: Acute Assessment and Plan: stable on medication (5) History of tobacco abuse: Code(s): Z87.891 - Personal history of nicotine dependence Status: Acute Assessment and Plan: counseling (6) Obstructive sleep apnea: Onset Date: 2018 Code(s): G47.33 - Obstructive sleep apnea (adult) (pediatric) Status: Acute Assessment and Plan: stable (7) Acute on chronic anemia: Code(s): D64.9 - Anemia, unspecified Status: Acute Assessment and Plan: Will transfuse and monitor (8) Hypokalemia: Code(s): E87.6 - Hypokalemia Status: Acute Assessment and Plan: Replace and monitor DS: Summary Hospital Course Reason for hospitalization: Chief Complaint: cough and shortness of breath Narrative: 80 years old male with history of lung cancer, history of kidney cancer, chronic oxygen dependent at home was admitted through the emergency room with complaints of having cough,generalized weakness and sputum production going with last few days. Patient denies any fever chills. Patient denies any chest pain. Patient has not been vaccinated for COVID vaccine. Patient denies any abdominal pain nausea vomiting. Patient is not getting any chemotherapy radiation therapy at present time. Hospital Course: Patient with 80 y/o with male with history of locally advanced non-small cell lung cancer as well as renal cell carcinoma, patient completed radiation therpay for lung cancer, plan was start chemor for renal cell carcinoma however patient became fatigue, poor appetite and shortness of breath and anemia with Hgb of 7.1, he has lost wt, upon arrival Chest x-ray showed interstitial pattern with bronchial wall thickening with bronchitis and pulmonary edema as well as emphysema. patient was seen by longitudinal float operator suspect patient has exacerbation of COPD and pneumonia, patient has been treated with Steroid, bronchodilator and presumed pneumonia patient being treated azithromycin and Rocephin, also patient is placed on BiPAP and longitudinal float operator adjusting the setting and patient is tolerating, today patient comes of heartburn this some relief with Pepcid with symptoms are persistent will add Protonix and Carafate I will consult GI for further recommendation. his niece is present in the room answered all her questions today patient was seen by GI and had a EGD and showed unspecified esophagitis and duodenal ulcer as well as hiatal hernia, GI recommending continue protonix and Carafate will continue, seen by longitudinal float operator patient has no complaint of cough for wheezing prednisone is stopped, patient remains clinically stable will do the home O2 eval tomorrow possibly discharge the patient. patient is clinically stable, will continue Protonix and Carafate, will discharge patient on levofloxin, will follow up wit his primary care provider as soon as possible, Status at Discharge Functional status at discharge: uses cane/walker Overall status at discharge: patient is back to baseline Time Spent with Patient Time attestation: Total time spent providing and/or coordinating discharge services:Patient was seen and examined at the time of the discha
[2021-05-22] MEDS: HEPARIN SODIUM LOCK FLUSH 500 UNITS/5 ML VIAL IV PUSH (16:17)
--- NOTE | 2021-06-03 13:40 | PM.DS ---
DS: Admitting Diagnosis Admitting Diagnosis shortness of breath DS: Discharge Diagnosis Discharge Diagnosis (1) Pneumonia: Code(s): J18.9 - Pneumonia, unspecified organism Status: Acute Assessment and Plan: will continue with antibiotics and repeat chest x-ray the morning. (2) COPD exacerbation: Code(s): J44.1 - Chronic obstructive pulmonary disease with (acute) exacerbation Status: Acute Assessment and Plan: Continue steroid and nebulizer treatment (3) Dehydration: Code(s): E86.0 - Dehydration Status: Acute Assessment and Plan: continue IV fluids and monitor (4) Essential hypertension: Code(s): I10 - Essential (primary) hypertension Status: Acute Assessment and Plan: stable on medication (5) History of tobacco abuse: Code(s): Z87.891 - Personal history of nicotine dependence Status: Acute Assessment and Plan: counseling (6) Obstructive sleep apnea: Onset Date: 2018 Code(s): G47.33 - Obstructive sleep apnea (adult) (pediatric) Status: Acute Assessment and Plan: stable (7) Acute on chronic anemia: Code(s): D64.9 - Anemia, unspecified Status: Acute Assessment and Plan: Will transfuse and monitor (8) Hypokalemia: Code(s): E87.6 - Hypokalemia Status: Acute Assessment and Plan: Replace and monitor DS: Summary Hospital Course Reason for hospitalization: Chief Complaint: Shortness of breath Narrative: Patient presents to the ED after his oncologist visit for radiation treatment today. He was noted to be having increasing shortness of breath over the past few days. He is on oxygen from his recent discharge on 05/22/2021. 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 He denies any chest pain or fever chills. He has chronic cough but reports no new change in the cough. He denies any leg swelling. Patient however is hard of hearing and is poor historian most of the history taken from medical records. Hospital Course: patient was discharged on 2020 Patient remains clinically stable and to his baseline, Patient was seen by his Office Equipment Technician and will discharge the patient with his plans, will discharge today. Dr. Patel plan. Patient stable for discharge from pulmonary perspective to rehabilitation center on these pulmonary medications. Prednisone 40 mg PO Q day through 06/04 and then taper by 10 mg PO every three days to off Total 7 days antibiotics, if remains in house continue ceftriaxone through 06/05. If discharged prior to that finish 7 days with levaquin 750 mg PO Q day through 06/05. Trelegy 100/62.5/25 at 1 puff Q day Rescue albuterol 2 puffs Q 4 hours PRN SOB and wheezing Oxygen 2 L at rest and 4 with ambulation. When sleeps use BiPAP 06/22 plus 2 L bleed in at home. Status at Discharge Functional status at discharge: uses cane/walker Overall status at discharge: patient is back to baseline Time Spent with Patient Time attestation: Total time spent providing and/or coordinating discharge services: Patient was seen and examined at the time of the discharge Condition at discharge is stable Code status: Full code. Time spent preparing discharge summary, discharge medications, discussing discharge planning with foster care case manager and patient is 35 minutes. Time spent: Greater than 30 minutes Exam Narrative: elderly frail Patient is comfortable, NAD HEENT: eyes are clear and none icteric LUNGS: bilateral poor air entry with rhonchi HEART: RR S1S2 ABD: BS+, Soft and epigastric tenderness Lower extremities: no edema SKIN: nonjaundiced Neur
== END 2021-05-22 17:00 | disposition home health service (06) | DRG 194 ==
LOC: ANHED 14:21 → ANHIMU 14:30
PROVIDERS: Emergency Medicine Emergency Medical Services; Internal Medicine; Internal Medicine Gastroenterology; Internal Medicine Hematology & Oncology; Admitting Provider Internal Medicine; Emergency Provider Emergency Medicine; PCP Internal Medicine; Visit Provider Family Medicine
PROC: 0DJ08ZZ Inspection of Upper Intestinal Tract, Via Natural or Artificial Opening Endoscopic (ICD-10-PCS; CPT 43235; principal; 2021-05-21 13:45)
DX: J18.9 Pneumonia, unspecified organism (principal); C34.31 Malignant neoplasm of lower lobe, right bronchus or lung; C64.9 Malignant neoplasm of unspecified kidney, except renal pelvis; I11.9 Hypertensive heart disease without heart failure; J84.10 Pulmonary fibrosis, unspecified; Z20.822 Contact with and (suspected) exposure to COVID-19; J43.9 Emphysema, unspecified; K21.00 Gastro-esophageal reflux disease with esophagitis, without bleeding; K44.9 Diaphragmatic hernia without obstruction or gangrene; K26.9 Duodenal ulcer, unspecified as acute or chronic, without hemorrhage or perforation; D64.9 Anemia, unspecified; E86.0 Dehydration; G47.33 Obstructive sleep apnea (adult) (pediatric); E87.6 Hypokalemia; Z79.899 Other long term (current) drug therapy; Z86.16 Personal history of COVID-19; Z87.891 Personal history of nicotine dependence; Z92.3 Personal history of irradiation; Z92.21 Personal history of antineoplastic chemotherapy; Z98.42 Cataract extraction status, left eye; Z98.41 Cataract extraction status, right eye; Z99.81 Dependence on supplemental oxygen
CPT/HCPCS: 36415; 36430; 36600; 71045; 71046; 80048; 80053; 81001; 82375; 82607; 82805; 82948; 83050; 83540; 83605; 83735; 85014; 85018; 85025; 85027; 85610; 85730; 86850; 86900; 86901; 86920; 87040; 87081; 87086; 87088; 88305; 88312; 88342; 92610; 93005; 94618; 94640; 94660; 96361; 96365; 97110; 97161; 97165; 97530; 97535; 99285; A9270; C9113; C9803; G0378; J0456; J0696; J1642; J1644; J1940; J2704; J2920; J2930; J3480; J7030; J7042; J7050; J7120; J7512; P9016; U0003; U0005

== ENCOUNTER 2021-05-29 12:19 | Inpatient (IN) | payer MEDICARE, OTHER, SELFPAY ==
[2021-05-29] VITALS (12 sets, daily range): BP systolic 100–107; BP diastolic 55–60; PULSE 93–106; RESP 16–25; TEMP 36.6–36.7; O2SAT 91–98; BMI 20.7
--- NOTE | ~2021-05-29 | XR_ITS ---
EXAMINATION: XR chest 2V DATE: 05/29/2021 13:19 INDICATION: Shortness of breath. TECHNIQUE: Frontal and lateral views of the chest were obtained. COMPARISON: Chest single view 05/19/2021, PET CT 02/04/2021 FINDINGS: There are lucencies interstitial opacities in the lungs, consistent with emphysema. There i s volume loss of right hemithorax. There are airspace opacities in right mid and lower lung zones. No pleural effusion or pneumothorax. The heart size is normal. There is a left subclavian port with tip in superior vena cava. There is an electronic implant in left anterior chest wall. IMPRESSION: 1. Worsened airspace opacities in right mid and lower lung zones with volume loss, consistent with at electasis versus pneumonia. 2. Emphysema. Reviewed, dictated and finalized at location [facility]. IMPRESSION: 1. Worsened airspace opacities in right mid and lower lung zones with volume lo ss, consistent with atelectasis versus pneumonia. 2. Emphysema.
--- NOTE | ~2021-05-29 | CT_ITS ---
EXAMINATION: CTA chest PE protocol DATE: 05/29/2021 13:55 INDICATION: Shortness of breath. Hypoxia. TECHNIQUE: Computed tomography angiography (CTA) of the chest was performed with 100 mL Omnipaque-350 intravenous contrast timed to evaluate the pulmonary arteries. Coronal maximum intensity projection 3D-reconstructions were created by the technologist. Automated exposure control and iterative reconst ruction technique were employed. Exam dose: 423.22 mGy-cm total exam DLP. COMPARISON: 05/29/2021 2 view chest FINDINGS: There is diagnostic contrast enhancement of the pulmonary arteries and no evidence of pulmo nary embolism. There is rightward shift of the heart mediastinum due to right lung volume loss. No thoracic aortic aneurysm or dissection. There is thoracic aortic and coronary artery calcification . Heart size is within normal limits. No pericardial or pleural effusion. Severe emphysematous change of the lungs. There is severe septal soft tissue thickening and cystic change of the right mid and lower lung and l eft lower lobe consistent with honeycombing. Probable approximately 7 x 11 mm focal scar in the posterolateral left upper lung; consider 6 month C T follow-up with attention to this area. Probable hepatic cysts. Approximately 2 cm upper pole left renal cyst. The adrenal glands are unremarkable. Severe degenerative disc disease in the lower cervical spine at C5-6 and C6-7. Moderately prominent anterior wedging and loss of height of T12 consistent with fracture of uncertain age. Diffuse idiopathic skeletal hyperostosis of the thoracic spine. Diffuse osteopenia. IMPRESSION: No evidence of pulmonary embolism Severe emphysematous change of the lungs; honeycombing throughout much of the right lung and left low er lobe, right lung volume loss and rightward shift of heart and mediastinum Focal posterolateral opacity in the left upper lung, likely due to scarring. Six-month CT follow-up i s recommended to exclude malignant lung mass lesion. Reviewed, dictated and finalized at [facility]. Reviewed, dictated and finalized at location A. IMPRESSION: No evidence of pulmonary embolism Severe emphysematous change of the lungs; honeycombing throughout much of the r ight lung and left lower lobe, right lung volume loss and rightward shift of he art and mediastinum Focal posterolateral opacity in the left upper lung, likely due to scarring. Si x-month CT follow-up is recommended to exclude malignant lung mass lesion.
--- NOTE | ~2021-05-29 | XR_ITS ---
XR chest 1V portable DATE: 05/30/2021 05:58 INDICATION: Shortness of breath. Hypoxia. Recheck right lower lobe opacity. Emphysema. TECHNIQUE: Portable upright AP chest on 05/30/2021 at 0542 hours COMPARISON: 05/29/2021 CT pulmonary scan 05/29/2021 AP and lateral chest 05/19/2021 portable AP chest 01/06/2021 portable AP chest FINDINGS: Left Port-A-Cath catheter tip overlies the lower superior vena cava. library monitor device overlies the left chest. Bilateral hyperinflation, left greater than right. There are patchy infiltr ates in the lower lung zones, right greater than left, suggesting bilateral pneumonia. Aspiration pne umonitis is a consideration. Prominent emphysematous changes. No pleural effusion or pneumothorax is detected. Heart size appears normal. Is aortic calcification, ectasia and unfolding. Diffuse osteopenia. Bilateral chronic rotator cuff atrophy. Degenerative spurring of the thoracic spi ne. IMPRESSION: Severe emphysema The left lung is more hyperinflated than the right Patchy infiltrates in the lower lung zones, right greater than left, likely due to pneumonia. Aspirat ion is not excluded. Left Port-A-Cath Reviewed, dictated and finalized at location A. IMPRESSION: Severe emphysema The left lung is more hyperinflated than the right Patchy infiltrates in the lower lung zones, right greater than left, likely due to pneumonia. Aspiration is not excluded. Left Port-A-Cath
--- NOTE | 2021-05-29 12:45 | ECG_ITS ---
Measurements Intervals [place] Rate: 108 P: 26 NM: 186 QRS: 50 QRSD: 95 T: 55 QT: 362 QTc: 485 Interpretive Statements SINUS TACHYCARDIA BASELINE ARTIFACT- I, AVR, AVL, AVF, V1-V3 ABNORMAL ECG Electronically Signed On 05-29-2021 12:55:55 CDT by Tien Culp D.O.
[2021-05-29 13:36] LABS: Anion Gap 7 mmol/L (8-16); Blood Urea Nitrogen 20 mg/dL (9-20); Calcium 8.9 mg/dL (8.4-10.2); Carbon Dioxide 21 mmol/L (22-30); Chloride 101 mmol/L (98-107); Estimated CRCL calculation 55 ml/min; Estimated Glomerular Filt Rate > 60; Glucose 102 mg/dL (65-110); Sodium 129 mmol/L (137-145)
[2021-05-29 13:37] LABS: Basophils Percent Auto 0.2 % (0.2-1.2); Eosinophils Absolute Auto 0.1 K/mm3 (0-0.3); Eosinophils Percent Auto 1.7 % (0-4.4); Hematocrit 26.4 % (42.0-52.0); Hemoglobin 8.4 g/dL (14.0-18.0); Immature Granulocyte Absolute 0.03 K/mm3 (0.00-0.031); Immature Granulocyte Percent A 0.6 % (0-0.5); Immature Platelet Fraction Pct 3.4 % (0.9-11.2); Lymphocytes Absolute Auto 0.27 K/mm3 (0.9-3.2); Lymphocytes Percent Auto 5.6 % (18.3-44.2); Mean Corpuscular HGB Conc 31.8 g/dl (32-36); Mean Corpuscular Hemoglobin 30.7 pg (26-34); Mean Corpuscular Volume 96.4 fl (80-100); Mean Platelet Volume 10.3 fl (7.4-10.4); Monocytes Absolute Auto 0.4 K/mm3 (0.1-0.6); Monocytes Percent Auto 7.7 % (2.6-8.5); Neutrophils Absolute Auto 4.1 K/mm3 (1.3-6.7); Neutrophils Percent Auto 84.2 % (45.5-73.1); Platelet Count Result 63 k/mm3 (150-375); Red Blood Count 2.74 M/mm3 (4.6-6.20); Red Cell Distribution Width 24.5 % (11.5-14.5); White Blood Count 4.8 K/mm3 (4.5-10.0)
[2021-05-29 14:06] LABS: INR 1.1; Partial Thromboplastin Time 23.4 SECONDS (22.3-36.8)
[2021-05-29 14:12] LABS: Alanine Aminotransferase 15 U/L (4-50); Alkaline Phosphatase 92 U/L (38-126); Aspartate Amino Transferase 21 U/L (17-59); Bilirubin,Total 1.2 mg/dL (0.2-1.3)
[2021-05-29 14:20] LABS: NT Pro B Type Natriuretic Pept 1490 pg/mL (5-100)
[2021-05-29 14:22] LABS: Troponin I < 0.012 ng/mL (0.000-0.034)
--- NOTE | 2021-05-29 15:24 | ED.SOB ---
HPI - SOB/Dyspnea General Chief Complaint: Shortness of Breath/Dyspnea Stated Complaint: abnormal labs Time Seen by Provider: 05/29/21 13:27 History of Present Illness HPI Narrative: Patient presents with shortness of breath. Patient ports he was at his oncologist today for radiation therapy with he was noted to have increased shortness of breath. Pain emergency has been having more shortness of breath over the past week and is getting progressively worse. Patient most notes that when he tries to get up or walk around. He feels best when laying flat and resting. Reports a chronic cough but no new changes in cough. His cough is nonproductive denies any recent fevers or chills. Denies any focal areas of pain such as chest pain. Related Data Home Medications Medication Instructions Recorded Confirmed cholecalciferol (vitamin D3) 25 1,000 unit PO DAILY 12/11/19 05/18/21 mcg (1,000 unit) capsule Trelegy Ellipta 1 inh INHALATION QAM 02/17/21 05/18/21 coQ10 (ubiquinol) 100 mg PO DAILY 02/17/21 05/18/21 ferrous sulfate 324 mg PO BID 03/07/21 05/18/21 PreserVision AREDS 2 tablet PO BID 05/18/21 05/18/21 amlodipine 2.5 mg PO DAILY 05/18/21 05/18/21 cyanocobalamin (vitamin B-12) 1,000 mcg PO DAILY 05/18/21 05/18/21 guaifenesin [Mucinex] 600 mg PO Q12H PRN 05/18/21 05/18/21 Allergies Allergy/AdvReac Type Severity Reaction Status Date / Time No Known Allergies Allergy Verified 05/29/21 14:04 Review of Systems Review of Systems: CONSTITUTIONAL: Denies fever, chills, or sweats. EYES: Denies visual changes, redness, or discharge. ENT: Denies rhinorrhea, congestion, sore throat, or otalgia. CARDIOVASCULAR: Denies chest pain, palpitations, or edema. RESPIRATORY: Reports cough and dyspnea GASTROINTESTINAL: Denies abdominal pain, nausea, vomiting, or diarrhea. GENITOURINARY: Denies dysuria or hematuria. SKIN: Denies rash or itching. MUSCULOSKELETAL: Denies back pain, joint pain, or myalgia. NEUROLOGIC: Denies headache, numbness, dizziness, or weakness. PSYCHIATRIC: Denies anxiety or depression. All systems reviewed & are unremarkable except as noted in HPI and below PMFSH Past Medical History Medical History Diastolic dysfunction Echocardiogram November 2018: Impaired diastolic relaxation grade 1, ejection fraction 60%, mild left atrial enlargement, mild tricuspid regurgitation Duodenal arteriovenous malformation Dysphagia Essential hypertension Gastric AVM GERD (gastroesophageal reflux disease) History of tobacco abuse Quit 2017. Smoked for 50 years. Left rotator cuff tear Macular degeneration Nausea Obstructive sleep apnea (2019) 06/15/2019 without optimal pressure. Bilevel titration 07/26/2020 which demonstrated poor sleep efficiency but sufficient pressure settings of 9/5 started September 2020 Osteopenia Noted on DEXA scan October 2020 Reflux esophagitis Severe chronic obstructive pulmonary disease PFTs 12/07/2018: FEV1 48% with airflow obstruction, TLC 165% with air trapping and DLCO of 81% Surgical History Surgical History H/O left knee surgery History of bilateral cataract extraction History of carpal tunnel release History of esophagogastroduodenoscopy (EGD) June 2020 demonstrated reflux esophagitis and duodenal and gastric AVMs History of prostatectomy 1992 due to prostate cancer History of vasectomy Hx of tonsillectomy Family History Family History Sibling Stomach cancer Brother Father Atherosclerosis Heart disease Social History Social History Social History: He smoked 1-2 packs per day for 60 years but quit smoking in 2017. Primary care physician: Dr. Chacorta Perry Surrogate decision maker: Ivon (daughter) Smoking packs per day: 1.5 Smoking cigarettes per da
[2021-05-29] MEDS: methylPREDNISolone SOD SUCC 125 MG VIAL IV PUSH (15:46)
[2021-05-29] MEDS: IPRATROPIUM BR 0.02% INH SOLN 0.5 MG/2.5 ML VIAL INHALATION ×2 (16:00→23:02)
[2021-05-29] MEDS: ALBUTEROL SULFATE NEB 2.5 MG/0.5 ML INH 5 MG INHALATION ×2 (16:00→23:02)
[2021-05-29] MEDS: FUROSEMIDE INJ 40 MG/4 ML VIAL IV PUSH (16:54)
--- NOTE | 2021-05-29 19:44 | PM.IMHP ---
H&P: HPI History of Present Illness Date/Time: 05/29/21 19:44 Chief Complaint: Shortness of breath Review of Systems Review of Systems: 12 systems were reviewed with pertinent positives and negatives per HPI. Except as documented in the HPI, all other systems were reviewed and are negative. [facility] Past Medical History Medical History Diastolic dysfunction Echocardiogram November 2018: Impaired diastolic relaxation grade 1, ejection fraction 60%, mild left atrial enlargement, mild tricuspid regurgitation Duodenal arteriovenous malformation Dysphagia Essential hypertension Gastric AVM GERD (gastroesophageal reflux disease) History of tobacco abuse Quit 2016. Smoked for 50 years. Left rotator cuff tear Macular degeneration Nausea Obstructive sleep apnea (2018) 06/15/2019 without optimal pressure. Bilevel titration 07/26/2020 which demonstrated poor sleep efficiency but sufficient pressure settings of 9/5 started September 2020 Osteopenia Noted on DEXA scan October 2020 Reflux esophagitis Severe chronic obstructive pulmonary disease PFTs 12/07/2018: FEV1 48% with airflow obstruction, TLC 165% with air trapping and DLCO of 81% Surgical History Surgical History H/O left knee surgery History of bilateral cataract extraction History of carpal tunnel release History of esophagogastroduodenoscopy (EGD) June 2020 demonstrated reflux esophagitis and duodenal and gastric AVMs History of prostatectomy 1992 due to prostate cancer History of vasectomy Hx of tonsillectomy Family History Family History Sibling Stomach cancer Brother Father Atherosclerosis Heart disease Social History Social History Social History: He smoked 1-2 packs per day for 60 years but quit smoking in 2017. Primary care physician: Dr. Chacorta Perry Surrogate decision maker: Ivon (daughter) Smoking packs per day: 1.5 Smoking cigarettes per day: 30.0 Years smoked: 60 Smoking pack-years: 90.00 Smoking status: Current every day smoker Tobacco type: cigarettes Second hand tobacco smoke exposure: No Smoking end date: 05/18/17 Alcohol intake: former Alcohol use details: social Substance use: former Substance use type: does not use Gender identity (if verbalized by the patient): Male Spiritual care concerns: No Meds Home Medications and Allergies Home Medications Medication Instructions Recorded Confirmed Type cholecalciferol (vitamin D3) 25 1,000 unit PO DAILY 12/11/19 05/18/21 History mcg (1,000 unit) capsule albuterol sulfate 2 inh INHALATION QID PRN #6.7 g 11/20/20 05/18/21 Rx Trelegy Ellipta 1 inh INHALATION QAM 02/17/21 05/18/21 History coQ10 (ubiquinol) 100 mg PO DAILY 02/17/21 05/18/21 History ferrous sulfate 324 mg PO BID 03/07/21 05/18/21 History levothyroxine 75 mcg tablet 75 mcg PO DAILY #90 tablet 03/10/21 05/18/21 Rx PreserVision AREDS 2 tablet PO BID 05/18/21 05/18/21 History amlodipine 2.5 mg PO DAILY 05/18/21 05/18/21 History cyanocobalamin (vitamin B-12) 1,000 mcg PO DAILY 05/18/21 05/18/21 History guaifenesin [Mucinex] 600 mg PO Q12H PRN 05/18/21 05/18/21 History levofloxacin 750 mg PO DAILY #2 tablet 05/22/21 Rx magnesium oxide 400 mg PO DAILY #30 tablet 05/22/21 Rx pantoprazole [Protonix] 40 mg PO BID #60 tablet 05/22/21 Rx sucralfate 1,000 mg PO ACHS #500 ml 05/22/21 Rx Allergies Allergy/AdvReac Type Severity Reaction Status Date / Time No Known Allergies Allergy Verified 05/29/21 14:04 Vital Signs Vital Signs - 24 hr 05/29/21 12:35 05/29/21 13:30 05/29/21 14:02 Temperature 98.0 F Pulse Rate 106 H Respiratory Rate 25 H Blood Pressure 107/60 Pulse Oximetry 93 94 98 05/29/21 15:45 05/29/21 16:02 05/29/21 16:06
--- NOTE | 2021-05-29 21:03 | PC.NURSE ---
This patient, Eloy Duncan, was admitted to 3 [facility] Surg Room 333-01 @ 19:05. Patient/family oriented to hospital policies and general routines including ID bracelet, bed and alarms, visiting hours, pain management, procedures, bathroom and other care routines, personal items, smoking policy, room service/diet, and visiting hours. Information on how to activate the Rapid Response Team has been discussed. Patient/Family are encouraged to report perceived risks to care and to ask questions if they do not understand what they are told or what they should do.
--- NOTE | 2021-05-29 22:35 | PM.IMHP ---
H&P: HPI History of Present Illness Date/Time: 05/29/21 22:35 Chief Complaint: Shortness of breath Narrative: Patient presents to the ED after his oncologist visit for radiation treatment today. He was noted to be having increasing shortness of breath over the past few days. He is on oxygen from his recent discharge on 05/22/2021. 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 He denies any chest pain or fever chills. He has chronic cough but reports no new change in the cough. He denies any leg swelling. Patient however is hard of hearing and is poor historian most of the history taken from medical records. Review of Systems Review of Systems: - CONSTITUTIONAL: Denies weight loss, fever and chills. - HEENT: Denies changes in vision and hearing he is very hard of hearing - RESPIRATORY: Reports SOB and cough. - CV: Denies palpitations and CP. - GI: Denies abdominal pain, nausea, vomiting and diarrhea. - : Denies dysuria and urinary frequency. - MSK: Denies myalgia and joint pain. - SKIN: Denies rash and pruritus. - NEUROLOGICAL: Denies headache and syncope. - PSYCHIATRIC: Denies recent changes in mood. Denies anxiety and depression. All systems reviewed & are unremarkable except as noted in HPI and below Constitutional: Constitutional: Reports fatigue and Reports weakness Neurologic: Reports weakness Endocrine: Endocrine: Reports fatigue [facility] Past Medical History Medical History Diastolic dysfunction Echocardiogram November 2018: Impaired diastolic relaxation grade 1, ejection fraction 60%, mild left atrial enlargement, mild tricuspid regurgitation Duodenal arteriovenous malformation Dysphagia Essential hypertension Gastric AVM GERD (gastroesophageal reflux disease) History of tobacco abuse Quit 2017. Smoked for 50 years. Left rotator cuff tear Macular degeneration Nausea Obstructive sleep apnea (2018) 06/15/2019 without optimal pressure. Bilevel titration 07/26/2020 which demonstrated poor sleep efficiency but sufficient pressure settings of 9/5 started September 2020 Osteopenia Noted on DEXA scan October 2020 Reflux esophagitis Severe chronic obstructive pulmonary disease PFTs 12/07/2018: FEV1 48% with airflow obstruction, TLC 165% with air trapping and DLCO of 81% Surgical History Surgical History H/O left knee surgery History of bilateral cataract extraction History of carpal tunnel release History of esophagogastroduodenoscopy (EGD) June 2020 demonstrated reflux esophagitis and duodenal and gastric AVMs History of prostatectomy 1992 due to prostate cancer History of vasectomy Hx of tonsillectomy Family History Family History Sibling Stomach cancer Brother Father Atherosclerosis Heart disease Social History Social History Social History: He smoked 1-2 packs per day for 60 years but quit smoking in 2017. Primary care physician: Dr. Chacorta Perry Surrogate decision maker: Ivon (daughter) Smoking packs per day: 1.5 Smoking cigarettes per day: 30.0 Years smoked: 60 Smoking pack-years: 90.00 Smoking status: Current every day smoker Tobacco type: cigarettes Second hand tobacco smoke exposure: No Smoking end date: 05/18/17 Alcohol intake: former Alcohol use details: social Substance use: former Substance use type: does not use Gender identity (if verbalized by the patient): Male Spiritual care concerns:
[2021-05-30] VITALS (15 sets, daily range): BP systolic 96–120; BP diastolic 45–97; PULSE 93–113; RESP 16–26; TEMP 35.9–36.9; O2SAT 90–101
[2021-05-30] MEDS: methylPREDNISolone SOD SUCC 125 MG VIAL 60 MG IV PUSH ×4 (01:13→17:25)
[2021-05-30] MEDS: SODIUM CHLORIDE 0.9% IV 1,000 ML 75 ML IV CONT ×2 (03:28→22:33)
[2021-05-30] MEDS: ALBUTEROL SULFATE NEB 2.5 MG/0.5 ML INH 5 MG INHALATION ×4 (04:30→22:30)
[2021-05-30] MEDS: IPRATROPIUM BR 0.02% INH SOLN 0.5 MG/2.5 ML VIAL INHALATION ×4 (04:30→22:30)
[2021-05-30] MEDS: DORNASE ALFA INH SOLN 1 MG/ML 2.5 ML AMP 2.5 MG INHALATION ×2 (09:15→22:30)
--- NOTE | 2021-05-30 11:30 | PC.NURSE ---
call to pharm for new med orders to be sent
[2021-05-30] MEDS: SUCRALFATE SUSP 100 MG/ML 10 ML UDC 1000 MG PO ×3 (11:53→22:21)
--- NOTE | 2021-05-30 16:57 | PM.CNPUL ---
Assessment and Plan Assessment and plan (1) Acute and chronic respiratory failure: Qualifiers: Respiratory failure complication: hypoxia Qualified Code(s): J96.21 - Acute and chronic respiratory failure with hypoxia Code(s): J96.20 - Acute and chronic respiratory failure, unspecified whether with hypoxia or hypercapnia Status: Acute Assessment and Plan: He has multiple pulmonary problems; O2 use at home, severe emphysema, UIP, NSCLC from lymph node right lung in December with a RLL mass, recent pneumonia treated in [facility] May 18-; GABRIELLA without a really effective BiPAP pressure although he has been set up on this at home. COVID Nov 07, negative COVID test this admission. Has a JAMAL density 11mm x 7mm needs 6 months follow up. He also has untreated renal cell carcinoma. He has acute on chronic hypoxemic respiratory failure following doctor's radiation oncology visit May 29, with increased shortness of breath, suspected recurrent pneumonia. He has increased infiltrates L>R, and CTA - no PE, honeycombing R lung and left lower lobe, right lung volume loss and rightward shift of heart and mediastinum; Focal posterolateral opacity in the left upper lung, likely due to scarring. He is on azithromycin, ceftriaxone, IV Solu-Medrol, albuterol ipratropium; this covers suspected pneumonia and COPD exacerbation. He feels better today, still is deconditioned, weak, and will need rehab after discharge. I will check a procalcitonin in the am. This is a send out, won't help immediately, however may help if he is admitted again; if (+), this will suggest that he has on-going infection. He is frail, however may need bronchoscopy for diagnosis of non-resolving infiltrate. I see a note from Dr. Bui, radiation oncologist, May 15 where he recommends hospice. He has had long conversations with the patient and his family members. PLAN: * decrease IV steroids, transition back to his inhaled meds, * wean O2 as tolerated, needs rehab at discharge, , too weak to take care of himself at this time; * daughter wants to make sure his pneumonia from earlier this month is fully treated. it is not clear how much is really pneumonia very worsening RLL mass / UIP. Does not appear to have worsening diastolic dysfunction. However, BUN is low, and if needed, could have another dose of Lasix. * replete K+ * check procalcitonin in am * no benefit to using BIPAP in the hospital if he will be leaving soon, has a device at home (2) COPD exacerbation: Code(s): J44.1 - Chronic obstructive pulmonary disease with (acute) exacerbation Status: Acute Assessment and Plan: (3) Pneumonia: Code(s): J18.9 - Pneumonia, unspecified organism Status: Acute Assessment and Plan: (4) Malignant neoplasm of lower lobe, right bronchus or lung: Code(s): C34.31 - Malignant neoplasm of lower lobe, right bronchus or lung Status: Acute Assessment and Plan: (5) Pulmonary fibrosis: Code(s): J84.10 - Pulmonary fibrosis, unspecified Status: Acute Assessment and Plan: (6) Obstructive sleep apnea: Onset Date: 2018 Code(s): G47.33 - Obstructive sleep apnea (adult) (pediatric) Status: Acute Assessment and Plan: History of Present Illness History of Present Illness Consult date: 05/31/21 Requesting physician: Tia Gil DO Reason for consult: COPD (COPD exacerbation) Chief complaint: Hypoxia Narrative: I spoke with his daughter Ivon by phone [phone]; great source of informa
[2021-05-30] MEDS: FERROUS SULFATE 324 MG TABLET PO (17:25)
[2021-05-30] MEDS: OPTI-GEN TAB 2 TABLET PO (17:26)
[2021-05-30] MEDS: PANTOPRAZOLE 40 MG TABLET PO (17:26)
--- NOTE | 2021-05-30 19:39 | PM.IMPN ---
Progress Note: A&P Assessment and Plan (1) Acute and chronic respiratory failure: Qualifiers: Respiratory failure complication: hypoxia Qualified Code(s): J96.21 - Acute and chronic respiratory failure with hypoxia Code(s): J96.20 - Acute and chronic respiratory failure, unspecified whether with hypoxia or hypercapnia Status: Acute (2) Tachycardia: Code(s): R00.0 - Tachycardia, unspecified Status: Acute (3) Dysphagia: Qualifiers: Dysphagia type: unspecified Qualified Code(s): R13.10 - Dysphagia, unspecified Code(s): R13.10 - Dysphagia, unspecified Status: Acute (4) Nausea: Code(s): R11.0 - Nausea Status: Acute (5) GERD (gastroesophageal reflux disease): Qualifiers: Esophagitis presence: with esophagitis Esophagitis bleeding: unspecified whether hemorrhage Qualified Code(s): K21.00 - Gastro-esophageal reflux disease with esophagitis, without bleeding Code(s): K21.9 - Gastro-esophageal reflux disease without esophagitis Status: Acute (6) Hypokalemia: Code(s): E87.6 - Hypokalemia Status: Acute (7) Essential hypertension: Code(s): I10 - Essential (primary) hypertension Status: Acute (8) Clear cell carcinoma of right kidney: Code(s): C64.1 - Malignant neoplasm of right kidney, except renal pelvis Status: Acute (9) Non-small cell cancer of right lung: Code(s): C34.91 - Malignant neoplasm of unspecified part of right bronchus or lung Status: Acute (10) Gastric AVM: Code(s): K31.819 - Angiodysplasia of stomach and duodenum without bleeding Status: Acute (11) Pulmonary fibrosis: Code(s): J84.10 - Pulmonary fibrosis, unspecified Status: Acute (12) Lung nodule: Code(s): R91.1 - Solitary pulmonary nodule Status: Acute (13) Suspected COVID-19 virus infection: Code(s): Z20.822 - Contact with and (suspected) exposure to COVID-19 Status: Acute (14) Obstructive sleep apnea: Onset Date: 2018 Code(s): G47.33 - Obstructive sleep apnea (adult) (pediatric) Status: Acute (15) COPD exacerbation: Code(s): J44.1 - Chronic obstructive pulmonary disease with (acute) exacerbation Status: Acute Additional Plan COPD exacerbation: Patient was started on steroids and IV azithromycin with ceftriaxone Consider discontinuing ceftriaxone in the morning and treat solely as COPD exacerbation with azithromycin and steroids Recommendations are appreciated from pulmonary consult Can consider discharging if stable from pulmonary standpoint pending consult Hyponatremia: Received IV lasix while in the ED Possibly this was the reason of drop of sodium from prior normal value Will provide IV fluids at this time for just 1 L at 83 mL an hour and stop thereafter Time Spent With Patient Time with patient: 25 - 35 minutes Subjective Date/time seen: 05/30/21 19:39 80-year-old male with past medical history significant for COPD on home oxygen 2-3 L, non-small cell lung cancer status post radiation completed in March of 2021 and status post 6 cycles of chemotherapy(on hold for now due to poor performance), IL DE, hypertension, hypothyroidism presented with complaints of shortness of breath. He is being managed as a case of COPD exacerbation with concerns for physical deconditioning. Pulmonary consult is being sought and recommendations are appreciated. Review of Systems Review of Systems: A 10 point review of system was conducted and was otherwise negative Exam Narrative: GENERAL: Thin built, and in no acute distress. HEAD: Normocephalic, atraumatic. EYES: PERRLA and EOMI. ENT: Nares clear, no rhinorrhea or epistaxis. Mucous membranes moist. NECK: Supple. No masses. No JVD CHEST: Diminished aeration in all lung hugo no appreciable wheezing or rhonchi HEART: Regular rate and rhythm. No murmur heard. Normal peripher
[2021-05-31] VITALS (10 sets, daily range): BP systolic 100–120; BP diastolic 49–58; PULSE 66–113; RESP 16–22; TEMP 36.3–36.6; O2SAT 91–99
[2021-05-31] MEDS: methylPREDNISolone SOD SUCC 125 MG VIAL 60 MG IV PUSH ×3 (00:20→12:02)
[2021-05-31 04:08] LABS: SARS-CoV-2 RNA PCR Negative
[2021-05-31] MEDS: IPRATROPIUM BR 0.02% INH SOLN 0.5 MG/2.5 ML VIAL INHALATION ×3 (04:35→22:15)
[2021-05-31] MEDS: ALBUTEROL SULFATE NEB 2.5 MG/0.5 ML INH 5 MG INHALATION ×3 (04:53→22:09)
[2021-05-31] MEDS: LEVOTHYROXINE SODIUM 75 MCG TABLET PO (05:33)
[2021-05-31] MEDS: SUCRALFATE SUSP 100 MG/ML 10 ML UDC 1000 MG PO ×4 (05:33→21:49)
[2021-05-31 08:16] LABS: Hematocrit 24.2 % (42.0-52.0); Hemoglobin 7.9 g/dL (14.0-18.0); Immature Granulocyte Absolute 0.06 K/mm3 (0.00-0.031); Immature Granulocyte Percent A 0.8 % (0-0.5); Immature Platelet Fraction Pct 4.1 % (0.9-11.2); Lymphocytes Absolute Auto 0.22 K/mm3 (0.9-3.2); Mean Corpuscular HGB Conc 32.6 g/dl (32-36); Mean Corpuscular Hemoglobin 30.7 pg (26-34); Mean Corpuscular Volume 94.2 fl (80-100); Mean Platelet Volume 9.8 fl (7.4-10.4); Monocytes Absolute Auto 0.3 K/mm3 (0.1-0.6); Monocytes Percent Auto 4.5 % (2.6-8.5); Neutrophils Absolute Auto 6.7 K/mm3 (1.3-6.7); Neutrophils Percent Auto 91.7 % (45.5-73.1); Nucleated Red Blood Cells Perc 0.3 % (0.0-0.2); Platelet Count Result 61 k/mm3 (150-375); Red Blood Count 2.57 M/mm3 (4.6-6.20); Red Cell Distribution Width 24.2 % (11.5-14.5); White Blood Count 7.3 K/mm3 (4.5-10.0)
[2021-05-31 08:29] LABS: Alanine Aminotransferase 11 U/L (4-50); Albumin Level 2.5 g/dL (3.5-5.1); Alkaline Phosphatase 72 U/L (38-126); Anion Gap 9 mmol/L (8-16); Aspartate Amino Transferase 17 U/L (17-59); Bilirubin,Total 0.5 mg/dL (0.2-1.3); Blood Urea Nitrogen 19 mg/dL (9-20); Calcium 8.3 mg/dL (8.4-10.2); Carbon Dioxide 18 mmol/L (22-30); Chloride 103 mmol/L (98-107); Estimated CRCL calculation 54 ml/min; Estimated Glomerular Filt Rate > 60; Glucose 159 mg/dL (65-110); Potassium 3.2 mmol/L (3.4-5.0); Sodium 130 mmol/L (137-145)
--- NOTE | 2021-05-31 10:42 | PCRCNOTE ---
pt was unavailable for treatment. Wanted to eat his breakfast.
[2021-05-31] MEDS: OPTI-GEN TAB 2 TABLET PO ×2 (11:59→18:20)
[2021-05-31] MEDS: FERROUS SULFATE 324 MG TABLET PO ×2 (12:00→18:21)
[2021-05-31] MEDS: PANTOPRAZOLE 40 MG TABLET PO ×2 (12:01→18:22)
[2021-05-31] MEDS: MAGNESIUM OXIDE 400 MG TABLET PO (12:01)
[2021-05-31] MEDS: CYANOCOBALAMIN 1,000 MCG TABLET 1000 MCG PO (12:02)
[2021-05-31] MEDS: CHOLECALCIFEROL 1,000 UNITS TABLET 1000 UNITS PO (12:02)
--- NOTE | 2021-05-31 19:40 | PM.IMPN ---
Progress Note: A&P Assessment and Plan (1) Acute and chronic respiratory failure: Qualifiers: Respiratory failure complication: hypoxia Qualified Code(s): J96.21 - Acute and chronic respiratory failure with hypoxia Code(s): J96.20 - Acute and chronic respiratory failure, unspecified whether with hypoxia or hypercapnia Status: Acute (2) Tachycardia: Code(s): R00.0 - Tachycardia, unspecified Status: Acute (3) Dysphagia: Qualifiers: Dysphagia type: unspecified Qualified Code(s): R13.10 - Dysphagia, unspecified Code(s): R13.10 - Dysphagia, unspecified Status: Acute (4) Nausea: Code(s): R11.0 - Nausea Status: Acute (5) GERD (gastroesophageal reflux disease): Qualifiers: Esophagitis presence: with esophagitis Esophagitis bleeding: unspecified whether hemorrhage Qualified Code(s): K21.00 - Gastro-esophageal reflux disease with esophagitis, without bleeding Code(s): K21.9 - Gastro-esophageal reflux disease without esophagitis Status: Acute (6) Hypokalemia: Code(s): E87.6 - Hypokalemia Status: Acute (7) Essential hypertension: Code(s): I10 - Essential (primary) hypertension Status: Acute (8) Clear cell carcinoma of right kidney: Code(s): C64.1 - Malignant neoplasm of right kidney, except renal pelvis Status: Acute (9) Non-small cell cancer of right lung: Code(s): C34.91 - Malignant neoplasm of unspecified part of right bronchus or lung Status: Acute (10) Gastric AVM: Code(s): K31.819 - Angiodysplasia of stomach and duodenum without bleeding Status: Acute (11) Pulmonary fibrosis: Code(s): J84.10 - Pulmonary fibrosis, unspecified Status: Acute (12) Lung nodule: Code(s): R91.1 - Solitary pulmonary nodule Status: Acute (13) Suspected COVID-19 virus infection: Code(s): Z20.822 - Contact with and (suspected) exposure to COVID-19 Status: Acute Assessment and Plan: COVID test negative (14) Obstructive sleep apnea: Onset Date: 2018 Code(s): G47.33 - Obstructive sleep apnea (adult) (pediatric) Status: Acute (15) COPD exacerbation: Code(s): J44.1 - Chronic obstructive pulmonary disease with (acute) exacerbation Status: Acute Additional Plan Acute on chronic hypoxemic respiratory failure, Multifactorial etiology-COPD exacerbation, recurrent pneumonia Also has history of obstructive sleep apnea on BiPAP at night Continue ceftriaxone azithromycin Reduce IV steroid dose from 60 to 40 Currently patient is tolerating 5 L oxygen, wean as symptoms allow and attempt transition to inhaled meds Will need rehab on discharge History of multiple malignancy with metastases Clear cell carcinoma of right kidney Non-small cell carcinoma right lung History of prostate cancer 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, undergoing radiation therapy Previously has had discussion of hospice or palliative care -will discuss further with him tomorrow Hyponatremia Borderline euvolemic, with BUN creatinine ratio just above 20 Obtain urine osmolality as marker of serum ADH, Fluid restrict as necessary based on results Subjective Date/time seen: 05/31/21 19:40 Interval history: No acute medical complaints. Patient able to speak in complete sentences, and not get out of breath in conversation. A and O x4, and keyed into medical situation. Review of Systems Review of Systems: All systems reviewed & are unremarkable except as noted in HPI and below Constitutional: Constitutional: Reports fatigue and Reports weakness Neurologic: Reports weakness Endocrine: Endocrine: Reports fatigue Exam Narrative: GENERAL: Thin built, and in no acute distress. HEAD: Normocephalic, atraumatic. EYES: PERRLA and EOMI. ENT: Nares clear, no rhinorrhea or epistaxis. Mucous membranes moist. NECK: Supple. No masses. No JVD C
[2021-05-31] MEDS: methylPREDNISolone SOD SUCC 40 MG VIAL IV PUSH (21:51)
[2021-06-01] VITALS (11 sets, daily range): BP systolic 100–120; BP diastolic 40–65; PULSE 66–109; RESP 18–30; TEMP 36.2–36.7; O2SAT 92–95
[2021-06-01] MEDS: ALBUTEROL SULFATE NEB 2.5 MG/0.5 ML INH 5 MG INHALATION ×3 (02:45→23:34)
[2021-06-01] MEDS: IPRATROPIUM BR 0.02% INH SOLN 0.5 MG/2.5 ML VIAL INHALATION ×3 (02:45→23:34)
[2021-06-01 06:36] LABS: Hematocrit 23.5 % (42.0-52.0); Hemoglobin 7.7 g/dL (14.0-18.0); Immature Granulocyte Absolute 0.07 K/mm3 (0.00-0.031); Immature Granulocyte Percent A 1.2 % (0-0.5); Immature Platelet Fraction Pct 3.2 % (0.9-11.2); Lymphocytes Absolute Auto 0.23 K/mm3 (0.9-3.2); Mean Corpuscular HGB Conc 32.8 g/dl (32-36); Mean Corpuscular Hemoglobin 30.8 pg (26-34); Mean Platelet Volume 10.9 fl (7.4-10.4); Monocytes Absolute Auto 0.3 K/mm3 (0.1-0.6); Monocytes Percent Auto 5.9 % (2.6-8.5); Neutrophils Absolute Auto 5.1 K/mm3 (1.3-6.7); Neutrophils Percent Auto 88.9 % (45.5-73.1); Nucleated Red Blood Cells Perc 0.3 % (0.0-0.2); Platelet Count Result 65 k/mm3 (150-375); Red Cell Distribution Width 24.6 % (11.5-14.5); White Blood Count 5.8 K/mm3 (4.5-10.0)
[2021-06-01 06:44] LABS: Alanine Aminotransferase 15 U/L (4-50); Albumin Level 2.6 g/dL (3.5-5.1); Alkaline Phosphatase 72 U/L (38-126); Anion Gap 3 mmol/L (8-16); Aspartate Amino Transferase 18 U/L (17-59); Bilirubin,Total 0.4 mg/dL (0.2-1.3); Blood Urea Nitrogen 25 mg/dL (9-20); Calcium 8.7 mg/dL (8.4-10.2); Carbon Dioxide 22 mmol/L (22-30); Chloride 106 mmol/L (98-107); Estimated CRCL calculation 45 ml/min; Estimated Glomerular Filt Rate > 60; Glucose 140 mg/dL (65-110); Magnesium 1.7 mg/dL (1.6-2.3); Phosphorus 3.2 mg/dL (2.5-4.5); Potassium 3.7 mmol/L (3.4-5.0); Sodium 131 mmol/L (137-145)
[2021-06-01] MEDS: SUCRALFATE SUSP 100 MG/ML 10 ML UDC 1000 MG PO ×3 (06:49→21:02)
[2021-06-01] MEDS: LEVOTHYROXINE SODIUM 75 MCG TABLET PO (06:49)
[2021-06-01] MEDS: methylPREDNISolone SOD SUCC 40 MG VIAL IV PUSH ×3 (06:50→21:02)
[2021-06-01] MEDS: OPTI-GEN TAB 2 TABLET PO ×2 (08:35→18:05)
[2021-06-01] MEDS: amLODIPine BESYLATE 2.5 MG TABLET PO (08:36)
[2021-06-01] MEDS: CYANOCOBALAMIN 1,000 MCG TABLET 1000 MCG PO (08:36)
[2021-06-01] MEDS: guaiFENesin 12 HR 600 MG TABCR PO (08:37)
[2021-06-01] MEDS: MAGNESIUM OXIDE 400 MG TABLET PO (08:38)
[2021-06-01] MEDS: CHOLECALCIFEROL 1,000 UNITS TABLET 1000 UNITS PO (08:38)
[2021-06-01] MEDS: POTASSIUM CHLORIDE 20 MEQ TABLET.ER 40 MEQ PO (08:38)
[2021-06-01] MEDS: PANTOPRAZOLE 40 MG TABLET PO ×2 (08:38→18:06)
[2021-06-01] MEDS: FERROUS SULFATE 324 MG TABLET PO ×2 (08:38→18:06)
--- NOTE | 2021-06-01 11:44 | PCRCNOTE ---
Window of time for administration has passed. See next scheduled administration.
--- NOTE | 2021-06-01 13:27 | PM.IMPN ---
Progress Note: A&P Assessment and Plan (1) Acute and chronic respiratory failure: Qualifiers: Respiratory failure complication: hypoxia Qualified Code(s): J96.21 - Acute and chronic respiratory failure with hypoxia Code(s): J96.20 - Acute and chronic respiratory failure, unspecified whether with hypoxia or hypercapnia Status: Acute (2) Tachycardia: Code(s): R00.0 - Tachycardia, unspecified Status: Acute (3) Dysphagia: Qualifiers: Dysphagia type: unspecified Qualified Code(s): R13.10 - Dysphagia, unspecified Code(s): R13.10 - Dysphagia, unspecified Status: Acute (4) Nausea: Code(s): R11.0 - Nausea Status: Acute (5) GERD (gastroesophageal reflux disease): Qualifiers: Esophagitis presence: with esophagitis Esophagitis bleeding: unspecified whether hemorrhage Qualified Code(s): K21.00 - Gastro-esophageal reflux disease with esophagitis, without bleeding Code(s): K21.9 - Gastro-esophageal reflux disease without esophagitis Status: Acute (6) Hypokalemia: Code(s): E87.6 - Hypokalemia Status: Acute (7) Essential hypertension: Code(s): I10 - Essential (primary) hypertension Status: Acute (8) Clear cell carcinoma of right kidney: Code(s): C64.1 - Malignant neoplasm of right kidney, except renal pelvis Status: Acute (9) Non-small cell cancer of right lung: Code(s): C34.91 - Malignant neoplasm of unspecified part of right bronchus or lung Status: Acute (10) Gastric AVM: Code(s): K31.819 - Angiodysplasia of stomach and duodenum without bleeding Status: Acute (11) Pulmonary fibrosis: Code(s): J84.10 - Pulmonary fibrosis, unspecified Status: Acute (12) Lung nodule: Code(s): R91.1 - Solitary pulmonary nodule Status: Acute (13) Suspected COVID-19 virus infection: Code(s): Z20.822 - Contact with and (suspected) exposure to COVID-19 Status: Acute Assessment and Plan: COVID test negative (14) Obstructive sleep apnea: Onset Date: 2018 Code(s): G47.33 - Obstructive sleep apnea (adult) (pediatric) Status: Acute (15) COPD exacerbation: Code(s): J44.1 - Chronic obstructive pulmonary disease with (acute) exacerbation Status: Acute Additional Plan Acute on chronic hypoxemic respiratory failure, Multifactorial etiology-COPD exacerbation, recurrent pneumonia Also has history of obstructive sleep apnea on BiPAP at night Continue ceftriaxone azithromycin, as would help with COPD exacerbation and pneumonia Reduce IV steroid dose from 60 to 40 Currently patient is tolerating 5 L oxygen, wean as symptoms allow and attempt transition to inhaled meds Will need rehab on discharge History of multiple malignancy with metastases Clear cell carcinoma of right kidney Non-small cell carcinoma right lung History of prostate cancer 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, undergoing radiation therapy Previously has had discussion of hospice or palliative care -will discuss further with him tomorrow Hyponatremia Borderline euvolemic, with BUN creatinine ratio just above 20 Obtain urine osmolality as marker of serum ADH, Fluid restrict as necessary based on results Subjective Date/time seen: 06/01/21 13:27 Interval history: Conversational, no acute medical complaints. Doing well on nasal cannula oxygen. Review of Systems Review of Systems: All systems reviewed & are unremarkable except as noted in HPI and below Constitutional: Constitutional: Reports fatigue and Reports weakness Neurologic: Reports weakness Endocrine: Endocrine: Reports fatigue Exam Narrative: GENERAL: Thin built, and in no acute distress. HEAD: Normocephalic, atraumatic. EYES: PERRLA and EOMI. ENT: Nares clear, no rhinorrhea or epistaxis. Mucous membranes moist. NECK: Supple. No masses. No JVD CHEST: Diminished aeration in all
[2021-06-01] MEDS: DORNASE ALFA INH SOLN 1 MG/ML 2.5 ML AMP 2.5 MG INHALATION (23:45)
[2021-06-02] VITALS (13 sets, daily range): BP systolic 102–118; BP diastolic 55–65; PULSE 90–112; RESP 16–26; TEMP 35.9–36.2; O2SAT 92–100
[2021-06-02] MEDS: SUCRALFATE SUSP 100 MG/ML 10 ML UDC 1000 MG PO ×4 (06:55→22:19)
[2021-06-02] MEDS: methylPREDNISolone SOD SUCC 40 MG VIAL IV PUSH (06:55)
[2021-06-02] MEDS: LEVOTHYROXINE SODIUM 75 MCG TABLET PO (06:55)
[2021-06-02 07:35] LABS: Hematocrit 25.1 % (42.0-52.0); Hemoglobin 7.9 g/dL (14.0-18.0); Immature Granulocyte Absolute 0.08 K/mm3 (0.00-0.031); Immature Granulocyte Percent A 1.6 % (0-0.5); Immature Platelet Fraction Pct 3.4 % (0.9-11.2); Lymphocytes Absolute Auto 0.29 K/mm3 (0.9-3.2); Lymphocytes Percent Auto 5.7 % (18.3-44.2); Mean Corpuscular HGB Conc 31.5 g/dl (32-36); Mean Corpuscular Hemoglobin 30.9 pg (26-34); Mean Platelet Volume 9.7 fl (7.4-10.4); Monocytes Absolute Auto 0.4 K/mm3 (0.1-0.6); Monocytes Percent Auto 7.1 % (2.6-8.5); Neutrophils Absolute Auto 4.4 K/mm3 (1.3-6.7); Neutrophils Percent Auto 85.6 % (45.5-73.1); Nucleated Red Blood Cells Absolute Auto 0.1 K/mm3 (0.0-0.012); Platelet Count Result 71 k/mm3 (150-375); Red Blood Count 2.56 M/mm3 (4.6-6.20); Red Cell Distribution Width 24.5 % (11.5-14.5); White Blood Count 5.1 K/mm3 (4.5-10.0)
[2021-06-02] MEDS: DORNASE ALFA INH SOLN 1 MG/ML 2.5 ML AMP 2.5 MG INHALATION ×2 (08:42→21:32)
[2021-06-02] MEDS: ALBUTEROL SULFATE NEB 2.5 MG/0.5 ML INH 5 MG INHALATION (08:42)
[2021-06-02] MEDS: IPRATROPIUM BR 0.02% INH SOLN 0.5 MG/2.5 ML VIAL INHALATION ×3 (08:43→21:31)
[2021-06-02 08:46] LABS: Alanine Aminotransferase 16 U/L (4-50); Albumin Level 2.6 g/dL (3.5-5.1); Alkaline Phosphatase 71 U/L (38-126); Anion Gap 5 mmol/L (8-16); Aspartate Amino Transferase 18 U/L (17-59); Bilirubin,Total 0.4 mg/dL (0.2-1.3); Blood Urea Nitrogen 27 mg/dL (9-20); Calcium 8.8 mg/dL (8.4-10.2); Carbon Dioxide 22 mmol/L (22-30); Chloride 105 mmol/L (98-107); Estimated CRCL calculation 49 ml/min; Estimated Glomerular Filt Rate > 60; Glucose 135 mg/dL (65-110); Magnesium 1.8 mg/dL (1.6-2.3); Phosphorus 2.9 mg/dL (2.5-4.5); Potassium 3.9 mmol/L (3.4-5.0); Sodium 132 mmol/L (137-145)
--- NOTE | 2021-06-02 09:45 | PM.CNPUL ---
History of Present Illness History of Present Illness Consult date: 06/02/21 Reason for consult: COPD Chief complaint: Hypoxia Narrative: Patient is followed in the Pulmonary Clinic in his last visit was 04/02/2021. he has severe COPD (on 3 L NC rest and ambulation per home O2 assessment 11/19/20), GABRIELLA (recomended bipap 9/5, noncompliant), ILD/pulm fibrosis, lung cance (s/p radiation treatment finished 04/07/21, 6 cycles carboplatinum and taxol and further treatment onhold due to poor performance status. Renal cell carcinoma. Per the Radiation Oncology note on 05/15/2021 his systemic chemotherapy was discontinued and his radiation therapy to the kidney was discontinued for declining health. This note says that hospice was appropriate. Hx COVID PNA Oct-Nov 2020. Patient recently admitted and discharged on 05/22 to finish levawuin for 7 days, s/p 4 days prednisone (), trelelgy, 2 L rest and 4 L ambulation and BiPAP 9/5 plus 2 L bleed in. Now patietn admitted for SOB and treated with ceftraixone and azithromycin for pneumonia and solumedrol and bronchodilators for COPD exacerbation. [facility] Past Medical History Medical History Diastolic dysfunction Echocardiogram November 2018: Impaired diastolic relaxation grade 1, ejection fraction 60%, mild left atrial enlargement, mild tricuspid regurgitation Duodenal arteriovenous malformation Dysphagia Essential hypertension Gastric AVM GERD (gastroesophageal reflux disease) History of tobacco abuse Quit 2016. Smoked for 50 years. Left rotator cuff tear Macular degeneration Nausea Obstructive sleep apnea (2018) 06/15/2019 without optimal pressure. Bilevel titration 07/26/2020 which demonstrated poor sleep efficiency but sufficient pressure settings of 9/5 started September 2020 Osteopenia Noted on DEXA scan October 2020 Reflux esophagitis Severe chronic obstructive pulmonary disease PFTs 12/07/2018: FEV1 48% with airflow obstruction, TLC 165% with air trapping and DLCO of 81% Surgical History Surgical History H/O left knee surgery History of bilateral cataract extraction History of carpal tunnel release History of esophagogastroduodenoscopy (EGD) June 2020 demonstrated reflux esophagitis and duodenal and gastric AVMs History of prostatectomy 1992 due to prostate cancer History of vasectomy Hx of tonsillectomy Family History Family History Sibling Stomach cancer Brother Father Atherosclerosis Heart disease Social History Social History Social History: He smoked 1-2 packs per day for 60 years but quit smoking in 2017. Primary care physician: Dr. Chacorta Perry Surrogate decision maker: Ivon (daughter) Years smoked: 60 Smoking status: Former smoker Tobacco type: cigarettes Second hand tobacco smoke exposure: No Smoking end date: 05/18/17 Alcohol intake: unknown Alcohol use details: social Substance use: unknown Substance use type: does not use Gender identity (if verbalized by the patient): Male Spiritual care concerns: No Meds Home Medications and Allergies Home Medications Medication Instructions Recorded Confirmed Type cholecalciferol (vitamin D3) 25 1,000 unit PO DAILY 12/11/19 05/30/21 History mcg (1,000 unit) capsule albuterol sulfate 2 inh INHALATION QID PRN #6.7 g 11/20/20 05/30/21 Rx Trelegy Ellipta 1 inh INHALATION QAM 02/17/21 05/30/21 History coQ10 (ubiquinol) 100 mg PO DAILY 02/17/21 05/30/21 History ferrous sulfate 324 mg PO BID 03/07/21 05/30/21 History levothyroxine 75 mcg tablet 75 mcg PO DAILY #90 tablet 03/10/21 05/30/21 Rx PreserVision AREDS 2 tablet PO BID 05/18/21 05/30/21 History amlodipine 2.5 mg PO DAILY 05/18/21 05/30/21 History cyanocobalamin (vitamin B-12) 1,000 mcg PO D
--- NOTE | 2021-06-02 09:58 | PM.PNPUL ---
Progress Note: A&P Assessment and Plan (1) COPD exacerbation: Code(s): J44.1 - Chronic obstructive pulmonary disease with (acute) exacerbation Status: Acute Assessment and Plan: Patient with a history of severe COPD with PFTs on 12/07/2018 with an FEV1 of 48% predicted, Chronic interstitial lung disease with a pattern consistent with UIP on CT scan of the chest 11/07/2020, on 2-3 L nasal cannula /, lung cancer and renal cell cancer, and GABRIELLA with recommended BIPAP 9/5 and 2 L bleed in. 06/02 No wheezes on exam and patient states he is breathing at his baseline. Will change to prednisone 40 mg PO today, continue albuterol and ipratroprium nebsQ 6 hr. Emperically on ceftriaxone and azithromycin. No large focal infiltrates on CT scan. Follow. Patient will be discharged to rehabilitation center. (2) Malignant neoplasm of lower lobe, right bronchus or lung: Code(s): C34.31 - Malignant neoplasm of lower lobe, right bronchus or lung Status: Acute Assessment and Plan: Per oncology note 05/19/21 Non-small cell lung cancer stage IIIA is status post radiation therapy treatment completed April 07, 2021. Patient completed weekly chemotherapy with carboplatin and Taxol for 6 cycles. Further chemotherapy was placed on hold due to patient poor performance status. Patient now came into the hospital with increasing shortness of breath along with tiredness and fatigue. Patient found to be anemic with hemoglobin of 7.1. He COVID testing has been ordered. Renal cell carcinoma. Plan was to start SBRT treatment. Treatment was also placed on hold due to patient poor performance status. Per the radiation oncologist note on 05/15/2021 he spoke to the patient and the daughter and they have discontinued his systemic there are 8 therapy due to his clinical decline. and they are holding off on SBRT for few weeks as well. Of note It mentions that hospice care is appropriate Follow up with Dr. Contreras (3) Obstructive sleep apnea: Onset Date: 2018 Code(s): G47.33 - Obstructive sleep apnea (adult) (pediatric) Status: Acute Assessment and Plan: 06/02 Patient was set up with a home BiPAP 9/5 with 2 L bleed in on last admission. Patient is unsure if he use this machine at home. In the hospital he has been noncompliant with this but says that he is breathing better and will attempt to use this at night. When patient is discharged she should be continued on BiPAP 9/5 with 2 L bleed in. Subjective Date/time seen: 06/02/21 09:58 Interval history: Patient is followed in the Pulmonary Clinic in his last visit was 04/02/2021. he has severe COPD (on 3 L NC rest and ambulation per home O2 assessment 11/19/20), GABRIELLA (recomended bipap 9/5, noncompliant), ILD/pulm fibrosis, lung cance (s/p radiation treatment finished 04/07/21, 6 cycles carboplatinum and taxol and further treatment onhold due to poor performance status. Renal cell carcinoma. Per the Radiation Oncology note on 05/15/2021 his systemic chemotherapy was discontinued and his radiation therapy to the kidney was discontinued for declining health. This note says that hospice was appropriate. Hx COVID PNA Oct-Nov 2020. Patient recently admitted and discharged on 05/22 to finish levawuin for 7 days, s/p 4 days prednisone (), trelelgy, 2 L rest and 4 L ambulation and BiPAP 9/5 plus 2 L bleed in. 05/31 Chief complaint: Hypoxia Narrative: I spoke with his daughter Ivon by phone [phone]; great source of information. He is on Trelegy at home, not using it here as he was acutely ill, was not able to inhale sufficiently to activate the device; is on solumedrol IV 60 mg Q 6 hours, nebulized ipratropium and albuterol. These 3 medications replace the Trelegy while he is here. Daughter said that he was set up with a machine at home recently, thought it was a CPAP or something to use at night. The patient said that he just got a nebulize
--- NOTE | 2021-06-02 11:11 | PCOTNOTE ---
Attempted to work with patient, patient became agitated and aggressive, shouting at this therapist. Patient stated, You're not listening! You're hearing but you don't know how to interpret. Just let me get my breathing right and shut up! Attempted to console/encourage patient to perform PLB with decreased O2 sats, patient increasingly agitated. Will attempt again later today if possible to see for OT.
[2021-06-02] MEDS: POTASSIUM CHLORIDE 20 MEQ TABLET.ER 40 MEQ PO (11:47)
[2021-06-02] MEDS: OPTI-GEN TAB 2 TABLET PO ×2 (11:47→17:16)
[2021-06-02] MEDS: FERROUS SULFATE 324 MG TABLET PO ×2 (11:47→17:16)
[2021-06-02] MEDS: guaiFENesin 12 HR 600 MG TABCR PO (11:48)
[2021-06-02] MEDS: PANTOPRAZOLE 40 MG TABLET PO ×2 (11:48→17:16)
[2021-06-02] MEDS: CHOLECALCIFEROL 1,000 UNITS TABLET 1000 UNITS PO (11:48)
[2021-06-02] MEDS: amLODIPine BESYLATE 2.5 MG TABLET PO (11:48)
[2021-06-02] MEDS: CYANOCOBALAMIN 1,000 MCG TABLET 1000 MCG PO (11:48)
[2021-06-02] MEDS: MAGNESIUM OXIDE 400 MG TABLET PO (11:48)
[2021-06-02] MEDS: predniSONE 20 MG TABLET 40 MG PO (14:21)
[2021-06-02] MEDS: ALBUTEROL SULFATE NEB 2.5 MG/0.5 ML INH INHALATION (16:21)
--- NOTE | 2021-06-02 19:31 | PM.IMPN ---
Progress Note: A&P Assessment and Plan (1) Acute and chronic respiratory failure: Qualifiers: Respiratory failure complication: hypoxia Qualified Code(s): J96.21 - Acute and chronic respiratory failure with hypoxia Code(s): J96.20 - Acute and chronic respiratory failure, unspecified whether with hypoxia or hypercapnia Status: Acute (2) Tachycardia: Code(s): R00.0 - Tachycardia, unspecified Status: Acute (3) Dysphagia: Qualifiers: Dysphagia type: unspecified Qualified Code(s): R13.10 - Dysphagia, unspecified Code(s): R13.10 - Dysphagia, unspecified Status: Acute (4) Nausea: Code(s): R11.0 - Nausea Status: Acute (5) GERD (gastroesophageal reflux disease): Qualifiers: Esophagitis presence: with esophagitis Esophagitis bleeding: unspecified whether hemorrhage Qualified Code(s): K21.00 - Gastro-esophageal reflux disease with esophagitis, without bleeding Code(s): K21.9 - Gastro-esophageal reflux disease without esophagitis Status: Acute (6) Hypokalemia: Code(s): E87.6 - Hypokalemia Status: Acute (7) Essential hypertension: Code(s): I10 - Essential (primary) hypertension Status: Acute (8) Clear cell carcinoma of right kidney: Code(s): C64.1 - Malignant neoplasm of right kidney, except renal pelvis Status: Acute (9) Non-small cell cancer of right lung: Code(s): C34.91 - Malignant neoplasm of unspecified part of right bronchus or lung Status: Acute (10) Gastric AVM: Code(s): K31.819 - Angiodysplasia of stomach and duodenum without bleeding Status: Acute (11) Pulmonary fibrosis: Code(s): J84.10 - Pulmonary fibrosis, unspecified Status: Acute (12) Lung nodule: Code(s): R91.1 - Solitary pulmonary nodule Status: Acute (13) Suspected COVID-19 virus infection: Code(s): Z20.822 - Contact with and (suspected) exposure to COVID-19 Status: Acute Assessment and Plan: COVID test negative (14) Obstructive sleep apnea: Onset Date: 2018 Code(s): G47.33 - Obstructive sleep apnea (adult) (pediatric) Status: Acute (15) COPD exacerbation: Code(s): J44.1 - Chronic obstructive pulmonary disease with (acute) exacerbation Status: Acute Additional Plan Acute on chronic hypoxemic respiratory failure, Multifactorial etiology-COPD exacerbation, recurrent pneumonia Also has history of obstructive sleep apnea on BiPAP at night Continue ceftriaxone azithromycin, as would help with COPD exacerbation and pneumonia Reduce steroid dose from 60 to 40 Currently patient is tolerating 5 L oxygen, wean as symptoms allow and attempt transition to inhaled meds Will need rehab on discharge History of multiple malignancy with metastases Clear cell carcinoma of right kidney Non-small cell carcinoma right lung History of prostate cancer 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, undergoing radiation therapy Previously has had discussion of hospice or palliative care Per patient, daughter is looking into options for placement including hospice which he is open to Hyponatremia Borderline euvolemic, with BUN creatinine ratio just above 20 Obtain urine osmolality as marker of serum ADH, Fluid restrict as necessary based on results Subjective Date/time seen: 06/02/21 19:31 no acute medical complaints Review of Systems Review of Systems: All systems reviewed & are unremarkable except as noted in HPI and below Constitutional: Constitutional: Reports fatigue and Reports weakness Neurologic: Reports weakness Endocrine: Endocrine: Reports fatigue Exam Narrative: GENERAL: Thin built, and in no acute distress. HEAD: Normocephalic, atraumatic. EYES: PERRLA and EOMI. ENT: Nares clear, no rhinorrhea or epistaxis. Mucous membranes moist. NECK: Supple. No masses. No JVD CHEST: Diminished aeration in all lung hugo no appr
[2021-06-03] VITALS (7 sets, daily range): BP systolic 106–121; BP diastolic 58–83; PULSE 85–100; RESP 16–24; TEMP 35.9–36.3; O2SAT 92–95
[2021-06-03] MEDS: ALBUTEROL SULFATE NEB 2.5 MG/3 ML INH (02:19)
[2021-06-03] MEDS: ALBUTEROL SULFATE NEB 2.5 MG/0.5 ML INH INHALATION ×3 (02:21→08:59)
[2021-06-03] MEDS: LEVOTHYROXINE SODIUM 75 MCG TABLET PO (06:22)
[2021-06-03] MEDS: SUCRALFATE SUSP 100 MG/ML 10 ML UDC 1000 MG PO (06:22)
[2021-06-03 07:13] LABS: Basophils Percent Auto 0.2 % (0.2-1.2); Hemoglobin 8.2 g/dL (14.0-18.0); Immature Granulocyte Absolute 0.13 K/mm3 (0.00-0.031); Immature Granulocyte Percent A 2.8 % (0-0.5); Immature Platelet Fraction Pct 4.1 % (0.9-11.2); Lymphocytes Absolute Auto 0.48 K/mm3 (0.9-3.2); Lymphocytes Percent Auto 10.2 % (18.3-44.2); Mean Corpuscular HGB Conc 32.8 g/dl (32-36); Mean Corpuscular Hemoglobin 31.3 pg (26-34); Mean Corpuscular Volume 95.4 fl (80-100); Monocytes Absolute Auto 0.5 K/mm3 (0.1-0.6); Monocytes Percent Auto 10.4 % (2.6-8.5); Neutrophils Absolute Auto 3.6 K/mm3 (1.3-6.7); Neutrophils Percent Auto 76.4 % (45.5-73.1); Nucleated Red Blood Cells Absolute Auto 0.1 K/mm3 (0.0-0.012); Nucleated Red Blood Cells Perc 1.7 % (0.0-0.2); Platelet Count Result 70 k/mm3 (150-375); Red Blood Count 2.62 M/mm3 (4.6-6.20); Red Cell Distribution Width 24.7 % (11.5-14.5); White Blood Count 4.7 K/mm3 (4.5-10.0)
[2021-06-03 08:03] LABS: Alanine Aminotransferase 16 U/L (4-50); Albumin Level 2.7 g/dL (3.5-5.1); Alkaline Phosphatase 69 U/L (38-126); Anion Gap 7 mmol/L (8-16); Aspartate Amino Transferase 18 U/L (17-59); Bilirubin,Total 0.5 mg/dL (0.2-1.3); Blood Urea Nitrogen 24 mg/dL (9-20); Calcium 8.7 mg/dL (8.4-10.2); Carbon Dioxide 23 mmol/L (22-30); Chloride 100 mmol/L (98-107); Estimated CRCL calculation 54 ml/min; Estimated Glomerular Filt Rate > 60; Glucose 113 mg/dL (65-110); Magnesium 1.8 mg/dL (1.6-2.3); Phosphorus 2.8 mg/dL (2.5-4.5); Sodium 130 mmol/L (137-145)
[2021-06-03] MEDS: FERROUS SULFATE 324 MG TABLET PO (08:22)
[2021-06-03] MEDS: CHOLECALCIFEROL 1,000 UNITS TABLET 1000 UNITS PO (08:22)
[2021-06-03] MEDS: CYANOCOBALAMIN 1,000 MCG TABLET 1000 MCG PO (08:22)
[2021-06-03] MEDS: PANTOPRAZOLE 40 MG TABLET PO (08:22)
[2021-06-03] MEDS: OPTI-GEN TAB 2 TABLET PO (08:22)
[2021-06-03] MEDS: POTASSIUM CHLORIDE 20 MEQ TABLET.ER 40 MEQ PO (08:22)
[2021-06-03] MEDS: MAGNESIUM OXIDE 400 MG TABLET PO (08:22)
[2021-06-03] MEDS: amLODIPine BESYLATE 2.5 MG TABLET PO (08:22)
[2021-06-03] MEDS: predniSONE 20 MG TABLET 40 MG PO (08:22)
[2021-06-03] MEDS: DORNASE ALFA INH SOLN 1 MG/ML 2.5 ML AMP 2.5 MG INHALATION (08:59)
--- NOTE | 2021-06-03 09:17 | PM.PNPUL ---
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 06/02 No wheezes on exam and patient states he is breathing at his baseline. Will change to prednisone 40 mg PO today, continue albuterol and ipratroprium nebsQ 6 hr. Emperically on ceftriaxone and azithromycin. No large focal infiltrates on CT scan. Follow. 06/03 Patient states that he is breathing back at his baseline. He is currently on 2 L with saturations 100%. I will discontinue his albuterol and ipratropium nebulizers and place him on trelegy inhaler. I will discontinue his azithromycin as he really has received 5 days Patient stable for discharge from pulmonary perspective to rehabilitation center on these pulmonary medications. Prednisone 40 mg PO Q day through 06/04 and then taper by 10 mg PO every three days to off Total 7 days antibiotics, if remains in house continue ceftriaxone through 06/05. If discharged prior to that finish 7 days with levaquin 750 mg PO Q day through 06/05. Trelegy 100/62.5/25 at 1 puff Q day Rescue albuterol 2 puffs Q 4 hours PRN SOB and wheezing Oxygen 2 L at rest and 4 with ambulation. When sleeps use BiPAP 9/5 plus 2 L bleed in at home. Follow up pulmonary clinic 07/30/21 at 13:00. Discussed with Dr. Viveros, will sign off, call with any questions. (2) Malignant neoplasm of lower lobe, right bronchus or lung: Code(s): C34.31 - Malignant neoplasm of lower lobe, right bronchus or lung Status: Acute Assessment and Plan: Per oncology note 05/19/21 Non-small cell lung cancer stage IIIA is status post radiation therapy treatment completed April 07, 2021. Patient completed weekly chemotherapy with carboplatin and Taxol for 6 cycles. Further chemotherapy was placed on hold due to patient poor performance status. Patient now came into the hospital with increasing shortness of breath along with tiredness and fatigue. Patient found to be anemic with hemoglobin of 7.1. He COVID testing has been ordered. Renal cell carcinoma. Plan was to start SBRT treatment. Treatment was also placed on hold due to patient poor performance status. Per the radiation oncologist note on 05/15/2021 he spoke to the patient and the daughter and they have discontinued his systemic there are 8 therapy due to his clinical decline. and they are holding off on SBRT for few weeks as well. Of note It mentions that hospice care is appropriate Follow up with Dr. Sherman and Kunal (3) Obstructive sleep apnea: Onset Date: 2018 Code(s): G47.33 - Obstructive sleep apnea (adult) (pediatric) Status: Acute Assessment and Plan: 06/02 Patient was set up with a home BiPAP 9/5 with 2 L bleed in on last admission. Patient is unsure if he use this machine at home. In the hospital he has been noncompliant with this but says that he is breathing better and will attempt to use this at night. 06/03 patient has home machine but download demonstrated that he has only used the machine for 9 minutes. Patient would benefit from BiPAP at night and we will continue to try to use this at night when he is at home or if he is discharged to rehabilitation center. When patient is discharged he should be continued on BiPAP 9/5 with 2 L bleed in at night. Subjective Date/time seen: 06/03/21 09:17 Interval history: Patient is followed in the Pulmonary Clinic in his last visit was 04/02/2021. he has severe COPD (on 3 L NC rest and ambulation per home O2 assessment 11/19/20), GABRIELLA (recomended bipap 9/5, noncompl
--- NOTE | 2021-06-03 13:55 | PM.DS ---
DS: Summary Time Spent with Patient Time attestation: Total time spent providing and/or coordinating discharge services: DS: Data Data Completed and Pending Labs on day of discharge: Labs from last 24 hours 06/03/21 06/03/21 06:05 06:05 WBC 4.7 RBC 2.62 L Hgb 8.2 L Hct 25.0 L MCV 95.4 MCH 31.3 MCHC 32.8 RDW 24.7 H Plt Count 70 L MPV 11.0 H Immature Gran % (Auto) 2.8 H Neut % (Auto) 76.4 H Lymph % (Auto) 10.2 L [place] % (Auto) 10.4 H Eos % (Auto) 0.0 Baso % (Auto) 0.2 Lymph # (Auto) 0.48 L [place] # (Auto) 0.5 Eos # (Auto) 0.0 Baso # (Auto) 0.0 Abs Immat Gran (auto) 0.13 H Absolute Neuts (auto) 3.6 Absolute Nucleated RBC 0.1 H Nucleated RBC % 1.7 H % Immature Plt Fraction 4.1 Sodium 130 L Potassium 4.0 Chloride 100 Carbon Dioxide 23 Anion Gap 7 L BUN 24 H Creatinine 0.90 Estim Creat Clear Calc 54 Estimated GFR > 60 Glucose 113 H Calcium 8.7 Phosphorus 2.8 Magnesium 1.8 Total Bilirubin 0.5 AST 18 ALT 16 Alkaline Phosphatase 69 Total Protein 5.0 L Albumin 2.7 L Discharge Plan Discharge Attending physician on discharge: Carlos Viveros Consulting providers: Aby Perez Discharging Clinician: Carlos Viveros Patient Disposition: SNF Activity: as tolerated Diet: heart healthy Discharge Instructions: patient will follow up with Dr. Patel as scheduled, patient is instructed to wear his BIPAP at night, patient to follow up with his primary care provider as soon as possible. When sleeps use BiPAP 9/5 plus 2 L bleed in at home. Stand Alone Forms: General Discharge Information Discharge Medications: New levofloxacin 750 mg tablet 750 mg PO DAILY Qty: 2 RF: 0 prednisone 10 mg tablet 10 mg PO DAILY Qty: 22 RF: 0 Continued ferrous sulfate 324 mg (65 mg iron) Tablet,Delayed Release (Dr/Ec) 324 mg PO BID RF: 0 cholecalciferol (vitamin D3) 25 mcg (1,000 unit) capsule 1,000 unit PO DAILY RF: 0 coQ10 (ubiquinol) 100 mg Capsule 100 mg PO DAILY RF: 0 cyanocobalamin (vitamin B-12) 1,000 mcg Tablet 1,000 mcg PO DAILY RF: 0 amlodipine 2.5 mg Tablet 2.5 mg PO DAILY RF: 0 PreserVision AREDS 7,160 unit- 113 mg-100 unit Tablet 2 tablet PO BID RF: 0 guaifenesin [Mucinex] 600 mg Tablet Extended Release 12hr 600 mg PO Q12H PRN (Reason: Congestion) RF: 0 sucralfate 100 mg/mL Suspension 1,000 mg PO ACHS Qty: 500 RF: 1 magnesium oxide 400 mg (241.3 mg magnesium) Tablet 400 mg PO DAILY Qty: 30 RF: 0 pantoprazole [Protonix] 40 mg tablet,delayed release (DR/EC) 40 mg PO BID Qty: 60 RF: 1 albuterol sulfate 90 mcg/actuation HFA aerosol inhaler 2 inh inhalation QID PRN (Reason: shortness of breath or wheezing) Qty: 6.7 RF: 0 Trelegy Ellipta 100-62.5-25 mcg blister with device 1 inh inhalation QAM RF: 0 levothyroxine 75 mcg tablet 75 mcg PO DAILY Qty: 90 RF: 0 Discontinued levofloxacin 750 mg tablet 750 mg PO DAILY Qty: 2 RF: 0 Date of admission: 05/30/21 10:38 Primary Care Provider: Chacorta Perry Admitting Provider: Tia Gil Attending physician on admission: Tia Gil Condition: Stable Quality VTE Prophylaxis VTE prophylaxis: mechanical ordered and pharmacologic ordered
[2021-06-03 15:08] LABS: EDCOVIDSCREEN Negative (Negative)
[2021-06-04 23:31] LABS: Osmolality, Urine 444 mOsm/kg (50-1200)
--- NOTE | 2021-06-27 09:24 | PM.DS ---
DS: Admitting Diagnosis Discharge Date 06/03/21 Admitting Diagnosis Chief Complaint: Shortness of breath DS: Discharge Diagnosis Discharge Diagnosis (1) Acute and chronic respiratory failure: Qualifiers: Respiratory failure complication: hypoxia Qualified Code(s): J96.21 - Acute and chronic respiratory failure with hypoxia Code(s): J96.20 - Acute and chronic respiratory failure, unspecified whether with hypoxia or hypercapnia Status: Acute (2) Tachycardia: Code(s): R00.0 - Tachycardia, unspecified Status: Acute (3) Dysphagia: Qualifiers: Dysphagia type: unspecified Qualified Code(s): R13.10 - Dysphagia, unspecified Code(s): R13.10 - Dysphagia, unspecified Status: Acute (4) Nausea: Code(s): R11.0 - Nausea Status: Acute (5) GERD (gastroesophageal reflux disease): Qualifiers: Esophagitis presence: with esophagitis Esophagitis bleeding: unspecified whether hemorrhage Qualified Code(s): K21.00 - Gastro-esophageal reflux disease with esophagitis, without bleeding Code(s): K21.9 - Gastro-esophageal reflux disease without esophagitis Status: Acute (6) Hypokalemia: Code(s): E87.6 - Hypokalemia Status: Acute (7) Essential hypertension: Code(s): I10 - Essential (primary) hypertension Status: Acute (8) Clear cell carcinoma of right kidney: Code(s): C64.1 - Malignant neoplasm of right kidney, except renal pelvis Status: Acute (9) Non-small cell cancer of right lung: Code(s): C34.91 - Malignant neoplasm of unspecified part of right bronchus or lung Status: Acute (10) Gastric AVM: Code(s): K31.819 - Angiodysplasia of stomach and duodenum without bleeding Status: Acute (11) Pulmonary fibrosis: Code(s): J84.10 - Pulmonary fibrosis, unspecified Status: Acute (12) Lung nodule: Code(s): R91.1 - Solitary pulmonary nodule Status: Acute (13) Suspected COVID-19 virus infection: Code(s): Z20.822 - Contact with and (suspected) exposure to COVID-19 Status: Acute Assessment and Plan: COVID test negative (14) Obstructive sleep apnea: Onset Date: 2018 Code(s): G47.33 - Obstructive sleep apnea (adult) (pediatric) Status: Acute (15) COPD exacerbation: Code(s): J44.1 - Chronic obstructive pulmonary disease with (acute) exacerbation Status: Acute DS: Summary Hospital Course Reason for hospitalization: Reason for hospitalization: Chief Complaint: Shortness of breath Narrative: Patient presents to the ED after his oncologist visit for radiation treatment today. He was noted to be having increasing shortness of breath over the past few days. He is on oxygen from his recent discharge on 05/22/2021. 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 He denies any chest pain or fever chills. He has chronic cough but reports no new change in the cough. He denies any leg swelling. Patient however is hard of hearing and is poor historian most of the history taken from medical records. Hospital Course: Hospital Course: patient was discharged on 2020 Patient remains clinically stable and to his baseline, Patient was seen by his Guitar Repair Technician and will discharge the patient with his plans, will discharge today. Dr. Patel plan. Patient stable for discharge from pulmonary perspective to rehabilitation center on these pulmonary medications. Prednisone 40 mg PO Q day through 06/04 and then taper by 10 mg PO every three days to off Total 7 days antibiotics, if remains in house continue ceftriaxone through
== END 2021-06-03 17:10 | DRG 193 ==
LOC: ANHED 16:00 → ANH3MEDSUR 18:20
PROVIDERS: Internal Medicine; Internal Medicine Critical Care Medicine; Admitting Provider Internal Medicine; Emergency Provider Emergency Medicine; PCP Internal Medicine; Visit Provider Family Medicine
DX: J18.9 Pneumonia, unspecified organism (principal); J96.21 Acute and chronic respiratory failure with hypoxia; C34.31 Malignant neoplasm of lower lobe, right bronchus or lung; C64.1 Malignant neoplasm of right kidney, except renal pelvis; C79.51 Secondary malignant neoplasm of bone; E87.1 Hypo-osmolality and hyponatremia; J98.11 Atelectasis; J43.9 Emphysema, unspecified; Z20.822 Contact with and (suspected) exposure to COVID-19; R91.1 Solitary pulmonary nodule; J84.10 Pulmonary fibrosis, unspecified; R00.0 Tachycardia, unspecified; R13.10 Dysphagia, unspecified; G47.33 Obstructive sleep apnea (adult) (pediatric); K31.819 Angiodysplasia of stomach and duodenum without bleeding; E87.6 Hypokalemia; I10 Essential (primary) hypertension; K21.9 Gastro-esophageal reflux disease without esophagitis; M85.80 Other specified disorders of bone density and structure, unspecified site; H35.30 Unspecified macular degeneration; Z87.891 Personal history of nicotine dependence; Z98.42 Cataract extraction status, left eye; Z98.41 Cataract extraction status, right eye; Z85.46 Personal history of malignant neoplasm of prostate; Z99.81 Dependence on supplemental oxygen
CPT/HCPCS: 36415; 71045; 71046; 71275; 80048; 80053; 80076; 82728; 83605; 83735; 83880; 83935; 84100; 84145; 84484; 85025; 85055; 85610; 85730; 87426; 93005; 94640; 94667; 96365; 96366; 96375; 97161; 97165; 97535; 99285; A9270; C9803; J0456; J0696; J1940; J1956; J2920; J2930; J7030; J7512; Q9967; U0003; U0005

== ENCOUNTER 2021-07-01 11:35 | Emergency (ER) | payer MEDICARE, OTHER, SELFPAY ==
[2021-07-01 11:51] VITALS: BP 94/47; PULSE 120; RESP 36; TEMP 36.7; O2SAT 100
--- NOTE | 2021-07-01 11:54 | ED.EAR ---
HPI - Ear Problem General Chief complaint: Ear Stated complaint: Ear Wax Time Seen by Provider: 07/01/21 11:38 Source: patient and family (son) Mode of arrival: ambulatory Limitations: no limitations History of Present Illness HPI Narrative: 80 year old male presents to [facility] accompanied by his son for complaints of cerumen impaction to his left ear. Patient son reports that he was evaluated at a hearing aid facility who informed him that he needed his left ear irrigated. Son reports that they have been putting peroxide in her left ear with little relief. Patient denies fever, bodyaches, chills, nausea, vomiting or diarrhea. MD Complaint: other (cerumen impaction ) Location: left ear Discharge from ear: Reports no Treatment prior to arrival: none Related Data Home Medications Medication Instructions Recorded Confirmed cholecalciferol (vitamin D3) 25 1,000 unit PO DAILY 12/11/19 07/01/21 mcg (1,000 unit) capsule Trelegy Ellipta 1 inh INHALATION QAM 02/17/21 07/01/21 coQ10 (ubiquinol) 100 mg PO DAILY 02/17/21 07/01/21 ferrous sulfate 324 mg PO BID 03/07/21 07/01/21 PreserVision AREDS 2 tablet PO BID 05/18/21 07/01/21 amlodipine 2.5 mg PO DAILY 05/18/21 07/01/21 cyanocobalamin (vitamin B-12) 1,000 mcg PO DAILY 05/18/21 07/01/21 guaifenesin [Mucinex] 600 mg PO Q12H PRN 05/18/21 07/01/21 Allergies Allergy/AdvReac Type Severity Reaction Status Date / Time No Known Allergies Allergy Verified 07/01/21 11:51 Review of Systems Constitutional: Constitutional: Denies chills, Denies fever(s) and Denies weakness ENT: Denies epistaxis and Denies sore throat Comments: cerumen impaction to left ear Gastrointestinal: Gastrointestinal: Denies abdominal pain, Denies diarrhea, Denies nausea and Denies vomiting Integumentary/Breasts: Skin/Breast: Denies rash PMFSH Past Medical History Medical History Diastolic dysfunction Echocardiogram November 2018: Impaired diastolic relaxation grade 1, ejection fraction 60%, mild left atrial enlargement, mild tricuspid regurgitation Duodenal arteriovenous malformation Dysphagia Essential hypertension Gastric AVM GERD (gastroesophageal reflux disease) History of tobacco abuse Quit 2017. Smoked for 50 years. Left rotator cuff tear Macular degeneration Nausea Obstructive sleep apnea (2019) 06/15/2019 without optimal pressure. Bilevel titration 07/26/2020 which demonstrated poor sleep efficiency but sufficient pressure settings of 9/5 started September 2020 Osteopenia Noted on DEXA scan October 2020 Reflux esophagitis Severe chronic obstructive pulmonary disease PFTs 12/07/2018: FEV1 48% with airflow obstruction, TLC 165% with air trapping and DLCO of 81% Surgical History Surgical History H/O left knee surgery History of bilateral cataract extraction History of carpal tunnel release History of esophagogastroduodenoscopy (EGD) June 2020 demonstrated reflux esophagitis and duodenal and gastric AVMs History of prostatectomy 1992 due to prostate cancer History of vasectomy Hx of tonsillectomy Family History Family History Sibling Stomach cancer Brother Father Atherosclerosis Heart disease Social History Social History Social History: He smoked 1-2 packs per day for 60 years but quit smoking in 2017. Primary care physician: Dr. Chacorta Perry Surrogate decision maker: Ivon (daughter) Years smoked: 60 Smoking status: Former smoker Tobacco type: cigarettes Second hand tobacco smoke exposure: No Smoking end date: 05/18/17 Alcohol intake: unknown Alcohol use details: social Substance use: unknown Substance use type: does not use Gender identity (if verbalized by the patient): Male Sexual Orientation (if Ve
[2021-07-01 12:02] VITALS: PULSE 93; RESP 22; O2SAT 100
== END 2021-07-01 12:35 | disposition home or self-care (01) ==
PROVIDERS: Emergency Provider Nurse Practitioner Family; PCP Internal Medicine
DX: H61.23 Impacted cerumen, bilateral (principal); I10 Essential (primary) hypertension; Z87.891 Personal history of nicotine dependence
CPT/HCPCS: 69209; 99212; G0463

== ENCOUNTER 2021-10-01 10:00 | Outpatient (CLI) | payer MEDICARE, OTHER, SELFPAY ==
--- NOTE | ~2021-10-01 | CT_ITS ---
EXAMINATION: CT chest abdomen pelvis w con DATE: 10/01/2021 10:54 INDICATION: Non-small cell cancer of the right lung TECHNIQUE: Transaxial computed tomographic images of the chest, abdomen, and pelvis were obtained aft er the administration of 05/29/2021 intravenous contrast. The dose-length product (DLP) was 434.74 mGy -cm. Automated exposure control and iterative reconstruction technique were employed. COMPARISON: 05/29/2021, 12/23/2020 FINDINGS: CHEST CT: There is severe emphysema. Airspace opacities previously seen superimposed on emphysema have largely resolved. There is bandlike area of consolidation involving the right middle and lower lobes with ass ociated bronchiectasis. There is no pleural effusion or pneumothorax. The heart size is normal. Mild mediastinal lymphadenopathy is stable. There is volume loss in the right hemithorax. There is an unch anged burst fracture of T12. There is severe thoracic spondylosis at T7-8. A left subclavian Port-A-C ath ends with its tip in the distal superior vena cava. ABDOMEN/PELVIS CT: Cysts of the liver measure up to 12 mm in the right hepatic lobe. The spleen, pancreas, gallbladder, and adrenal glands are normal. There is a 5.1 x 4.9 cm complex cystic and solid mass of the right kid krissy which previously measured 4.8 cm. Cysts of the kidneys measure up to 3.2 cm on the left. There is calcified atherosclerosis of the aorta and many of the other arteries. No pathologically enlarged ab dominal or pelvic lymph nodes are identified. There is no free intraperitoneal gas or evidence of bow el obstruction. There is moderate lumbar spondylosis. Changes of prostatectomy and pelvic lymph node dissection are noted. IMPRESSION: 1. Bandlike opacity of the right lung involving the middle and lower lobes possibly reflecting radiat ion change. 2. Slowly enlarging right kidney mass, consistent with renal cell carcinoma. 3. Severe emphysema. Reviewed, dictated and finalized at location A. EY RESEARCH ANALYST IMPRESSION: 1. Bandlike opacity of the right lung involving the middle and lower lobes poss ibly reflecting radiation change. 2. Slowly enlarging right kidney mass, consistent with renal cell carcinoma. 3. Severe emphysema.
[2021-10-01 10:44] LABS: Estimated Glomerular Filt Rate > 60
== END 2021-10-01 10:01 | disposition home or self-care (01) ==
LOC: ANHIMG 10:03
PROVIDERS: PCP Internal Medicine; Visit Provider Internal Medicine Hematology & Oncology
DX: C34.91 Malignant neoplasm of unspecified part of right bronchus or lung (principal); N28.89 Other specified disorders of kidney and ureter; J43.9 Emphysema, unspecified; I70.0 Atherosclerosis of aorta
CPT/HCPCS: 71260; 74177; Q9967

== ENCOUNTER 2022-01-05 09:36 | Outpatient (CLI) | payer MEDICARE, OTHER, SELFPAY ==
--- NOTE | ~2022-01-05 | CT_ITS ---
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 The dose-length product (DLP) was 571.61 mGy-cm. Automated exposure control and iterative reconstruction technique were employed. COMPARISON: 10/01/2021 FINDINGS: CHEST CT: There is severe emphysema. A left subclavian Port-A-Cath ends with its tip in the distal superior eddi a cava. There is an unchanged band like area of consolidation involving the right middle and lower lo bes with associated bronchiectasis. There is a new 1.5 x 1.0 cm subpleural nodular opacity of the rig ht lower lobe on image 94. There is no pleural effusion or pneumothorax. There is volume loss in the right hemithorax. Mild mediastinal lymphadenopathy is unchanged. There is calcified coronary artery a therosclerosis. The heart size is normal. A stable T12 burst fracture is noted. ABDOMEN/PELVIS CT: Cysts of the liver measure up to 12 mm in the right hepatic lobe. The spleen, pancreas, gallbladder, and adrenal glands are normal. There is a 5.2 x 5.0 cm complex cystic and solid mass right kidney. Ad ditional cysts of the kidneys measure up to 3.2 cm. There is mild retroperitoneal lymphadenopathy mirna r the bifurcation of the aorta. There is no free intraperitoneal gas or evidence of bowel obstruction . There is calcified atherosclerosis of the aorta and many of the other arteries. There is moderate l umbar spondylosis. Changes of prostatectomy and pelvic lymph node dissection are noted. Colonic diver ticulosis is present without evidence of diverticulitis. IMPRESSION: 1. Bandlike opacity of the right middle and lower lobes, likely treated malignancy and radiation carrillo ge. 2. New subpleural nodule of the right lower lobe, possibly infectious or inflammatory however maligna ncy is not excluded. Follow-up CT in three months is recommended. 3. Slowly enlarging right kidney mass, consistent with renal cell carcinoma. 4. Retroperitoneal lymphadenopathy, consistent with metastatic disease. Reviewed, dictated and finalized at location B. IMPRESSION: 1. Bandlike opacity of the right middle and lower lobes, likely treated maligna ncy and radiation change. 2. New subpleural nodule of the right lower lobe, possibly infectious or inflam matory however malignancy is not excluded. Follow-up CT in three months is scotty mmended. 3. Slowly enlarging right kidney mass, consistent with renal cell carcinoma. 4. Retroperitoneal lymphadenopathy, consistent with metastatic disease.
[2022-01-05 09:56] LABS: Estimated Glomerular Filt Rate 49
== END 2022-01-05 09:37 | disposition home or self-care (01) ==
LOC: ANHIMG 09:39
PROVIDERS: PCP Internal Medicine; Visit Provider Internal Medicine Hematology & Oncology
DX: C34.91 Malignant neoplasm of unspecified part of right bronchus or lung (principal); N28.89 Other specified disorders of kidney and ureter
CPT/HCPCS: 71260; 74177; Q9967

== ENCOUNTER 2022-01-09 12:22 | Emergency (ER) | payer MEDICARE, OTHER, SELFPAY ==
--- NOTE | 2022-01-09 12:42 | ED.EAR ---
HPI - Ear Problem General Chief complaint: Ear Stated complaint: Ears Flushed Time Seen by Provider: 01/09/22 12:42 Source: patient Mode of arrival: ambulatory Limitations: no limitations History of Present Illness HPI Narrative: 81-year-old male presents from his audiology office with complaint of cerumen in the left ear. Here to have ear irrigated. All systems reviewed and negative except as noted above Related Data Home Medications Medication Instructions Recorded Confirmed cholecalciferol (vitamin D3) 25 1,000 unit PO DAILY 12/11/19 07/30/21 mcg (1,000 unit) capsule Trelegy Ellipta 1 inh INHALATION QAM 02/17/21 07/30/21 coQ10 (ubiquinol) 100 mg PO DAILY 02/17/21 07/30/21 ferrous sulfate 324 mg PO BID 03/07/21 07/30/21 PreserVision AREDS 2 tablet PO BID 05/18/21 07/30/21 cyanocobalamin (vitamin B-12) 1,000 mcg PO DAILY 05/18/21 07/30/21 Allergies Allergy/AdvReac Type Severity Reaction Status Date / Time No Known Allergies Allergy Verified 07/30/21 13:08 Review of Systems Review of Systems: CONSTITUTIONAL: Denies fever, chills, or sweats. EYES: Denies visual changes, redness, or discharge. ENT: Denies rhinorrhea, congestion, sore throat, or otalgia. Cerumen impaction to left ear. CARDIOVASCULAR: Denies chest pain, palpitations, or edema. RESPIRATORY: Denies cough or dyspnea. GASTROINTESTINAL: Denies abdominal pain, nausea, vomiting, or diarrhea. GENITOURINARY: Denies dysuria or hematuria. SKIN: Denies rash or itching. MUSCULOSKELETAL: Denies back pain, joint pain, or myalgia. NEUROLOGIC: Denies headache, numbness, or weakness. PSYCHIATRIC: Denies anxiety or depression. All other systems reviewed are negative, except as documented in HPI. [facility] Past Medical History Medical History Diastolic dysfunction Echocardiogram November 2018: Impaired diastolic relaxation grade 1, ejection fraction 60%, mild left atrial enlargement, mild tricuspid regurgitation Duodenal arteriovenous malformation Dysphagia Essential hypertension Gastric AVM GERD (gastroesophageal reflux disease) History of tobacco abuse Quit 2016. Smoked for 50 years. Left rotator cuff tear Macular degeneration Nausea Obstructive sleep apnea (2019) 06/15/2019 without optimal pressure. Bilevel titration 07/26/2020 which demonstrated poor sleep efficiency but sufficient pressure settings of 9/5 started September 2020 Osteopenia Noted on DEXA scan October 2020 Reflux esophagitis Severe chronic obstructive pulmonary disease PFTs 12/07/2018: FEV1 48% with airflow obstruction, TLC 165% with air trapping and DLCO of 81% Surgical History Surgical History H/O left knee surgery History of bilateral cataract extraction History of carpal tunnel release History of esophagogastroduodenoscopy (EGD) June 2020 demonstrated reflux esophagitis and duodenal and gastric AVMs History of prostatectomy 1992 due to prostate cancer History of vasectomy Hx of tonsillectomy Family History Family History Sibling Stomach cancer Brother Father Atherosclerosis Heart disease Social History Social History Social History: He smoked 1-2 packs per day for 60 years but quit smoking in 2017. Primary care physician: Dr. Chacorta Perry Surrogate decision maker: Ivon (daughter) Years smoked: 60 Smoking status: Former smoker Tobacco type: cigarettes Second hand tobacco smoke exposure: No Smoking end date: 05/18/17 Alcohol intake: unknown Alcohol use details: social Substance use: unknown Substance use type: does not use Gender identity (if verbalized by the patient): Male Sexual Orientation (if Verbalized by the Patient): Straight or Heterosexual Spiritual care concerns: No Comments At ti
[2022-01-09 12:46] VITALS: BP 90/55; PULSE 96; RESP 18; TEMP 36.4; O2SAT 98
== END 2022-01-09 13:12 | disposition home or self-care (01) ==
PROVIDERS: Emergency Provider Nurse Practitioner Family
DX: H61.22 Impacted cerumen, left ear (principal); Z87.891 Personal history of nicotine dependence; I10 Essential (primary) hypertension; K21.9 Gastro-esophageal reflux disease without esophagitis; H35.30 Unspecified macular degeneration; G47.33 Obstructive sleep apnea (adult) (pediatric); J44.9 Chronic obstructive pulmonary disease, unspecified; Z98.42 Cataract extraction status, left eye; Z98.41 Cataract extraction status, right eye; Z85.46 Personal history of malignant neoplasm of prostate; Z90.79 Acquired absence of other genital organ(s); Z98.52 Vasectomy status
CPT/HCPCS: 69209; 99213; G0463

== ENCOUNTER 2022-04-15 10:23 | Outpatient (CLI) | payer MEDICARE, OTHER, SELFPAY ==
--- NOTE | ~2022-04-15 | CT_ITS ---
EXAMINATION: CT chest abdomen pelvis w con DATE: 04/15/2022 11:34 INDICATION: Non-small cell cancer of right lung restaging TECHNIQUE: Computed tomography (CT) of the chest, abdomen, and pelvis was performed with 100 CC Omnip aque 300 intravenous contrast. Automated exposure control and iterative reconstruction technique were employed. Exam dose: 555.34 mGy-cm total exam DLP. COMPARISON: 01/05/2022 CT chest abdomen pelvis FINDINGS: CHEST CT: Left subclavian Port-A-Cath catheter tip has penetrated the posterior wall of the superior vena cava with the distal tip of the catheter lodged in the lower right paratracheal soft tissues of the medias tinum just above the level of the norma. I telephoned Amanda at Dr. Sherman's office on 04/15/2022 at 1 210 hours and informed her of the Port-A-Cath catheter tip extra-vascular mediastinal location and ad vised against use of the catheter. Severe emphysematous changes of the lungs. There is volume loss of the right lung with associated rig htward shift of heart and mediastinum. There is mild diminished size/contraction of the previously noted prominent right lower lobe band of soft tissue density which extends from the mediastinum to the posterolateral right chest wall. No interval pulmonary infiltrate or consolidation or new pulmonary mass density is noted. No pleural effusion. No thoracic aortic aneurysm or dissection. There is extensive thoracic aortic, great vessel and coron catrachito artery calcification. Normal heart size. No pericardial effusion. No hilar or mediastinal mass lesion or lymphadenopathy. ABDOMEN/PELVIS CT: Multiple scattered hepatic cysts, measuring up to approximately 12 mm. The gallbladder is present. No bile duct dilatation. No pancreatic duct dilatation. No pancreatic mas s lesion or calcification. Normal splenic size. Normal morphology of the adrenal glands.. Irregular large 5.3 cm heterogeneously enhancing complex mixed solid and cystic right renal mass is again noted, cons istent with hypernephroma. There appears to be inferior vena cava invasion. Consider MR evaluation. Bilateral renal cysts are again noted. There is extensive calcification of the abdominal aorta and calcification at the origins of the favio c and particularly superior mesenteric arteries, renal arteries, especially on the left. No abdominal aortic aneurysm. There is ectasia and calcification of the common iliac arteries and extensive calci fication of the iliac and femoral arteries. No intraperitoneal or retroperitoneal or pelvic mass lesion or adenopathy or ascites is noted otherwi se. The urinary bladder is unremarkable. Status post prostatectomy and bilateral pelvic sidewall lymph node dissection. Mild colonic diverticulosis is prominent of fecal material in the colon. No bowel obstruction is evid ent. Prominent degenerative disease in the lower cervical spine. Moderately prominent anterior wedge chronic compression fracture deformity of T12. Diffuse idiopathic skeletal hyperostosis of the thoracic spine. Multilevel degenerative disc disease of the lumbar spine, most severe at L5-S1. Prominent degenerative changes apophyseal joints with associated grade 1 anterolisthesis at L4-5. 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 Reviewed, dictated and finalized at location B. 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
[2022-04-15 11:27] LABS: Estimated Glomerular Filt Rate 49
== END 2022-04-15 10:24 | disposition home or self-care (01) ==
PROVIDERS: PCP Internal Medicine; Visit Provider Internal Medicine Hematology & Oncology
DX: C34.91 Malignant neoplasm of unspecified part of right bronchus or lung (principal); N28.1 Cyst of kidney, acquired; K57.30 Diverticulosis of large intestine without perforation or abscess without bleeding; M48.54XA Collapsed vertebra, not elsewhere classified, thoracic region, initial encounter for fracture; M47.817 Spondylosis without myelopathy or radiculopathy, lumbosacral region; J43.9 Emphysema, unspecified; M48.14 Ankylosing hyperostosis [Forestier], thoracic region
CPT/HCPCS: 71260; 74177; Q9967

== ENCOUNTER 2022-05-25 00:09 | Day surgery (SDC) | payer MEDICARE, OTHER, SELFPAY ==
[2022-05-18 09:12] VITALS: BMI 20.2
--- NOTE | 2022-05-18 09:25 | PC.NURSE ---
Report to the Outpatient Waiting Room, entrance under the green pavilion located off [facility], at time ___0800____ on date __05/25/22 . OR Time: ____1000____. - You and your visitor will be asked a series of questions to screen for COVID 19 for your protection. - Only one visitor is allowed at this time. - The patient visitor is requested to leave or wait in car when not with patient. - A mask is required within the hospital. Patients may have clear liquids (water, carbonated beverages, clear teas, apple juice) until 3 hours prior to surgery (0700 AM) with a maximum of 20 ounces. - No food from midnight until time of surgery - Infants may have breast milk until 4 hours before surgery, infant formula 6 hours prior to surgery. - Children will be allowed to drink immediately following surgery. If applicable, please bring a bottle or sippy cup to assist with drinking. Juice, water, soda, and popsicles are readily available. For infants on formula, please bring formula the day of surgery. Pacifiers are allowed. Take the following medications with a SIP of water the morning of surgery: _TRELEGY INHALER, LEVOTHYROXINE, ALBUTEROL INHALER IF NEEDED__ Medications to discontinue per physician __VIT D3, VIT B12, PERSERVISITON 3 DAYS PRIOR TO SURGERY, Date to take last dose 05/21/22_ Please no make-up, nail romansh, hairspray, perfume, deodorant, or body powder the day of surgery. No jewelry (including any body piercings) or valuables the day of surgery, leave them at home. Please take a shower or bath the night before, or the morning of, surgery with an antibacterial soap. Wear comfortable, loose fitting clothing. Children are encouraged to wear pajamas. - Jewelry must be removed prior to entering the operating room. Rings and piercings that are not removed may be cut off. - The hospital will not accept responsibility for valuables. - Please leave all valuables, including medications, at home the day of surgery. If you are going home after surgery, a licensed taxi driver must drive you home. - NO public transportation without another adult. - We recommend that an adult stay with you for 24 hours following discharge. - We also recommend that you do not drive, make important decision, drink alcoholic beverages, or take any drugs that were not prescribed by your health care provider for at least 24 hours after your discharge time. For Pediatric surgeries, we recommend two adults accompany the child home (only one inside the building at this time). Follow any additional instructions given to you from your surgeon. If you or anyone in your household have experienced Covid symptoms in the past week, please notify your surgeon or the nurse liaison at the phone number below for possible testing. Telephone instructions given to ___PT and asked if any additional questions and then verbalized understanding. Patient advised to call surgeon office or pre surgery nurse liaison [phone] if any additional questions.
[2022-05-25 07:00] VITALS: BP 108/62; PULSE 86; RESP 16; TEMP 36.3; O2SAT 100
[2022-05-25] MEDS: LACTATED RINGERS 1,000 ML 30 ML IV CONT (07:00)
--- NOTE | 2022-05-25 07:22 | PM.IMHP ---
H&P: HPI History of Present Illness Date/Time: 05/25/22 07:22 Chief Complaint: R lung cancer Narrative: Pt is a 81 y/o M presenting for VAD removal. Pt is s/p chemoradiation for R lung cancer. Pt had VAD placed in 02/20/2021. Pt denies any issues c VAD, reports it is getting flushed routinely s issue. Review of Systems Review of Systems: All systems reviewed & are unremarkable except as noted in HPI and below PMFSH Past Medical History Medical History Diastolic dysfunction Echocardiogram November 2018: Impaired diastolic relaxation grade 1, ejection fraction 60%, mild left atrial enlargement, mild tricuspid regurgitation Duodenal arteriovenous malformation Dysphagia Essential hypertension Gastric AVM GERD (gastroesophageal reflux disease) History of tobacco abuse Quit 2017. Smoked for 50 years. Left rotator cuff tear Macular degeneration Nausea Obstructive sleep apnea (2018) 06/15/2019 without optimal pressure. Bilevel titration 07/26/2020 which demonstrated poor sleep efficiency but sufficient pressure settings of 9/5 started September 2020 Osteopenia Noted on DEXA scan October 2020 Reflux esophagitis Severe chronic obstructive pulmonary disease PFTs 12/07/2018: FEV1 48% with airflow obstruction, TLC 165% with air trapping and DLCO of 81% Surgical History Surgical History H/O left knee surgery History of bilateral cataract extraction History of carpal tunnel release History of esophagogastroduodenoscopy (EGD) June 2020 demonstrated reflux esophagitis and duodenal and gastric AVMs History of prostatectomy 1992 due to prostate cancer History of vasectomy Hx of tonsillectomy Family History Family History Sibling Stomach cancer Brother Father Atherosclerosis Heart disease Social History Social History Social History: He smoked 1-2 packs per day for 60 years but quit smoking in 2017. Primary care physician: Dr. Chacorta Perry Surrogate decision maker: Ivon (daughter) Smoking packs per day: 1.5 Smoking cigarettes per day: 30.0 Years smoked: 60 Smoking pack-years: 90.00 Smoking status: Former smoker Tobacco type: cigarettes Second hand tobacco smoke exposure: No Smoking end date: 05/18/17 Alcohol intake: former Alcohol use details: STATES WAS A SOCIAL DRINKER AND QUIT THAT Substance use: never Substance use type: does not use Living arrangements: alone Gender identity (if verbalized by the patient): Male Sexual Orientation (if Verbalized by the Patient): Straight or Heterosexual Spiritual care concerns: No Meds Home Medications and Allergies Home Medications Medication Instructions Recorded Confirmed Type cholecalciferol (vitamin D3) 25 1,000 unit PO DAILY 12/11/19 05/18/22 History mcg (1,000 unit) capsule albuterol sulfate 90 mcg/actuation 2 inh inhalation QID PRN shortness 11/20/20 05/18/22 Rx aerosol inhaler of breath or wheezing #6.7 grams coQ10 (ubiquinol) 100 mg capsule 100 mg PO DAILY 02/17/21 05/18/22 History fluticasone fur. 100 mcg-umeclid 1 inh inhalation QAM 02/17/21 05/18/22 History 62.5 mcg-vilant 25 mcg inhalat.powder (Trelegy Ellipta) ferrous sulfate 324 mg (65 mg 324 mg PO BID 03/07/21 05/18/22 History iron) tablet,delayed release levothyroxine 75 mcg tablet 75 mcg PO DAILY #90 tabs 03/10/21 05/18/22 Rx cyanocobalamin (vitamin B-12) 1,000 mcg PO DAILY 05/18/21 05/18/22 History 1,000 mcg tablet vitamins A,C,C-dies-ieabsa 2,148 2 tablet PO BID 05/18/21 05/18/22 History mcg-113 mg-45 mg-17.4 mg tablet (PreserVision AREDS) sucralfate 100 mg/mL oral 1,000 mg PO ACHS PRN Acid Reflux 05/18/22 05/18/22 History suspension Allergies Allergy/AdvReac Type Severity Reaction Status
--- NOTE | 2022-05-25 07:25 | WPDHPUPDATE1 ---
History and Physical Update Update Date/Time: 05/25/22 07:25 History and Physical has been reviewed, including an updated exam of the patient. There are NO changes in the patient's condition. Risks, benefits, and alternatives have been discussed and questions answered. Patient agrees to proceed with procedure.
[2022-05-25] MEDS: BUPIVACAINE/EPINEPHRINE 0.25% 50 ML VIAL 20 ML INFILTRATE (07:31)
[2022-05-25] MEDS: ceFAZolin 2 GM/D5W 50 ML 2 GM/50 ML BAG IVPB (07:31)
--- NOTE | 2022-05-25 08:03 | P.OP_ITS ---
Procedure Note - Detailed Date of Procedure 05/25/22 Pre-op Diagnosis Non small cell lung cancer Post-op Diagnosis Same Procedure Performed removal L chest VAD Surgeon Bethanie Pressley MD Anesthesia MAC and Local Indications 81 y/o M s/p treatment for R lung cancer. Pt had L sided VAD placed about a year ago. Findings LSCV VAD Description of Procedure The patient was taken to the operating room and placed in the supine position. The patient was then prepped and draped in the normal sterile fashion. A time- out was then done to verify the patient's identity, as well as the procedure being performed. I began by localizing the area of the previously placed port in the left chest. After the area was adequately anesthetized, I made an incision through the previous incision to gain access to the port in the subcutaneous tissue. I was then able to identify the port and using dissection with the Bovie cautery, I was able to free the reservoir from the subcutaneous pocket. The reservoir was being held in by 2 sutures and these were subsequently cut. I was then able to remove the reservoir from the pocket. I then removed the catheter from the left subclavian vein in full. I then held pressure at the level the left subclavian vein for approximately 5 minutes. Hemostasis was noted and I irrigated the pocket. I then closed the subcutaneous tissue with 3-0 Vicryl suture. The skin was closed with 4-0 Monocryl subcuticular suture. Dermabond was placed on the wound. The patient tolerated the procedure well and was alert and awake in the operating room postoperative. The patient will be sent to the recovery room in stable condition. Estimated Blood Loss 5 Drains No Packing No Pathology None sent Complications No immediate complications Condition Stable Disposition PACU [facility] Billing Surgery - Charge Forward: Surgery Billing
[2022-05-25 08:05] VITALS: BP 97/50; PULSE 79; RESP 12; O2SAT 100
[2022-05-25 08:35] VITALS: BP 116/85; PULSE 78; RESP 16
== END 2022-05-25 09:00 | disposition home or self-care (01) ==
PROVIDERS: PCP Internal Medicine; Visit Provider Surgery
PROC: (CPT 36589; principal; 2022-05-25 07:30)
DX: Z85.118 Personal history of other malignant neoplasm of bronchus and lung (principal); G47.33 Obstructive sleep apnea (adult) (pediatric); J44.9 Chronic obstructive pulmonary disease, unspecified; I11.0 Hypertensive heart disease with heart failure; Z87.891 Personal history of nicotine dependence; Z79.51 Long term (current) use of inhaled steroids; E03.9 Hypothyroidism, unspecified; R13.10 Dysphagia, unspecified; H35.30 Unspecified macular degeneration; M19.90 Unspecified osteoarthritis, unspecified site
CPT/HCPCS: 36590; J0690; J2001; J2704; J3010; J7120

== ENCOUNTER → 2022-06-12 10:46 | Outpatient (CLI) | payer MEDICARE, OTHER, SELFPAY ==
--- NOTE | ~2022-06-12 | CT_ITS ---
EXAMINATION: CT sinus wo con DATE: 06/12/2022 11:06 INDICATION: Sinusitis. Blurred vision. Headaches. TECHNIQUE: Computed tomography (CT) of the paranasal sinuses was performed without intravenous contra st. The dose-length product was 283.55 mGy-cm. Automated exposure control and iterative reconstructio n technique were employed. COMPARISON: No prior studies for comparison. FINDINGS: There is mild mucosal thickening of the maxillary and ethmoid sinuses. Leftward nasal septa l deviation. Ostiomeatal units are patent. No air-fluid levels or mucoperiosteal reaction. Mastoids a re pneumatized. There are nasal fractures, likely old. There is intracranial atherosclerosis. IMPRESSION: 1. Mild sinus disease. 2: Mild leftward nasal septal deviation. Reviewed, dictated and finalized at location A.
== END ==
PROVIDERS: PCP Internal Medicine; Visit Provider Internal Medicine
DX: R51.9 Headache, unspecified (principal); H53.8 Other visual disturbances; J34.2 Deviated nasal septum
CPT/HCPCS: 70486

== ENCOUNTER 2022-07-29 14:37 | Outpatient (CLI) | payer MEDICARE, OTHER, SELFPAY ==
--- NOTE | ~2022-07-29 | CT_ITS ---
EXAMINATION: CT chest abdomen pelvis w con DATE: 07/29/2022 15:14 INDICATION: Non-small cell cancer of right lung. TECHNIQUE: Computed tomography (CT) of the chest, abdomen, and pelvis was performed with 100 mL Omnip aque 350 intravenous contrast. Automated exposure control and iterative reconstruction technique were employed. The dose-length product was 745.90 mGy-cm. COMPARISON: CT 04/15/2022, PET/CT 02/04/21, CT abdomen and pelvis 12/23/20 FINDINGS: CHEST CT: There is severe emphysema. There are airspace opacities in perihilar right middle lobe and right lowe r lobe with volume loss and varicose bronchiectasis, consistent with radiation pneumonitis. No pleura l effusion. The heart size is normal. There are coronary artery calcifications. No pericardial effusi on. There is electronic implant in left anterior chest wall. ABDOMEN/PELVIS CT: There are cysts in the liver measuring up to 12 mm. There is a gallstone in the gallbladder, which is normal in size. The spleen, pancreas, and adrenal glands are normal. There is a 4.9 x 4.6 cm partial ly cystic mass with enhancing solid components in right kidney. There are cyst in left kidney measuri ng up to 3.1 cm. There is a 2 mm stone in left kidney. There are changes of prostatectomy and pelvic lymph node dissection. There is a 14 x 15 mm aortocaval lymph node. There is severe cervical, thoraci c, and lumbar spondylosis. There is mild chronic anterior wedging of multiple vertebral bodies. There is a chronic compression fracture of T12. IMPRESSION: 1. 4.9 cm Bosniak type IV cystic mass of right kidney, consistent with renal cell carcinoma, stable f rom 04/15/22. 2. Mildly enlarged aortocaval lymph node suspicious for metastatic disease, stable from 12/23/2020. Reviewed, dictated and finalized at location A. IMPRESSION: 1. 4.9 cm Bosniak type IV cystic mass of right kidney, consistent with renal ce ll carcinoma, stable from 04/15/22. 2. Mildly enlarged aortocaval lymph node suspicious for metastatic disease, sta ble from 12/23/2020.
[2022-07-29 15:03] LABS: Estimated Glomerular Filt Rate 53
[2022-07-29 15:08] LABS: Estimated Glomerular Filt Rate 53
== END 2022-07-29 14:38 | disposition home or self-care (01) ==
PROVIDERS: PCP Internal Medicine; Visit Provider Internal Medicine Hematology & Oncology
DX: C34.91 Malignant neoplasm of unspecified part of right bronchus or lung (principal); R59.0 Localized enlarged lymph nodes; K80.80 Other cholelithiasis without obstruction
CPT/HCPCS: 71260; 74177; Q9967

== ENCOUNTER 2022-10-19 10:40 | Inpatient (IN) | payer MEDICARE, OTHER, SELFPAY ==
[2022-10-19] VITALS (43 sets, daily range): BP systolic 74–133; BP diastolic 46–106; PULSE 79–101; RESP 12–30; TEMP 36.4–36.9; O2SAT 81–100; BMI 20.8
--- NOTE | ~2022-10-19 | CT_ITS ---
EXAMINATION: CT abdomen pelvis w con DATE: 10/19/2022 12:42 INDICATION: Diarrhea. Weakness. Shortness of breath. TECHNIQUE: Computed tomography (CT) of the abdomen and pelvis was performed with 100 mL Omnipaque 350 intravenous contrast. Automated exposure control and iterative reconstruction technique were employe d. The dose-length product was 464.12 mGy-cm. COMPARISON: CT abdomen and pelvis 07/29/2022, 12/23/2020, 04/15/22 FINDINGS: The visualized portions of the lung bases demonstrate severe emphysema. There are airspace opacities with air bronchograms and varicose bronchiectasis in right lower lobe, consistent with radi ation fibrosis. No pleural effusion. The heart size is normal. No pericardial effusion. There are cys ts in the liver measuring up to 10 mm. The gallbladder, spleen, pancreas, and adrenal glands are norm al. There is a 4.7 cm mixed cystic and solid enhancing mass in right kidney. There is a 3.1 cm cyst i n left kidney with thin wall calcifications, likely benign. Stool distends the rectum. There are carrillo ges of prostatectomy. There is diverticulosis of the colon without evidence of diverticulitis. There are no dilated loops of bowel. The appendix is normal. There is a small sliding hiatal hernia. There is a right inguinal hernia containing fat. There are surgical clips from pelvic lymph node dissection . There is aortocaval lymphadenopathy measuring up to 17 x 15 mm. There is severe lumbar spondylosis. Again seen is a chronic compression fracture of T12. IMPRESSION: 1. 4.7 cm Bosniak type IV cystic mass of right kidney, consistent with renal cell carcinoma, stable f rom 04/15/2022. 2. Mild aortocaval lymphadenopathy, consistent with metastatic disease, stable from 07/29/22. 3. Stool distends the rectum. Reviewed, dictated and finalized at location [facility] IMPRESSION: 1. 4.7 cm Bosniak type IV cystic mass of right kidney, consistent with renal ce ll carcinoma, stable from 04/15/2022. 2. Mild aortocaval lymphadenopathy, consistent with metastatic disease, stable from 07/29/22. 3. Stool distends the rectum.
--- NOTE | ~2022-10-19 | XR_ITS ---
Supine portable view of the abdomen Clinical history: Fecal impaction Findings: Bowel gas pattern is nonspecific. No evidence for obstruction or free air. Urinary bladder is distended with excreted contrast material. Multiple pelvic surgical clips noted. No abnormal mass lesion or calcification is seen. Osseous structures are intact. Impression: Probable distended urinary bladder, filled with excreted contrast internal. Reviewed, dictated and finalized at [facility]. [facility] Impression: Probable distended urinary bladder, filled with excreted contrast internal.
[2022-10-19 11:33] LABS: Basophils Percent Auto 0.3 % (0.2-1.2); Eosinophils Percent Auto 0.2 % (0-4.4); Hematocrit 33.1 % (42.0-52.0); Hemoglobin 10.9 g/dL (14.0-18.0); Lymphocytes Absolute Auto 0.69 K/mm3 (0.9-3.2); Lymphocytes Percent Auto 6.6 % (18.3-44.2); Mean Corpuscular HGB Conc 32.9 g/dl (32-36); Mean Corpuscular Hemoglobin 34.3 pg (26-34); Mean Corpuscular Volume 104.1 fl (80-100); Mean Platelet Volume 9.5 fl (7.4-10.4); Monocytes Percent Auto 9.2 % (2.6-8.5); Neutrophils Absolute Auto 8.6 K/mm3 (1.3-6.7); Neutrophils Percent Auto 82.7 % (45.5-73.1); Platelet Count Result 217 k/mm3 (150-375); Red Blood Count 3.18 M/mm3 (4.6-6.20); Red Cell Distribution Width 12.7 % (11.5-14.5); White Blood Count 10.4 K/mm3 (4.5-10.0)
[2022-10-19 11:41] LABS: Alanine Aminotransferase 18 U/L (6-50); Albumin Level 3.8 g/dL (3.5-5.1); Alkaline Phosphatase 98 U/L (38-126); Anion Gap 9 mmol/L (8-16); Aspartate Amino Transferase 21 U/L (17-59); Blood Urea Nitrogen 46 mg/dL (9-20); Calcium 8.7 mg/dL (8.4-10.2); Carbon Dioxide 23 mmol/L (22-30); Chloride 105 mmol/L (98-107); Estimated CRCL calculation 31 ml/min; Estimated Glomerular Filt Rate 42; Glucose 124 mg/dL (65-110); Potassium 3.7 mmol/L (3.4-5.0); Sodium 137 mmol/L (137-145)
[2022-10-19 11:48] LABS: INR 1.2; Prothrombin Time 14.6 Seconds (11.1-14.7)
[2022-10-19 11:49] LABS: Partial Thromboplastin Time 26.2 SECONDS (22.3-36.8)
--- NOTE | 2022-10-19 12:43 | ED.GENADULT ---
HPI - General Adult General Chief complaint: GI Bleed Stated complaint: dehydration, black bloody stools since wednesday Time Seen by Provider: 10/19/22 11:55 History of Present Illness HPI narrative: 81-year-old male presented to the emergency department for evaluation of dark tarry stools since Wednesday. Family is unsure if the patient has ever had a lower GI bleed. Patient is not on any blood thinners. Patient describes that last week he was having some issues with diarrhea and was taking Pepto-Bismol. Patient states since Wednesday he has had dark tarry stools and does also report associated lightheaded and dizziness. Today patient was very weak and was having difficulty ambulating. Patient does have history of COPD and does report shortness of breath with exertion. Patient states his COPD is similar to his current baseline. Patient does have a history of COPD, shortness of breath, smoking. Related Data Home Medications Medication Instructions Recorded Confirmed cholecalciferol (vitamin D3) 25 1,000 unit PO DAILY 12/11/19 10/19/22 mcg (1,000 unit) capsule coQ10 (ubiquinol) 100 mg capsule 100 mg PO DAILY 02/17/21 10/19/22 ferrous sulfate 324 mg (65 mg 324 mg PO BID 03/07/21 10/19/22 iron) tablet,delayed release cyanocobalamin (vitamin B-12) 1,000 mcg PO DAILY 05/18/21 10/19/22 1,000 mcg tablet vitamins A,C,N-hfoh-bsfpqb 2,148 2 tablet PO BID 05/18/21 10/19/22 mcg-113 mg-45 mg-17.4 mg tablet (PreserVision AREDS) enzalutamide 40 mg capsule (Xtandi) 40 mg PO QID 10/19/22 10/19/22 esomeprazole magnesium 40 mg 40 mg PO BID 10/19/22 10/19/22 capsule,delayed release (Nexium) Allergies Allergy/AdvReac Type Severity Reaction Status Date / Time No Known Allergies Allergy Verified 10/19/22 10:49 Review of Systems Review of Systems: CONSTITUTIONAL: See HPI EYES: Denies visual changes, redness, or discharge. ENT: Denies rhinorrhea, congestion, sore throat, or otalgia. CARDIOVASCULAR: Denies chest pain, palpitations, or edema. RESPIRATORY: Denies cough or dyspnea. GASTROINTESTINAL: See HPI GENITOURINARY: Denies dysuria or hematuria. SKIN: Denies rash or itching. MUSCULOSKELETAL: Denies back pain, joint pain, or myalgia. NEUROLOGIC: Denies headache, numbness, or weakness. REPLACED BY [facility] Past Medical History Medical History Diastolic dysfunction Echocardiogram November 2018: Impaired diastolic relaxation grade 1, ejection fraction 60%, mild left atrial enlargement, mild tricuspid regurgitation Duodenal arteriovenous malformation Dysphagia Essential hypertension Gastric AVM GERD (gastroesophageal reflux disease) History of tobacco abuse Quit 2017. Smoked for 50 years. Left rotator cuff tear Macular degeneration Nausea Obstructive sleep apnea (2018) 06/15/2019 without optimal pressure. Bilevel titration 07/26/2020 which demonstrated poor sleep efficiency but sufficient pressure settings of 9/5 started September 2020 Osteopenia Noted on DEXA scan October 2020 Reflux esophagitis Severe chronic obstructive pulmonary disease PFTs 12/07/2018: FEV1 48% with airflow obstruction, TLC 165% with air trapping and DLCO of 81% Surgical History Surgical History H/O left knee surgery History of bilateral cataract extraction History of carpal tunnel release History of esophagogastroduodenoscopy (EGD) June 2020 demonstrated reflux esophagitis and duodenal and gastric AVMs History of prostatectomy 1992 due to prostate cancer History of vasectomy Hx of tonsillectomy Family History Family History Sibling Stomach cancer Brother Father Atherosclerosis Heart disease Social History Social History Social History: He smoked 1-2 packs per day for 60 years but quit smoking in 2017. Prim
[2022-10-19] MEDS: SODIUM CHLORIDE 0.9% IV 1,000 ML 999 ML IV CONT (13:02)
[2022-10-19] MEDS: PANTOPRAZOLE SODIUM IV 40 MG VIAL IV PUSH (13:39)
[2022-10-19 14:49] LABS: Influenza A QL RT-PCR Negative (Negative); Influenza B QL RT-PCR Negative (Negative); RSV RNA, RT-PCR Negative (Negative); SARS-CoV-2 RNA PCR Negative
--- NOTE | 2022-10-19 15:50 | ADMGEN ---
This patient, Eloy Duncan, was admitted to [facility] Surg Room 321-02. Patient/family oriented to hospital policies and general routines including ID bracelet, bed and alarms, visiting hours, pain management, procedures, bathroom and other care routines, personal items, smoking policy, room service/diet, and visiting hours. Information on how to activate the Rapid Response Team has been discussed. Patient/Family are encouraged to report perceived risks to care and to ask questions if they do not understand what they are told or what they should do.
--- NOTE | 2022-10-19 16:00 | PM.IMHP ---
H&P: HPI History of Present Illness Date/Time: 10/19/22 16:00 Chief Complaint: Weak, dark stools. Narrative: This is a very pleasant 81-year-old male with history of gastric AVMs, GERD, heart failure with preserved ejection fraction, sleep apnea intolerant to CPAP, anemia, hypothyroidism, and 3 prior malignancies (clinical stage III non-small cell carcinoma of the lung, prostate cancer, localized renal cell carcinoma) who presented to the emergency department via EMS from home for evaluation of weakness and dark stools. He has had longstanding issues with constipation and it sounds like he takes Colace in drinks apple juice at home frequently to encourage his bowels to move. Last week he was having some issues with diarrhea and he stopped not regimen. He endorses not having a good bowel movement for at least a couple of weeks but he has been passing small amounts of loose, dark stools. Over the last couple of days he has felt progressively weak and he has been occasionally lightheaded and dizzy upon standing. With further questioning he does admit that he has been taking Pepto-Bismol due to worsening GERD symptoms recently. Blood pressure was as low as 74/6 in the emergency department but has improved with IV fluids. His hemoglobin and hematocrit have thus far been stable. CT of the abdomen and pelvis showed a large amount of stool distending the rectum. His stool was faintly Hemoccult positive per ED physician report and he is being admitted in this setting for GI consultation and further treatment and evaluation. He is feeling better now that his blood pressures have improved with IV fluids. With further questioning he does report that he has not had much of an appetite though he denies nausea and vomiting. He has not had any significant abdominal pain, bloating, or belching. No fever, chills, or sweats. No chest pain or shortness of breath. Review of Systems Review of Systems: Twelve systems were reviewed and are negative except for as per HPI. 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 Diastolic dysfunction Echocardiogram November 2018: Impaired diastolic relaxation grade 1, ejection fraction 60%, mild left atrial enlargement, mild tricuspid regurgitation Duodenal arteriovenous malformation Dysphagia Essential hypertension Gastric AVM Gastroesophageal reflux disease History of tobacco abuse Quit 2016. Smoked for 50 years. Hypothyroidism Left rotator cuff tear Macular degeneration Non-small cell cancer of right lung Status post chemoradiation in remission. Obstructive sleep apnea (2018) 06/15/2019 without optimal pressure. Bilevel titration 07/26/2020 which demonstrated poor sleep efficiency but sufficient pressure settings of 9/5 started September 2020. Patient reports intolerance to CPAP. Osteopenia Noted on DEXA scan October 2020 Prostate cancer Status post prostatectomy in 1992. Initially treated with Lupron, changed to Xtandi due to rising PSA in January 2021. Reflux esophagitis Severe chronic obstructive pulmonary disease PFTs 12/07/2018: FEV1 48% with airflow obstruction, TLC 165% with air trapping and DLCO of 81% Surgical History Surgical History (Updated 10/19/22 @ 22:16 by Pauly Shearer PA-C) History of arthroscopy of left knee History of bilateral cataract extraction History of carpal tunnel release History of esophagogastroduodenoscopy (EGD) June 2020 demonstrated reflux esophagitis and duodenal and gastric AVMs History of prostatectomy 1992 due to prostate cancer History of tonsillectomy History of vasectomy Family History Family History Sibling Stomach cancer Brother Father Atherosclerosis Heart disease Social History Social History (Updated 10/19/22 @ 22:17 by
--- NOTE | 2022-10-19 16:49 | WPDGICN ---
Assessment and Plan Assessment and plan (1) Blood in stool: Code(s): K92.1 - Melena Status: Acute Assessment and Plan: he has had black stools for the past week and Hemoccult was positive in the emergency room. EGD will be scheduled for tomorrow morning. (2) Constipation: Code(s): K59.00 - Constipation, unspecified Status: Acute Assessment and Plan: He states that his stools alternated back and forth between diarrhea and constipation but he has felt more constipation over the last several days. CT scan showed evidence of a fecal impaction. He was given an enema in the emergency room. He has some results from that (3) Dysphagia: Qualifiers: Dysphagia type: unspecified Qualified Code(s): R13.10 - Dysphagia, unspecified Code(s): R13.10 - Dysphagia, unspecified Status: Acute Assessment and Plan: he is not currently having dysphagia or food, but he does from time to time feel that his post go down slowly. (4) Non-small cell cancer of right lung: Code(s): C34.91 - Malignant neoplasm of unspecified part of right bronchus or lung Status: Acute Assessment and Plan: This was treated not quite 2 years ago with radiation. He had some chemotherapy that was not tolerated well with discontinued. (5) Gastric AVM: Code(s): K31.819 - Angiodysplasia of stomach and duodenum without bleeding Status: Acute Assessment and Plan: He has history of having had treatment of a gastric AVM. None were found on his endoscopy did which was done in May of 2021. (6) GERD (gastroesophageal reflux disease): Qualifiers: Esophagitis presence: with esophagitis Esophagitis bleeding: unspecified whether hemorrhage Qualified Code(s): K21.00 - Gastro-esophageal reflux disease with esophagitis, without bleeding Code(s): K21.9 - Gastro-esophageal reflux disease without esophagitis Status: Acute Assessment and Plan: He uses [id number]-[id number] medications he has been started on a PPI. GI Consult Note Consult date/time: 10/19/22 16:49 HPI: Eloy Duncan is a 81 year old male Who presented emergency room today feeling weak and having a history of black stools. He states that about a week ago he began having alternating hard and loose stools. He had been taking Pepto-Bismol when his stomach was upset and also and he had diarrhea but then he felt that he was not passing his stools and he stopped taking it. He actually was found to have of fecal impaction in the emergency room on CT scan and was given an enema with fair results. He has a history of having had several benign ulcers in the duodenal bulb and some esophagitis when he had endoscopy 2 years ago. He said he does get upset stomach and indigestion quite easily. He states that he has a sensitive stomach. He frequently uses Tums or Pepto-Bismol. He is more likely have symptoms per take early when he lays down. He does not regurgitate per feels more heartburn at that time. He does not chronically take any PPI or other acid reducing medication. He denies dysphagia. He states that his weight is stable he actually lost about 25 lb when he had COVID several months ago. Now he feels that his weight has leveled off and he may be regaining a bit of it. He does not use NSAIDs at all but does take an aspirin tablet once a day. He denies any history of liver disease jaundice or hepatitis. He is not having abdominal pain at this time. He is chronically on iron sees a parts counter representative because of a chronically low hemoglobin, but primarily because he has history of non small cell lung cancer for which she has had prior radiation therapy 18 months ago. He in fact also has been found have a clear cell renal cell cancer diagnosed on ultrasound-guided biopsy 2 years ago Review of Systems Review of Systems: All systems reviewed & are unremarkable except as noted in
[2022-10-19 18:00] LABS: Hematocrit 32.9 % (42.0-52.0); Hemoglobin 10.9 g/dL (14.0-18.0)
[2022-10-19] MEDS: SODIUM CHLORIDE 0.9% IV 1,000 ML 100 ML IV CONT (18:15)
[2022-10-20] VITALS (8 sets, daily range): BP systolic 62–121; BP diastolic 38–72; PULSE 77–97; RESP 14–25; TEMP 36.4–36.6; O2SAT 91–100
[2022-10-20] MEDS: SODIUM CHLORIDE 0.9% IV 1,000 ML 75 ML IV CONT (00:12)
[2022-10-20 00:33] LABS: Hemoglobin 10.4 g/dL (14.0-18.0)
[2022-10-20] MEDS: LEVOTHYROXINE SODIUM 75 MCG TABLET PO (06:36)
[2022-10-20 07:34] LABS: Chloride 103 mmol/L (98-107)
[2022-10-20 07:38] LABS: Hemoglobin 10.4 g/dL (14.0-18.0); Mean Corpuscular HGB Conc 32.5 g/dl (32-36); Mean Corpuscular Volume 104.6 fl (80-100); Mean Platelet Volume 9.1 fl (7.4-10.4); Platelet Count Result 205 k/mm3 (150-375); Red Blood Count 3.06 M/mm3 (4.6-6.20); Red Cell Distribution Width 12.6 % (11.5-14.5); White Blood Count 8.8 K/mm3 (4.5-10.0)
[2022-10-20 07:48] LABS: Anion Gap 8 mmol/L (8-16); Blood Urea Nitrogen 32 mg/dL (9-20); Calcium 8.2 mg/dL (8.4-10.2); Carbon Dioxide 23 mmol/L (22-30); Estimated CRCL calculation 34 ml/min; Estimated Glomerular Filt Rate 49; Glucose 95 mg/dL (65-110); Magnesium 2.1 mg/dL (1.6-2.3); Potassium 3.7 mmol/L (3.4-5.0); Sodium 134 mmol/L (137-145)
[2022-10-20] MEDS: FLUTICASONE/UMECLIDIN/VILANTER 100-62.5-25 MCG ELLIPTA 1 PUFF INHALATION (08:07)
[2022-10-20] MEDS: PANTOPRAZOLE SODIUM IV 40 MG VIAL IV PUSH ×2 (09:05→20:36)
--- NOTE | 2022-10-20 11:30 | PM.IMPN ---
Progress Note: A&P Assessment and Plan (1) Blood in stool: Code(s): K92.1 - Melena Status: Acute Assessment and Plan: PPI, NPO, EGD planned for today, appreciate GI consultation History of gastric AVM noted (2) Acute kidney injury: Code(s): N17.9 - Acute kidney failure, unspecified Status: Acute Assessment and Plan: Improving on IV fluids, likely prerenal from GI bleed Renal ultrasound pending Renal cell carcinoma mass noted on right kidney, stable from March 2022 (3) Constipation: Code(s): K59.00 - Constipation, unspecified Status: Acute Assessment and Plan: Chronic, monitor (4) History of treatment for malignancy: Code(s): Z85.9 - Personal history of malignant neoplasm, unspecified Status: Acute Assessment and Plan: He has been treated for 3 separate malignancies (non-small cell carcinoma right lung, prostate, right renal cell carcinoma). Renal mass stable today when compared to imaging done in summer 2021. Mild aortocaval lymphadenopathy consistent with metastatic disease also noted on CT, stable from July 2022. Follows with doctors Lane and Kunal. (5) Chronic anemia: Code(s): D64.9 - Anemia, unspecified Status: Acute Assessment and Plan: Stable, monitor (6) Chronic obstructive pulmonary disease: Code(s): J44.9 - Chronic obstructive pulmonary disease, unspecified Status: Acute Assessment and Plan: No acute exacerbation. Continue inhalers as prescribed. (7) Diastolic dysfunction: Code(s): I51.89 - Other ill-defined heart diseases Status: Acute Assessment and Plan: Gentle IV fluid hydration (8) Hypothyroidism: Code(s): E03.9 - Hypothyroidism, unspecified Status: Acute Assessment and Plan: Continue levothyroxine, TSH within normal limits Plan DVT prophylaxis with SCDs GI prophylaxis with PPI Code status full code Subjective Date/time seen: 10/20/22 11:30 Interval history: No overnight events noted. No chest pain or shortness of breath. No nausea, vomiting or diarrhea. No fevers or chills. EGD planned today Review of Systems Review of Systems: 12 point review of systems was assessed and was negative except as noted in the HPI Exam Narrative: General: No acute distress, alert and oriented per baseline HEENT: Atraumatic, normocephalic, mucous membranes moist CV: Regular rate and rhythm, S1, S2 Lungs: Clear to auscultation bilaterally, no rales or crackles noted, no wheezes, good air entry Abdomen: Soft, nontender, nondistended Extremities: Normal to inspection Skin: No rashes noted, no lesions or wounds seen Psych: Euthymic, normal affect Objective Data Vital Signs Vital Signs: Vital Signs - 24 hr 10/19/22 11:31 10/19/22 11:33 10/19/22 11:45 Temperature Pulse Rate 101 H 97 85 Respiratory Rate 26 H 27 H 18 Blood Pressure 74/46 L Pulse Oximetry 96 Oxygen Delivery 10/19/22 11:46 10/19/22 12:00 10/19/22 12:01 Temperature Pulse Rate 80 81 84 Respiratory Rate 12 14 25 H Blood Pressure 90/58 L 97/58 L Pulse Oximetry 95 99 97 Oxygen Delivery 10/19/22 12:15 10/19/22 12:16 10/19/22 13:08 Temperature Pulse Rate 83 86 79 Respiratory Rate 20 17 17 Blood Pressure 99/46 L 114/61 Pulse Oximetry 98 93 Oxygen Delivery 10/19/22 12:17 10/19/22 12:43 10/19/22 12:46 Temperature Pulse Rate 96 86 81 Respiratory Rate 15 20 16 Blood Pressure Pulse Oximetry 100 Oxygen Delivery 10/19/22 13:00 10/19/22 13:09 10/19/22 13:15 Temperature Pulse Rate 80 80 84 Respiratory Rate 13 15 19 Blood Pressure 114/61 Pulse Oximetry 100 Oxygen Delivery 10/19/22 13:16 10/19/22 13:30 10/19/22 13:45 Temperature Pulse Rate 84 86 91 Respiratory Rate 25 H 16 17 Blood Pressure 117/72 Pulse Oximetry Oxygen Delivery 10/19/22 14:00 10/19/22 14:15
[2022-10-20] MEDS: LACTATED RINGERS 1,000 ML 150 ML IV CONT (12:29)
--- NOTE | 2022-10-20 13:07 | WPDANESEPPF ---
Anes - Initial Pre Proc Eval Procedure: Operation Date: 10/20/22 13:00 Proposed Procedures p Esophagogastroduodenoscopy - David Thomas MD Date/Time: 10/20/22 13:07 Surgeon: William Ryan MD Pre Op Diagnosis: GI Bleed/Constipation/Weakness Patient Data Age: 81 Gender: M Height: 1.8 m Weight: 66.4 kg Last Vital Signs Temp 97.5 F L 10/20/22 12:25 Pulse 89 10/20/22 12:25 Resp 22 H 10/20/22 12:25 BP 121/72 10/20/22 12:25 Pulse Ox 100 10/20/22 12:25 O2 Del Method Room Air 10/20/22 12:25 Allergies Allergy/AdvReac Type Severity Reaction Status Date / Time No Known Allergies Allergy Verified 10/20/22 12:24 Home Medications Medication Instructions Recorded Confirmed Type cholecalciferol (vitamin D3) 25 1,000 unit PO DAILY 12/11/19 10/19/22 History mcg (1,000 unit) capsule albuterol sulfate 90 mcg/actuation 2 inh inhalation QID PRN shortness 11/20/20 10/19/22 Rx aerosol inhaler of breath or wheezing #6.7 grams coQ10 (ubiquinol) 100 mg capsule 100 mg PO DAILY 02/17/21 10/19/22 History ferrous sulfate 324 mg (65 mg 324 mg PO BID 03/07/21 10/19/22 History iron) tablet,delayed release levothyroxine 75 mcg tablet 75 mcg PO DAILY #90 tabs 03/10/21 10/19/22 Rx cyanocobalamin (vitamin B-12) 1,000 mcg PO DAILY 05/18/21 10/19/22 History 1,000 mcg tablet vitamins A,C,N-kbgg-mjtdcp 2,148 2 tablet PO BID 05/18/21 10/19/22 History mcg-113 mg-45 mg-17.4 mg tablet (PreserVision AREDS) Trelegy Ellipta 100 mcg-62.5 1 inh inhalation QAM #180 ea 06/24/22 10/19/22 Rx mcg-25 mcg powder for inhalation (ikfuvzyjbms-vblpyatib-axsptgnf) enzalutamide 40 mg capsule (Xtandi) 40 mg PO QID 10/19/22 10/19/22 History esomeprazole magnesium 40 mg 40 mg PO BID 10/19/22 10/19/22 History capsule,delayed release (Nexium) Laboratory Tests 10/19/22 10/19/22 10/20/22 14:06 17:25 00:17 WBC RBC Hgb 10.9 g/dL L g/dL 10.4 g/dL L g/dL (14.0-18.0) (14.0-18.0) Hct 32.9 % L % 31.0 % L % (42.0-52.0) (42.0-52.0) MCV MCH MCHC RDW Plt Count MPV Sodium Potassium Chloride Carbon Dioxide Anion Gap BUN Creatinine Estim Creat Clear Calc Estimated GFR Glucose Calcium Magnesium TSH (Reflex) Influenza A (RT-PCR) Negative (Negative) Influenza B (RT-PCR) Negative (Negative) RSV (RT-PCR) Negative (Negative) SARS-CoV-2 RNA (RT-PCR) Negative 10/20/22 10/20/22 10/20/22 07:00 07:00 07:00 WBC 8.8 K/mm3 K/mm3 (4.5-10.0) RBC 3.06 M/mm3 L M/mm3 (4.6-6.20) Hgb 10.4 g/dL L g/dL (14.0-18.0) Hct 32.0 % L % (42.0-52.0) MCV 104.6 fl H fl (80-100) MCH 34.0 pg pg (26-34) MCHC 32.5 g/dl g/dl (32-36) RDW 12.6 % % (11.5-14.5) Plt Count 205 k/mm3 k/mm3 (150-375) MPV 9.1 fl fl (7.4-10.4) Sodium 134 mmol/L L mmol/L (137-145) Potassium 3.7 mmol/L mmol/L (3.4-5.0) Chloride 103 mmol/L mmol/L (98-107) Carbon Dioxide 23 mmol/L mmol/L (22-30) Anion Gap 8 mmol/L mmol/L (8-16) BUN 32 mg/dL H D mg/dL (9-20) Creatinine 1.40 mg/dL H mg/dL (0.7-1.3) Estim Creat Clear Calc 34 ml/min ml/min Estimated GFR 49 L (59 - ) Glucose 95 mg/dL mg/dL (65-110) Calcium 8.2 mg/dL L mg/dL (8.4-10.2) Magnesium 2.1 mg/dL mg/dL (1.6-2.3) TSH (Reflex) 2.000 uIU/mL uIU/mL (0.465-4.68) Influenza A (RT-PCR) Influenza B (RT-PCR) RSV (RT-PCR) SARS-CoV-2 RNA (RT-PCR) Patient hx anesthesia problems: no
[2022-10-20] MEDS: FERROUS SULFATE 324 MG TABLET PO (16:42)
[2022-10-20] MEDS: OPTI-GEN TAB 2 TABLET PO (16:42)
[2022-10-20] MEDS: CYANOCOBALAMIN 1,000 MCG TABLET 1000 MCG PO (16:43)
[2022-10-21 06:00] VITALS: BP 127/63; PULSE 91; RESP 18; TEMP 36.3; O2SAT 97
[2022-10-21] MEDS: LEVOTHYROXINE SODIUM 75 MCG TABLET PO (06:15)
--- NOTE | 2022-10-21 07:19 | WPDGIPROGNO ---
Progress Note: A&P Assessment and Plan (1) Blood in stool: Code(s): K92.1 - Melena Status: Acute Assessment and Plan: he has had black stools for the past week and Hemoccult was positive in the emergency room. EGD will be scheduled for tomorrow morning. (2) Constipation: Code(s): K59.00 - Constipation, unspecified Status: Acute Assessment and Plan: He states that his stools alternated back and forth between diarrhea and constipation but he has felt more constipation over the last several days. CT scan showed evidence of a fecal impaction. He was given an enema in the emergency room. He has some results from that Follow-up KUB shows fecal impaction has resolved. He should be on something like MiraLax at discharge. (3) Dysphagia: Qualifiers: Dysphagia type: unspecified Qualified Code(s): R13.10 - Dysphagia, unspecified Code(s): R13.10 - Dysphagia, unspecified Status: Acute Assessment and Plan: he is not currently having dysphagia or food, but he does from time to time feel that his post go down slowly. (4) Non-small cell cancer of right lung: Code(s): C34.91 - Malignant neoplasm of unspecified part of right bronchus or lung Status: Inactive Assessment and Plan: This was treated not quite 2 years ago with radiation. He had some chemotherapy that was not tolerated well with discontinued. (5) Gastric AVM: Code(s): K31.819 - Angiodysplasia of stomach and duodenum without bleeding Status: Acute Assessment and Plan: He has history of having had treatment of a gastric AVM. None were found on his endoscopy did which was done in May of 2021. The primary findings yesterday was extensive ulceration of the esophagus which will be treated with PPI b.i.d.. (6) GERD (gastroesophageal reflux disease): Qualifiers: Esophagitis presence: with esophagitis Esophagitis bleeding: unspecified whether hemorrhage Qualified Code(s): K21.00 - Gastro-esophageal reflux disease with esophagitis, without bleeding Code(s): K21.9 - Gastro-esophageal reflux disease without esophagitis Status: Acute Assessment and Plan: He uses pekc-pqp-ythfucs medications he has been started on a PPI. He will take Protonix twice a day for 6 weeks and then have repeat EGD as outpatient. Plan Okay from my perspective to be discharged today. Subjective Date/time seen: 10/21/22 07:19 No complaints this morning. He did tolerate his soft diet last night and I will advance him to regular. I discussed with him results of his endoscopy, the fact he has extensive ulceration of the lower half of his esophagus. This is consistent with his symptoms. He states that he always feels worse when he lays down and takes something like Tums or Pepto-Bismol for relief. I explained he will need to be on a PPI b.i.d. for the next 6-8 weeks I will schedule him for outpatient endoscopy for follow-up around that time. Exam Const: General: alert Orientation/consciousness: patient oriented x3 Resp: Auscultation: clear to auscultation bilaterally Cardio: Rhythm: regular rhythm GI: Inspection: normal to inspection Auscultation: normal bowel sounds Neuro: General: patient oriented x3 Objective Data Vital Signs Vital Signs: Vital Signs - 24 hr 10/20/22 08:15 10/20/22 12:25 10/20/22 13:37 Temperature 36.4 C L Pulse Rate 89 77 Respiratory Rate 22 H 18 Blood Pressure 121/72 62/38 L Pulse Oximetry 97 100 100 Oxygen Delivery Room Air Room Air Nasal Cannula Oxygen Flow Rate 4 10/20/22 13:47 10/20/22 13:57 10/20/22 14:00 Temperature 36.6 C Pulse Rate 77 83 97 Respiratory Rate 25 H 23 H 14 Blood Pressure 101/70 104/66 118/63 Pulse Oximetry 99 98 91 Oxygen Delivery Room Air Room Air Oxygen Flow Rate 10/20/22 20:00 10/20/22 23:42 10/21/22 06:00 Temperature 36.3 C L Pulse Rate 91 Respirato
[2022-10-21 08:12] LABS: Hematocrit 31.3 % (42.0-52.0); Hemoglobin 10.3 g/dL (14.0-18.0)
[2022-10-21 08:28] LABS: Albumin Level 3.4 g/dL (3.5-5.1); Anion Gap 7 mmol/L (8-16); Blood Urea Nitrogen 21 mg/dL (9-20); Calcium 7.8 mg/dL (8.4-10.2); Carbon Dioxide 20 mmol/L (22-30); Chloride 106 mmol/L (98-107); Estimated CRCL calculation 43 ml/min; Estimated Glomerular Filt Rate > 60; Glucose 101 mg/dL (65-110); Phosphorus 2.6 mg/dL (2.5-4.5); Potassium 3.5 mmol/L (3.4-5.0); Sodium 133 mmol/L (137-145)
[2022-10-21] MEDS: FLUTICASONE/UMECLIDIN/VILANTER 100-62.5-25 MCG ELLIPTA 1 PUFF INHALATION (08:50)
[2022-10-21 08:51] VITALS: O2SAT 92
[2022-10-21] MEDS: FERROUS SULFATE 324 MG TABLET PO ×2 (09:49→17:35)
[2022-10-21] MEDS: CYANOCOBALAMIN 1,000 MCG TABLET 1000 MCG PO (09:49)
[2022-10-21] MEDS: OPTI-GEN TAB 2 TABLET PO ×2 (09:49→17:35)
[2022-10-21] MEDS: PANTOPRAZOLE 40 MG TABLET PO ×2 (09:50→21:49)
[2022-10-21 14:00] VITALS: BP 114/58; PULSE 76; RESP 18; TEMP 36.9; O2SAT 96
--- NOTE | 2022-10-21 14:43 | PC.NURSE ---
Pt ambulated to bathroom with assist x2. Gait very unsteady. Voided 100 mls. Bladder scanned for 665 mls. made aware.
--- NOTE | 2022-10-21 15:03 | PC.NURSE ---
Straight cathed for 675mls clear yellow urine. Pt tolerated well.
--- NOTE | 2022-10-21 18:54 | PM.IMPN ---
Progress Note: A&P Assessment and Plan (1) Esophageal ulcer without bleeding: Code(s): K22.10 - Ulcer of esophagus without bleeding Status: Acute Assessment and Plan: EGD shows esophageal ulcers without bleeding. This is Reece most likely etiology of his recent upper GI bleeding. hemoglobin stable in the 10 range since admission. Continue Protonix. Plan was for discharge today but patient is too weak and so will start therapy and have him evaluated for skilled placement. (2) Blood in stool: Code(s): K92.1 - Melena Status: Acute Assessment and Plan: EGD as above. (3) Urine retention: Code(s): R33.9 - Retention of urine, unspecified Status: Acute Assessment and Plan: Patient voided 100 mL but still had 650 by bladder ultrasound and by straight cath. Could be related to constipation And/or lack of mobility. Treat constipation. Monitor for now without Lowe. May need Flomax but he has had a prostectomy. (4) Acute kidney injury: Code(s): N17.9 - Acute kidney failure, unspecified Status: Acute Assessment and Plan: Improving on IV fluids, likely prerenal from GI bleed Renal cell carcinoma mass noted on right kidney, stable from March 2022 (5) Constipation: Code(s): K59.00 - Constipation, unspecified Status: Acute Assessment and Plan: Stools distends the rectum by CT. Add miralax. May be contributing to the urine retention (6) History of treatment for malignancy: Code(s): Z85.9 - Personal history of malignant neoplasm, unspecified Status: Acute Assessment and Plan: He has been treated for 3 separate malignancies (non-small cell carcinoma right lung, prostate, right renal cell carcinoma). Renal mass stable today when compared to imaging done in summer 2021. Mild aortocaval lymphadenopathy consistent with metastatic disease also noted on CT, stable from July 2022. Follows with doctors Lane and Kunal. (7) Chronic anemia: Code(s): D64.9 - Anemia, unspecified Status: Acute Assessment and Plan: Stable, monitor (8) Chronic obstructive pulmonary disease: Code(s): J44.9 - Chronic obstructive pulmonary disease, unspecified Status: Acute Assessment and Plan: No acute exacerbation. Continue inhalers as prescribed. (9) Diastolic dysfunction: Code(s): I51.89 - Other ill-defined heart diseases Status: Acute Assessment and Plan: IV fluids stopped (10) Hypothyroidism: Code(s): E03.9 - Hypothyroidism, unspecified Status: Acute Assessment and Plan: Continue levothyroxine, TSH within normal limits Plan DVT prophylaxis with SCDs Code status full code Subjective Date/time seen: 10/21/22 18:54 Interval history: Assuming care. Chart reviewed. no issues overnight. He feels well. He is requesting discharge. Exam Narrative: General: No acute distress, alert and oriented per baseline HEENT: Atraumatic, normocephalic, mucous membranes moist CV: Regular rate and rhythm, S1, S2 Lungs: Clear to auscultation bilaterally, no rales or crackles noted, no wheezes, good air entry Abdomen: Soft, bladder distended, +BS Extremities: Normal to inspection Skin: No rashes noted, no lesions or wounds seen Psych: Euthymic, normal affect Objective Data Vital Signs Vital Signs: Vital Signs - 24 hr 10/20/22 20:00 10/20/22 23:42 10/21/22 06:00 Temperature 97.3 F L Pulse Rate 91 Respiratory Rate 18 Blood Pressure 127/63 Pulse Oximetry 91 97 Oxygen Delivery Room Air Room Air 10/21/22 08:51 10/21/22 08:00 10/21/22 14:00 Temperature 98.4 F Pulse Rate 76 Respiratory Rate 18 Blood Pressure 114/58 L Pulse Oximetry 92 96 Oxygen Delivery Room Air Room Air Intake/Output Intake/Output: Intake & Output 10/18/22 10/19/22 10/20/22 10/21/22 23:59 23:59 23:59 23:59 Intake T
[2022-10-21] MEDS: polyethylene glycoL 3350 17 GM POWD.PACK PO (21:49)
[2022-10-21 22:00] VITALS: BP 116/69; PULSE 93; RESP 20; TEMP 37.1; O2SAT 97
[2022-10-22 06:00] VITALS: BP 87/54; PULSE 80; RESP 16; TEMP 36.5; O2SAT 97
[2022-10-22] MEDS: LEVOTHYROXINE SODIUM 75 MCG TABLET PO (06:25)
--- NOTE | 2022-10-22 07:27 | WPDGIPROGNO ---
Progress Note: A&P Assessment and Plan (1) Blood in stool: Code(s): K92.1 - Melena Status: Acute Assessment and Plan: he has had black stools for the past week and Hemoccult was positive in the emergency room. EGD revealed severe esophagitis. Biopsies were benign, showing only necrotic tissue consistent with ulceration. (2) Constipation: Code(s): K59.00 - Constipation, unspecified Status: Acute Assessment and Plan: He states that his stools alternated back and forth between diarrhea and constipation but he has felt more constipation over the last several days. CT scan showed evidence of a fecal impaction. He was given an enema in the emergency room. He has some results from that Follow-up KUB shows fecal impaction has resolved. He should be on something like MiraLax at discharge. (3) Dysphagia: Qualifiers: Dysphagia type: unspecified Qualified Code(s): R13.10 - Dysphagia, unspecified Code(s): R13.10 - Dysphagia, unspecified Status: Acute Assessment and Plan: he is not currently having dysphagia or food, but he does from time to time feel that his post go down slowly. (4) Non-small cell cancer of right lung: Code(s): C34.91 - Malignant neoplasm of unspecified part of right bronchus or lung Status: Inactive Assessment and Plan: This was treated not quite 2 years ago with radiation. He had some chemotherapy that was not tolerated well with discontinued. (5) Gastric AVM: Code(s): K31.819 - Angiodysplasia of stomach and duodenum without bleeding Status: Acute Assessment and Plan: He has history of having had treatment of a gastric AVM. None were found on his endoscopy did which was done in May of 2021. The primary findings yesterday was extensive ulceration of the esophagus which will be treated with PPI b.i.d.. (6) GERD (gastroesophageal reflux disease): Qualifiers: Esophagitis presence: with esophagitis Esophagitis bleeding: unspecified whether hemorrhage Qualified Code(s): K21.00 - Gastro-esophageal reflux disease with esophagitis, without bleeding Code(s): K21.9 - Gastro-esophageal reflux disease without esophagitis Status: Acute Assessment and Plan: He uses srqx-cih-vthfvcj medications he has been started on a PPI. He will take Protonix twice a day for 6 weeks and then have repeat EGD as outpatient. (7) Urine retention: Code(s): R33.9 - Retention of urine, unspecified Status: Acute Assessment and Plan: He is currently being Treated for this. He mentioned that he has not yet urinated this morning. Plan Okay from my perspective to be discharged today. Subjective Date/time seen: 10/22/22 07:27 He has had no difficulty with eating. He denies any abdominal pain or significant heartburn. His only issue now is the fact that he has year retention Exam Const: General: alert Orientation/consciousness: patient oriented x3 Resp: Auscultation: clear to auscultation bilaterally Cardio: Rhythm: regular rhythm GI: Inspection: normal to inspection GI Palp: No abdominal tenderness and Yes No hepatosplenomegaly present Auscultation: normal bowel sounds Neuro: General: patient oriented x3 Objective Data Vital Signs Vital Signs: Vital Signs - 24 hr 10/21/22 08:51 10/21/22 08:00 10/21/22 14:00 Temperature 36.9 C Pulse Rate 76 Respiratory Rate 18 Blood Pressure 114/58 L Pulse Oximetry 92 96 Oxygen Delivery Room Air Room Air 10/21/22 22:00 10/21/22 20:00 10/22/22 06:00 Temperature 37.1 C 36.5 C Pulse Rate 93 80 Respiratory Rate 20 16 Blood Pressure 116/69 87/54 L Pulse Oximetry 97 97 Oxygen Delivery Room Air Intake/Output Intake/Output: Intake & Output 10/19/22 10/20/22 10/21/22 10/22/22 23:59 23:59 23:59 23:59 Intake Total 1340 1850 875 250 Output Total 675 Balance 1340 1850 200 250
[2022-10-22 08:00] VITALS: PULSE 93; RESP 18; O2SAT 96
[2022-10-22] MEDS: PANTOPRAZOLE 40 MG TABLET PO (08:55)
[2022-10-22] MEDS: OPTI-GEN TAB 2 TABLET PO (08:55)
[2022-10-22] MEDS: FERROUS SULFATE 324 MG TABLET PO (08:55)
[2022-10-22] MEDS: CYANOCOBALAMIN 1,000 MCG TABLET 1000 MCG PO (08:56)
[2022-10-22] MEDS: FLUTICASONE/UMECLIDIN/VILANTER 100-62.5-25 MCG ELLIPTA 1 PUFF INHALATION (08:57)
[2022-10-22 13:22] VITALS: BP 105/59
[2022-10-22 14:05] VITALS: BP 101/57; PULSE 93; RESP 18; TEMP 36.8; O2SAT 96
--- NOTE | 2022-10-22 14:19 | PM.DS ---
DS: Admitting Diagnosis Discharge Date 10/22/22 Admitting Diagnosis Weak, dark stools DS: Discharge Diagnosis Discharge Diagnosis (1) Esophageal ulcer without bleeding: Code(s): K22.10 - Ulcer of esophagus without bleeding Status: Acute (2) Blood in stool: Code(s): K92.1 - Melena Status: Acute (3) Urine retention: Code(s): R33.9 - Retention of urine, unspecified Status: Acute (4) Acute kidney injury: Code(s): N17.9 - Acute kidney failure, unspecified Status: Acute (5) Constipation: Code(s): K59.00 - Constipation, unspecified Status: Acute (6) History of treatment for malignancy: Code(s): Z85.9 - Personal history of malignant neoplasm, unspecified Status: Acute (7) Chronic anemia: Code(s): D64.9 - Anemia, unspecified Status: Acute (8) Chronic obstructive pulmonary disease: Code(s): J44.9 - Chronic obstructive pulmonary disease, unspecified Status: Acute (9) Diastolic dysfunction: Code(s): I51.89 - Other ill-defined heart diseases Status: Acute (10) Hypothyroidism: Code(s): E03.9 - Hypothyroidism, unspecified Status: Acute DS: Summary Hospital Course Reason for hospitalization: 81yo male with prostate CA here for GI bleed. Please see H&P for details. Hospital Course: Patient presents with evidence GI bleed. He underwent EGD which showed esophageal ulcers without bleeding. Hemoglobin was in the 10 range on admission and remained stable. During hospital course, he was noted to have urine retention. Ultimately, we had to place a Lowe catheter. We did not start Flomax given the fact that his blood pressure soft at times and the fact that he has had a prostatectomy. Discussed with Urology. plan to discharge patient with Lowe catheter and to follow-up with urology. Discussed with GI as well. Plan is for Protonix twice a day for 6 weeks with repeat EGDs an outpatient. Patient and son voiced understanding of this. Patient also noted to have fecal impaction by CT scan. He had good stool output with treatment. He will be going home with MiraLax. Patient overall did well but was weak so discharge had to be held until he was evaluated by therapy. Patient has been up ambulating to the bathroom. He feels safe for discharge. The son will be with him at times. Patient overall did well to be discharged home on 10/22/2022. he will also be going home with home health. Status at Discharge Cognitive/behavioral status at discharge: Stable Time Spent with Patient Time attestation: Total time spent providing and/or coordinating discharge services: 38 minutes Time spent: Greater than 30 minutes Exam Narrative: AF 98.2 101/57 93 18 96% ra Gen - NARD Chest - CTA bilaterally, nml RR CV - RRR S1/S2 Abd - Soft, NT/ND, Positive BS - Lowe secured Ext - No pedal edema Psych - Nml mood and affect Skin - Warm and dry DS: Data Data Completed and Pending Completed studies during hospitalization: Pending at discharge 10/20/22 13:34 Surgical [PTH] Routine Discharge Plan Discharge Attending physician on discharge: Cem Gonzalez Consulting providers: David Thomas Discharging Clinician: Cem Gonzalez Anticipated Discharge Date/Time: 10/22/22 14:21 Patient Disposition: Home Health Service Activity: as tolerated Diet: regular Discharge Instructions: Per Care Coordination, patient to discharge with [facility] ([phone]) for PT/OT and intermediate services. Agency will call to schedule the initial visit week of 10/25/22. Take precautions to avoid falls. Rise slowly from a lying or sitting position. Pause before standing or walking. Contact your doctor or call 911 and come to the Emergency Room if you have lightheadedness with standing or other worrisome symptoms. Avoid NSAIDs (ibuprofen, naproxen, Aleve). Tylenol is safe to t
== END 2022-10-22 15:35 | disposition home or self-care (01) | DRG 381 ==
LOC: ANHED 13:48 → ANH3MEDSUR 15:21
PROVIDERS: General Practice; Internal Medicine Gastroenterology; Physician Assistant; Admitting Provider Chiropractor; Emergency Provider Emergency Medicine; PCP Internal Medicine; Visit Provider Internal Medicine
PROC: 0DJ08ZZ Inspection of Upper Intestinal Tract, Via Natural or Artificial Opening Endoscopic (ICD-10-PCS; CPT 43235; principal; 2022-10-20 13:00)
DX: K22.11 Ulcer of esophagus with bleeding (principal); C34.91 Malignant neoplasm of unspecified part of right bronchus or lung; C64.1 Malignant neoplasm of right kidney, except renal pelvis; C77.2 Secondary and unspecified malignant neoplasm of intra-abdominal lymph nodes; N17.9 Acute kidney failure, unspecified; K59.00 Constipation, unspecified; R33.9 Retention of urine, unspecified; R13.10 Dysphagia, unspecified; K44.9 Diaphragmatic hernia without obstruction or gangrene; K21.9 Gastro-esophageal reflux disease without esophagitis; D64.9 Anemia, unspecified; J44.9 Chronic obstructive pulmonary disease, unspecified; E86.0 Dehydration; I51.89 Other ill-defined heart diseases; E03.9 Hypothyroidism, unspecified; Z20.822 Contact with and (suspected) exposure to COVID-19; H35.30 Unspecified macular degeneration; M85.80 Other specified disorders of bone density and structure, unspecified site; G47.33 Obstructive sleep apnea (adult) (pediatric); Z87.19 Personal history of other diseases of the digestive system; Z87.891 Personal history of nicotine dependence; Z98.42 Cataract extraction status, left eye; Z98.41 Cataract extraction status, right eye; Z85.46 Personal history of malignant neoplasm of prostate; Z85.118 Personal history of other malignant neoplasm of bronchus and lung
CPT/HCPCS: 36415; 74018; 74177; 80048; 80053; 80069; 83735; 84443; 85014; 85018; 85025; 85027; 85610; 85730; 86850; 86900; 86901; 87637; 88305; 94640; 96361; 96374; 96376; 97165; 99285; A9270; C9113; G0378; J2370; J2704; J7030; J7120; Q9967

== ENCOUNTER 2022-11-30 00:23 | Day surgery (SDC) | payer MEDICARE, OTHER, SELFPAY ==
[2022-11-17 11:40] VITALS: BMI 20.6
[2022-11-30 10:21] VITALS: BP 112/63; PULSE 80; RESP 20; TEMP 36.2; O2SAT 90; BMI 20.5
--- NOTE | 2022-11-30 10:31 | WPDANESEPPF ---
Anes - Initial Pre Proc Eval Procedure: Operation Date: 11/30/22 11:30 Proposed Procedures p Esophagogastroduodenoscopy - David Thomas MD Date/Time: 11/30/22 10:31 Surgeon: David Thomas MD Pre Op Diagnosis: Esophageal Ulcer Patient Data Age: 82 Gender: M Height: 1.8 m Weight: 66.8 kg Last Vital Signs Temp 97.1 F L 11/30/22 10:21 Pulse 80 11/30/22 10:21 Resp 20 11/30/22 10:21 BP 112/63 11/30/22 10:21 Pulse Ox 90 11/30/22 10:21 O2 Del Method Room Air 11/30/22 10:21 Allergies Allergy/AdvReac Type Severity Reaction Status Date / Time No Known Allergies Allergy Verified 11/30/22 10:20 Home Medications Medication Instructions Recorded Confirmed Type cholecalciferol (vitamin D3) 25 1,000 unit PO DAILY 12/11/19 11/30/22 History mcg (1,000 unit) capsule albuterol sulfate 90 mcg/actuation 2 inh inhalation QID PRN shortness 11/20/20 11/30/22 Rx aerosol inhaler of breath or wheezing #6.7 grams coQ10 (ubiquinol) 100 mg capsule 100 mg PO DAILY 02/17/21 11/30/22 History ferrous sulfate 324 mg (65 mg 324 mg PO BID 03/07/21 11/30/22 History iron) tablet,delayed release levothyroxine 75 mcg tablet 75 mcg PO DAILY #90 tabs 03/10/21 11/30/22 Rx cyanocobalamin (vitamin B-12) 1,000 mcg PO DAILY 05/18/21 11/30/22 History 1,000 mcg tablet vitamins A,C,H-hpga-jgkynx 2,148 2 tablet PO BID 05/18/21 11/30/22 History mcg-113 mg-45 mg-17.4 mg tablet (PreserVision AREDS) Trelegy Ellipta 100 mcg-62.5 1 inh inhalation QAM #180 ea 06/24/22 11/30/22 Rx mcg-25 mcg powder for inhalation (xnswjmrubgk-txzlkyfno-ilcpodew) pantoprazole 40 mg tablet,delayed 40 mg PO Q12HR #60 tabs 10/22/22 11/30/22 Rx release polyethylene glycol 3350 17 gram 17 g PO DAILY #30 ea 10/22/22 11/30/22 Rx oral powder packet (Miralax) Patient hx anesthesia problems: none Family hx anesthesia problems: none Results Review: All pre-operative results and documents have been reviewed as part of the pre-operative evaluation. [facility] Past Medical History Medical History (Updated 10/21/22 @ 19:01 by Cem Gonzalez MD) Chronic obstructive pulmonary disease Clear cell carcinoma of right kidney Status post radiation. Diastolic dysfunction Echocardiogram November 2018: Impaired diastolic relaxation grade 1, ejection fraction 60%, mild left atrial enlargement, mild tricuspid regurgitation Duodenal arteriovenous malformation Dysphagia Essential hypertension Gastric AVM Gastroesophageal reflux disease History of tobacco abuse Quit 2016. Smoked for 50 years. Hypothyroidism Left rotator cuff tear Macular degeneration Non-small cell cancer of right lung Status post chemoradiation in remission. Obstructive sleep apnea (2018) 06/15/2019 without optimal pressure. Bilevel titration 07/26/2020 which demonstrated poor sleep efficiency but sufficient pressure settings of 9/5 started September 2020. Patient reports intolerance to CPAP. Osteopenia Noted on DEXA scan October 2020 Prostate cancer Status post prostatectomy in 1992. Initially treated with Lupron, changed to Xtandi due to rising PSA in January 2021. Reflux esophagitis Severe chronic obstructive pulmonary disease PFTs 12/07/2018: FEV1 48% with airflow obstruction, TLC 165% with air trapping and DLCO of 81% Surgical History Surgical History (Updated 10/19/22 @ 22:16 by Pauly Shearer PA-C) History of arthroscopy of left knee History of bilateral cataract extraction History of carpal tunnel release History of esophagogastroduodenoscopy (EGD) June 2020 demonstrated reflux esophagitis and duodenal and gastric AVMs History of prostatectomy 1992 due to prostate cancer History of tonsillectomy History of vasectomy Family History Family History Sibling Stomach cancer Brother Father Atherosclerosis Heart disease Social History Social History (U
[2022-11-30] MEDS: LACTATED RINGERS 1,000 ML 150 ML IV CONT (10:39)
--- NOTE | 2022-11-30 10:47 | PM.HPGS ---
History of Present Illness History of Present Illness Consent: Risks, benefits, and alternatives have been discussed and questions answered. Patient agrees to proceed with procedure. Chief complaint: Esophageal Ulcer Narrative: Eloy Duncan is a 82 year old male Was hospitalized several weeks ago with bleeding and found to have multiple esophageal ulcers. Review of Systems Review of Systems: All systems reviewed & are unremarkable except as noted in HPI and below PMFSH Past Medical History Medical History Chronic obstructive pulmonary disease Clear cell carcinoma of right kidney Status post radiation. Diastolic dysfunction Echocardiogram November 2018: Impaired diastolic relaxation grade 1, ejection fraction 60%, mild left atrial enlargement, mild tricuspid regurgitation Duodenal arteriovenous malformation Dysphagia Essential hypertension Gastric AVM Gastroesophageal reflux disease History of tobacco abuse Quit 2016. Smoked for 50 years. Hypothyroidism Left rotator cuff tear Macular degeneration Non-small cell cancer of right lung Status post chemoradiation in remission. Obstructive sleep apnea (2018) 06/15/2019 without optimal pressure. Bilevel titration 07/26/2020 which demonstrated poor sleep efficiency but sufficient pressure settings of 9/5 started September 2020. Patient reports intolerance to CPAP. Osteopenia Noted on DEXA scan October 2020 Prostate cancer Status post prostatectomy in 1992. Initially treated with Lupron, changed to Xtandi due to rising PSA in January 2021. Reflux esophagitis Severe chronic obstructive pulmonary disease PFTs 12/07/2018: FEV1 48% with airflow obstruction, TLC 165% with air trapping and DLCO of 81% Surgical History Surgical History History of arthroscopy of left knee History of bilateral cataract extraction History of carpal tunnel release History of esophagogastroduodenoscopy (EGD) June 2020 demonstrated reflux esophagitis and duodenal and gastric AVMs History of prostatectomy 1992 due to prostate cancer History of tonsillectomy History of vasectomy Family History Family History Sibling Stomach cancer Brother Father Atherosclerosis Heart disease Social History Social History Social History: Primary care physician: Dr. Chacorta Perry Surrogate decision maker: Iovn Gandhi (daughter) Smoking packs per day: 1.5 Smoking cigarettes per day: 30.0 Years smoked: 60 Smoking pack-years: 90.00 Smoking status: Former smoker Tobacco type: cigarettes Second hand tobacco smoke exposure: No Smoking end date: 05/18/17 Alcohol intake: never Alcohol use details: Former social drinker. Substance use: never Substance use type: does not use Lack of Transportation: No Lack of Food: Never True Current Housing: I Have Housing Concerned About Future Housing: No Difficulty Paying Gas/Electric Bills: No Difficulty Paying for Meds: No Currently Unemployed: No Education: Decline to Answer Difficulty w/ Childcare or Family Care: No Living arrangements: alone Additional living arrangements comments: The patient lives in his own home in [place]. Additional occupation/education comments: Retired from the fire department. Spiritual care concerns: No Meds Home Medications and Allergies Home Medications Medication Instructions Recorded Confirmed Type cholecalciferol (vitamin D3) 25 1,000 unit PO DAILY 12/11/19 11/30/22 History mcg (1,000 unit) capsule albuterol sulfate 90 mcg/actuation 2 inh inhalation QID PRN shortness 11/20/20 11/30/22 Rx aerosol inhaler of breath or wheezing #6.7 grams coQ10 (ubiquinol) 100 mg capsule 100 mg PO DAILY 02/17/21 11/30/22 History ferrous sulfate 3
[2022-11-30 11:19] VITALS: BP 110/66; PULSE 78; RESP 19; O2SAT 100
[2022-11-30 11:29] VITALS: BP 119/71; PULSE 80; RESP 22; O2SAT 100
[2022-11-30 11:39] VITALS: BP 127/68; PULSE 77; RESP 17; O2SAT 100
== END 2022-11-30 11:59 | disposition home or self-care (01) ==
PROVIDERS: PCP Internal Medicine; Visit Provider Internal Medicine Gastroenterology
PROC: 0DJ08ZZ Inspection of Upper Intestinal Tract, Via Natural or Artificial Opening Endoscopic (ICD-10-PCS; CPT 43235; principal; 2022-11-30 11:30)
DX: Z09 Encounter for follow-up examination after completed treatment for conditions other than malignant neoplasm (principal); K22.10 Ulcer of esophagus without bleeding; K22.2 Esophageal obstruction; K21.9 Gastro-esophageal reflux disease without esophagitis; K44.9 Diaphragmatic hernia without obstruction or gangrene; J44.9 Chronic obstructive pulmonary disease, unspecified; I11.9 Hypertensive heart disease without heart failure; E03.9 Hypothyroidism, unspecified; H35.30 Unspecified macular degeneration; G47.33 Obstructive sleep apnea (adult) (pediatric); Z85.46 Personal history of malignant neoplasm of prostate; Z85.118 Personal history of other malignant neoplasm of bronchus and lung; Z85.528 Personal history of other malignant neoplasm of kidney; Z92.3 Personal history of irradiation; Z92.21 Personal history of antineoplastic chemotherapy; Z87.891 Personal history of nicotine dependence; Z79.51 Long term (current) use of inhaled steroids
CPT/HCPCS: 43239; 88305; J2704; J7120

== ENCOUNTER 2023-01-20 10:59 | Outpatient (CLI) | payer MEDICARE, OTHER, SELFPAY ==
--- NOTE | ~2023-01-20 | CT_ITS ---
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 The dose-length product (DLP) was 550.99 mGy-cm. Automated exposure control and iterative reconstruction technique were employed. COMPARISON: 10/19/2022 FINDINGS: CHEST CT: There is severe emphysema. There are chronic airspace opacities and air bronchograms of the right low er lobe without significant change. There is also a stable 5 mm nodule of the right lower lobe. There is a 4 mm nodule of the left upper lobe not definitely identified on the comparison examination (sly ge 53). No pleural effusion or pneumothorax. There is severe thoracic spondylosis. ABDOMEN/PELVIS CT: Cysts of the liver measure up to 12 mm. The spleen, pancreas, gallbladder, and adrenal glands are nor mal. Again noted is a 4.9 x 4.2 cm cystic and solid mass of the right kidney without significant carrillo ge. Cysts of the left kidney measure up to 3.3 cm. A 2.0 cm aortocaval lymph node previously measured up to 1.5 cm. There is calcified atherosclerosis of the aorta and many of the other arteries. Change s of prostatectomy and pelvic lymph node dissection are noted. No free intraperitoneal gas or evidenc e of bowel obstruction. There is severe lumbar spondylosis. There is a chronic compression fracture o f T12. IMPRESSION: 1. Chronic airspace opacities and air bronchograms of the right lower lobe, consistent with treated m alignancy. 2. Stable complex cystic and solid mass of the right kidney, consistent with renal cell carcinoma. 3. Mild enlargement of an aortocaval lymph node, consistent with metastatic disease. Reviewed, dictated and finalized at location B. IMPRESSION: 1. Chronic airspace opacities and air bronchograms of the right lower lobe, con sistent with treated malignancy. 2. Stable complex cystic and solid mass of the right kidney, consistent with re nal cell carcinoma. 3. Mild enlargement of an aortocaval lymph node, consistent with metastatic dis ease.
[2023-01-20 11:36] LABS: Estimated Glomerular Filt Rate 34
== END 2023-01-20 11:00 | disposition home or self-care (01) ==
PROVIDERS: PCP Internal Medicine; Visit Provider Internal Medicine Hematology & Oncology
DX: C34.91 Malignant neoplasm of unspecified part of right bronchus or lung (principal); C64.1 Malignant neoplasm of right kidney, except renal pelvis; R59.0 Localized enlarged lymph nodes
CPT/HCPCS: 71260; 74177; Q9967

== ENCOUNTER 2023-02-22 15:03 | Emergency (ER) | payer MEDICARE, OTHER, SELFPAY ==
[2023-02-22 15:27] VITALS: BP 176/62; PULSE 107; RESP 16; TEMP 36.5; O2SAT 94
[2023-02-22] MEDS: SODIUM CHLORIDE 0.9% IV 2,000 ML 999 ML IV CONT (16:59)
[2023-02-22 17:00] VITALS: BP 121/66; PULSE 71; RESP 20; O2SAT 100
[2023-02-22 17:34] LABS: Add Urine Microscopic? YES; Appearance Urine Clear (Clear); Bacteria Urine None Seen /hpf; Bilirubin Urine Negative (Negative); Blood Urine Negative (Negative); Color Urine Yellow (Yellow); Glucose Urine UA Negative (Negative); Ketones Urine Negative (Negative); Leukocyte Esterase Ur Trace LEU/UL (Negative); Nitrate Urine Negative (Negative); Non Pathogenic Casts 0-2; Protein Urine Negative (Negative); RBC Urine 0-2 /hpf (0-2); Squamous Epithelial Cell Urine None seen /hpf (Few); Urobilinogen Urine 0.2 mg/dL (<2.0); WBC Urine 0-5 /hpf; pH Urine 6.5 (5.0-9.0)
[2023-02-22 17:48] VITALS: BP 119/67; PULSE 81; RESP 18; O2SAT 99
--- NOTE | 2023-02-22 17:59 | ED.WEAKNESS ---
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 The patient underwent normal treatment today without difficulty. Labs were drawn including CBC and chemistries. The patient's creatinine was noted to be elevated to 1.9. He was sent for evaluation and IV fluids. The patient has no complaints. He denies vomiting, diarrhea, weakness or numbness. Related Data Home Medications Medication Instructions Recorded Confirmed cholecalciferol (vitamin D3) 25 1,000 unit PO DAILY 12/11/19 02/22/23 mcg (1,000 unit) capsule coQ10 (ubiquinol) 100 mg capsule 100 mg PO DAILY 02/17/21 02/22/23 ferrous sulfate 324 mg (65 mg 324 mg PO BID 03/07/21 02/22/23 iron) tablet,delayed release cyanocobalamin (vitamin B-12) 1,000 mcg PO DAILY 05/18/21 02/22/23 1,000 mcg tablet vitamins A,C,S-ktwj-fnqhnf 2,148 2 tablet PO BID 05/18/21 02/22/23 mcg-113 mg-45 mg-17.4 mg tablet (PreserVision AREDS) Allergies Allergy/AdvReac Type Severity Reaction Status Date / Time No Known Allergies Allergy Verified 02/22/23 15:30 Review of Systems Review of Systems: CONSTITUTIONAL: Denies fever, chills, or sweats. CARDIOVASCULAR: Denies chest pain, palpitations, or edema. RESPIRATORY: Denies cough or dyspnea. GASTROINTESTINAL: Denies abdominal pain, nausea, vomiting, or diarrhea. GENITOURINARY: Denies dysuria or hematuria. SKIN: Denies rash or itching. MUSCULOSKELETAL: Denies back pain, joint pain, or myalgia. NEUROLOGIC: Denies headache, numbness, dizziness, or weakness. PSYCHIATRIC: Denies anxiety or depression. 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 Diastolic dysfunction Echocardiogram November 2018: Impaired diastolic relaxation grade 1, ejection fraction 60%, mild left atrial enlargement, mild tricuspid regurgitation Duodenal arteriovenous malformation Dysphagia Essential hypertension Gastric AVM Gastroesophageal reflux disease History of tobacco abuse Quit 2016. Smoked for 50 years. Hypothyroidism Left rotator cuff tear Macular degeneration Non-small cell cancer of right lung Status post chemoradiation in remission. Obstructive sleep apnea (2018) 06/15/2019 without optimal pressure. Bilevel titration 07/26/2020 which demonstrated poor sleep efficiency but sufficient pressure settings of 9/5 started September 2020. Patient reports intolerance to CPAP. Osteopenia Noted on DEXA scan October 2020 Prostate cancer Status post prostatectomy in 1992. Initially treated with Lupron, changed to Xtandi due to rising PSA in January 2021. Reflux esophagitis Severe chronic obstructive pulmonary disease PFTs 12/07/2018: FEV1 48% with airflow obstruction, TLC 165% with air trapping and DLCO of 81% Surgical History Surgical History History of arthroscopy of left knee History of bilateral cataract extraction History of carpal tunnel release History of esophagogastroduodenoscopy (EGD) June 2020 demonstrated reflux esophagitis and duodenal and gastric AVMs History of prostatectomy 1992 due to prostate cancer History of tonsillectomy History of vasectomy Family History Family History Sibling Stomach cancer Brother Father Atherosclerosis Heart disease Social History Social History Social History: Primary care physician: Dr. Chacorta Perry Surrogate decision maker: Ivon Gandhi (daughter) Smoking packs per day:
[2023-02-22 18:59] LABS: Anion Gap 10 mmol/L (8-16); Blood Urea Nitrogen 29 mg/dL (9-20); Calcium 8.9 mg/dL (8.4-10.2); Carbon Dioxide 21 mmol/L (22-30); Chloride 102 mmol/L (98-107); Estimated CRCL calculation 35 ml/min; Estimated Glomerular Filt Rate 48; Glucose 84 mg/dL (65-110); Potassium 5.1 mmol/L (3.4-5.0); Sodium 133 mmol/L (137-145)
[2023-02-22 19:17] VITALS: BP 101/69; PULSE 89; RESP 20; O2SAT 99
== END 2023-02-22 19:18 | disposition home or self-care (01) ==
PROVIDERS: Emergency Provider Preventive Medicine Aerospace Medicine; PCP Internal Medicine
DX: E86.0 Dehydration (principal); R94.4 Abnormal results of kidney function studies; J44.9 Chronic obstructive pulmonary disease, unspecified; I11.0 Hypertensive heart disease with heart failure; I50.9 Heart failure, unspecified; K21.9 Gastro-esophageal reflux disease without esophagitis; E03.9 Hypothyroidism, unspecified; G47.30 Sleep apnea, unspecified
CPT/HCPCS: 36415; 77373; 80047; 80048; 81001; 85027; 96360; 96361; 99283; J7030

== ENCOUNTER 2023-04-06 13:21 | Outpatient (CLI) | payer MEDICARE, OTHER, SELFPAY ==
--- NOTE | ~2023-04-06 | PE_ITS ---
EXAMINATION: PET_PETPSMAST_PT DATE: 04/06/2023 15:47 INDICATION: Prostate cancer TECHNIQUE: 8.871 mCi of pipflufolastat F-18 (18-F-DCFPyL) was administered i.v. Low dose computed to mography (CT) images were acquired from the base of the brain to the base of the brain to the proxima l thighs for attenuation correction and anatomic localization. Positron emission tomography (PET) sly ges were acquired in the same distribution beginning 93 minutes after injection. Images including fus ed PET/CT images were reconstructed in axial, coronal, and sagittal planes. Automated exposure contro l technique was employed. The dose-length product was 484.81mGy-cm. COMPARISON: CT chest, abdomen and pelvis dated 01/20/2023 FINDINGS: Head/neck: Typical pattern of symmetric physiologic increased activity in the lacrimal, parotid and submandibula r glands as well as along the mucosa of the nasal and oral cavities, the johann-, naso- and hypopharynx, the glottis and esophagus. Prominent PSMA uptake at a 1.4 x 0.5 cm left jugular chain lymph node at the level of the muscle glottis with maximal SUV of. There is a second 1.3 x 0.8 cm right supraclavic ular lymph node with maximal SUV of 23.6. Chest: Severe emphysema. There is volume loss in the right lower lobe with chronic bandlike region of consol idation with air bronchograms extending posteriorly to the periphery of the superior segment of the r ight upper lobe from the right hilum and anteriorly on the prior mediastinal and right middle lobe co nsistent with chronic radiation fibrosis related to treated non-small cell lung cancer. There is a ne w 9 x 4 mm oblong nodule along the paramediastinal left upper lobe without significant increased PSMA uptake with maximal SUV of 3.1. No other new airspace opacities, suspicious pulmonary nodules, or pl eural effusion. Heart size is normal. Atherosclerotic coronary artery calcific lesion. No pericardial effusion. Thoracic aorta is normal in caliber. There are multiple small foci of prominent increased PSMA activity without evident radiologic correlate extending along the right internal mamillary vesse ls suspicious for metastatic lymphadenopathy. The most caudal-most intensity demonstrates maximal SUV of 78.7. The next 3 more cephalad demonstrate maximal SUV values from 20.4-45. There are at least 5 additional small less intense foci of increased FDG uptake along the more cephalad right internal pam illary chain. 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 Abdomen/pelvis/proximal thighs: Physiologic renal accumulation and excretion of activity in the kidneys, bladder and along portions o f ureters. There is a relatively photopenic defect associated with approximately 4.5 similar mixed so lid and cystic right renal mass consistent with renal cell carcinoma. Additional photopenic defect as sociated with a left renal cyst better appreciated on prior CT. Normal degree and slightly heterogeno us pattern of increased uptake throughout the liver and spleen without radiologic correlate or domina nt PSMA avid lesion. There are few scattered small low-attenuation and photopenic hepatic cysts. The gallbladder, pancreas and bilateral adrenal glands are normal. Moderate uptake scattered throughout t he bowels with typical duodenal and proximal jejunal predominance and without radiologic correlate, a lso likely physiologic. Bladder is unremarkable. Postoperative change of prior prostatectomy with jovani gical clips in the pelvis consistent with associated bilateral pelvic lymph node dissections. There a re at least 5 small PSMA avid retroperitoneal lymph nodes, the largest aortocaval lymph node near the aortic bifurcation measuring 1.5 x 1.2 cm with maximal SUV of 26.9. Musculoskeletal: Small focus of relatively intense uptake centered at the posterior right 10th rib without a definitiv e radiologic correlate but no most concerning for metastatic disease. There are a f
== END 2023-04-06 13:22 | disposition home or self-care (01) ==
PROVIDERS: PCP Internal Medicine; Visit Provider Urology
DX: C61 Malignant neoplasm of prostate (principal); M89.9 Disorder of bone, unspecified; N28.89 Other specified disorders of kidney and ureter; R91.8 Other nonspecific abnormal finding of lung field; R91.1 Solitary pulmonary nodule
CPT/HCPCS: 78815; A9595

== ENCOUNTER 2023-04-21 10:41 | Outpatient (CLI) | payer MEDICARE, OTHER, SELFPAY ==
--- NOTE | ~2023-04-21 | CT_ITS ---
EXAMINATION: CT chest abdomen pelvis w con DATE: 04/21/2023 11:17 INDICATION: Non-small cell cancer of right lung. TECHNIQUE: Computed tomography (CT) of the chest, abdomen, and pelvis was performed with 100 mL Omnip aque 350 intravenous contrast. Automated exposure control and iterative reconstruction technique were employed. The dose-length product was 568.85 mGy-cm. COMPARISON: CT 01/20/2023, PET/CT 02/04/21, CT abdomen and pelvis 12/23/20 FINDINGS: CHEST CT: There is severe emphysema. There is a chronic 5 mm nodule in right lower lobe, likely benign. There a re airspace opacities with varicose bronchiectasis and volume loss in right lower lobe and right carissa hilar region, consistent with radiation fibrosis. No pleural effusion. The heart size is normal. Ther e are coronary artery calcifications. No pericardial effusion. There is a subcutaneous electronic imp lant in left anterior chest wall. There is mild bilateral gynecomastia. There is severe thoracic spon dylosis. There is a chronic compression fracture of T12. ABDOMEN/PELVIS CT: There are cysts in the liver measuring up to 11 mm . The gallbladder, spleen, pancreas, and kidneys a re normal. There is cortical thinning of the kidneys. There are cysts in the kidneys measuring up to 3.1 cm on the left. There is a 2 mm stone in left kidney. There is a 5.4 cm cystic mass with solid en hancing components in right kidney. There is diverticulosis of the colon without evidence of divertic ulitis. There are no dilated loops of bowel. The appendix is normal. There is calcified atheroscleros is of the aorta and many of the other arteries. There is a 1.9 x 1.6 cm aortocaval lymph node. There is no free intraperitoneal fluid. There is a right inguinal hernia containing fat. There is a chronic 1.4 cm subcutaneous mass in left anterior abdominal wall, likely benign. There is severe lumbar spon dylosis. There is a compression fracture of L2 with 2/5 loss of height, new from 01/20/2023, likely sub acute. IMPRESSION: 1. Radiation fibrosis in right lung lower lobe and right perihilar region. 2. Stable 5.4 cm solid and cystic mass in right kidney, consistent with renal cell carcinoma. 3. Stable enlarged aortocaval lymph node, consistent with metastatic renal cell carcinoma. 4. Severe emphysema. Reviewed, dictated and finalized at location A. IMPRESSION: 1. Radiation fibrosis in right lung lower lobe and right perihilar region. 2. Stable 5.4 cm solid and cystic mass in right kidney, consistent with renal c ell carcinoma. 3. Stable enlarged aortocaval lymph node, consistent with metastatic renal cell carcinoma. 4. Severe emphysema.
[2023-04-21 11:09] LABS: Estimated Glomerular Filt Rate 45
== END 2023-04-21 10:42 | disposition home or self-care (01) ==
LOC: ANHIMG 10:47
PROVIDERS: PCP Internal Medicine; Visit Provider Internal Medicine Hematology & Oncology
DX: C34.91 Malignant neoplasm of unspecified part of right bronchus or lung (principal); J70.1 Chronic and other pulmonary manifestations due to radiation; N28.89 Other specified disorders of kidney and ureter; J43.9 Emphysema, unspecified
CPT/HCPCS: 36415; 71260; 74177; 80053; 85025; Q9967

== ENCOUNTER 2023-07-26 08:03 | Outpatient (CLI) | payer MEDICARE, OTHER, SELFPAY ==
--- NOTE | ~2023-07-26 | CT_ITS ---
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 Automated exposure control and iterative reconstruction technique were employed. The dose-length product was 480.62 mGy-cm. COMPARISON: 04/21/2023 and 01/20/2023 FINDINGS: CHEST CT: Severe emphysema. There is right perihilar consolidation with horizontal band of likely radiation fib rosis related to reported prior non-small cell lung cancer with associated volume loss and bronchiect atic changes extending peripherally into the more anterior right middle lobe and lateral and posterio r right lower lobe. No significant change in 5-6 mm right lower lobe nodule. New subtle small region of groundglass opacity along the anterobasilar left lower lobe. No pleural effusion or pneumothorax. Heart size is normal. Coronary artery calcifications. No pericardial effusion. 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 Atherosclerotic calcifications along the normal caliber thoracic aorta an d the great vessels arising from the arch with no hemodynamically significant stenosis or dissection. No pathologically enlarged thoracic lymphadenopathy. Small sliding-type hiatal hernia with mucosal e nhancement and mild wall thickening along the mid to distal esophagus suggestive of esophagitis which could be related to reflux. Severe thoracic spondylosis with chronic T12 compression fracture. ABDOMEN/PELVIS CT: There are several scattered hepatic and bilateral renal cysts. 4.5 x 4.4 x 3.9 cm mixed cystic and en hancing solid mass at the lower pole of the right kidney consistent with renal cell carcinoma. Small regions of decreased parenchymal enhancement at the mid and lower right kidney suggesting sequela of prior infarct, new since 01/20/2023. Gallbladder, pancreas, spleen and bilateral adrenal glands are nor mal. There is mild colonic diverticulosis with a sigmoid predominance. There is no adjacent inflamma tory change to suggest diverticulitis. No bowel obstruction. Diffuse mild bladder wall thickening. P ostoperative change of prior prostatectomy with multiple surgical clips in the pelvis consistent with associated pelvic lymph node dissection. There is calcified atherosclerosis of the aorta and many of the other arteries. Small fat-containing right inguinal hernia. Minimal decrease in size of a right aortocaval lymph node currently measuring 2.6 x1.6 x 1.4 cm, previously 2.9 x 1.8 x 1.5 cm. No other pathologically enlarged abdominal or pelvic lymphadenopathy. Decrease in size of a couple small subcu taneous nodules in the anterior left abdominal wall, the larger measuring 1.3 cm which may relate to prior subcutaneous injections. Severe lumbar spondylosis . Chronic L2 compression fracture with incre ase in now 50% anterior to central vertebral body height loss with new underlying curvilinear sclerot ic fracture plane. IMPRESSION: 1. Severe emphysema with stable appearance of a band of right perihilar likely radiation fibrosis ext ending horizontally across portion of the right middle and lower lobes for reported treated non-small cell lung cancer. 2. Unchanged 4.5 cm mixed cystic and solid enhancing right renal mass consistent with renal cell carc inoma. Small regions of evolving infarct in portions of the immediately adjacent mid and lower right kidney. 3. Slight decrease in size of a 2.6 x 1.6 x 1.4 cm aortocaval lymph node represent a reactive lymph n ode or response to treatment of a metastatic lymph node. 4. Chronic T12 and L2 compression fractures with interval progression of vertebral body height loss w ith new sub endplate fracture line at L2. Reviewed, dictated and finalized at location A. Electronically signed by Enzo Arias M.D.
[2023-07-26 08:30] LABS: Estimated Glomerular Filt Rate 45
== END 2023-07-26 08:04 | disposition home or self-care (01) ==
PROVIDERS: PCP Internal Medicine; Visit Provider Internal Medicine Hematology & Oncology
DX: C34.91 Malignant neoplasm of unspecified part of right bronchus or lung (principal); J43.9 Emphysema, unspecified; R29.890 Loss of height; N28.89 Other specified disorders of kidney and ureter; M48.55XA Collapsed vertebra, not elsewhere classified, thoracolumbar region, initial encounter for fracture
CPT/HCPCS: 71260; 74177; Q9967

== ENCOUNTER 2023-08-02 15:50 | Outpatient (CLI) | payer MEDICARE, OTHER, SELFPAY ==
[2023-08-02 16:08] LABS: Basophils Percent Auto 0.6 % (0.2-1.2); Eosinophils Absolute Auto 0.1 K/mm3 (0-0.3); Eosinophils Percent Auto 1.3 % (0-4.4); Hematocrit 34.3 % (42.0-52.0); Hemoglobin 10.9 g/dL (14.0-18.0); Immature Granulocyte Absolute 0.02 K/mm3 (0.00-0.031); Immature Granulocyte Percent A 0.4 % (0-0.5); Lymphocytes Absolute Auto 0.79 K/mm3 (0.9-3.2); Lymphocytes Percent Auto 14.5 % (18.3-44.2); Mean Corpuscular HGB Conc 31.8 g/dl (32-36); Mean Corpuscular Hemoglobin 34.1 pg (26-34); Mean Corpuscular Volume 107.2 fl (80-100); Mean Platelet Volume 9.4 fl (7.4-10.4); Monocytes Absolute Auto 0.5 K/mm3 (0.1-0.6); Monocytes Percent Auto 9.2 % (2.6-8.5); Platelet Count Result 205 k/mm3 (150-375); Red Cell Distribution Width 13.7 % (11.5-14.5); White Blood Count 5.4 K/mm3 (4.5-10.0)
[2023-08-02 17:34] LABS: Alanine Aminotransferase 14 U/L (6-50); Alkaline Phosphatase 87 U/L (38-126); Anion Gap 11 mmol/L (8-16); Aspartate Amino Transferase 22 U/L (17-59); Bilirubin,Total 0.4 mg/dL (0.2-1.3); Blood Urea Nitrogen 43 mg/dL (9-20); Calcium 9.2 mg/dL (8.4-10.2); Carbon Dioxide 23 mmol/L (22-30); Chloride 102 mmol/L (98-107); Estimated Glomerular Filt Rate 41; Glucose 114 mg/dL (65-110); Potassium 3.9 mmol/L (3.4-5.0); Sodium 136 mmol/L (137-145)
== END 2023-08-02 15:51 | disposition home or self-care (01) ==
LOC: ANHLAB 15:53
PROVIDERS: PCP Internal Medicine; Visit Provider Internal Medicine Hematology & Oncology
DX: C34.91 Malignant neoplasm of unspecified part of right bronchus or lung (principal)
CPT/HCPCS: 36415; 80053; 85025